=== PATIENT | male | born 1945 | race Caucasian/White ===

== ENCOUNTER 2016-05-15 12:53 | Inpatient (IN) | payer OTHER, MEDICARE ==
[2016-05-15] VITALS (12 sets, daily range): BP systolic 88–149; BP diastolic 50–89; PULSE 71–114; RESP 12–22; TEMP 97.8–99.1; O2SAT 93–97
[~2016-05-15] VITALS: Ht 172.7 cm; Wt 93.4 kg
[~2016-05-15 12:53] MED LIST: ALLO100T PO; ASPI1TAB7 PO; ATOR20TA42 PO; CLOP75TA PO; FENO200C PO; GLYB5TAB3 PO; HUMALOGP SC; LANTUSP SQ; LISI-366 PO; LORT5TAB PO; SULF1TAB47 PO; TAMS0.4C67 PO; VITA100018 PO
[2016-05-15] MEDS ORDERED: GLIP5TAB8 PO (13:11)
[2016-05-15] MEDS ORDERED: LISI40TA PO (13:11)
[2016-05-15] MEDS ORDERED: CORE25TA PO (13:11)
[2016-05-15] MEDS ORDERED: GABA300C5 PO (13:11)
[2016-05-15] MEDS ORDERED: LANTUS2P SQ (13:11)
[2016-05-15] MEDS ORDERED: ALLO100T PO (13:11)
[2016-05-15] MEDS ORDERED: METF500T PO (13:11)
[2016-05-15] MEDS ORDERED: SODIUM CHLORIDE 0.9% FLUSH 5 ML FLUSH IVF PRN (13:15)
[2016-05-15] MEDS ORDERED: SODIUM CHLORID 0.9% 500 ML INJ 500 ML IV ONE (13:15)
[2016-05-15 13:34] LABS: AUTOMATED NEUTROPHIL # 18.8 TH/MM3 (1.8-7.7); BASOPHIL # 0.1 TH/MM3 (0-0.2); BASOPHIL % 0.6 % (0.0-2.0); EOSINOPHIL # 0.1 TH/MM3 (0-0.4); EOSINOPHIL % 0.2 % (0.0-4.0); HEMATOCRIT 41.4 % (39.0-51.0); LYMPH % 6.2 % (9.0-44.0); LYMPHOCYTE # 1.3 TH/MM3 (1.0-4.8); MEAN CELL VOLUME 84.5 FL (80.0-100.0); MEAN CORPUSCULAR HEMOGLOBIN 28.1 PG (27.0-34.0); MEAN CORPUSCULAR HGB CONC 33.2 % (32.0-36.0); MONO % 5.6 % (0.0-8.0); NEUT % 87.4 % (16.0-70.0); PLATELET COUNT 350 TH/MM3 (150-450); RED CELL DISTRIBUTION WIDTH 16.3 % (11.6-17.2); WHITE BLOOD COUNT 21.5 TH/MM3 (4.0-11.0)
[2016-05-15 13:37] LABS: BLOOD, URINE TRACE (NEG); GLUCOSE,URINE NEG (NEG); GRANULAR CAST, URINE 1 /lpf; HYALINE CAST, URINE 1 /lpf (RARE); KETONE, URINE NEG (NEG); MUCUS URINE FEW /lpf (OCC); NITRITE,URINE NEG (NEG); PH, URINE 5.5 (5.0-8.5); URINE COLOR YELLOW (YELLW/STRAW)
[2016-05-15 13:38] LABS: COMMENT (UR) CULTURE INDICATED; CULTURE IF INDICATED CULTURE INDICATED
[2016-05-15 13:39] LABS: APTT (PATIENT) 26.4 SEC (24.3-30.1); PROTHROMBIN TIME - PATIENT 11.4 SEC (9.8-11.6)
[2016-05-15 13:42] LABS: HEMO FLAGS AUTO DIFF
[2016-05-15 13:52] LABS: ALT (GPT) 18 U/L (12-78); ANION GAP 12 MEQ/L (5-15); AST (GOT) 11 U/L (15-37); BLOOD UREA NITROGEN 31 MG/DL (7-18); CHLORIDE 102 MEQ/L (98-107); GLOMERULAR FILTRATION RATE 31 ML/MIN (>89); POTASSIUM 4.7 MEQ/L (3.5-5.1); SODIUM (NA) 136 MEQ/L (136-145)
[2016-05-15 13:56] LABS: ALKALINE PHOSPHATASE 56 U/L (45-117); CREATINE KINASE 106 U/L (39-308); TOTAL BILIRUBIN ADULT 0.5 MG/DL (0.2-1.0)
--- NOTE | 2016-05-15 13:57 | RADRPT ---
EXAM DATE/TIME: 05/15/2016 13:13 [facility] COMPARISON: No previous studies available for comparison. INDICATIONS : Chest pain. MEDICAL HISTORY : None. SURGICAL HISTORY : None. ENCOUNTER: Initial ACUITY: 2 days PAIN SCORE: 10/10 LOCATION: [place] chest FINDINGS: There is compensated cardiomegaly. The lungs are underaerated with minimal bibasilar parenchymal aiden nges evident. There is no pleural effusion or pneumothorax. Portions of the bony skeleton visualize d are unremarkable. CONCLUSION: 1. Underaerated. 2. Compensated cardiomegaly. Ramsey Hi MD FACR on May 15, 2016 at 13:53 Board Certified Radiologist. This report was verified electronically.
--- NOTE | 2016-05-15 14:20 | PD ---
HPI Chief Complaint: Chest Pain Time Seen by Provider: 13:04 Travel History International Travel<30 days: No Contact w/Intl Traveler<30days: No Traveled to known affect area: No History of Present Illness HPI Patient is a 70-year-old male with history of coronary artery disease, cardiac stents, hypertension, DM, hyperlipidemia who presents to emergency room with complaints of chest pain. Patient reports that the chest pain woke him up from sleep around 10 - 11 PM last night. Patient reports that chest pain is located is substernal, reports that it does not radiate anywhere. Patient describes the pain as initially "sharp and stabbing" but now reports that the pain feels like a "pressure" to my chest. Patient reports that his chest pain has been constant all night, reports the symptoms are not been getting any better. Patient reports that 4-5 hours prior to presents to emergency room, he began to have abdominal pain. Patient reports that pain is located to his mid abdomen and is nonradiating in nature. Patient reports that he feels nauseous and has been dry heaving, denies vomiting. PFSH Past Medical History Cardiac Catheterization: Yes High Cholesterol: Yes Coronary Artery Disease: Yes Diabetes: Yes Patient Takes Glucophage: Yes Diminished Hearing: No Hypertension: Yes Kidney Stones: Yes Influenza Vaccination: Yes ?: Not Past Surgical History Coronary Stent: Yes Social History Alcohol Use: No (denies) Tobacco Use: No (denies) Substance Use: No (denies) Allergies-Medications (Allergen,Severity, Reaction): Coded Allergies: No Known Allergies (Unverified , 03/31/13) Reported Meds & Prescriptions Reported Meds & Active Scripts Active Reported Lantus Inj (Insulin Glargine) 100 Unit/Ml Inj 100 Units SQ HS Allopurinol 100 Mg Tab 100 Mg PO DAILY Metformin (Metformin HCl) 500 Mg Tab 500 Mg PO DAILY With a meal Coreg (Carvedilol) 25 Mg Tab 25 Mg PO BID Glipizide 5 Mg Tab 5 Mg PO DAILY Take 30 minutes before a meal Gabapentin 300 Mg Cap 300 Mg PO HS Lisinopril 40 Mg Tab 40 Mg PO DAILY Review of Systems General / Constitutional: No: Fever Eyes: No: Visual changes HENT: No: Headaches Cardiovascular: Positive: Chest Pain or Discomfort, Diaphoresis Respiratory: No: Shortness of Breath Gastrointestinal: Positive: Nausea, Abdominal Pain, No: Vomiting, Diarrhea Genitourinary: No: Dysuria Musculoskeletal: No: Pain Skin: No Rash Neurologic: No: Weakness Psychiatric: No: Depression Endocrine: No: Polydipsia Hematologic/Lymphatic: No: Easy Bruising Physical Exam Narrative GENERAL: Moderate distress SKIN: Warm and dry. HEAD: Atraumatic. Normocephalic. EYES: Pupils equal and round. No scleral icterus. No injection or drainage. ENT: No nasal bleeding or discharge. Mucous membranes pink and moist. NECK: Trachea midline. No JVD. CARDIOVASCULAR: Tachycardia , No murmur appreciated. RESPIRATORY: No accessory muscle use. Clear to auscultation. Breath sounds equal bilaterally. GASTROINTESTINAL: Abdomen soft, abdomen is diffusely tender MUSCULOSKELETAL: No obvious deformities. No clubbing. No cyanosis. No edema. NEUROLOGICAL: Awake and alert. No obvious cranial nerve deficits. Motor grossly within normal limits. Normal speech. PSYCHIATRIC: Appropriate mood and affect; insight and judgment normal. Data Data Last Documented VS Vital Signs Date Time Temp Pulse Resp B/P Pulse Ox O2 Delivery O2 Flow Rate FiO2 05/15/16 14:58 95 18 149/69 97 Room Air 05/15/16 13:18 2 05/15/16 13:01 97.8 Orders B-Type Natriuretic Peptide (05/15/16 13:09) Ckmb (Isoenzyme) Profile (05/15/16 13:09) Complete Blood Count With Diff (05/15/16 13:09) Comprehensive Metabolic Panel (05/15/16 13:09) Prothrombin Time / Inr (Pt) (05/15/16 13:09) Act Partial Throm Time (Ptt) (05/15/16 13:09) Troponin I (05/15/16 13:09) Lipase (05/15/16 13:09) Chest, Single Ap (05/15/16 13:09) Ecg Monitoring (05/15/16 13:09) Bilateral Bp Monitoring (05/15/16 13:09) Iv Access Insert/Monitor (05/15/16 13:09) Oximetry (05/15/16 13:09) Sodium Chloride 0.9% Flush (Ns Flush) (05/15/16 13:15) Sodium Chlorid 0.9% 500 Ml Inj (Ns 500 M (05/15/16 13:15) Urinalysis - C+S If Indicated (05/15/16 13:09) Urine Culture (05/15/16 13:20) CKMB (05/15/16 13:20) CKMB% (05/15/16 13:20) Lactic Acid Sepsis Protocol (05/15/16 14:05) Influenzae A/B Antigen (05/15/16 14:05) Blood Culture (05/15/16 14:05) Electrocardiogram (05/15/16 ) Ct Thorax/ Chest Wo Iv Contras (05/15/16 ) Ct Abd/Pel W/O Iv Contrast (05/15/16 ) Nitroglycerin Sl (Nitrostat Sl) (05/15/16 14:45) Piperacil-Tazo 3.375 Gm Premix (Zosyn 3. (05/15/16 15:45) Vancomycin Inj (Vancomycin Inj) (05/15/16 15:45) Heparin Infusion LETI.Q1H (05/15/16 15:42) Heparin-D5w Inj (Heparin-D5w Inj) (05/15/16 15:45) Morphine Inj (Morphine Inj) (05/15/16 16:00) Nitroglycerin-Dextrose Inj (Nitroglyceri (05/15/16 16:00) Aspirin (Aspirin) (05/15/16 16:30) Admit Order (Ed Use Only) (05/15/16 16:25) Labs Laboratory Tests Test 05/15/16 05/15/16 13:20 14:15 White Blood Count 21.5 TH/MM3 Red Blood Count 4.90 MIL/MM3 Hemoglobin 13.8 GM/DL Hematocrit 41.4 % Mean Corpuscular Volume 84.5 FL Mean Corpuscular Hemoglobin 28.1 PG Mean Corpuscular Hemoglobin 33.2 % Concent Red Cell Distribution Width 16.3 % Platelet Count 350 TH/MM3 Mean Platelet Volume 9.3 FL Neutrophils (%) (Auto) 87.4 % Lymphocytes (%) (Auto) 6.2 % Monocytes (%) (Auto) 5.6 % Eosinophils (%) (Auto) 0.2 % Basophils (%) (Auto) 0.6 % Neutrophils # (Auto) 18.8 TH/MM3 Lymphocytes # (Auto) 1.3 TH/MM3 Monocytes # (Auto) 1.2 TH/MM3 Eosinophils # (Auto) 0.1 TH/MM3 Basophils # (Auto) 0.1 TH/MM3 CBC Comment AUTO DIFF Differential Total Cells 100 Counted Neutrophils % (Manual) 81 % Band Neutrophils % 5 % Lymphocytes % 5 % Monocytes % 8 % Basophils % 1 % Neutrophils # (Manual) 18.5 TH/MM3 Differential Comment FINAL DIFF MANUAL Platelet Estimate NORMAL Platelet Morphology Comment NORMAL Prothrombin Time 11.4 SEC Prothromb Time International 1.0 RATIO Ratio Activated Partial 26.4 SEC Thromboplast Time Urine Color YELLOW Urine Turbidity CLEAR Urine pH 5.5 Urine Specific [place] 1.019 Urine Protein 300 mg/dL Urine Glucose (UA) NEG mg/dL Urine Ketones NEG mg/dL Urine Occult Blood TRACE Urine Nitrite NEG Urine Bilirubin NEG Urine Urobilinogen LESS THAN 2.0 MG/DL Urine Leukocyte Esterase SMALL Urine RBC 1 /hpf Urine WBC 24 /hpf Urine Hyaline Casts 1 /lpf Urine Granular Casts 1 /lpf Urine Mucus FEW /lpf Microscopic Urinalysis Comment CULTURE INDICATED Sodium Level 136 MEQ/L Potassium Level 4.7 MEQ/L Chloride Level 102 MEQ/L Carbon Dioxide Level 22.0 MEQ/L Anion Gap 12 MEQ/L Blood Urea Nitrogen 31 MG/DL Creatinine 2.16 MG/DL Estimat Glomerular Filtration 31 ML/MIN Rate Random Glucose 118 MG/DL Calcium Level 9.3 MG/DL Total Bilirubin 0.5 MG/DL Aspartate Amino Transf 11 U/L (AST/SGOT) Alanine Aminotransferase 18 U/L (ALT/SGPT) Alkaline Phosphatase 56 U/L Total Creatine Kinase 106 U/L Creatine Kinase MB 1.6 NG/ML Troponin I 0.23 NG/ML B-Type Natriuretic Peptide 41 PG/ML Total Protein 8.4 GM/DL Albumin 3.7 GM/DL Lipase 121 U/L Lactic Acid Level 1.4 mmol/L [facility] Medical Decision Making Medical Screen Exam Complete: Yes Emergency Medical Condition: Yes Interpretation(s) EKG at 1259: sinus tach at 116bpm, qt/qtc: 307/376, no previous ekg to compare Vital Signs Date Time Temp Pulse Resp B/P Pulse Ox O2 Delivery O2 Flow Rate FiO2 05/15/16 13:18 110 143/83 145/89 05/15/16 13:18 18 97 Nasal Cannula 2 05/15/16 13:05 117 18 97 Room Air 05/15/16 13:01 97.8 114 18 143/83 97 Differential Diagnosis ACS, arrhythmia, electrolyte abnormality, PE, aortic dissection, gastroenteritis , gastritis Vital Signs Date Time Temp Pulse Resp B/P Pulse Ox O2 Delivery O2 Flow Rate FiO2 05/15/16 13:18 110 143/83 145/89 05/15/16 13:18 18 97 Nasal Cannula 2 05/15/16 13:05 117 18 97 Room Air 05/15/16 13:01 97.8 114 18 143/83 97 Narrative Course Patient is a 70-year-old male who presents to emergency room with multiple complaints. 1: Patient with chest pain which woke him up from sleep last night around 10:50 PM last night. Patient reports that pain is substernal, reports that initially pain felt like a sharp stabbing sensation, reports that now pain felt a pressure was chest. Initial EKG with no acute st seg changes, labs, ce and xray of chest ordered ordered. CTA ordered to rule out aortic dissection. 2. Patient also abdominal pain, lft's ordered. Plan to perform sterile abdominal exams. CAT scan of the chest and abdomen pelvis ordered for evaluation of possible dissection - this will also evaluate for possible abdominal pathology. Patient's creatinine 2.16 - unable to determine CTA at this time secondary to elevated cr. CAT scan of chest abdomen pelvis ordered without IV contrast ordered. CT of the chest with no evidence of pneumothorax, patient does have marked coronary artery calcifications. There is mild dilation of the ascending aorta when compared to the descending aorta - unable to evaluate for aortic dissection without IV contrast. CT of the abdomen and pelvis again shows some marked coronary artery calcifications. Overall, I do think that patient has low probability for aortic dissection. Patient is responding to sublingual nitros, he has improved chest pain after 2 sl nitro's. Plan to admit to him to hospital. Patient also with SIRS criteria, blood cultures and lactate ordered, will treat with empiric antibiotics. Source of leukocytosis unknown at this time. Critical Care Narrative Aggregate critical care time was 30 minutes. Time to perform other separately billable procedures was not included in the critical care time. My time did not include minutes spent treating any other patients simultaneously or on activities that did not directly contribute to the patient's treatment. The services I provided to this patient were to treat and/or prevent clinically significant deterioration that could result in: , decompensation, deterioration I provided critical care services requiring my management, as noted below: Chart data review, documentation time, medication orders and management, vital sign assessments/reviewing monitor data, ordering and reviewing lab tests, ordering and interpreting/reviewing x-rays and diagnostic studies, care of the patient and discussion of the patient with the admitting physicians. Physician Communication Physician Communication Case reviewed with Dr Koch who accepts pt to service Diagnosis Primary Impression: Unstable angina Additional Impressions: NSTEMI (non-ST elevated myocardial infarction) SIRS (systemic inflammatory response syndrome) Renal insufficiency Admitting Information Admitting Physician Requests: Admit Shirley Bradford DO May 15, 2016 14:20
[2016-05-15 14:32] LABS: CKMB 1.6 NG/ML (0.5-3.6)
[2016-05-15] MEDS: NITROGLYCERIN 0.4 MG SL 25 TABS/BTL SL SCH ×3 (14:50→14:57)
[2016-05-15 14:54] LABS: BANDS 5 % (0-6); BASOPHILS 1 % (0-2); NEUTROPHIL # MANUAL DIFF 18.5 TH/MM3 (1.8-7.7); PLATELET ESTIMATE SMEAR NORMAL (NORMAL); PLATELET MORPHOLOGY NORMAL (NORMAL); POLYS (SEG NEUTROPHILS) 81 % (16-70); SCAN/DIFF FINAL DIFF MANUAL; WBC DIFF SAMPLE 100
--- NOTE | 2016-05-15 15:18 | RADRPT ---
EXAM DATE/TIME: 05/15/2016 14:43 [facility] COMPARISON: CT ABDOMEN & PELVIS W/O CONTRAST, March 31, 2013, 10:56. INDICATIONS : Chest pain starting while patient was sleeping, back pain. ORAL CONTRAST: No oral contrast ingested. RADIATION DOSE: 5.3 CTDIvol (mGy) ; Combined studies - Thorax/Abdomen/Pelvis MEDICAL HISTORY : Cardiovascular disease. Hypertension. Diabetes SURGICAL HISTORY : Coronary artery stent. ENCOUNTER: Initial ACUITY: 1 day PAIN SCALE: 6/10 LOCATION: Back abdomen TECHNIQUE: Volumetric scanning of the abdomen and pelvis was performed. Using automated exposure control and adjustment of the mA and/or kV according to patient size, radiation dose was kept as low as reasonably achievable to obtain optimal diagnostic quality images. FINDINGS: Minimal parenchymal changes are seen in the left base. There are marked coronary arter y calcifications in the LAD, circumflex and right coronary. Multiple gallstones are evident in a benign-appearing gallbladder. The liver is free of focal defect s. Spleen, pancreas and adrenals are unremarkable. Kidneys are somewhat small. There is no ascites or adenopathy. Region of the cecum and terminal ileum are unremarkable. Prostatic calcifications are noted. Pelvic contents are otherwise unremarkable. CONCLUSION: 1. Marked coronary artery calcifications. 2. I do not see an etiology for the patient's back pain. Ramsey Hi MD FACR on May 15, 2016 at 15:11 Board Certified Radiologist. This report was verified electronically.
--- NOTE | 2016-05-15 15:33 | RADRPT ---
EXAM DATE/TIME: 05/15/2016 14:37 [facility] COMPARISON: CT ABDOMEN & PELVIS W/O CONTRAST, May 15, 2016, 14:43. INDICATIONS: Chest pain starting while patient was sleeping. RADIATION DOSE: 5.3 CTDIvol (mGy) ; Combined studies - Thorax/Abdomen/Pelvis MEDICAL HISTORY: Cardiovascular disease. Hypertension. Diabetes SURGICAL HISTORY: Coronary artery stent. ENCOUNTER: Initial ACUITY: 1 day PAIN SCALE: 6/10 LOCATION: Chest, back TECHNIQUE: Volumetric scanning of the chest was performed. Using automated exposure control and adjustment of t he mA and/or kV according to patient size, radiation dose was kept as low as reasonably achievable to obtain optimal diagnostic quality images. FINDINGS: There are minimal bibasilar parenchymal changes evident worse on the left than the right. Marked cor onary artery calcifications are present. There is no axillary adenopathy. There is no mediastinal adenopa thy. There is mild dilatation of the ascending aorta when compared to the descending aorta. There is no pericardia l effusion. CONCLUSION: 1. Lack of intravenous contrast makes it impossible to exclude a dissection. 2. There is no evidence for pneumothorax. 3. Marked coronary artery calcifications. Ramsey Hi MD FACR on May 15, 2016 at 15:26 Board Certified Radiologist. This report was verified electronically.
[2016-05-15] MEDS ORDERED: VANCOMYCIN INJ 1,250 MG in SODIUM CHLOR 0.9% 250 ML INJ 250 ML IV ONE (15:45)
[2016-05-15] MEDS ORDERED: PIPERACIL-TAZO 3.375 GM PREMIX 50 ML IV ONE (15:45)
[2016-05-15] MEDS ORDERED: NITROGLYCERIN-DEXTROSE INJ 250 ML IV SCH (16:00)
[2016-05-15] MEDS ORDERED: MORPHINE SULFATE 4 MG/ML INJ IV PUSH ONE (16:00)
[2016-05-15] MEDS: HEPARIN-D5W INJ 250 ML IV SCH (16:24)
[2016-05-15] MEDS ORDERED: ASPIRIN 325 MG TAB PO ONE (16:30)
[2016-05-15] MEDS ORDERED: SODIUM CHLOR 0.9% 1000 ML INJ 1,000 ML IV ONE (16:30)
[2016-05-15] MEDS ORDERED: ONDANSETRON HCL 4 MG/2 ML VIAL IV PUSH PRN (16:45)
[2016-05-15] MEDS ORDERED: GLUCAGON 1 MG/ML VIAL OTHER PRN (16:45)
--- NOTE | 2016-05-15 16:55 | HHI.HP ---
[facility] Service [place] [facility] Primary Care Physician Patrick Roman MD Admission Diagnosis NSTEMI Diagnoses: (1) NSTEMI (non-ST elevated myocardial infarction) Diagnosis: Principal (2) SIRS (systemic inflammatory response syndrome) Diagnosis: Principal Chief Complaint: chest pain Travel History International Travel<30 Days: No Contact w/Intl Traveler <30 Da: No Traveled to Known Affected Are: No Sepsis Criteria SIRS Criteria (2 or more): Heart rate over 90, WBC > 19858, < 4000 or > 10% bands Criteria Outcome: Meets SIRS criteria History of Present Illness patient is a 70 y/o male with history of CAD- s/p stent placement, hypertension , diabetes who presented to ER with chest pain. he says that he started to have chest pain last night when he was sleeping. pain was epigastric/ midsternal with no radiation. pain was associated with mild sob and nausea. he says that he had some relief with the nitro that he received earlier.he denies any emesis , diarrhea, fever, chills, cough or urinary symptoms.the last stress test as he remembers was two years ago. Review of Systems Constitutional: DENIES: Fever, Weight loss, Chills, Night Sweats Eyes: DENIES: Blurred vision, Diplopia, Vision loss, Double Vision Ears, nose, mouth, throat: DENIES: Tinnitus, Vertigo, Throat pain, Epistaxis Respiratory: COMPLAINS OF: Shortness of breath, DENIES: Apneas, Cough, Snoring , Wheezing, Hemoptysis, Sputum production Cardiovascular: COMPLAINS OF: Chest pain, DENIES: Palpitations, Syncope, Dyspnea on Exertion, PND, Lower Extremity Edema, Orthopnea, Claudication Gastrointestinal: COMPLAINS OF: Nausea, DENIES: Abdominal pain, Black stools, Bloody stools, Constipation, Diarrhea, Vomiting, Difficulty Swallowing, Anorexia Genitourinary: DENIES: Urinary frequency, Urgency, Hematuria, Dysuria Musculoskeletal: DENIES: Joint pain, Muscle aches, Stiffness, Joint Swelling Integumentary: DENIES: Rash Neurologic: DENIES: Abnormal gait, Headache, Localized weakness, Paresthesias, Seizures, Speech Problems, Tremor, Poor Balance Psychiatric: DENIES: Anxiety, Confusion, Mood changes, Depression, Hallucinations, Agitation, Suicidal Ideation, Homicidal Ideation, Delusions Past Family Social History Past Medical History CAD diabetes mellitus chronic renal insufficiency hypertension Past Surgical History cardiac stent placement. Reported Medications Lantus Inj (Insulin Glargine) 100 Unit/Ml Inj 100 Units SQ HS Allopurinol 100 Mg Tab 100 Mg PO DAILY Metformin (Metformin HCl) 500 Mg Tab 500 Mg PO DAILY With a meal Coreg (Carvedilol) 25 Mg Tab 25 Mg PO BID Glipizide 5 Mg Tab 5 Mg PO DAILY Take 30 minutes before a meal Gabapentin 300 Mg Cap 300 Mg PO HS Lisinopril 40 Mg Tab 40 Mg PO DAILY Allergies: Coded Allergies: No Known Allergies (Unverified , 03/31/13) Active Ordered Medications Current Medications IV Flush 2 ml 2 ml UNSCH PRN IVF FLUSH AFTER USING IV ACCESS; Start 05/15/16 at 13:15 Sodium Chloride (NS 500 ml Inj) 500 ml @ 500 mls/hr ONCE ONCE IV Last administered on 05/15/16 13:15; Start 05/15/16 at 13:15; Stop 05/15/16 at 14:14; Status DC Nitroglycerin 0.4 mg 0.4 mg Q5M SL Last administered on 05/15/16 14:55; Start 05/15/16 at 14:45; Stop 05/15/16 at 14:56; Status DC Piperacillin Sod/ Tazobactam Sod 50 ml @ 100 mls/hr ONCE ONCE IV Last administered on 05/15/16 16:21; Start 05/15/16 at 15:45; Stop 05/15/16 at 16:14; Status DC Vancomycin HCl 1250 mg/Sodium Chloride 262.5 ml @ 250 mls/hr ONCE ONCE IV ; Start 05/15/16 at 15:45; Stop 05/15/16 at 16:47 Heparin Sodium/ Dextrose (Heparin-D5W Inj) 250 ml @ 0 mls/hr TITRATE IV Last administered on 05/15/16 16:24; Start 05/15/16 at 15:45 Morphine Sulfate 4 mg 4 mg ONCE ONCE IV PUSH Last administered on 05/15/16 16: 20; Start 05/15/16 at 16:00; Stop 05/15/16 at 16:01; Status DC Nitroglycerin/ Dextrose (Nitroglycerin-Dextrose Inj) 250 ml @ 0 mls/hr TITRATE IV Last administered on 05/15/16t 16:21; Start 05/15/16 at 16:00 Aspirin 325 mg 325 mg ONCE ONCE PO ; Start 05/15/16 at 16:30; Stop 05/15/16 at 16 :31; Status DC Sodium Chloride (NS 1000 ml Inj) 1,000 ml @ 999 mls/hr BOLUS ONCE IV ; Start 05/15/16 at 16:30; Stop 05/15/16 at 17:30 Family History heart disease in father and mother. Social History doesn't smoke or drink. Physical Exam Vital Signs Vital Signs Date Time Temp Pulse Resp B/P Pulse Ox O2 Delivery O2 Flow Rate FiO2 05/15/16 14:58 95 18 149/69 97 Room Air 05/15/16 13:18 110 143/83 145/89 05/15/16 13:18 18 97 Nasal Cannula 2 05/15/16 13:05 117 18 97 Room Air 05/15/16 13:01 97.8 114 18 143/83 97 Physical Exam GENERAL: This is a well-nourished, well-developed patient, in no apparent distress. SKIN: No rashes, ecchymoses or lesions. Cool and dry. HEAD: Atraumatic. Normocephalic. No temporal or scalp tenderness. EYES: Pupils equal round and reactive. Extraocular motions intact. No scleral icterus. No injection or drainage. ENT: Nose without bleeding, purulent drainage or septal hematoma. Throat without erythema, tonsillar hypertrophy or exudate. Uvula midline. Airway patent. NECK: Trachea midline. No JVD or lymphadenopathy. Supple, nontender, no meningeal signs. CARDIOVASCULAR: Regular rate and rhythm without murmurs, gallops, or rubs. RESPIRATORY: Clear to auscultation. Breath sounds equal bilaterally. No wheezes , rales, or rhonchi. GASTROINTESTINAL: Abdomen soft, non-tender, nondistended. No hepato-splenomegaly , or palpable masses. No guarding. MUSCULOSKELETAL: Extremities without clubbing, cyanosis, or edema. No joint tenderness, effusion, or edema noted. No calf tenderness. Negative Homans sign bilaterally. NEUROLOGICAL: Awake and alert. Cranial nerves II through XII intact. Motor and sensory grossly within normal limits. Five out of 5 muscle strength in all muscle groups. Normal speech. Laboratory Laboratory Tests Test 05/15/16 05/15/16 13:20 14:15 White Blood Count 21.5 Red Blood Count 4.90 Hemoglobin 13.8 Hematocrit 41.4 Mean Corpuscular Volume 84.5 Mean Corpuscular Hemoglobin 28.1 Mean Corpuscular Hemoglobin 33.2 Concent Red Cell Distribution Width 16.3 Platelet Count 350 Mean Platelet Volume 9.3 Neutrophils (%) (Auto) 87.4 Lymphocytes (%) (Auto) 6.2 Monocytes (%) (Auto) 5.6 Eosinophils (%) (Auto) 0.2 Basophils (%) (Auto) 0.6 Neutrophils # (Auto) 18.8 Lymphocytes # (Auto) 1.3 Monocytes # (Auto) 1.2 Eosinophils # (Auto) 0.1 Basophils # (Auto) 0.1 CBC Comment AUTO DIFF Differential Total Cells 100 Counted Neutrophils % (Manual) 81 Band Neutrophils % 5 Lymphocytes % 5 Monocytes % 8 Basophils % 1 Neutrophils # (Manual) 18.5 Differential Comment FINAL DIFF MANUAL Platelet Estimate NORMAL Platelet Morphology Comment NORMAL Prothrombin Time 11.4 Prothromb Time International 1.0 Ratio Activated Partial 26.4 Thromboplast Time Urine Color YELLOW Urine Turbidity CLEAR Urine pH 5.5 Urine Specific [place] 1.019 Urine Protein 300 Urine Glucose (UA) NEG Urine Ketones NEG Urine Occult Blood TRACE Urine Nitrite NEG Urine Bilirubin NEG Urine Urobilinogen LESS THAN 2.0 Urine Leukocyte Esterase SMALL Urine RBC 1 Urine WBC 24 Urine Hyaline Casts 1 Urine Granular Casts 1 Urine Mucus FEW Microscopic Urinalysis Comment CULTURE INDICATED Sodium Level 136 Potassium Level 4.7 Chloride Level 102 Carbon Dioxide Level 22.0 Anion Gap 12 Blood Urea Nitrogen 31 Creatinine 2.16 Estimat Glomerular Filtration 31 Rate Random Glucose 118 Calcium Level 9.3 Total Bilirubin 0.5 Aspartate Amino Transf 11 (AST/SGOT) Alanine Aminotransferase 18 (ALT/SGPT) Alkaline Phosphatase 56 Total Creatine Kinase 106 Creatine Kinase MB 1.6 Troponin I 0.23 B-Type Natriuretic Peptide 41 Total Protein 8.4 Albumin 3.7 Lipase 121 Lactic Acid Level 1.4 Date/Time Procedure Status Source Growth 05/15/16 14:15 Aerobic Blood Culture Received Blood Peripheral Pending 05/15/16 14:15 Anaerobic Blood Culture Received Blood Peripheral Pending 05/15/16 13:20 Urine Culture Worksheet Urine Clean Catch Pending Result Diagram: 05/15/16 1320 05/15/16 1320 Imaging EKG; sinus tachycardia with no acute ST-T changes. Assessment and Plan Assessment and Plan A/P - NSTEMI with histiry of CAD and stent placement started on heparin and nitro drip and received a dose of aspirin- will trend the cardiac enzymes will consult cardiology. -SIRS- no obvious source of infection at this time- received IV Abx in ER- will repeat the CBC in am- monitor temps and follow the cultures -hypertension; resume BB- hold lisinopril for now -diabetes mellitus; resume long-acting insulin- hold metformin- accu-check with SSI -chronic renal insufficiency; will monitor -DVT prophylaxis ; on heparin drip Discussed Condition With ER physician and the patient. Physician Certification 2 Midnight Certification Type: Admission for Inpatient Services Order for Inpatient Services The services are ordered in accordance with Medicare regulations or non- Medicare payer requirements, as applicable. In the case of services not specified as inpatient-only, they are appropriately provided as inpatient services in accordance with the 2-midnight benchmark. Estimated LOS (days): 2 days is the estimated time the patient will need to remain in the hospital, assuming treatment plan goals are met and no additional complications. Post-Hospital Plan: Home Tracy Parry MD May 15, 2016 16:55
[2016-05-15] MEDS: SODIUM CHLOR 0.9% 1000 ML INJ 1,000 ML IV SCH (17:00)
--- NOTE | 2016-05-15 17:52 | EKG ---
Date Performed: 05/15/2016 Time Performed: 14:22:33 PTAGE: 70 years EKG: SINUS TACHYCARDIA WITH OCCASIONAL VENTRICULAR PREMATURE COMPLEXES PATTERN CONSISTENT WITH P ULMONARY DISEASE INFERIOR MYOCARDIAL INFARCTION ABNORMAL ECG COMPARED TO PRIOR ELECTROCARDIOGRAM, PVC s are present. PREVIOUS TRACING : 05/15/2016 12.59 DOCTOR: Anjel Garcia Interpretating Date/Time 05/15/2016 17:51:07
--- NOTE | 2016-05-15 17:52 | EKG ---
Date Performed: 05/15/2016 Time Performed: 12:59:12 PTAGE: 70 years EKG: SINUS TACHYCARDIA PATTERN CONSISTENT WITH PULMONARY DISEASE INFERIOR MYOCARDIAL INFARCTION ABNORMAL ECG NO PREVIOUS TRACING DOCTOR: Anjel Garcia Interpretating Date/Time 05/22/2016 06:57:48
[2016-05-15] MEDS: GABAPENTIN 300 MG CAP PO SCH (20:25)
[2016-05-15] MEDS: CARVEDILOL 12.5 MG TAB PO SCH (20:26)
[2016-05-15] MEDS: INSULIN DETEMIR 100 UNITS/ML VIAL SQ SCH (20:29)
[2016-05-15] MEDS: ACETAMINOPHEN 325 MG TAB PO PRN (20:37)
[2016-05-15] MEDS: INSULIN ASPART SUPPLEMENTAL SCALE SQ SCH (21:00)
[2016-05-16] VITALS (28 sets, daily range): BP systolic 92–118; BP diastolic 57–65; PULSE 71–111; RESP 17–24; TEMP 98–99.1; O2SAT 92–100
[2016-05-16 02:47] LABS: AUTOMATED NEUTROPHIL # 13.9 TH/MM3 (1.8-7.7); BASOPHIL # 0.2 TH/MM3 (0-0.2); BASOPHIL % 0.9 % (0.0-2.0); EOSINOPHIL # 0.1 TH/MM3 (0-0.4); EOSINOPHIL % 0.4 % (0.0-4.0); HEMATOCRIT 38.5 % (39.0-51.0); HEMO FLAGS DIFF FINAL; LYMPH % 7.9 % (9.0-44.0); LYMPHOCYTE # 1.3 TH/MM3 (1.0-4.8); MEAN CELL VOLUME 84.7 FL (80.0-100.0); MEAN CORPUSCULAR HEMOGLOBIN 27.5 PG (27.0-34.0); MEAN CORPUSCULAR HGB CONC 32.4 % (32.0-36.0); MONO % 6.5 % (0.0-8.0); NEUT % 84.3 % (16.0-70.0); PLATELET COUNT 267 TH/MM3 (150-450); RED BLOOD COUNT 4.54 MIL/MM3 (4.50-5.90); RED CELL DISTRIBUTION WIDTH 16.2 % (11.6-17.2); WHITE BLOOD COUNT 16.5 TH/MM3 (4.0-11.0)
[2016-05-16 03:03] LABS: BICARBONATE 23.1 MEQ/L (21.0-32.0); POTASSIUM 5.4 MEQ/L (3.5-5.1)
--- NOTE | 2016-05-16 05:02 | EKG ---
Date Performed: 05/15/2016 Time Performed: 17:22:32 PTAGE: 70 years EKG: SINUS TACHYCARDIA PATTERN CONSISTENT WITH PULMONARY DISEASE INFERIOR MYOCARDIAL INFARCTION ABNORMAL ECG COMPARED TO PRIOR ELECTROCARDIOGRAM, PVCs are no longer present. PREVIOUS TRACING : 05/15/2016 14.22 DOCTOR: Anjel Garcia Interpretating Date/Time 05/16/2016 05:01:35
[2016-05-16] MEDS: INSULIN ASPART SUPPLEMENTAL SCALE SQ SCH ×4 (06:07→23:39)
[2016-05-16] MEDS: SODIUM CHLOR 0.9% 1000 ML INJ 1,000 ML IV SCH ×2 (06:20→16:14)
[2016-05-16 06:26] LABS: APTT (PATIENT) 23.8 SEC (24.3-30.1)
--- NOTE | 2016-05-16 08:04 | EKG ---
Date Performed: 05/16/2016 Time Performed: 05:21:52 PTAGE: 70 years EKG: Marked baseline artifact Probable sinus tachycardia Left axis deviation Inferior infarct - age undetermined Possible anterior infarct - age undetermined Abnormal ECG The present electrocardiog bruna has marked artifact. Poor R wave progression is now present. PREVIOUS TRACING : 05/15/2016 17.22 DOCTOR: Anjel Garcia Interpretating Date/Time 05/16/2016 08:02:54
[2016-05-16] MEDS: CARVEDILOL 12.5 MG TAB PO SCH ×2 (08:32→20:58)
[2016-05-16] MEDS: ALLOPURINOL 100 MG TAB PO SCH (08:32)
--- NOTE | 2016-05-16 08:42 | HHI.PR ---
Subjective Remarks f/u; NSTEMI resting comfortably with no acute distress. chest pain has almost resolved. no fever. BP noted to be on low side. d/w the RN. Objective Vitals Vital Signs Date Time Temp Pulse Resp B/P Pulse Ox O2 Delivery O2 Flow Rate FiO2 05/16/16 07:40 95 Nasal Cannula 3.00 05/16/16 07:00 106 05/16/16 06:01 106 05/16/16 05:00 87 05/16/16 04:00 80 05/16/16 03:01 74 05/16/16 03:01 98.3 80 20 108/64 92 05/16/16 02:00 71 05/16/16 01:00 77 05/16/16 00:01 72 05/15/16 23:01 98.7 75 22 88/50 93 05/15/16 23:00 71 05/15/16 22:00 80 05/15/16 21:40 18 05/15/16 21:00 106 05/15/16 20:15 99.1 106 12 144/81 95 05/15/16 20:00 103 05/15/16 19:00 110 05/15/16 17:31 98.3 105 18 124/69 96 Room Air 05/15/16 16:40 108 18 145/88 96 Room Air 05/15/16 14:58 95 18 149/69 97 Room Air 05/15/16 13:18 110 143/83 145/89 05/15/16 13:18 18 97 Nasal Cannula 2 05/15/16 13:05 117 18 97 Room Air 05/15/16 13:01 97.8 114 18 143/83 97 I/O 05/15/16 05/15/16 05/15/16 05/16/16 05/16/16 05/16/16 07:00 15:00 23:00 07:00 15:00 23:00 Intake Total 625 ml Output Total 250 ml Balance 375 ml Intake Oral 480 ml IV Total 145 ml Output Urine Total 250 ml # Voids 2 # Bowel Movements 0 Result Diagram: 05/16/16 0234 05/16/16 0234 Imaging Last Impressions Chest X-Ray 05/15/16 1309 Signed Impressions: Service Date/Time: Sunday, May 15, 2016 13:13 - CONCLUSION: 1. Underaerated. 2. Compensated cardiomegaly. Ramsey Hi MD FACR Chest CT 05/15/16 0000 Signed Impressions: Service Date/Time: Sunday, May 15, 2016 14:37 - CONCLUSION: 1. Lack of intravenous contrast makes it impossible to exclude a dissection. 2. There is no evidence for pneumothorax. 3. Marked coronary artery calcifications. Ramsey Hi MD FACR Abdomen/Pelvis CT 05/15/16 0000 Signed Impressions: Service Date/Time: Sunday, May 15, 2016 14:43 - CONCLUSION: 1. Marked coronary artery calcifications. 2. I do not see an etiology for the patient's back pain. Ramsey Hi MD FACR Objective Remarks GENERAL: This is a well-nourished, well-developed patient, in no apparent distress. CARDIOVASCULAR: Regular rate and regular rhythm without murmurs, gallops, or rubs. RESPIRATORY: Clear to auscultation. Breath sounds equal bilaterally. No wheezes , rales, or rhonchi. GASTROINTESTINAL: Abdomen soft, non-tender, nondistended. Normal, active bowel sounds MUSCULOSKELETAL: Extremities without clubbing, cyanosis, or edema. NEURO: Alert & Oriented x4 to person, place, time, situation. Moves all ext x4 Procedures none Medications and IVs Current Medications IV Flush 2 ml 2 ml UNSCH PRN IVF FLUSH AFTER USING IV ACCESS; Start 05/15/16 at 13:15 Sodium Chloride (NS 500 ml Inj) 500 ml @ 500 mls/hr ONCE ONCE IV Last administered on 05/15/16 13:15; Start 05/15/16 at 13:15; Stop 05/15/16 at 14:14; Status DC Nitroglycerin 0.4 mg 0.4 mg Q5M SL Last administered on 05/15/16 14:55; Start 05/15/16 at 14:45; Stop 05/15/16 at 14:56; Status DC Piperacillin Sod/ Tazobactam Sod 50 ml @ 100 mls/hr ONCE ONCE IV Last administered on 05/15/16 16:21; Start 05/15/16 at 15:45; Stop 05/15/16 at 16:14; Status DC Vancomycin HCl 1250 mg/Sodium Chloride 262.5 ml @ 250 mls/hr ONCE ONCE IV Last administered on 05/15/16 17:27; Start 05/15/16 at 15:45; Stop 05/15/16 at 16: 47; Status DC Heparin Sodium/ Dextrose (Heparin-D5W Inj) 250 ml @ 0 mls/hr TITRATE IV Last administered on 05/15/16 16:24; Start 05/15/16 at 15:45 Morphine Sulfate 4 mg 4 mg ONCE ONCE IV PUSH Last administered on 05/15/16 16: 20; Start 05/15/16 at 16:00; Stop 05/15/16 at 16:01; Status DC Nitroglycerin/ Dextrose (Nitroglycerin-Dextrose Inj) 250 ml @ 0 mls/hr TITRATE IV Last administered on 05/15/16 16:21; Start 05/15/16 at 16:00 Aspirin 325 mg 325 mg ONCE ONCE PO ; Start 05/15/16 at 16:30; Stop 05/15/16 at 16 :31; Status DC Sodium Chloride 1,000 ml @ 999 mls/hr BOLUS ONCE IV Last administered on 16:30; Start 05/15/16 at 16:30; Stop 05/15/16 at 17:30; Status DC Sodium Chloride (NS 1000 ml Inj) 1,000 ml @ 75 mls/hr [id number] IV Last administered on 05/15/16 17:00; Start 05/15/16 at 17:00 Dextrose (D50w (Vial) Inj) 25 ml UNSCH PRN IV PUSH HYPOGLYCEMIA-SEE COMMENTS; Start 05/15/16 at 16:45 Glucagon (Glucagon Inj) 1 mg UNSCH PRN OTHER HYPOGLYCEMIA-SEE COMMENTS; Start 05/15/16 at 16:45 Insulin Aspart (NovoLOG SUPPLEMENTAL SCALE) 1 ACHS SLIDING SCALE SQ Last administered on 05/16/16 06:07; Start 05/15/16 at 21:00 Allopurinol (Zyloprim) 100 mg DAILY PO ; Start 05/16/16 at 09:00 Carvedilol (Coreg) 25 mg BID PO Last administered on 05/15/16 20:26; Start 05/15 at 21:00 Gabapentin (Neurontin) 300 mg HS PO Last administered on 05/15/16 20:25; Start 05/15/16 at 21:00 Insulin Detemir (Levemir Inj) 100 units HS SQ Last administered on 05/15/16 20: 29; Start 05/15/16 at 21:00 Ondansetron HCl (Zofran Inj) 4 mg Q8H PRN IV PUSH NAUSEA; Start 05/15/16 at 16: 45 Acetaminophen (Tylenol) 650 mg Q4H PRN PO FEVER Last administered on 05/15/16 20:37; Start 05/15/16 at 16:45 A/P Assessment and Plan A/P - NSTEMI with histiry of CAD and stent placement started on heparin and nitro drip - will continue aspirin- check lipid panel. cardiology consulted. -SIRS- no obvious source of infection at this time- remains afebrile- leukocytosis improving- continue to monitor temps - CBC in am. -hypertension- now BP on low side- will decrease coreg- hold lisinopril for now - will monitor and adjust the regimen as needed -diabetes mellitus; resumed long-acting insulin- hold metformin- accu-check with SSI -chronic renal insufficiency ( being followed up by his PCP); continue IV fluid will monitor will consider nephrology evaluation if creatinine continues to rise. -DVT prophylaxis ; on heparin drip Tracy Parry MD May 16, 2016 08:42
[2016-05-16 10:15] LABS: HDL CHOLESTEROL 56.5 MG/DL (40.0-60.0); POTASSIUM 5.4 MEQ/L (3.5-5.1)
[2016-05-16] MEDS: ASPIRIN EC 81 MG TABEC PO SCH (10:39)
--- NOTE | 2016-05-16 12:57 | MB ---
cc: BALTA REDDY DO DATE OF CONSULTATION 05/16/2016 REASON FOR CONSULTATION Elevation of troponins. HISTORY OF PRESENT ILLNESS Mateo Guzman is a pleasant 70-year-old male who presents to [facility] emergency room on May 15, 2016 with a complaint of chest pain. He states that he was sleeping and then started having some chills and then had epigastric lower substernal chest pain. It did not radiate anywhere. He was somewhat short of breath and nauseated, but did not vomit, but did have dry heaving. He got to the emergency room and then the pain started going away. He ended up receiving nitroglycerin, but he said the pain was gone before got the nitroglycerin. On seeing him, he states that right now he has no chest pain, shortness of breath, fevers or chills. He did have an episode last night where he got some chills and a similar type pain and at that time an EKG was done which showed sinus tachycardia with no significant ST-T wave changes. PAST MEDICAL HISTORY 1. Coronary artery disease 2. Diabetes mellitus 3. Chronic renal insufficiency 4. Hypertension PAST SURGICAL HISTORY Previous stent placed (seven to eight years ago) to an unknown coronary artery. ALLERGIES NO KNOWN DRUG ALLERGIES. MEDICATIONS 1. Lisinopril 40 mg daily 2. Gabapentin 300 mg every night 3. Allopurinol 100 mg daily 4. Coreg 25 mg b.i.d. 5. Metformin 500 mg daily 6. Lantus 100 units every night 7. Glipizide 5 mg daily FAMILY HISTORY Denies sudden cardiac within the family. SOCIAL HISTORY Denies tobacco, alcohol or drugs. PHYSICAL EXAMINATION VITAL SIGNS: Temperature 98.2, heart rate 92, blood pressure 92/57, respirations 20, pulse ox 92% on three liters. GENERAL: The patient appears well in no acute distress, alert, awake and oriented x3. Extraocular muscles intact. Mucous membranes moist. NECK: Supple. No JVD at 45 degrees. No carotid bruits heard bilaterally. Carotid upstroke is brisk in nature. HEART: Regular rate and rhythm. Positive first and second heart sounds with no murmurs, gallops or rubs. PMI is nondisplaced. LUNGS: Clear to auscultation bilaterally. No wheezes, rales or rhonchi. ABDOMEN: Soft, nontender, nondistended. No organomegaly noted. EXTREMITIES: Show no clubbing, cyanosis or edema. Femoral and distal pulses intact bilaterally. NEUROLOGIC: No focal deficits. SKIN: Warm, dry and intact. OSTEOPATHIC: No kyphoscoliosis, lordosis or paraspinal tender points. LABORATORY FINDINGS White blood cells 21.5 decreasing to 16.5, hemoglobin 12.5, hematocrit 38.5, platelets 267. Potassium 5.4, creatinine 2.16 increasing to 2.73, lactic acid 1.4, troponin 0.23 decreasing to 0.18. Electrocardiogram (May 16, 2016 at 0521) sinus tachycardia, baseline artifact, left axis deviation, old inferior infarct, possible old anterior infarct. IMPRESSIONS 1. Mildly elevated troponin, although not in a usual rise and fall pattern. 2. SIRS without of source for sepsis. 3. Diabetes mellitus 4. Acute kidney injury on chronic kidney disease. 5. Leukocytosis 6. Hyperkalemia 7. Coronary artery disease with a history of stenting (7-8 years ago) to an unknown coronary artery. RECOMMENDATIONS 1. Mateo's chest pain somewhat atypical for coronary insufficiency and he noted to have an elevation of his troponins that did not have a typical rise and fall. He appears to have acute kidney injury on chronic kidney disease, so it is hard to take him to the lab at this time. 2. I will leave him n.p.o. after midnight and reevaluate him in the morning and if creatinine is better, we will consider cardiac catheterization depending on the rest of his workup. If his creatinine is not better, we may discuss doing stress testing as he is high risk for further injury of his kidneys if he were to undergo cardiac catheterization. 3. We will check a 2-D echo to look at his overall left ventricular function, cardiac structure and possible valvulopathies. 4. As far as his SIRS criteria, at this time there is no source for possible sepsis. Thank you for allowing me to Mateo Guzman. If there are any questions, please do not hesitate to call. Balta Reddy DO VGP/DJL /11:36 AM /12:33 PM
[2016-05-16 13:09] LABS: APTT (PATIENT) 46.2 SEC (24.3-30.1)
[2016-05-16] MEDS ORDERED: SODIUM POLYSTYRENE SULFONATE SUSP 15 GM/60 ML CUP PR ONE (13:45)
--- NOTE | 2016-05-16 17:40 | EC ---
Study Study Date:05/16/2016 STUDY CONCLUSIONS SUMMARY - Left ventricle: The cavity size was normal. Wall thickness was normal. Systolic function was at the lower limits of normal. The estimated ejection fraction was in the range of 50% to 55%. Wall motion was normal; there were no regional wall motion abnormalities. Doppler parameters are consistent with abnormal left ventricular relaxation (grade 1 diastolic dysfunction). - Pulmonary arteries: PA peak pressure: 32mm Hg (S). If LV function is below 40, please consider prescribing an ACEI or ARB or document rationale for non-use. PROCEDURE DATA STUDY STATUS: Elective. Procedure: Transthoracic echocardiography. Image quality was good. Scanning was performed from the parasternal, apical, and subcostal acoustic windows. Study completion: The patient tolerated the procedure well. Transthoracic echocardiography. M-mode, complete 2D, complete spectral Doppler, and color Doppler. Patient status: Inpatient. CARDIAC ANATOMY LEFT VENTRICLE: The cavity size was normal. Wall thickness was normal. Systolic function was at the lower limits of normal. The estimated ejection fraction was in the range of 50% to 55%. Wall motion was normal; there were no regional wall motion abnormalities. Doppler parameters are consistent with abnormal left ventricular relaxation (grade 1 diastolic dysfunction). AORTIC VALVE: Trileaflet; normal thickness leaflets. Doppler: Transvalvular velocity was within the normal range. There was no stenosis. No regurgitation. AORTA: Aortic root: The aortic root was normal in size. MITRAL VALVE: Structurally normal valve. Doppler: Transvalvular velocity was within the normal range. There was no evidence for stenosis. No regurgitation. LEFT ATRIUM: The atrium was normal in size. RIGHT VENTRICLE: The cavity size was normal. Wall thickness was normal. PULMONIC VALVE: Doppler: Transvalvular velocity was within the normal range. There was no evidence for stenosis. No regurgitation. TRICUSPID VALVE: Structurally normal valve. Doppler: Transvalvular velocity was within the normal range. No regurgitation. PULMONARY ARTERY: The main pulmonary artery was normal-sized. Systolic pressure was within the normal range. RIGHT ATRIUM: The atrium was normal in size. PERICARDIUM: There was no pericardial effusion. SYSTEMIC VEINS: Inferior vena cava: The vessel was normal in size. BASIC MEASUREMENTS ADULT NORMAL Left ventricle LV internal dimension, ED, chordal level, 44.1 mm 43-52 PLAX LV internal dimension, ES, chordal level, 36.4 mm 23-38 PLAX Fractional shortening, chordal level, PLAX *17 % >29 LV posterior wall thickness, ED 7.54 mm IVS/LVPW ratio, ED 1.08 <1.3 Ventricular septum Septal thickness, ED 8.11 mm DOPPLER MEASUREMENTS ADULT NORMAL Main pulmonary artery Pressure, S *32 mm Hg =30 Mitral valve Peak E-wave velocity 51.3 cm/s Peak A-wave velocity 70.2 cm/s Peak E/A ratio 0.7 Tricuspid valve Regurgitant peak velocity 131 cm/s Peak RV-RA gradient, S 7 mm Hg Maximal regurgitant velocity 131 cm/s Systemic veins Estimated CVP 10 mm Hg Right ventricle RV pressure, S *32 mm Hg <30 LEGEND: Mean values are shown as u=mean value. Asterisk (*) barraza values outside specified normal range. Prepared and signed by Augustin Emanuel [id number]
[2016-05-16 19:54] LABS: APTT (PATIENT) 37.7 SEC (24.3-30.1)
[2016-05-16] MEDS: INSULIN DETEMIR 100 UNITS/ML VIAL SQ SCH (20:58)
[2016-05-16] MEDS: GABAPENTIN 300 MG CAP PO SCH (20:58)
[2016-05-16] MEDS ORDERED: ATORVASTATIN 20 MG TAB PO SCH (21:00)
[2016-05-17] VITALS (25 sets, daily range): BP systolic 96–133; BP diastolic 53–69; PULSE 55–98; RESP 20–25; TEMP 97.8–99.5; O2SAT 93–97
[2016-05-17 02:38] LABS: AUTOMATED NEUTROPHIL # 10.7 TH/MM3 (1.8-7.7); BASOPHIL % 0.3 % (0.0-2.0); EOSINOPHIL # 0.1 TH/MM3 (0-0.4); EOSINOPHIL % 1.1 % (0.0-4.0); HEMATOCRIT 31.7 % (39.0-51.0); HEMO FLAGS DIFF FINAL; LYMPH % 10.6 % (9.0-44.0); LYMPHOCYTE # 1.4 TH/MM3 (1.0-4.8); MEAN CELL VOLUME 84.4 FL (80.0-100.0); MEAN CORPUSCULAR HEMOGLOBIN 27.6 PG (27.0-34.0); MEAN CORPUSCULAR HGB CONC 32.7 % (32.0-36.0); MONO % 6.7 % (0.0-8.0); NEUT % 81.3 % (16.0-70.0); PLATELET COUNT 203 TH/MM3 (150-450); RED BLOOD COUNT 3.75 MIL/MM3 (4.50-5.90); RED CELL DISTRIBUTION WIDTH 15.8 % (11.6-17.2); WHITE BLOOD COUNT 13.2 TH/MM3 (4.0-11.0)
[2016-05-17 02:47] LABS: APTT (PATIENT) 35.1 SEC (24.3-30.1)
[2016-05-17 03:01] LABS: BICARBONATE 22.1 MEQ/L (21.0-32.0); POTASSIUM 3.8 MEQ/L (3.5-5.1)
[2016-05-17] MEDS: INSULIN ASPART SUPPLEMENTAL SCALE SQ SCH ×4 (06:49→23:18)
--- NOTE | 2016-05-17 08:25 | PD.CARD.PN ---
Subjective Subjective Remarks No chest pain, no shortness of breath Objective Medications Current Medications Medications (Trade) Dose Ordered Sig/Avinash Route Start Time Stop Time Status Last Admin IV Flush 2 ml 2 ml UNSCH PRN IVF 05/15/16 13:15 Heparin Sodium/ Dextrose 250 ml @ 0 mls/hr TITRATE IV 05/15/16 15:45 05/15/16 16:24 Nitroglycerin/ Dextrose 250 ml @ 0 mls/hr TITRATE IV 05/15/16 16:00 05/15/16 16:21 (NS 1000 ml Inj) 1,000 ml @ 75 mls/hr [id number] IV 05/15/16 17:00 05/16/16 16:14 (D50w (Vial) Inj) 25 ml UNSCH PRN IV PUSH 05/15/16 16:45 (Glucagon Inj) 1 mg UNSCH PRN OTHER 05/15/16 16:45 (Zyloprim) 100 mg DAILY PO 05/16/16 09:00 05/16/16 08:32 (Neurontin) 300 mg HS PO 05/15/16 21:00 05/16/16 20:58 (Levemir Inj) 100 units HS SQ 05/15/16 21:00 05/16/16 20:58 (Zofran Inj) 4 mg Q8H PRN IV PUSH 05/15/16 16:45 (Tylenol) 650 mg Q4H PRN PO 05/15/16 16:45 05/15/16 20:37 (Coreg) 12.5 mg Q12HR PO 05/16/16 21:00 05/16/16 20:58 (Ecotrin Ec) 162 mg DAILY PO 05/16/16 09:00 05/16/16 10:39 (Lipitor) 20 mg HS PO 05/16/16 21:00 05/16/16 20:58 Vital Signs / I&O Vital Signs Date Time Temp Pulse Resp B/P Pulse Ox O2 Delivery O2 Flow Rate FiO2 05/17/16 08:15 97 21 05/17/16 06:01 70 05/17/16 05:00 60 05/17/16 04:00 55 05/17/16 03:01 98.4 64 24 107/55 93 05/17/16 03:01 80 05/17/16 02:00 83 05/17/16 01:00 80 05/17/16 00:01 83 05/16/16 23:30 99.1 85 17 104/58 100 05/16/16 23:00 85 05/16/16 22:00 79 05/16/16 21:52 99 Nasal Cannula 4.00 05/16/16 21:00 89 05/16/16 20:15 99.1 91 24 100/60 97 05/16/16 20:00 93 05/16/16 19:00 92 05/16/16 18:00 87 05/16/16 17:00 111 05/16/16 16:00 88 05/16/16 15:00 78 05/16/16 15:00 98.1 85 20 118/62 92 05/16/16 14:00 78 05/16/16 13:00 90 05/16/16 12:00 96 05/16/16 12:00 98.0 80 20 104/65 92 05/16/16 11:00 92 05/16/16 10:00 92 05/16/16 09:00 94 I/O 05/16/16 05/16/16 05/16/16 05/17/16 05/17/16 05/17/16 07:00 15:00 23:00 07:00 15:00 23:00 Intake Total 625 ml 1404 ml 1429 ml Output Total 250 ml 200 ml Balance 375 ml 1404 ml 1229 ml Intake Oral 480 ml 650 ml 480 ml IV Total 145 ml 754 ml 949 ml Output Urine Total 250 ml 200 ml # Voids 2 3 1 # Bowel Movements 0 0 0 Physical Exam GENERAL: NAD, AAOx3 SKIN: Warm and dry. HEAD: Atraumatic. Normocephalic. EYES: Pupils equal and round. No scleral icterus. No injection or drainage. ENT: No nasal bleeding or discharge. Mucous membranes pink and moist. NECK: Trachea midline. No JVD. CARDIOVASCULAR: Regular rate and rhythm. RESPIRATORY: No accessory muscle use. Clear to auscultation. Breath sounds equal bilaterally. GASTROINTESTINAL: Abdomen soft, non-tender, nondistended. Hepatic and splenic margins not palpable. MUSCULOSKELETAL: Extremities without clubbing, cyanosis, or edema. No obvious deformities. NEUROLOGICAL: Awake and alert. No obvious cranial nerve deficits. Motor grossly within normal limits. Five out of 5 muscle strength in the arms and legs. Normal speech. PSYCHIATRIC: Appropriate mood and affect; insight and judgment normal. Laboratory Laboratory Tests Test 05/16/16 05/16/16 05/17/16 05/17/16 12:43 18:56 02:00 02:06 Activated Partial 46.2 SEC 37.7 SEC 35.1 SEC Thromboplast Time White Blood Count 13.2 TH/MM3 Red Blood Count 3.75 MIL/MM3 Hemoglobin 10.4 GM/DL Hematocrit 31.7 % Mean Corpuscular Volume 84.4 FL Mean Corpuscular Hemoglobin 27.6 PG Mean Corpuscular Hemoglobin 32.7 % Concent Red Cell Distribution Width 15.8 % Platelet Count 203 TH/MM3 Mean Platelet Volume 9.3 FL Neutrophils (%) (Auto) 81.3 % Lymphocytes (%) (Auto) 10.6 % Monocytes (%) (Auto) 6.7 % Eosinophils (%) (Auto) 1.1 % Basophils (%) (Auto) 0.3 % Neutrophils # (Auto) 10.7 TH/MM3 Lymphocytes # (Auto) 1.4 TH/MM3 Monocytes # (Auto) 0.9 TH/MM3 Eosinophils # (Auto) 0.1 TH/MM3 Basophils # (Auto) 0.0 TH/MM3 CBC Comment DIFF FINAL Differential Comment Sodium Level 136 MEQ/L Potassium Level 3.8 MEQ/L Chloride Level 103 MEQ/L Carbon Dioxide Level 22.1 MEQ/L Anion Gap 11 MEQ/L Blood Urea Nitrogen 65 MG/DL Creatinine 4.01 MG/DL Estimat Glomerular Filtration 15 ML/MIN Rate Random Glucose 123 MG/DL Calcium Level 8.0 MG/DL Assessment and Plan Problem List: (1) SIRS (systemic inflammatory response syndrome) (2) NSTEMI (non-ST elevated myocardial infarction) (3) Renal insufficiency Assessment and Plan 1) Creatinine has doubled, would hold off on cardiac catheterization 2) Nephrology consult 3) Trop flat/drop, not a typical rise and fall 4) Will opt for pharmacologic nuclear stress testing, if positive will need to have stabilization of creatinine and Hgb before consideration of cardiac cath Balta Hickey DO May 17, 2016 08:25
[2016-05-17] MEDS: ALLOPURINOL 100 MG TAB PO SCH (09:22)
[2016-05-17] MEDS: ASPIRIN EC 81 MG TABEC PO SCH (09:22)
[2016-05-17] MEDS: CARVEDILOL 12.5 MG TAB PO SCH ×2 (09:22→20:46)
[2016-05-17 09:51] LABS: APTT (PATIENT) 44.4 SEC (24.3-30.1)
[2016-05-17] MEDS ORDERED: REGADENOSON INJ 0.4 MG/5 ML SYR ONE (11:01)
[2016-05-17] MEDS: HEPARIN-D5W INJ 250 ML IV SCH (13:02)
--- NOTE | 2016-05-17 13:11 | RADRPT ---
EXAM DATE/TIME: 05/17/2016 10:41 [facility] COMPARISON: No previous studies available for comparison. INDICATIONS : Acute myocardial infarction. Cardiac catha nd stents placed. Coronary artery disease. DOSE: 25.6 mCi Tc99m Myoview at stress. 8.1 mCi Tc99m Myoview at rest. 0.4 mg Lexiscan STRESS SYMPTOMS: Dyspnea. EJECTION FRACTION: 53% MEDICAL HISTORY : Hypercholesterolemia. Hypertension. Diabetes mellitus type 2. SURGICAL HISTORY : Coronary artery stent. ENCOUNTER: Initial ACUITY: 1 day PAIN SCALE: 2/10 LOCATION: Bilateral chest TECHNIQUE: The patient underwent pharmacologic stress with infusion of prescribed dose. Continuous ECG tracing was monitored during stress. Gated SPECT imaging was performed after stress and conventional SPECT i maging was performed at rest. The examination was performed on a SPECT/CT scanner, both attenuation and non-corrected datasets were reviewed. FINDINGS: The best perfused myocardium is the anterolateral wall followed by the septum and the inferior wall. There is stress-induced redistribution in the anterior lateral wall beginning in mid ventricle extend ing to the apex. Redistribution is seen in the septal wall extending to the base. The ejection fraction is 53% with inferior wall hypokinesis. CONCLUSION: Redistribution as described above consistent stress-induced ischemia.. RISK CATEGORY: Intermediate (1-3% Annual Mortality Rate) Ramsey Hi MD FACR on May 17, 2016 at 13:07 Board Certified Radiologist. This report was verified electronically.
[2016-05-17 13:59] LABS: APTT (PATIENT) 32.8 SEC (24.3-30.1)
--- NOTE | 2016-05-17 15:30 | HHI.PR ---
Subjective Remarks Follow-up [place]. Denies chest pain. Discussed with RN Objective Vitals Vital Signs Date Time Temp Pulse Resp B/P Pulse Ox O2 Delivery O2 Flow Rate FiO2 05/17/16 13:00 97.8 75 23 101/56 95 05/17/16 13:00 75 05/17/16 10:00 75 05/17/16 09:00 81 05/17/16 08:15 97 21 05/17/16 08:00 81 05/17/16 08:00 98.7 83 25 96/53 93 05/17/16 07:00 92 05/17/16 06:01 70 05/17/16 05:00 60 05/17/16 04:00 55 05/17/16 03:01 98.4 64 24 107/55 93 05/17/16 03:01 80 05/17/16 02:00 83 05/17/16 01:00 80 05/17/16 00:01 83 05/16/16 23:30 99.1 85 17 104/58 100 05/16/16 23:00 85 05/16/16 22:00 79 05/16/16 21:52 99 Nasal Cannula 4.00 05/16/16 21:00 89 05/16/16 20:15 99.1 91 24 100/60 97 05/16/16 20:00 93 05/16/16 19:00 92 05/16/16 18:00 87 05/16/16 17:00 111 05/16/16 16:00 88 I/O 05/16/16 05/16/16 05/16/16 05/17/16 05/17/16 05/17/16 07:00 15:00 23:00 07:00 15:00 23:00 Intake Total 625 ml 1404 ml 1429 ml Output Total 250 ml 200 ml Balance 375 ml 1404 ml 1229 ml Intake Oral 480 ml 650 ml 480 ml IV Total 145 ml 754 ml 949 ml Output Urine Total 250 ml 200 ml # Voids 2 3 1 # Bowel Movements 0 0 0 Result Diagram: 05/17/16 02005/17/16 0206 Imaging Last Impressions Myocardial Perfusion Scan Nuc Med 05/17/16 0000 Signed Impressions: Service Date/Time: Tuesday, May 17, 2016 10:41 - CONCLUSION: Redistribution as described above consistent stress-induced ischemia.. RISK CATEGORY: Intermediate (1-3%% Annual Mortality Rate) Ramsey Hi MD FACR Chest X-Ray 05/15/16 1309 Signed Impressions: Service Date/Time: Sunday, May 15, 2016 13:13 - CONCLUSION: 1. Underaerated. 2. Compensated cardiomegaly. Ramsey Hi MD FACR Chest CT 05/15/16 0000 Signed Impressions: Service Date/Time: Sunday, May 15, 2016 14:37 - CONCLUSION: 1. Lack of intravenous contrast makes it impossible to exclude a dissection. 2. There is no evidence for pneumothorax. 3. Marked coronary artery calcifications. Ramsey Hi MD FACR Abdomen/Pelvis CT 05/15/16 0000 Signed Impressions: Service Date/Time: Sunday, May 15, 2016 14:43 - CONCLUSION: 1. Marked coronary artery calcifications. 2. I do not see an etiology for the patient's back pain. Ramsey Hi MD FACR Objective Remarks GENERAL: This is a well-nourished, well-developed patient, in no apparent distress. CARDIOVASCULAR: Regular rate and regular rhythm without murmurs, gallops, or rubs. RESPIRATORY: Clear to auscultation. Breath sounds equal bilaterally. No wheezes , rales, or rhonchi. GASTROINTESTINAL: Abdomen soft, non-tender, nondistended. Normal, active bowel sounds MUSCULOSKELETAL: Extremities without clubbing, cyanosis, or edema. NEURO: Alert & Oriented x4 to person, place, time, situation. Moves all ext x4 Procedures none A/P Problem List: (1) NSTEMI (non-ST elevated myocardial infarction) ICD Code: I21.4 Status: Acute (2) SIRS (systemic inflammatory response syndrome) ICD Code: R65.10 Status: Acute Assessment and Plan - NSTEMI with history of CAD and stent placement started on heparin and nitro drip - will continue aspirin and Coreg- check lipid panel started on Lipitor. cardiology wanted medical management for now secondary to worsening renal function and anemia. Discontinue nitro drip. Consider cardiac catheterization. -SIRS- no obvious source of infection at this time- remains afebrile- leukocytosis improving- continue to monitor temps - CBC in am. -hypertension- now BP on low side- will decrease coreg- hold lisinopril for now - will monitor and adjust the regimen as needed -diabetes mellitus; resumed long-acting insulin- hold metformin- accu-check with SSI -Chronic kidney disease ( being followed up by his PCP); continue IV fluid will monitor. Worse. Repeat BMP in the morning will consider nephrology evaluation if creatinine continues to rise. -DVT prophylaxis ; on heparin drip Anibal Ordonez MD May 17, 2016 15:30
[2016-05-17] MEDS: SODIUM CHLOR 0.9% 1000 ML INJ 1,000 ML IV SCH (17:33)
[2016-05-17] MEDS: ATORVASTATIN 20 MG TAB PO SCH (20:46)
[2016-05-17] MEDS: GABAPENTIN 300 MG CAP PO SCH (20:46)
[2016-05-17] MEDS: INSULIN DETEMIR 100 UNITS/ML VIAL SQ SCH (20:46)
[2016-05-17 20:48] LABS: APTT (PATIENT) 39.2 SEC (24.3-30.1)
--- NOTE | 2016-05-17 23:29 | RADRPT ---
EXAM DATE/TIME: 05/17/2016 23:02 [facility] COMPARISON: CT THORAX W/O CONTRAST, May 15, 2016, 14:37. CHEST SINGLE AP, May 15, 2016, 13:13. INDICATIONS : Fever. MEDICAL HISTORY : Cardiovascular disease. Hypertension Diabetes mellitus type II. SURGICAL HISTORY : Coronary artery stent. ENCOUNTER: Subsequent ACUITY: 3 days PAIN SCORE: 0/10 LOCATION: Bilateral chest FINDINGS: Small bilateral effusions and worsening bibasilar atelectasis noted. No pneumothorax seen. Heart size stable, upper limits of normal. CONCLUSION: Worsening bibasilar atelectasis. Small bilateral pleural effusions are developing. Negrito Valdez MD on May 17, 2016 at 23:27 Board Certified Radiologist. This report was verified electronically.
[2016-05-18] VITALS (26 sets, daily range): BP systolic 84–107; BP diastolic 43–61; PULSE 61–90; RESP 16–23; TEMP 99–103; O2SAT 93–100
[2016-05-18] MEDS ORDERED: SODIUM CHLOR 0.9% 1000 ML INJ 1,000 ML IV ONE (02:00)
[2016-05-18 03:36] LABS: AUTOMATED NEUTROPHIL # 10.1 TH/MM3 (1.8-7.7); BASOPHIL % 0.2 % (0.0-2.0); EOSINOPHIL # 0.1 TH/MM3 (0-0.4); EOSINOPHIL % 0.7 % (0.0-4.0); HEMATOCRIT 29.2 % (39.0-51.0); HEMO FLAGS DIFF FINAL; LYMPH % 9.1 % (9.0-44.0); LYMPHOCYTE # 1.1 TH/MM3 (1.0-4.8); MEAN CELL VOLUME 83.6 FL (80.0-100.0); MEAN CORPUSCULAR HGB CONC 33.5 % (32.0-36.0); MONO % 9.3 % (0.0-8.0); NEUT % 80.7 % (16.0-70.0); PLATELET COUNT 187 TH/MM3 (150-450); RED BLOOD COUNT 3.49 MIL/MM3 (4.50-5.90); RED CELL DISTRIBUTION WIDTH 15.6 % (11.6-17.2); WHITE BLOOD COUNT 12.6 TH/MM3 (4.0-11.0)
[2016-05-18 03:49] LABS: APTT (PATIENT) 51.4 SEC (24.3-30.1)
[2016-05-18 04:00] LABS: BICARBONATE 22.9 MEQ/L (21.0-32.0); MAGNESIUM 2.3 MG/DL (1.5-2.5); POTASSIUM 3.8 MEQ/L (3.5-5.1)
[2016-05-18] MEDS: HEPARIN-D5W INJ 250 ML IV SCH ×2 (04:54→18:31)
[2016-05-18] MEDS: INSULIN ASPART SUPPLEMENTAL SCALE SQ SCH ×4 (06:17→21:00)
[2016-05-18 06:51] LABS: FREE T3 1.86 PG/ML (2.18-3.98); FREE T4 1.31 NG/DL (0.76-1.46)
[2016-05-18 07:16] LABS: BACTERIA, URINE RARE /hpf; BLOOD, URINE NEG (NEG); GLUCOSE,URINE NEG (NEG); KETONE, URINE NEG (NEG); MUCUS URINE FEW /lpf (OCC); NITRITE,URINE NEG (NEG); URINE COLOR YELLOW (YELLW/STRAW)
[2016-05-18 07:17] LABS: COMMENT (UR) CULT NOT INDICATED; CULTURE IF INDICATED CULT NOT INDICATED
[2016-05-18] MEDS: ALLOPURINOL 100 MG TAB PO SCH (09:00)
[2016-05-18] MEDS: CARVEDILOL 12.5 MG TAB PO SCH ×2 (09:00→21:55)
[2016-05-18] MEDS: ASPIRIN EC 81 MG TABEC PO SCH (09:00)
--- NOTE | 2016-05-18 10:10 | PD.CARD.PN ---
Subjective Subjective Remarks Pt feels well, no cp Objective Medications Administered Medications Medications (Trade) Dose Ordered Sig/Avinash Route PRN Reason Start Time Stop Time Status Last Admin Dose Admin IV Flush 2 ml 2 ml UNSCH PRN IVF FLUSH AFTER USING IV ACCESS 05/15/16 13:15 05/17/16 09:22 Heparin Sodium/ Dextrose 250 ml @ 0 mls/hr TITRATE IV 05/15/16 15:45 05/18/16 04:54 Sodium Chloride (NS 1000 ml Inj) 1,000 ml @ 75 mls/hr [id number] IV 05/15/16 17:00 05/17/16 17:33 Allopurinol (Zyloprim) 100 mg DAILY PO 05/16/16 09:00 05/18/16 09:00 Gabapentin (Neurontin) 300 mg HS PO 05/15/16 21:00 05/17/16 20:46 Insulin Detemir (Levemir Inj) 100 units HS SQ 05/15/16 21:00 05/17/16 20:46 Acetaminophen (Tylenol) 650 mg Q4H PRN PO FEVER 05/15/16 16:45 05/15/16 20:37 Aspirin (Ecotrin Ec) 162 mg DAILY PO 05/16/16 09:00 05/18/16 09:00 Atorvastatin Calcium (Lipitor) 80 mg HS PO 05/17/16 21:00 05/17/16 20:46 Carvedilol (Coreg) 6.25 mg Q12HR PO 05/18/16 09:00 05/18/16 09:00 Vital Signs / I&O Vital Signs Date Time Temp Pulse Resp B/P Pulse Ox O2 Delivery O2 Flow Rate FiO2 05/18/16 09:00 61 05/18/16 07:00 99.0 70 18 102/55 100 05/18/16 07:00 64 05/18/16 06:01 65 05/18/16 05:00 64 05/18/16 04:01 71 05/18/16 03:01 99.1 66 16 84/54 99 05/18/16 03:00 66 05/18/16 02:00 69 05/18/16 01:00 73 05/18/16 00:00 80 05/17/16 23:01 99.5 90 24 96/55 95 05/17/16 23:00 98 05/17/16 22:00 92 05/17/16 21:00 84 05/17/16 20:45 99.5 86 20 133/69 93 05/17/16 20:00 86 05/17/16 19:00 92 05/17/16 18:00 79 05/17/16 17:00 79 05/17/16 16:00 79 05/17/16 15:00 99.5 73 21 100/55 93 05/17/16 15:00 73 05/17/16 14:00 82 05/17/16 13:00 97.8 75 23 101/56 95 05/17/16 13:00 75 I/O 05/17/16 05/17/16 05/17/16 05/18/16 05/18/16 05/18/16 07:00 15:00 23:00 07:00 15:00 23:00 Intake Total 1429 ml 1278 ml 2433 ml Output Total 200 ml 300 ml 1095 ml Balance 1229 ml 978 ml 1338 ml Intake Oral 480 ml 480 ml 480 ml IV Total 949 ml 798 ml 1953 ml Output Urine Total 200 ml 300 ml 1095 ml # Voids 1 4 # Bowel Movements 0 1 0 Physical Exam GENERAL: This is a well-nourished, well-developed patient, in no apparent distress. CARDIOVASCULAR: Regular rate and rhythm without murmurs, gallops, or rubs. RESPIRATORY: Clear to auscultation. Breath sounds equal bilaterally. No wheezes , rales, or rhonchi. GASTROINTESTINAL: Abdomen soft, non-tender, nondistended. Normal active bowel sounds MUSCULOSKELETAL: Extremities without clubbing, cyanosis, or edema. NEURO: Alert & Oriented x4 to person, place, time, situation. Moves all ext x4 Laboratory Laboratory Tests Test 05/17/16 05/17/16 05/18/16 05/18/16 13:25 20:14 03:10 06:24 Activated Partial 32.8 SEC 39.2 SEC 51.4 SEC Thromboplast Time White Blood Count 12.6 TH/MM3 Red Blood Count 3.49 MIL/MM3 Hemoglobin 9.8 GM/DL Hematocrit 29.2 % Mean Corpuscular Volume 83.6 FL Mean Corpuscular Hemoglobin 28.0 PG Mean Corpuscular Hemoglobin 33.5 % Concent Red Cell Distribution Width 15.6 % Platelet Count 187 TH/MM3 Mean Platelet Volume 9.5 FL Neutrophils (%) (Auto) 80.7 % Lymphocytes (%) (Auto) 9.1 % Monocytes (%) (Auto) 9.3 % Eosinophils (%) (Auto) 0.7 % Basophils (%) (Auto) 0.2 % Neutrophils # (Auto) 10.1 TH/MM3 Lymphocytes # (Auto) 1.1 TH/MM3 Monocytes # (Auto) 1.2 TH/MM3 Eosinophils # (Auto) 0.1 TH/MM3 Basophils # (Auto) 0.0 TH/MM3 CBC Comment DIFF FINAL Differential Comment Sodium Level 139 MEQ/L Potassium Level 3.8 MEQ/L Chloride Level 106 MEQ/L Carbon Dioxide Level 22.9 MEQ/L Anion Gap 10 MEQ/L Blood Urea Nitrogen 72 MG/DL Creatinine 3.52 MG/DL Estimat Glomerular Filtration 17 ML/MIN Rate Random Glucose 69 MG/DL Calcium Level 8.1 MG/DL Magnesium Level 2.3 MG/DL B-Type Natriuretic Peptide 70 PG/ML Free Thyroxine 1.31 NG/DL Free Triiodothyronine (T3) 1.86 PG/ML pg/dL Thyroid Stimulating Hormone 0.055 uIU/ML 3rd Gen Urine Color YELLOW Urine Turbidity HAZY Urine pH 5.0 Urine Specific [place] 1.013 Urine Protein TRACE mg/dL Urine Glucose (UA) NEG mg/dL Urine Ketones NEG mg/dL Urine Occult Blood NEG Urine Nitrite NEG Urine Bilirubin NEG Urine Urobilinogen LESS THAN 2.0 MG/DL Urine Leukocyte Esterase NEG Urine RBC 1 /hpf Urine WBC 1 /hpf Urine Amorphous Sediment FEW Urine Bacteria RARE /hpf Urine Granular Casts 25-49 /lpf Urine Mucus FEW /lpf Microscopic Urinalysis Comment CULT NOT INDICATED Imaging Last Impressions Myocardial Perfusion Scan Nuc Med 05/17/16 0000 Signed Impressions: Service Date/Time: Tuesday, May 17, 2016 10:41 - CONCLUSION: Redistribution as described above consistent stress-induced ischemia.. RISK CATEGORY: Intermediate (1-3%% Annual Mortality Rate) Ramsey Hi MD FACR Chest X-Ray 05/17/16 0000 Signed Impressions: Service Date/Time: Tuesday, May 17, 2016 23:02 - CONCLUSION: Worsening bibasilar atelectasis. Small bilateral pleural effusions are developing. Negrito Valdez MD Chest CT 05/15/16 0000 Signed Impressions: Service Date/Time: Sunday, May 15, 2016 14:37 - CONCLUSION: 1. Lack of intravenous contrast makes it impossible to exclude a dissection. 2. There is no evidence for pneumothorax. 3. Marked coronary artery calcifications. Ramsey Hi MD FACR Abdomen/Pelvis CT 05/15/16 0000 Signed Impressions: Service Date/Time: Sunday, May 15, 2016 14:43 - CONCLUSION: 1. Marked coronary artery calcifications. 2. I do not see an etiology for the patient's back pain. Ramsey Hi MD FACR Assessment and Plan Problem List: (1) SIRS (systemic inflammatory response syndrome) (2) NSTEMI (non-ST elevated myocardial infarction) Assessment and Plan: w/ abnl stress, for cath once Cr. improved. cont asa/ statin/bb/heparin. (3) Renal insufficiency Assessment and Plan: Renal has been consulted. Horacio Alves MD May 18, 2016 10:10
[2016-05-18 11:12] LABS: APTT (PATIENT) 48.5 SEC (24.3-30.1)
[2016-05-18] MEDS: SODIUM CHLOR 0.9% 1000 ML INJ 1,000 ML IV SCH (11:40)
--- NOTE | 2016-05-18 14:43 | HHI.PR ---
Subjective Remarks Follow-up [place]. No chest pain but had chills this morning. No other symptoms. Discussed with RN Objective Vitals Vital Signs Date Time Temp Pulse Resp B/P Pulse Ox O2 Delivery O2 Flow Rate FiO2 05/18/16 14:00 77 05/18/16 13:03 77 05/18/16 12:00 77 05/18/16 11:00 99.0 70 18 107/57 97 05/18/16 11:00 73 05/18/16 10:00 63 05/18/16 09:00 61 05/18/16 07:00 99.0 70 18 102/55 100 05/18/16 07:00 64 05/18/16 06:01 65 05/18/16 05:00 64 05/18/16 04:01 71 05/18/16 03:01 99.1 66 16 84/54 99 05/18/16 03:00 66 05/18/16 02:00 69 05/18/16 01:00 73 05/18/16 00:00 80 05/17/16 23:01 99.5 90 24 96/55 95 05/17/16 23:00 98 05/17/16 22:00 92 05/17/16 21:00 84 05/17/16 20:45 99.5 86 20 133/69 93 05/17/16 20:00 86 05/17/16 19:00 92 05/17/16 18:00 79 05/17/16 17:00 79 05/17/16 16:00 79 05/17/16 15:00 99.5 73 21 100/55 93 05/17/16 15:00 73 I/O 05/17/16 05/17/16 05/17/16 05/18/16 05/18/16 05/18/16 07:00 15:00 23:00 07:00 15:00 23:00 Intake Total 1429 ml 1278 ml 2433 ml Output Total 200 ml 300 ml 1095 ml Balance 1229 ml 978 ml 1338 ml Intake Oral 480 ml 480 ml 480 ml IV Total 949 ml 798 ml 1953 ml Output Urine Total 200 ml 300 ml 1095 ml # Voids 1 4 # Bowel Movements 0 1 0 Result Diagram: 05/18/1630905/18/16 0310 Imaging Last Impressions Myocardial Perfusion Scan Nuc Med 05/17/16 Signed Impressions: Service Date/Time: Tuesday, May 17, 2016 10:41 - CONCLUSION: Redistribution as described above consistent stress-induced ischemia.. RISK CATEGORY: Intermediate (1-3%% Annual Mortality Rate) Ramsey Hi MD FACR Chest X-Ray 05/17/16 Signed Impressions: Service Date/Time: Tuesday, May 17, 2016 23:02 - CONCLUSION: Worsening bibasilar atelectasis. Small bilateral pleural effusions are developing. Negrito Valdez MD Chest CT 05/15/16 Signed Impressions: Service Date/Time: Sunday, May 15, 2016 14:37 - CONCLUSION: 1. Lack of intravenous contrast makes it impossible to exclude a dissection. 2. There is no evidence for pneumothorax. 3. Marked coronary artery calcifications. Ramsey Hi MD FACR Abdomen/Pelvis CT 05/15/16 Signed Impressions: Service Date/Time: Sunday, May 15, 2016 14:43 - CONCLUSION: 1. Marked coronary artery calcifications. 2. I do not see an etiology for the patient's back pain. Ramsey Hi MD FACR Objective Remarks GENERAL: This is a well-nourished, well-developed patient, in no apparent distress. CARDIOVASCULAR: Regular rate and regular rhythm without murmurs, gallops, or rubs. RESPIRATORY: Clear to auscultation. Breath sounds equal bilaterally. No wheezes , rales, or rhonchi. GASTROINTESTINAL: Abdomen soft, non-tender, nondistended. Normal, active bowel sounds MUSCULOSKELETAL: Extremities without clubbing, cyanosis, or edema. NEURO: Alert & Oriented x4 to person, place, time, situation. Moves all ext x4 Procedures none A/P Problem List: (1) NSTEMI (non-ST elevated myocardial infarction) ICD Code: I21.4 Status: Acute (2) SIRS (systemic inflammatory response syndrome) ICD Code: R65.10 Status: Acute Assessment and Plan - NSTEMI with history of CAD and stent placement started on heparin and nitro drip - will continue aspirin and Coreg- started on Lipitor. cardiology wanted medical management for now secondary to worsening renal function and anemia. Discontinue nitro drip. Consider cardiac catheterization. -SIRS- no obvious source of infection at this time- remains afebrile- leukocytosis improving- continue to monitor temps - CBC in am. Blood cultures negative to date -hypertension- now BP on low side- will decrease coreg- hold lisinopril for now - will monitor and adjust the regimen as needed. Discontinue nitro drip -diabetes mellitus; resumed long-acting insulin- hold metformin- accu-check with SSI -Chronic kidney disease ( being followed up by his PCP); continue IV fluid will monitor. Improving. Repeat BMP in the morning will consult nephrology -DVT prophylaxis ; on heparin drip Anibal Ordonez MD May 18, 2016 14:43
[2016-05-18] MEDS: ACETAMINOPHEN 325 MG TAB PO PRN ×2 (14:59→15:59)
--- NOTE | 2016-05-18 20:21 | MB ---
cc: RYLEY BOSE MD DATE OF CONSULTATION: 05/18/2016. REASON FOR CONSULTATION: Elevated BUN and creatinine for evaluation. HISTORY OF PRESENT ILLNESS: This is very pleasant 70-year-old male with past medical history of diabetes mellitus for 18 years, history of hypertension, ischemic heart disease, chronic kidney disease who came to the hospital with a complaint of shortness of breath and chest pain. I was called to see the patient because of elevated BUN and creatinine. The patient had a creatinine of 2.1 on admission which went up to 4.0 yesterday and today it is 3.5. The patient also has a high potassium at 5.4 for one day and this was on May 16 and then now the potassium is better. The patient is feeling better. The chest pain is improved. He was seen by the service liaison representative and he has elevated troponins and he was diagnosed with [id number] myocardial reduction and cardiology recommended to do cardiac catheterization when the creatinine is better. The patient denies any vomiting. He has this nausea and dry heaves but it is improving. He has loose bowel motions off and on. There is no history of dysuria or hematuria. He denies any difficulty in passing urine. He denies any known history of diabetic retinopathy. He has some neuropathy in his feet. PAST MEDICAL HISTORY: 1. Hypertension. 2. Diabetes mellitus 3. Ischemic heart disease. 4. Chronic kidney disease. PAST SURGICAL HISTORY: History of cardiac catheterization with stent placement in the past. ALLERGIES: He has NO KNOWN DRUG ALLERGIES. MEDICATIONS: Currently the patient is on: 1. Normal saline at 75 an hour. 2. Aspirin 162 milligrams once a day. 3. Allopurinol 100 milligrams once a day. 4. Gabapentin 300 milligrams at bedtime. 5. Levemir insulin 100 units at bedtime. 6. Lipitor 80 milligrams at bedtime. 7. Carvedilol 6.25 milligrams q. 12 hours. 8. Insulin aspart sliding scale. 9. Zofran as needed. PHYSICAL EXAMINATION: GENERAL: On examination, the patient is awake and alert and he is not in acute distress. VITAL SIGNS: His last blood pressure is 91/46, blood pressure has been on the lower side; the lowest recorded is 84/54, temperature is 102.2. Pulse is 80 to 85. HEAD, EYES, EARS, NOSE, THROAT: The pupils are equal and reacting to light. Nonicteric sclerae. Conjunctivae are pale. NECK: The neck is supple. JVD is not elevated. LUNGS: The patient has bilateral decreased air entry with occasional wheezing. HEART: S1 and S2 regular rhythm. ABDOMEN: Abdomen soft and lax. There is no tenderness. Bowel sounds positive. EXTREMITIES: There is no pedal edema. INVESTIGATIONS: White blood cell count is 12.6, hemoglobin 9.8, platelet count of 187,000, neutrophils 80.7%. Sodium is 135, potassium 5.4, chloride of 102, bicarbonate 23.1, BUN 41, creatinine 2.7, glucose 224. Troponin I is 0.18. PTT is 48.5. Urinalysis showing trace protein. He has granular casts. IMAGING STUDIES: The patient had a chest x-ray done which shows that he has basilar atelectasis and small bilateral pleural effusion. A myocardial perfusion scan was done and it shows ejection fraction of 53% with inferior wall hypokinesia consistent with stress-induced ischemia. CT scan of the abdomen and pelvis was done and this was done without IV contrast and it shows coronary calcification in the kidneys somewhat smaller in size recorded. ASSESSMENT AND PLAN: 1. Chronic kidney disease / acute kidney injury. 2. Hyperkalemia. 3. Icm-FX-uqaokroca myocardial infarction. 4. Diabetes mellitus. 5. History of hypertension. 6. Fever. 7. Anemia. The patient has a [id number] VT and now he is spiking fever. The patient has chronic kidney disease with mild to moderate proteinuria and it seems like he possibly has underlying hypertensive or diabetic nephropathy. The creatinine on presentation was 2.1 and this is possibly his baseline. He was told in the past that he has chronic kidney disease. I will get ultrasound of the kidneys and get a basic serology including ASHLEE, ANCA and serum protein electrophoresis. I agree with continuing IV fluids and to stabilize hemodynamically with his hypotension. The acute worsening could be from the acute VT or hypotension with ATN or cardiorenal syndrome. At present, the patient is nonoliguric and there is slight improvement in the creatinine and if his creatinine goes back to his baseline of 2.1, he has advanced renal disease and he will be at moderate risk of worsening renal function because of the contrast. Thank you for the consultation and I will follow the patient while he is in the hospital. MD SAHIL La/HARSH /7:13 PM /7:59 PM
[2016-05-18] MEDS: INSULIN DETEMIR 100 UNITS/ML VIAL SQ SCH (21:00)
[2016-05-18] MEDS: GABAPENTIN 300 MG CAP PO SCH (21:55)
[2016-05-18] MEDS: ATORVASTATIN 20 MG TAB PO SCH (21:55)
[2016-05-19] VITALS (25 sets, daily range): BP systolic 92–141; BP diastolic 50–72; PULSE 67–98; RESP 18–25; TEMP 97.2–101; O2SAT 94–98
[2016-05-19] MEDS: ACETAMINOPHEN 325 MG TAB PO PRN (00:24)
[2016-05-19] MEDS: SODIUM CHLOR 0.9% 1000 ML INJ 1,000 ML IV SCH ×2 (01:00→18:20)
[2016-05-19 05:51] LABS: AUTOMATED NEUTROPHIL # 12.2 TH/MM3 (1.8-7.7); BASOPHIL % 0.3 % (0.0-2.0); EOSINOPHIL % 0.3 % (0.0-4.0); HEMATOCRIT 29.6 % (39.0-51.0); LYMPH % 6.8 % (9.0-44.0); MEAN CELL VOLUME 83.9 FL (80.0-100.0); MEAN CORPUSCULAR HEMOGLOBIN 27.5 PG (27.0-34.0); MEAN CORPUSCULAR HGB CONC 32.8 % (32.0-36.0); MONO % 8.7 % (0.0-8.0); NEUT % 83.9 % (16.0-70.0); PLATELET COUNT 218 TH/MM3 (150-450); RED BLOOD COUNT 3.53 MIL/MM3 (4.50-5.90); RED CELL DISTRIBUTION WIDTH 16.1 % (11.6-17.2); WHITE BLOOD COUNT 14.6 TH/MM3 (4.0-11.0)
[2016-05-19 05:55] LABS: HEMO FLAGS AUTO DIFF
[2016-05-19 06:07] LABS: APTT (PATIENT) 55.9 SEC (24.3-30.1)
[2016-05-19 06:12] LABS: BICARBONATE 21.5 MEQ/L (21.0-32.0); MAGNESIUM 2.2 MG/DL (1.5-2.5); POTASSIUM 3.8 MEQ/L (3.5-5.1); TOTAL PROTEIN SPE 6.9 GM/DL (6.0-7.6)
[2016-05-19] MEDS: DEXTROSE 50% IN WATER 50 ML VIAL(D50) IV PUSH PRN (06:14)
[2016-05-19] MEDS: INSULIN ASPART SUPPLEMENTAL SCALE SQ SCH ×4 (07:00→21:00)
[2016-05-19] MEDS ORDERED: RESP: ALBUTEROL 0.63 MG/3 ML NEB (PRN) NEB (08:00)
[2016-05-19] MEDS: ALLOPURINOL 100 MG TAB PO SCH (08:44)
[2016-05-19] MEDS: LACTOBACILLUS ACIDOPHILUS TAB PO SCH ×3 (08:44→17:56)
[2016-05-19] MEDS: CARVEDILOL 12.5 MG TAB PO SCH ×2 (08:45→22:19)
[2016-05-19] MEDS: ASPIRIN EC 81 MG TABEC PO SCH (08:45)
[2016-05-19] MEDS: HEPARIN-D5W INJ 250 ML IV SCH (08:48)
[2016-05-19 09:14] LABS: BANDS 11 % (0-6); EOSINOPHILS 1 % (0-4); NEUTROPHIL # MANUAL DIFF 12.8 TH/MM3 (1.8-7.7); POLYS (SEG NEUTROPHILS) 77 % (16-70); WBC DIFF SAMPLE 100
[2016-05-19 09:15] LABS: PLATELET ESTIMATE SMEAR NORMAL (NORMAL); PLATELET MORPHOLOGY NORMAL (NORMAL); SCAN/DIFF FINAL DIFF MANUAL
--- NOTE | 2016-05-19 09:52 | PD.CARD.PN ---
Subjective Subjective Remarks Pt feels well, no sx. Objective Medications Administered Medications Medications (Trade) Dose Ordered Sig/Avinash Route PRN Reason Start Time Stop Time Status Last Admin Dose Admin IV Flush 2 ml 2 ml UNSCH PRN IVF FLUSH AFTER USING IV ACCESS 05/15/16 13:15 05/17/16 09:22 Heparin Sodium/ Dextrose 250 ml @ 0 mls/hr TITRATE IV 05/15/16 15:45 05/19/16 08:48 Sodium Chloride (NS 1000 ml Inj) 1,000 ml @ 75 mls/hr [id number] IV 05/15/16 17:00 05/17/16 17:33 Dextrose (D50w (Vial) Inj) 25 ml UNSCH PRN IV PUSH HYPOGLYCEMIA-SEE COMMENTS 05/15/16 16:45 05/19/16 06:14 Allopurinol (Zyloprim) 100 mg DAILY PO 05/16/16 09:00 05/19/16 08:44 Gabapentin (Neurontin) 300 mg HS PO 05/15/16 21:00 05/18/16 21:55 Acetaminophen (Tylenol) 650 mg Q4H PRN PO FEVER. pain 05/15/16 16:45 05/19/16 00:24 Aspirin (Ecotrin Ec) 162 mg DAILY PO 05/16/16 09:00 05/19/16 08:45 Atorvastatin Calcium (Lipitor) 80 mg HS PO 05/17/16 21:00 05/18/16 21:55 Carvedilol (Coreg) 6.25 mg Q12HR PO 05/18/16 09:00 05/19/16 08:45 Lactobacillus Acidophilus (Lactinex) 1 tab TID PO 05/19/16 09:00 05/19/16 08:44 Vital Signs / I&O Vital Signs Date Time Temp Pulse Resp B/P Pulse Ox O2 Delivery O2 Flow Rate FiO2 05/19/16 09:00 77 05/19/16 08:00 68 05/19/16 07:00 72 05/19/16 07:00 97.2 73 20 112/61 98 05/19/16 06:00 75 05/19/16 05:00 67 05/19/16 04:00 69 05/19/16 03:00 69 05/19/16 03:00 98.3 70 20 92/50 94 05/19/16 02:00 70 2/12/17 01:00 79 05/19/16 00:00 79 05/19/16 00:00 101.0 05/18/16 23:00 99.7 78 21 105/61 93 05/18/16 23:00 84 05/18/16 22:00 85 05/18/16 21:00 79 05/18/16 20:00 80 05/18/16 20:00 101.9 05/18/16 19:00 80 05/18/16 19:00 100.6 83 23 88/43 93 05/18/16 18:30 102.2 05/18/16 18:00 85 05/18/16 17:50 102.5 05/18/16 17:00 89 05/18/16 16:00 90 05/18/16 16:00 103.0 05/18/16 15:00 80 05/18/16 15:00 101.7 85 16 91/46 95 05/18/16 14:00 77 05/18/16 13:03 77 05/18/16 12:00 77 05/18/16 11:00 99.0 70 18 107/57 97 05/18/16 11:00 73 05/18/16 10:00 63 I/O 05/18/16 05/18/16 05/18/16 05/19/16 05/19/16 05/19/16 07:00 15:00 23:00 07:00 15:00 23:00 Intake Total 2433 ml 852 ml 1252 ml Output Total 1095 ml 1000 ml 650 ml Balance 1338 ml -148 ml 602 ml Intake Oral 480 ml 720 ml 240 ml IV Total 1953 ml 132 ml 1012 ml Output Urine Total 1095 ml 1000 ml 650 ml # Voids 4 # Bowel Movements 0 1 1 Physical Exam GENERAL: This is a well-nourished, well-developed patient, in no apparent distress. CARDIOVASCULAR: Regular rate and rhythm without murmurs, gallops, or rubs. RESPIRATORY: Clear to auscultation. Breath sounds equal bilaterally. No wheezes , rales, or rhonchi. GASTROINTESTINAL: Abdomen soft, non-tender, nondistended. Normal active bowel sounds MUSCULOSKELETAL: Extremities without clubbing, cyanosis, or edema. NEURO: Alert & Oriented x4 to person, place, time, situation. Moves all ext x4 Laboratory Laboratory Tests Test 05/18/16 05/19/16 10:20 05:27 Activated Partial 48.5 SEC 55.9 SEC Thromboplast Time White Blood Count 14.6 TH/MM3 Red Blood Count 3.53 MIL/MM3 Hemoglobin 9.7 GM/DL Hematocrit 29.6 % Mean Corpuscular Volume 83.9 FL Mean Corpuscular Hemoglobin 27.5 PG Mean Corpuscular Hemoglobin 32.8 % Concent Red Cell Distribution Width 16.1 % Platelet Count 218 TH/MM3 Mean Platelet Volume 9.7 FL Neutrophils (%) (Auto) 83.9 % Lymphocytes (%) (Auto) 6.8 % Monocytes (%) (Auto) 8.7 % Eosinophils (%) (Auto) 0.3 % Basophils (%) (Auto) 0.3 % Neutrophils # (Auto) 12.2 TH/MM3 Lymphocytes # (Auto) 1.0 TH/MM3 Monocytes # (Auto) 1.3 TH/MM3 Eosinophils # (Auto) 0.0 TH/MM3 Basophils # (Auto) 0.0 TH/MM3 CBC Comment AUTO DIFF Differential Total Cells 100 Counted Neutrophils % (Manual) 77 % Band Neutrophils % 11 % Lymphocytes % 3 % Monocytes % 8 % Eosinophils % 1 % Neutrophils # (Manual) 12.8 TH/MM3 Differential Comment FINAL DIFF MANUAL Platelet Estimate NORMAL Platelet Morphology Comment NORMAL Red Cell Morphology Comment NORMAL Sodium Level 141 MEQ/L Potassium Level 3.8 MEQ/L Chloride Level 110 MEQ/L Carbon Dioxide Level 21.5 MEQ/L Anion Gap 10 MEQ/L Blood Urea Nitrogen 65 MG/DL Creatinine 2.90 MG/DL Estimat Glomerular Filtration 22 ML/MIN Rate Random Glucose 39 MG/DL Calcium Level 8.5 MG/DL Phosphorus Level 4.1 MG/DL Magnesium Level 2.2 MG/DL Total Protein 6.9 GM/DL Imaging Last Impressions Myocardial Perfusion Scan Nuc Med 05/17/16 0000 Signed Impressions: Service Date/Time: Tuesday, May 17, 2016 10:41 - CONCLUSION: Redistribution as described above consistent stress-induced ischemia.. RISK CATEGORY: Intermediate (1-3%% Annual Mortality Rate) Ramsey Hi MD FACR Chest X-Ray 05/17/16 0000 Signed Impressions: Service Date/Time: Tuesday, May 17, 2016 23:02 - CONCLUSION: Worsening bibasilar atelectasis. Small bilateral pleural effusions are developing. Negrito Valdez MD Chest CT 05/15/16 Signed Impressions: Service Date/Time: Sunday, May 15, 2016 14:37 - CONCLUSION: 1. Lack of intravenous contrast makes it impossible to exclude a dissection. 2. There is no evidence for pneumothorax. 3. Marked coronary artery calcifications. Ramsey Hi MD FACR Abdomen/Pelvis CT 05/15/16 Signed Impressions: Service Date/Time: Sunday, May 15, 2016 14:43 - CONCLUSION: 1. Marked coronary artery calcifications. 2. I do not see an etiology for the patient's back pain. Ramsey Hi MD FACR Assessment and Plan Problem List: (1) SIRS (systemic inflammatory response syndrome) (2) NSTEMI (non-ST elevated myocardial infarction) Assessment and Plan: w/ abnl stress, for cath once Cr. improved. cont asa/ statin/bb/heparin. (3) Renal insufficiency Assessment and Plan: Renal has been consulted; improving Assessment and Plan Dr. Hickey will return tomorrow, will leave the pt NPO p Midnight in case he needs to go for cath. Horacio Alves MD May 19, 2016 09:52
--- NOTE | 2016-05-19 13:35 | HHI.NPPN ---
Subjective History of Present Illness 70-year-old male with past medical history of diabetes mellitus for 18 years, history of hypertension, ischemic heart disease, chronic kidney disease who came to the hospital with a complaint of shortness of breath and chest pain. I was called to see the patient because of elevated BUN and creatinine. The patient had a creatinine of 2.1 on admission which went up to 4.0. Additional Remarks Patient is alert, no chest pain, no SOB. Review of Systems General Constitutional: Fatigue Respiratory Lungs: SOB Cardiovascular Cardiac: Chest Pain, Edema, OLVERA Objective Data Data 05/18/16 05/19/16 19:00 07:00 Intake Total 852 ml 1252 ml Output Total 1000 ml 650 ml Balance -148 ml 602 ml Intake Oral 720 ml 240 ml IV Total 132 ml 1012 ml Output Urine Total 1000 ml 650 ml # Bowel Movements 1 1 Vital Signs Date Time Temp Pulse Resp B/P Pulse Ox O2 Delivery O2 Flow Rate FiO2 05/19/16 13:00 83 05/19/16 12:00 82 05/19/16 11:00 98.5 77 18 110/59 97 05/19/16 11:00 98 05/19/16 10:00 76 05/19/16 09:00 77 05/19/16 08:00 68 05/19/16 07:00 72 05/19/16 07:00 97.2 73 20 112/61 98 05/19/16 06:00 75 05/19/16 05:00 67 05/19/16 04:00 69 05/19/16 03:00 69 05/19/16 03:00 98.3 70 20 92/50 94 05/19/16 02:00 70 05/19/16 01:00 79 05/19/16 00:00 79 05/19/16 00:00 101.0 05/18/16 23:00 99.7 78 21 105/61 93 05/18/16 23:00 84 05/18/16 22:00 85 05/18/16 21:00 79 05/18/16 20:00 80 05/18/16 20:00 101.9 05/18/16 19:00 80 05/18/16 19:00 100.6 83 23 88/43 93 05/18/16 18:30 102.2 05/18/16 18:00 85 05/18/16 17:50 102.5 05/18/16 17:00 89 05/18/16 16:00 90 05/18/16 16:00 103.0 05/18/16 15:00 80 05/18/16 15:00 101.7 85 16 91/46 95 05/18/16 14:00 77 -: 05/19/16 0527 05/19/16 0527 Physical Exam General Appearance: No Acute Distress, Comfortable Eyes Eye Exam: Pupils Equal Throat Throat Exam: Oral Mucosa [place] & Moist Pulmonary Resp Exam: No Distress, Rhonchi, Decreased Bases Cardiology CV Exam: Regular, Normal Sinus Rhythm Gastrointestinal/Abdomen GI Exam: Soft, Non-Tender, Bowel Sounds Present Extremeties Extremities Exam: No Edema Neurologic Neuro Exam: Alert, Awake, Oriented Psychiatric Psych Exam: Appropriate Responses Assessment/Plan Assessment Summary: MYRA/Acute Renal Failure, Hypertension, CKD Stage III Problem List: (1) Unstable angina (2) NSTEMI (non-ST elevated myocardial infarction) (3) Stage 3 chronic kidney disease (4) Acute kidney injury Plan Urine out put is good. BP is stable. No chest pain. Creatinine is better. Has chronic kidney disease and has an element of MYRA. Cardiology following for possible Cardiac Cath. Follow urine out put and Continue IVF. Analy Mathew MD May 19, 2016 13:35
[2016-05-19 15:07] LABS: C. DIFF EPI 027 PRESUMPTIVE NEGATIVE (NEGATIVE); C. DIFF TOXIN PCR NEGATIVE (NEGATIVE)
--- NOTE | 2016-05-19 15:27 | HHI.PR ---
Subjective Remarks Follow-up fever with no recurrence today. Having loose stools denies nausea. He has right lower quadrant pain. Discussed with RN Objective Vitals Vital Signs Date Time Temp Pulse Resp B/P Pulse Ox O2 Delivery O2 Flow Rate FiO2 05/19/16 15:00 98.6 80 18 133/72 95 05/19/16 15:00 79 05/19/16 14:22 96 21 05/19/16 14:00 79 05/19/16 13:00 83 05/19/16 12:00 82 05/19/16 11:00 98.5 77 18 110/59 97 05/19/16 11:00 98 05/19/16 10:00 76 05/19/16 09:00 77 05/19/16 08:00 68 05/19/16 07:00 72 05/19/16 07:00 97.2 73 20 112/61 98 05/19/16 06:00 75 05/19/16 05:00 67 05/19/16 04:00 69 05/19/16 03:00 69 05/19/16 03:00 98.3 70 20 92/50 94 05/19/16 02:00 70 05/19/16 01:00 79 05/19/16 00:00 79 05/19/16 00:00 101.0 05/18/16 23:00 99.7 78 21 105/61 93 05/18/16 23:00 84 05/18/16 22:00 85 05/18/16 21:00 79 05/18/16 20:00 80 05/18/16 20:00 101.9 05/18/16 19:00 80 05/18/16 19:00 100.6 83 23 88/43 93 05/18/16 18:30 102.2 05/18/16 18:00 85 05/18/16 17:50 102.5 05/18/16 17:00 89 05/18/16 16:00 90 05/18/16 16:00 103.0 I/O 05/18/16 05/18/16 05/18/16 05/19/16 05/19/16 05/19/16 07:00 15:00 23:00 07:00 15:00 23:00 Intake Total 2433 ml 852 ml 1252 ml Output Total 1095 ml 1000 ml 650 ml Balance 1338 ml -148 ml 602 ml Intake Oral 480 ml 720 ml 240 ml IV Total 1953 ml 132 ml 1012 ml Output Urine Total 1095 ml 1000 ml 650 ml # Voids 4 # Bowel Movements 0 1 1 Result Diagram: 05/19/1627 05/19/16526 Imaging Last Impressions Myocardial Perfusion Scan Nuc Med 05/17/16 0000 Signed Impressions: Service Date/Time: Tuesday, May 17, 2016 10:41 - CONCLUSION: Redistribution as described above consistent stress-induced ischemia.. RISK CATEGORY: Intermediate (1-3%% Annual Mortality Rate) Ramsey Hi MD FACR Chest X-Ray 05/17/16 0000 Signed Impressions: Service Date/Time: Tuesday, May 17, 2016 23:02 - CONCLUSION: Worsening bibasilar atelectasis. Small bilateral pleural effusions are developing. Negrito Valdez MD Chest CT 05/15/16 0000 Signed Impressions: Service Date/Time: Sunday, May 15, 2016 14:37 - CONCLUSION: 1. Lack of intravenous contrast makes it impossible to exclude a dissection. 2. There is no evidence for pneumothorax. 3. Marked coronary artery calcifications. Ramsey Hi MD FACR Abdomen/Pelvis CT 05/15/16 0000 Signed Impressions: Service Date/Time: Sunday, May 15, 2016 14:43 - CONCLUSION: 1. Marked coronary artery calcifications. 2. I do not see an etiology for the patient's back pain. Ramsey Hi MD FACR Objective Remarks GENERAL: This is a well-nourished, well-developed patient, in no apparent distress. CARDIOVASCULAR: Regular rate and regular rhythm without murmurs, gallops, or rubs. RESPIRATORY: Clear to auscultation. Breath sounds equal bilaterally. No wheezes , rales, or rhonchi. GASTROINTESTINAL: Abdomen soft, lightly tender right lower quadrant, nondistended. Normal, active bowel sounds MUSCULOSKELETAL: Extremities without clubbing, cyanosis, or edema. NEURO: Alert & Oriented x4 to person, place, time, situation. Moves all ext x4 Procedures none A/P Problem List: (1) NSTEMI (non-ST elevated myocardial infarction) ICD Code: I21.4 Status: Acute (2) SIRS (systemic inflammatory response syndrome) ICD Code: R65.10 Status: Acute Assessment and Plan - NSTEMI with history of CAD and stent placement started on heparin and nitro drip - will continue aspirin and Coreg- started on Lipitor. cardiology wanted medical management for now secondary to worsening renal function and anemia. Discontinue nitro drip. Consider cardiac catheterization. -SIRS with fever-could be from atelectasis, HI versus sepsis from GI source- continue to monitor temps - CBC in am. Blood cultures negative to date. C. difficile negative. Obtain CT of the abdomen pelvis to evaluate for diverticulitis consider starting Flagyl and Levaquin. Start Lactinex and as needed Lomotil -hypertension- now BP on low side- will decrease coreg- hold lisinopril for now - will monitor and adjust the regimen as needed. Discontinue nitro drip with improved hypotension -diabetes mellitus; resumed long-acting insulin- hold metformin- accu-check with SSI. Hypoglycemia secondary to decreased oral intake. Decrease Levemir to 96 units daily -Acute on Chronic kidney disease ( states not known, being followed up by his PCP); continue IV fluid will monitor. Improving. Repeat BMP in the morning will consult nephrology -DVT prophylaxis ; on heparin drip Anibal Ordonez MD May 19, 2016 15:27
[2016-05-19] MEDS ORDERED: DIPHENOXYLATE/ATROPINE 2.5 MG/0.025 MG TAB PO PRN (15:30)
[2016-05-19] MEDS ORDERED: DIATRIZOATE MEGLUM/DIATRIZOATE SOD 9 ML CUP PO ONE (16:00)
[2016-05-19] MEDS ORDERED: INSULIN DETEMIR 100 UNITS/ML VIAL SQ SCH (21:00)
[2016-05-19] MEDS: GABAPENTIN 300 MG CAP PO SCH (22:19)
[2016-05-19] MEDS: ATORVASTATIN 20 MG TAB PO SCH (22:19)
--- NOTE | 2016-05-19 23:29 | RADRPT ---
EXAM DATE/TIME: 05/19/2016 23:01 This report includes an Addendum and supersedes previous reports for this exam. [facility] COMPARISON: No previous studies available for comparison. INDICATIONS : Diarrhea with lower quadrant pain. ORAL CONTRAST: Prescribed oral contrast ingested. RADIATION DOSE: 18.26 CTDIvol (mGy) MEDICAL HISTORY : Renal calculi. Hypertension. Stroke.Coronary artery disease. Diabetes. SURGICAL HISTORY : Cardiac stent. ENCOUNTER: Initial ACUITY: 1 day PAIN SCALE: 4/10 LOCATION: lower quadrant abdomen TECHNIQUE: Volumetric scanning of the abdomen was performed. Using automated exposure control and adjustment of the mA and/or kV according to patient size, radiation dose was kept as low as reasonably achievable to obtain optimal diagnostic quality images. FINDINGS: There is subsegmental atelectasis in the right base. No pulmonary nodules are identified. AThere is e levation of the right hemidiaphragm. Coronary artery calcifications are present. The liver and spleen are normal in size and no focal defects are identified. There are multiple stone s within the gallbladder without wall thickening or pericholecystic fluid the largest measuring 8 mm. The pancreas demonstrates no evidence of mass and there is no dilatation of the pancreatic duct. The adrenal glands are unremarkable. The right kidney is unremarkable. The left kidney is small in size though no significant vascular disease is identified. There is abnormal thickening of the right colon with possible mucosal mass versus diverticulitis but no evidence of abscess. Abnormal soft tissue de nsity extends into the lateral conal fascia. No free air is identified. Examination of the right lowe r quadrant demonstrates no abnormality. The appendix is identified and appears normal. Examination of the pelvis demonstrates no evidence of free fluid or pelvic mass. No abnormally enlarg ed inguinal or retroperitoneal lymph nodes are present. The bladder is unremarkable. The prostate gla nd is moderately enlarged impinging on the bladder base. CONCLUSION: 1. Abnormal soft tissue density involving the midportion of the descending colon with the inflammator y change extending to the peritoneal wall. There is no evidence of abscess. The findings are concerni ng for neoplasm as no diverticula are seen in the remainder of the colon. Endoscopy is recommended fo r further evaluation if clinically indicated. 2. Cholelithiasis Jakub Dickson MD on May 19, 2016 at 23:22 Board Certified Radiologist. This report was verified electronically. ADDENDUM: COMPARISON: CT ABDOMEN & PELVIS W/O CONTRAST, May 15, 2016, 14:43. I reviewed this study and it is the asscending colon just above the cecum which demonstrates the infl ammatory change. Not the descending colon. Konrad Robbins MD on May 21, 2016 at 9:58 Board Certified Radiologist. This report was verified electronically.
[2016-05-20] VITALS (26 sets, daily range): BP systolic 115–157; BP diastolic 62–78; PULSE 66–87; RESP 15–22; TEMP 97.7–99.5; O2SAT 92–98
[2016-05-20] MEDS: HEPARIN-D5W INJ 250 ML IV SCH ×2 (01:47→23:39)
[2016-05-20] MEDS: INSULIN ASPART SUPPLEMENTAL SCALE SQ SCH ×4 (07:00→20:46)
[2016-05-20] MEDS: DEXTROSE 50% IN WATER 50 ML VIAL(D50) IV PUSH PRN ×3 (07:07→12:53)
[2016-05-20 07:19] LABS: AUTOMATED NEUTROPHIL # 9.6 TH/MM3 (1.8-7.7); BASOPHIL % 0.4 % (0.0-2.0); EOSINOPHIL # 0.2 TH/MM3 (0-0.4); EOSINOPHIL % 1.4 % (0.0-4.0); HEMATOCRIT 27.6 % (39.0-51.0); HEMO FLAGS DIFF FINAL; LYMPH % 11.4 % (9.0-44.0); LYMPHOCYTE # 1.4 TH/MM3 (1.0-4.8); MEAN CELL VOLUME 83.4 FL (80.0-100.0); MEAN CORPUSCULAR HEMOGLOBIN 27.6 PG (27.0-34.0); MEAN CORPUSCULAR HGB CONC 33.1 % (32.0-36.0); MONO % 8.8 % (0.0-8.0); PLATELET COUNT 238 TH/MM3 (150-450); RED BLOOD COUNT 3.31 MIL/MM3 (4.50-5.90); RED CELL DISTRIBUTION WIDTH 15.9 % (11.6-17.2); WHITE BLOOD COUNT 12.3 TH/MM3 (4.0-11.0)
[2016-05-20 07:20] LABS: APTT (PATIENT) 48.9 SEC (24.3-30.1)
[2016-05-20 07:32] LABS: BICARBONATE 23.4 MEQ/L (21.0-32.0); MAGNESIUM 2.1 MG/DL (1.5-2.5); POTASSIUM 3.8 MEQ/L (3.5-5.1)
--- NOTE | 2016-05-20 07:42 | PD.CARD.PN ---
Subjective Subjective Remarks No chest pain, no shortness of breath, no abdominal pain at rest Objective Medications Current Medications Medications (Trade) Dose Ordered Sig/Avinash Route Start Time Stop Time Status Last Admin IV Flush 2 ml 2 ml UNSCH PRN IVF 05/15/16 13:15 05/17/16 09:22 Heparin Sodium/ Dextrose 250 ml @ 0 mls/hr TITRATE IV 05/15/16 15:45 05/20/16 01:47 (NS 1000 ml Inj) 1,000 ml @ 75 mls/hr [id number] IV 05/15/16 17:00 05/19/16 18:20 (D50w (Vial) Inj) 25 ml UNSCH PRN IV PUSH 05/15/16 16:45 05/20/16 07:07 (Glucagon Inj) 1 mg UNSCH PRN OTHER 05/15/16 16:45 (Zyloprim) 100 mg DAILY PO 05/16/16 09:00 05/19/16 08:44 (Neurontin) 300 mg HS PO 05/15/16 21:00 05/19/16 22:19 (Zofran Inj) 4 mg Q8H PRN IV PUSH 05/15/16 16:45 (Tylenol) 650 mg Q4H PRN PO 05/15/16 16:45 05/19/16 00:24 (Ecotrin Ec) 162 mg DAILY PO 05/16/16 09:00 05/19/16 08:45 (Lipitor) 80 mg HS PO 05/17/16 21:00 05/19/16 22:19 (Coreg) 6.25 mg Q12HR PO 05/18/16 09:00 05/19/16 22:19 (Levemir Inj) 96 units HS SQ 05/19/16 21:00 05/19/16 21:00 (Lactinex) 1 tab TID PO 05/19/16 09:00 05/19/16 17:56 (Lomotil Tab) 1 tab Q6H PRN PO 05/19/16 15:30 Vital Signs / I&O Vital Signs Date Time Temp Pulse Resp B/P Pulse Ox O2 Delivery O2 Flow Rate FiO2 05/19/16 18:00 81 05/19/16 17:00 81 05/19/16 16:00 77 05/19/16 15:00 98.6 80 18 133/72 95 05/19/16 15:00 79 05/19/16 14:22 96 21 05/19/16 14:00 79 05/19/16 13:00 83 05/19/16 12:00 82 05/19/16 11:00 98.5 77 18 110/59 97 05/19/16 11:00 98 05/19/16 10:00 76 05/19/16 09:00 77 05/19/16 08:00 68 I/O 05/19/16 05/19/16 05/19/16 05/20/16 05/20/16 05/20/16 07:00 15:00 23:00 07:00 15:00 23:00 Intake Total 1252 ml 1794 ml Output Total 650 ml 1100 ml Balance 602 ml 694 ml Intake Oral 240 ml 960 ml IV Total 1012 ml 834 ml Output Urine Total 650 ml 1100 ml # Bowel Movements 1 1 Physical Exam GENERAL: NAD, AAOx3 SKIN: Warm and dry. HEAD: Atraumatic. Normocephalic. EYES: Pupils equal and round. No scleral icterus. No injection or drainage. ENT: No nasal bleeding or discharge. Mucous membranes pink and moist. NECK: Trachea midline. No JVD. CARDIOVASCULAR: Regular rate and rhythm. RESPIRATORY: No accessory muscle use. Clear to auscultation. Breath sounds equal bilaterally. GASTROINTESTINAL: Abdomen soft, pain with palpitation of the right side, nondistended. Hepatic and splenic margins not palpable. No guarding MUSCULOSKELETAL: Extremities without clubbing, cyanosis, or edema. No obvious deformities. NEUROLOGICAL: Awake and alert. No obvious cranial nerve deficits. Motor grossly within normal limits. Five out of 5 muscle strength in the arms and legs. Normal speech. PSYCHIATRIC: Appropriate mood and affect; insight and judgment normal. Laboratory Laboratory Tests Test 05/19/16 05/20/16 11:00 05:37 Stool C. difficile Toxin (PCR) NEGATIVE Stl C. difficile Toxin PRESUMPTIVE Epiderm 027 NEGATIVE White Blood Count 12.3 TH/MM3 Red Blood Count 3.31 MIL/MM3 Hemoglobin 9.1 GM/DL Hematocrit 27.6 % Mean Corpuscular Volume 83.4 FL Mean Corpuscular Hemoglobin 27.6 PG Mean Corpuscular Hemoglobin 33.1 % Concent Red Cell Distribution Width 15.9 % Platelet Count 238 TH/MM3 Mean Platelet Volume 10.0 FL Neutrophils (%) (Auto) 78.0 % Lymphocytes (%) (Auto) 11.4 % Monocytes (%) (Auto) 8.8 % Eosinophils (%) (Auto) 1.4 % Basophils (%) (Auto) 0.4 % Neutrophils # (Auto) 9.6 TH/MM3 Lymphocytes # (Auto) 1.4 TH/MM3 Monocytes # (Auto) 1.1 TH/MM3 Eosinophils # (Auto) 0.2 TH/MM3 Basophils # (Auto) 0.0 TH/MM3 CBC Comment DIFF FINAL Differential Comment Activated Partial 48.9 SEC Thromboplast Time Assessment and Plan Problem List: (1) SIRS (systemic inflammatory response syndrome) (2) NSTEMI (non-ST elevated myocardial infarction) (3) Renal insufficiency Assessment and Plan 1) Creatinine somewhat better over the weekend, awaiting today's labs 2) With elevated creatinine and decrease in Hgb will plan on possible diagnostic cardiac catheterization, no plan on PCI today 3) CT scan showing right sided soft tissue mass, will need GI consult and probable C-scope 4) Check Hemoccult stool Balta Hickey DO May 20, 2016 07:42
[2016-05-20] MEDS: ALLOPURINOL 100 MG TAB PO SCH (08:44)
[2016-05-20] MEDS: SODIUM CHLOR 0.9% 1000 ML INJ 1,000 ML IV SCH (08:44)
[2016-05-20] MEDS: CARVEDILOL 12.5 MG TAB PO SCH ×2 (08:44→20:32)
[2016-05-20] MEDS: ASPIRIN EC 81 MG TABEC PO SCH (08:44)
[2016-05-20] MEDS: LACTOBACILLUS ACIDOPHILUS TAB PO SCH ×3 (08:45→18:11)
[2016-05-20] MEDS ORDERED: MIDAZOLAM HCL 2 MG/2 ML VIAL ONE (09:06)
[2016-05-20] MEDS ORDERED: HEPARIN-NS/PF INJ 500 ML ONE (09:06)
[2016-05-20] MEDS ORDERED: VERAPAMIL HCL 5 MG/2 ML VIAL ONE (09:07)
[2016-05-20] MEDS ORDERED: NITROGLYCERIN INJ 5 ML ONE (09:07)
[2016-05-20] MEDS ORDERED: HEPARIN SODIUM - IV 10,000 UNITS/10 ML VIAL ONE (09:07)
[2016-05-20] MEDS ORDERED: IODIXANOL 320 MG/ML 100 ML VIAL (for EPS) OTHER ONE (10:00)
[2016-05-20] MEDS ORDERED: SODIUM CHLORIDE 0.9% FLUSH 5 ML FLUSH IVF PRN (10:30)
[2016-05-20] MEDS ORDERED: MISC INFORMATION XX ONE (10:30)
[2016-05-20] MEDS ORDERED: ATROPINE SULFATE 1 MG/ML VIAL IV PRN (10:30)
[2016-05-20] MEDS ORDERED: SODIUM CHLOR 0.9% 250 ML INJ 250 ML IV PRN (10:30)
[2016-05-20] MEDS ORDERED: ONDANSETRON HCL 4 MG/2 ML VIAL IV PRN (10:30)
--- NOTE | 2016-05-20 10:58 | MA ---
cc: BALTA REDDY DO DATE May 20, 2016 PROCEDURE Left heart catheterization, coronary angiogram. PREPROCEDURE DIAGNOSIS NSTEMI. Chest pain. POSTPROCEDURE DIAGNOSES 1. NSTEMI. 2. Multivessel coronary artery disease. MEDICATIONS 1. Fentanyl 25 mcg. 2. Versed 0.5 mg. CONTRAST USED 40 cc. FLUOROSCOPY 8.9 minutes PROCEDURE Mateo Guzman is a pleasant 70-year-old male who presented to [facility] with the complaint of atypical chest pain, shortness of breath and abdominal pain. He did have a mildly elevated troponin but this did not have the usual rise and fall and was more flat in nature. He underwent pharmacologic nuclear stress testing showing anterior ischemia. Because of this as well as his pain, he was brought to the cardiac catheterization lab. The risks, benefits and alternatives were explained to him and he consented as such. He was prepped in the usual sterile fashion. Both right and left radial arteries had a D grade by reverse Barbeau test. Because of this, his right femoral artery was accessed using a modified Seldinger technique and placement of a 5-Turkmen sheath. The sheath was easily aspirated and flushed. A JR-4 was then advanced over a J-wire to the ascending aorta and this was used to cross the aortic valve. Left ventricular end-diastolic pressure was measured at 26. JR-4 was then withdrawn across the aortic valve showing no significant gradient of aortic stenosis. JR-4 was then attempted to use for selective angiography of the right coronary but I was unable to find the ostium. The JR-4 was then exchanged for a JL-4. SELECTIVE ANGIOGRAPHY Selective angiography of the left coronary system shows left main with a distal 80% stenosis. It goes off in LAD and left circumflex. The LAD has diffuse 70% throughout with a few areas of 80-90%. He does have three to four extremely small diagonals with 80% lesions. The left circumflex is large vessel and may be a dominant versus codominant. It has an 80-90% lesion ostial. He has one major obtuse marginal which is small in nature. It does appear that it gives off a PDA distally which is a large vessel. The JL-4 was then exchanged for an AR MOD. This was used for selective angiography of the right coronary and it was felt that the right coronary was occluded ostially with some [id number] collaterals. The right coronary may be a nondominant versus codominant, unable to tell at this time. AR MOD was then removed. After removal of the catheters I attempted to aspirate from the right femoral sheath but was unable to even with pullback and there was a concern for a kink in the sheath and possible thrombus. I felt at that time that the sheath should be pulled and pressure held without attempting to withdrawal the thrombus or placed dilator back through possibly pushing thrombus out. Pressure was held for hemostasis. 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 IMPRESSIONS 1. NSTEMI. 2. Multivessel coronary artery disease as above. 3. Questionable abdominal mass. RECOMMENDATIONS 1. Mateo does have multivessel disease with a concern for left main disease. Consideration was made for possible intraaortic balloon pump but my concern was that he has not had any chest pain and unsure possibility of CT surgery, when he would be able to go depending on a workup for his abdominal mass. 2. He will be placed back on a heparin drip 4 hours after cardiac catheterization. 3. If at anytime he does have increase in his chest pain or becomes hemodynamically or electrically unstable, he may need further left ventricular assist versus more emergent coronary artery bypass grafting. 4. CT surgery will be consulted. I did speak to them about the case. 5. GI has been consulted for consideration of his abdominal mass. Further recommendations will be made based on hospital course. Balta Reddy DO VGP/SSB /10:26 AM /10:44 AM
--- NOTE | 2016-05-20 12:00 | HHI.NPPN ---
Subjective History of Present Illness 70-year-old male with past medical history of diabetes mellitus for 18 years, history of hypertension, ischemic heart disease, chronic kidney disease who came to the hospital with a complaint of shortness of breath and chest pain. I was called to see the patient because of elevated BUN and creatinine. The patient had a creatinine of 2.1 on admission which went up to 4.0. Additional Remarks Underwent cardiac catheterization today, found to have multivessel disease. CT surgery consulted. Review of Systems General Constitutional: Fatigue Respiratory Lungs: SOB Cardiovascular Cardiac: Chest Pain, Edema, OLVERA Objective Data Data 05/19/16 05/20/16 19:00 07:00 Intake Total 1794 ml 1160 ml Output Total 1100 ml 1750 ml Balance 694 ml -590 ml Intake Oral 960 ml 240 ml IV Total 834 ml 920 ml Output Urine Total 1100 ml 1750 ml # Bowel Movements 1 1 Vital Signs Date Time Temp Pulse Resp B/P Pulse Ox O2 Delivery O2 Flow Rate FiO2 05/20/16 08:05 21 05/20/16 06:00 69 05/20/16 05:00 71 05/20/16 04:00 75 05/20/16 03:00 66 05/20/16 03:00 99.0 74 22 115/62 94 05/20/16 02:00 74 05/20/16 01:00 71 05/20/16 00:00 83 05/19/16 23:00 85 05/19/16 23:00 98.3 82 25 141/67 95 05/19/16 22:00 79 05/19/16 21:00 79 05/19/16 20:00 77 05/19/16 19:00 99.1 77 24 128/64 96 05/19/16 18:00 81 05/19/16 17:00 81 05/19/16 16:00 77 05/19/16 15:00 98.6 80 18 133/72 95 05/19/16 15:00 79 05/19/16 14:22 96 21 05/19/16 14:00 79 05/19/16 13:00 83 05/19/16 12:00 82 -: 05/20/16 0537 05/20/16 0740 Physical Exam General Appearance: No Acute Distress, Comfortable Eyes Eye Exam: Pupils Equal Throat Throat Exam: Oral Mucosa [place] & Moist Pulmonary Resp Exam: No Distress, Rhonchi, Decreased Bases Cardiology CV Exam: Regular, Normal Sinus Rhythm Gastrointestinal/Abdomen GI Exam: Soft, Non-Tender, Bowel Sounds Present Extremeties Extremities Exam: No Edema Neurologic Neuro Exam: Alert, Awake, Oriented Psychiatric Psych Exam: Appropriate Responses Assessment/Plan Assessment Summary: MYRA/Acute Renal Failure, Hypertension, CKD Stage III Problem List: (1) Acute kidney injury Plan: Improved. Continue 0.9 % NS. Monitor. Avoid nephrotoxic agents. (2) Stage 3 chronic kidney disease Plan: baseline creatinine may be around 2. (3) NSTEMI (non-ST elevated myocardial infarction) Plan: Cardiology following. s/p cath. Found to have multivessel CAD. CT surgery to see. (4) Abdominal mass Plan: possible malignancy. GI has been consulted. Patel Talbot MD May 20, 2016 12:00
--- NOTE | 2016-05-20 12:04 | HHI.PR ---
Subjective Remarks The patient was resting in bed. He had a cardiac catheter earlier this morning. He wanted something to eat. He understood that he needed to discuss with CT surgery about possible CABG. Still complaining of abdominal pain. Diarrhea has improved. Blood sugars were low this morning. Discussed with nursing. Objective Vitals Vital Signs Date Time Temp Pulse Resp B/P Pulse Ox O2 Delivery O2 Flow Rate FiO2 05/20/16 08:05 21 05/20/16 06:00 69 05/20/16 05:00 71 05/20/16 04:00 75 05/20/16 03:00 66 05/20/16 03:00 99.0 74 22 115/62 94 05/20/16 02:00 74 05/20/16 01:00 71 05/20/16 00:00 83 05/19/16 23:00 85 05/19/16 23:00 98.3 82 25 141/67 95 05/19/16 22:00 79 05/19/16 21:00 79 05/19/16 20:00 77 05/19/16 19:00 99.1 77 24 128/64 96 05/19/16 18:00 81 05/19/16 17:00 81 05/19/16 16:00 77 05/19/16 15:00 98.6 80 18 133/72 95 05/19/16 15:00 79 05/19/16 14:22 96 21 05/19/16 14:00 79 05/19/16 13:00 83 05/19/16 12:00 82 I/O 05/19/16 05/19/16 05/19/16 05/20/16 05/20/16 05/20/16 07:00 15:00 23:00 07:00 15:00 23:00 Intake Total 1252 ml 1794 ml 1160 ml Output Total 650 ml 1100 ml 1750 ml Balance 602 ml 694 ml -590 ml Intake Oral 240 ml 960 ml 240 ml IV Total 1012 ml 834 ml 920 ml Output Urine Total 650 ml 1100 ml 1750 ml # Bowel Movements 1 1 1 Result Diagram: 05/20/16 0537 05/20/16 0740 Imaging Last Impressions Abdomen CT 05/19/16 0000 Signed Impressions: Service Date/Time: Thursday, May 19, 2016 23:01 - CONCLUSION: 1. Abnormal soft tissue density involving the midportion of the descending colon with the inflammatory change extending to the peritoneal wall. There is no evidence of abscess. The findings are concerning for neoplasm as no diverticula are seen in the remainder of the colon. Endoscopy is recommended for further evaluation if clinically indicated. 2. Cholelithiasis Jakub Dikcson MD Myocardial Perfusion Scan Nuc Med 05/17/16 Signed Impressions: Service Date/Time: Tuesday, May 17, 2016 10:41 - CONCLUSION: Redistribution as described above consistent stress-induced ischemia.. RISK CATEGORY: Intermediate (1-3%% Annual Mortality Rate) Ramsey Hi MD FACR Chest X-Ray 05/17/16 Signed Impressions: Service Date/Time: Tuesday, May 17, 2016 23:02 - CONCLUSION: Worsening bibasilar atelectasis. Small bilateral pleural effusions are developing. Negrito Valdez MD Chest CT 05/15/16 Signed Impressions: Service Date/Time: Sunday, May 15, 2016 14:37 - CONCLUSION: 1. Lack of intravenous contrast makes it impossible to exclude a dissection. 2. There is no evidence for pneumothorax. 3. Marked coronary artery calcifications. Ramsey Hi MD FACR Abdomen/Pelvis CT 05/15/16 Signed Impressions: Service Date/Time: Sunday, May 15, 2016 14:43 - CONCLUSION: 1. Marked coronary artery calcifications. 2. I do not see an etiology for the patient's back pain. Ramsey Hi MD FACR Objective Remarks GENERAL: This is a well-nourished, well-developed patient, in no apparent distress. HEENT: NC, AT. CARDIOVASCULAR: Regular rate and regular rhythm without murmurs, gallops, or rubs. RESPIRATORY: Clear to auscultation. Breath sounds equal bilaterally. No wheezes , rales, or rhonchi. GASTROINTESTINAL: Abdomen soft, lightly tender right upper quadrant and epigastric area, nondistended. Normal, active bowel sounds. MUSCULOSKELETAL: Extremities without clubbing, cyanosis, or edema. NEURO: Alert & Oriented x4 to person, place, time, situation. Moves all ext x4. PSYCH: Mood and affect appropriate. Procedures none Medications and IVs Current Medications Medications (Trade) Dose Ordered Sig/Avinash Route Start Time Stop Time Status Last Admin IV Flush 2 ml 2 ml UNSCH PRN IVF 05/15/16 13:15 05/17/16 09:22 (NS 1000 ml Inj) 1,000 ml @ 75 mls/hr [id number] IV 05/15/16 17:00 05/20/16 08:44 (D50w (Vial) Inj) 25 ml UNSCH PRN IV PUSH 05/15/16 16:45 05/20/16 07:07 (Glucagon Inj) 1 mg UNSCH PRN OTHER 05/15/16 16:45 (Zyloprim) 100 mg DAILY PO 05/16/16 09:00 05/20/16 08:44 (Neurontin) 300 mg HS PO 05/15/16 21:00 05/19/16 22:19 (Zofran Inj) 4 mg Q8H PRN IV PUSH 05/15/16 16:45 (Tylenol) 650 mg Q4H PRN PO 05/15/16 16:45 05/19/16 00:24 (Ecotrin Ec) 162 mg DAILY PO 05/16/16 09:00 05/20/16 08:44 (Lipitor) 80 mg HS PO 05/17/16 21:00 05/19/16 22:19 (Coreg) 6.25 mg Q12HR PO 05/18/16 09:00 05/20/16 08:44 (Lactinex) 1 tab TID PO 05/19/16 09:00 05/20/16 08:45 (Lomotil Tab) 1 tab Q6H PRN PO 05/19/16 15:30 (Levemir Inj) 60 units HS SQ 05/20/16 21:00 (NS Flush) 2 ml BID IVF 05/20/16 21:00 (NS Flush) 2 ml UNSCH PRN IVF 05/20/16 10:30 Atropine Sulfate 0.5 mg 0.5 mg UNSCH PRN IV 05/20/16 10:30 (NS 250 ml Inj) 250 ml @ 500 mls/hr ONCE PRN IV 05/20/16 10:30 05/21/16 10:29 Ondansetron HCl 4 mg 4 mg Q4H PRN IV 05/20/16 10:30 Ciprofloxacin/ Dextrose 200 ml @ 200 mls/hr Q24H IV 05/20/16 12:00 UNV (Flagyl 500 Mg Inj) 100 ml @ 100 mls/hr Q8H IV 05/20/16 12:00 UNV (Protonix) 40 mg DAILY PO 05/20/16 12:00 UNV A/P Problem List: (1) NSTEMI (non-ST elevated myocardial infarction) ICD Code: I21.4 Status: Acute (2) SIRS (systemic inflammatory response syndrome) ICD Code: R65.10 Status: Acute Assessment and Plan NSTEMI with history of CAD and stent placement Started on heparin and nitro drips. Cardiology consult appreciated. S/p cath with multivessel CAD including left main. - will continue cardiac regimen. - resume heparin gtt per cards. - CT surgery consult pending. SIRS/ abdominal pain Blood cultures negative to date. C. difficile negative. CT abdomen: Abnormal soft tissue density involving the midportion of the descending colon with the inflammatory change extending to the peritoneal wall; There is no evidence of abscess; The findings are concerning for neoplasm as no diverticula are seen in the remainder of the colon; Endoscopy is recommended for further evaluation if clinically indicated. - GI consult pending. - start Cipro and Flagyl. - PPI. - pain control as needed. Hypertension BP on the low side. - decreased Coreg. Hold lisinopril for now. Will monitor and adjust the regimen as needed. Diabetes mellitus Glucose has been low in the AM. - resumed long-acting insulin at lower dose. - hold metformin- accu-check with SSI. Acute on chronic kidney disease Appreciate nephrology consult. - Repeat BMP and avoid nephrotoxic agents. - IVFs. DVT prophylaxis ; on heparin drip Discharge Planning Awaiting clinical improvement, further work-up. Konrad Meyers DO May 20, 2016 12:04
--- NOTE | 2016-05-20 12:31 | PD.CAR.PN ---
CVT Progress Note Subjective/Hospital Course: sts data discussed with pt RISK SCORES About the STS Risk Calculator Procedure: CAB Only Risk of Mortality: 1.537% Morbidity or Mortality: 18.171% Long Length of Stay: 6.501% Short Length of Stay: 36.828% Permanent Stroke: 1.303% Prolonged Ventilation: 8.811% DSW Infection: 0.581% Renal Failure: 9.252% Reoperation: 5.839% Objective: Vital Signs Date Time Temp Pulse Resp B/P Pulse Ox O2 Delivery O2 Flow Rate FiO2 05/20/16 08:05 21 05/20/16 06:00 69 05/20/16 05:00 71 05/20/16 04:00 75 05/20/16 03:00 66 05/20/16 03:00 99.0 74 22 115/62 94 05/20/16 02:00 74 05/20/16 01:00 71 05/20/16 00:00 83 05/19/16 23:00 85 05/19/16 23:00 98.3 82 25 141/67 95 05/19/16 22:00 79 05/19/16 21:00 79 05/19/16 20:00 77 05/19/16 19:00 99.1 77 24 128/64 96 05/19/16 18:00 81 05/19/16 17:00 81 05/19/16 16:00 77 05/19/16 15:00 98.6 80 18 133/72 95 05/19/16 15:00 79 05/19/16 14:22 96 21 05/19/16 14:00 79 05/19/16 13:00 83 Labs: Laboratory Tests Test 05/20/16 05/20/16 05:37 07:40 White Blood Count 12.3 TH/MM3 (4.0-11.0) Red Blood Count 3.31 MIL/MM3 (4.50-5.90) Hemoglobin 9.1 GM/DL (13.0-17.0) Hematocrit 27.6 % (39.0-51.0) Mean Corpuscular Volume 83.4 FL (80.0-100.0) Mean Corpuscular Hemoglobin 27.6 PG (27.0-34.0) Mean Corpuscular Hemoglobin 33.1 % Concent (32.0-36.0) Red Cell Distribution Width 15.9 % (11.6-17.2) Platelet Count 238 TH/MM3 (150-450) Mean Platelet Volume 10.0 FL (7.0-11.0) Neutrophils (%) (Auto) 78.0 % (16.0-70.0) Lymphocytes (%) (Auto) 11.4 % (9.0-44.0) Monocytes (%) (Auto) 8.8 % (0.0-8.0) Eosinophils (%) (Auto) 1.4 % (0.0-4.0) Basophils (%) (Auto) 0.4 % (0.0-2.0) Neutrophils # (Auto) 9.6 TH/MM3 (1.8-7.7) Lymphocytes # (Auto) 1.4 TH/MM3 (1.0-4.8) Monocytes # (Auto) 1.1 TH/MM3 (0-0.9) Eosinophils # (Auto) 0.2 TH/MM3 (0-0.4) Basophils # (Auto) 0.0 TH/MM3 (0-0.2) CBC Comment DIFF FINAL Differential Comment Activated Partial 48.9 SEC Thromboplast Time (24.3-30.1) Sodium Level 141 MEQ/L (136-145) Potassium Level 3.8 MEQ/L (3.5-5.1) Chloride Level 109 MEQ/L (98-107) Carbon Dioxide Level 23.4 MEQ/L (21.0-32.0) Anion Gap 9 MEQ/L (5-15) Blood Urea Nitrogen 54 MG/DL (7-18) Creatinine 2.32 MG/DL (0.60-1.30) Estimat Glomerular Filtration 28 ML/MIN (>89) Rate Random Glucose 48 MG/DL 75 MG/DL (74-106) (74-106) Calcium Level 8.4 MG/DL (8.5-10.1) Magnesium Level 2.1 MG/DL (1.5-2.5) Result Diagram: 05/20/16 0537 05/20/16 0740 Falguni Sparrow May 20, 2016 12:31
[2016-05-20] MEDS: PANTOPRAZOLE SOD 40 MG DELAYED RELEASE TAB PO SCH (12:47)
--- NOTE | 2016-05-20 12:47 | MB ---
cc: FLORY JENSEN DATE OF CONSULTATION 05/20/2016 DATE OF 1945 HISTORY OF PRESENT ILLNESS A 70-year-old male who presented to the emergency room on May 15 with complaint of chest pain that started when he apparently was sleeping and started having some chills and epigastric lower substernal chest discomfort, did not radiate anywhere. He has also been complaining of having this pain in his right upper quadrant off and on for the last few days, loss of appetite, feels like he has lost a couple of pounds. He had some diarrhea that was watery, no nausea or vomiting. They did a C-diff which was negative. Hemoccult was negative. He also had some nausea but did not have any vomiting. He presented to the emergency room but he felt like before they gave him the nitro the pain was already going away. He had a CT of the abdomen and pelvis initially which did show some multiple gallstones. The liver was free of focal deficits. The spleen, pancreas, adrenals were unremarkable. He also had a CT of the chest; no evidence for pneumothorax, some marked calcification. He did not have contrast because his chronic kidney disease. There was no mediastinal adenopathy, mild dilation of the ascending aorta. He was admitted with a [id number] NE. His troponins were elevated at 0.22 but then they went down to 0.18. He underwent myocardial perfusion scan which showed some stress-induced ischemia in the anterior lateral wall with redistribution in the septal wall extending to the base with EF of 53%, risk category intermediate. He also had some Q-waves in his inferior leads with some PACs and was admitted with unstable angina and non ST-segment NE. He was seen by Dr. Hickey but due to his elevated creatinine he came in with a creatinine of 2.73 that later went up to 4.0 and is now back to 2.32. He did receive some IV fluids. He also has been being followed by Nephrology. He then underwent CT of the abdomen repeat yesterday with oral contrast which showed some abnormal soft tissue involving the midportion of the descending colon with inflammatory change extending to the peritoneal wall, no evidence of abscess, concerning for neoplasm as no diverticula were seen in the remainder of the colon; it also stated some cholelithiasis. The patient does complain of some right upper quadrant discomfort and has positive tenderness and some moderate rebound upon palpation. We were asked to see the patient in regards to his cardiac cath. Cardiac cath revealed left main disease of 80% stenosis. The LAD had diffuse disease, 70% throughout with a few areas 80-90%, three to four extremely small diagonals with 80% lesion. The circ was a larger vessel, dominant versus codominant with an 80-90% lesion, one obtuse marginal small in nature. The right was occluded ostially with some [id number] collaterals. We were consulted to evaluate for coronary artery bypass grafting. The patient is currently pain-free. PAST MEDICAL HISTORY 1. Coronary artery disease. 2. Diabetes mellitus on oral and insulin. 3. Chronic renal insufficiency. He has not seen a kidney doctor since about 10 or 15 years ago. 4. Hypertension. PAST SURGICAL HISTORY 1. Colonoscopy 6 or 7 years ago where he had some polyps removed that were unremarkable, no evidence of malignancy. 2. He had a coronary artery stent placed about 8 years ago. ALLERGIES No known allergies. HOME 1. Lisinopril 40 mg. 1. Gabapentin 300 q.h.s. 1. Allopurinol 100 daily. 2. Coreg 25 b.i.d. 3. Metformin 500 daily. 4. Lancets 100 q. h.s. 5. Glipizide 5 daily. FAMILY HISTORY Mother from lung cancer in her 70s, was a heavy smoker. Father also from lung cancer, was a smoker and in his 70s. SOCIAL HISTORY . Two children. Works part-time for [employer]. Sedentary lifestyle. REVIEW OF SYSTEMS In General: No night sweats. Positive for recent chills. No fever. HEENT: No blurred vision, hearing loss. Respiratory: No cough or shortness rest. Cardiovascular: As above in the HPI. Gastrointestinal: Positive for recent diarrhea, loss of appetite. Right upper quadrant discomfort. Genitourinary: No burning, frequency, urgency. 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 Endocrinology: Positive for diabetes. No hypothyroidism. PHYSICAL EXAMINATION Vital Signs: Blood pressure 116/60, heart rate 74. The patient initially did have a fever of 101.7 to 101.3, now last temperature was 98.3. General: The patient is awake, alert in no acute distress. HEENT: Head is normocephalic, atraumatic. Pupils are equal and reactive. Oral mucosa pink, moist. Neck: Supple. No JVD. Heart Sounds: S1, S2. Regular rate and rhythm. No rubs, murmurs, gallops. Lungs: Clear to auscultation. No wheezes, rales or rhonchi. Abdomen: Mildly distended. He has some hepatosplenomegaly. He has got some tenderness right upper quadrant, some firmness to the right upper quadrant area. Positive for bowel sounds. Extremities: No cyanosis, clubbing or edema. LABORATORY FINDINGS Hemoglobin of 9.1, hematocrit of 27, white cell count of 12, platelet count of 238. Sodium 141, potassium 3.8, BUN of 54 with a creatinine 2.32, was as high as 4.0. Mag level 2.1. White cell count on admission was 21,000, is now down 14. Creatinine was 2.73 up to 4.0 and then down to 2.32. IMPRESSION 1. This is a 70-year-old male with multiple risk categories he is positive for coronary artery disease with prior stent, unstable angina and [id number] NE with multivessel disease as above in the HPI. Coronary films will need to be evaluated by Dr. Flory Jensen but in the meantime the patient will need to be clear by GI. 2. He apparently has abnormality on his CT abdomen that needs to be worked to rule out any neoplasm, also hepatitis screen panel pending, amylase pending. His lipase was normal. His LFTs were normal. 3. Acute on chronic kidney disease. Nephrology following. 4. Diabetes mellitus. Would continue to hold his metformin and continue insulin sliding scale. He did have some low blood sugars during the night, will need to be monitored closely 5. SIRS with negative blood cultures, negative urine. No source for possible sepsis at this time. May need an ultrasound of the gallbladder, kidneys and liver. Further planning as per Dr. Flory Jensen and pending GI evaluation . Dictated by: JASE Light MD ALLISON Rowell/RON /11:42 AM /12:47 PM
[2016-05-20] MEDS: metroNIDAZOLE 500 MG INJ 100 ML IV SCH ×2 (12:48→20:32)
[2016-05-20 13:49] LABS: INDIRECT BILIRUBIN 0.2 MG/DL (0.0-0.8); TOTAL BILIRUBIN ADULT 0.4 MG/DL (0.2-1.0)
--- NOTE | 2016-05-20 16:03 | PD.CONS ---
HPI History of Present Illness This is a 70 year old male with a prior history of coronary artery disease and stent placement, who came to the ER on 05/15/16 for shortness of breath and chest pain and admitted for unstable angina and NSTEMI. Myocardial perfusion scan revealed stress-induced ischemia in the anterior lateral wall redistribution in the septal wall extending to the base with EF of 53%. Cardiac catheterization revealed left main disease of 80% stenosis, LAD with diffuse disease 70% throughout with a few areas 80-90%, 3-4 extremely small diagnonals with 80% lesion. The circumflex was a larger vessel, dominant versus codominant with an 80-90% lesion, one obtuse marginal small in nature. The right was occluded ostially with some right to right collaterals. CVT was consulted for for multivessel disease/evaluation for CABG. The patient was also complaining of some lower abdominal pain and had an Abdomen CT (05/19/16)----> 1. Abnormal soft tissue density involving the midportion of the descending colon with the inflammatory change extending to the peritoneal wall. There is no evidence of abscess. The findings are concerning for neoplasm as no diverticula are seen in the remainder of the colon. Endoscopy is recommended for further evaluation if clinically indicated. 2. Cholelithiasis. Of note, his prior Abdomen/Pelvis CT( 05/15/16)----> 1. Marked coronary artery calcifications. 2. I do not see an etiology for the patient's back pain. GI was consulted for further evaluation of abnormal findings regarding the soft tissue density involving the descending colon prior to having surgery scheduled. The patient reports that he had a colonoscopy about 6-7 years ago and that he had several benign polyps removed. He has had a slightly decreased appetite, but has only lost 2-3 lbs. He denies any nausea or vomiting. He was having some lower abdominal cramping, although he is not having that now. Denies any bowel changes, heartburn, or blood in stool. He is currently on a Heparin gtt, although he looks like he has an order to d/c this. He denies any family hx of esophageal, gastric, or colorectal cancer. Both parents from lung cancer. (Isabel Torres) PFSH Past Medical History CAD Diabetes mellitus Chronic renal insufficiency Hypertension Hyperlipidemia Past Surgical History Cardiac catheterization with stent placement Colonoscopy (Isabel Torres) Coded Allergies: No Known Allergies (Unverified , 03/31/13) Medications Allergies Coded Allergies Type Severity Reaction Last Updated Verified No Known Allergies 03/31/13 No Active Scripts Medications Dose Route/Sig Days Date Category Dose Instructions Lantus Inj (Insulin Glargine) 100 Unit/Ml Inj 100 Units SQ HS 05/15/16 Reported Allopurinol 100 Mg Tab 100 Mg PO DAILY 05/15/16 Reported Metformin (Metformin HCl) 500 Mg Tab 500 Mg PO DAILY 05/15/16 Reported With a meal Coreg (Carvedilol) 25 Mg Tab 25 Mg PO BID 05/15/16 Reported Glipizide 5 Mg Tab 5 Mg PO DAILY 05/15/16 Reported Take 30 minutes before a meal Gabapentin 300 Mg Cap 300 Mg PO HS 05/15/16 Reported Lisinopril 40 Mg Tab 40 Mg PO DAILY 05/15/16 Reported Family History Heart disease in father and mother. Both parents from lung cancer. Social History Does not use tobacco, etoh, illicit drug use. (Isabel Torres) Review of Systems Constitutional: COMPLAINS OF: Fatigue, Weight loss (2-3 lbs), Change in appetite, DENIES: Fever Respiratory: COMPLAINS OF: Shortness of breath, DENIES: Cough Cardiovascular: COMPLAINS OF: Chest pain Gastrointestinal: COMPLAINS OF: Abdominal pain, Anorexia, DENIES: Black stools , Bloody stools, Constipation, Diarrhea, Nausea, Vomiting, Swelling of Abdomen, Heartburn, Hematemesis Musculoskeletal: DENIES: Joint pain Integumentary: DENIES: Abnormal pigmentation Hematologic/lymphatic: DENIES: Bruising Neurologic: DENIES: Headache Psychiatric: DENIES: Confusion (Isabel Torres) GI Exam Vitals I&O Vital Signs Date Time Temp Pulse Resp B/P Pulse Ox O2 Delivery O2 Flow Rate FiO2 05/20/16 12:02 97.7 69 15 130/75 98 05/20/16 11:00 71 05/20/16 08:16 98.2 77 17 157/71 96 05/20/16 08:05 21 05/20/16 07:00 75 05/20/16 06:00 69 05/20/16 05:00 71 05/20/16 04:00 75 05/20/16 03:00 66 05/20/16 03:00 99.0 74 22 115/62 94 05/20/16 02:00 74 05/20/16 01:00 71 05/20/16 00:00 83 05/19/16 23:00 85 05/19/16 23:00 98.3 82 25 141/67 95 05/19/16 22:00 79 05/19/16 21:00 79 05/19/16 20:00 77 05/19/16 19:00 99.1 77 24 128/64 96 05/19/16 18:00 81 05/19/16 17:00 81 05/19/16 16:00 77 I/O 05/19/16 05/19/16 05/19/16 05/20/16 05/20/16 05/20/16 07:00 15:00 23:00 07:00 15:00 23:00 Intake Total 1252 ml 1794 ml 1160 ml Output Total 650 ml 1100 ml 1750 ml Balance 602 ml 694 ml -590 ml Intake Oral 240 ml 960 ml 240 ml IV Total 1012 ml 834 ml 920 ml Output Urine Total 650 ml 1100 ml 1750 ml # Bowel Movements 1 1 1 Imaging Last Impressions Abdomen CT 05/19/16 0000 Signed Impressions: Service Date/Time: Thursday, May 19, 2016 23:01 - CONCLUSION: 1. Abnormal soft tissue density involving the midportion of the descending colon with the inflammatory change extending to the peritoneal wall. There is no evidence of abscess. The findings are concerning for neoplasm as no diverticula are seen in the remainder of the colon. Endoscopy is recommended for further evaluation if clinically indicated. 2. Cholelithiasis Jakub Dickson MD Myocardial Perfusion Scan Nuc Med 05/17/16 0000 Signed Impressions: Service Date/Time: Tuesday, May 17, 2016 10:41 - CONCLUSION: Redistribution as described above consistent stress-induced ischemia.. RISK CATEGORY: Intermediate (1-3%% Annual Mortality Rate) Ramsey Hi MD FACR Chest X-Ray 05/17/16 0000 Signed Impressions: Service Date/Time: Tuesday, May 17, 2016 23:02 - CONCLUSION: Worsening bibasilar atelectasis. Small bilateral pleural effusions are developing. Negrito Valdez MD Chest CT 05/15/16 0000 Signed Impressions: Service Date/Time: Sunday, May 15, 2016 14:37 - CONCLUSION: 1. Lack of intravenous contrast makes it impossible to exclude a dissection. 2. There is no evidence for pneumothorax. 3. Marked coronary artery calcifications. Ramsey Hi MD FACR Abdomen/Pelvis CT 05/15/16 0000 Signed Impressions: Service Date/Time: Sunday, May 15, 2016 14:43 - CONCLUSION: 1. Marked coronary artery calcifications. 2. I do not see an etiology for the patient's back pain. Ramsey Hi MD FACR Laboratory Test 05/20/16 05/20/16 05/20/16 05:37 07:40 13:03 White Blood Count 12.3 TH/MM3 Red Blood Count 3.31 MIL/MM3 Hemoglobin 9.1 GM/DL Hematocrit 27.6 % Mean Corpuscular Volume 83.4 FL Mean Corpuscular Hemoglobin 27.6 PG Mean Corpuscular Hemoglobin 33.1 % Concent Red Cell Distribution Width 15.9 % Platelet Count 238 TH/MM3 Mean Platelet Volume 10.0 FL Neutrophils (%) (Auto) 78.0 % Lymphocytes (%) (Auto) 11.4 % Monocytes (%) (Auto) 8.8 % Eosinophils (%) (Auto) 1.4 % Basophils (%) (Auto) 0.4 % Neutrophils # (Auto) 9.6 TH/MM3 Lymphocytes # (Auto) 1.4 TH/MM3 Monocytes # (Auto) 1.1 TH/MM3 Eosinophils # (Auto) 0.2 TH/MM3 Basophils # (Auto) 0.0 TH/MM3 CBC Comment DIFF FINAL Differential Comment Activated Partial 48.9 SEC Thromboplast Time Sodium Level 141 MEQ/L Potassium Level 3.8 MEQ/L Chloride Level 109 MEQ/L Carbon Dioxide Level 23.4 MEQ/L Anion Gap 9 MEQ/L Blood Urea Nitrogen 54 MG/DL Creatinine 2.32 MG/DL Estimat Glomerular Filtration 28 ML/MIN Rate Random Glucose 48 MG/DL 75 MG/DL 164 MG/DL Calcium Level 8.4 MG/DL Magnesium Level 2.1 MG/DL Total Bilirubin 0.4 MG/DL Direct Bilirubin 0.2 MG/DL Indirect Bilirubin 0.2 MG/DL Aspartate Amino Transf 35 U/L (AST/SGOT) Alanine Aminotransferase 80 U/L (ALT/SGPT) Alkaline Phosphatase 84 U/L Total Protein 6.8 GM/DL Albumin 2.2 GM/DL Amylase Level 65 U/L Lipase 333 U/L Date/Time Procedure Status Source Growth 05/18/16 08:56 Stool Occult Blood (NAHOMY) - Final Complete Stool Stool HEMOCCULT NEGATIVE 05/18/16 03:26 Aerobic Blood Culture - Preliminary Resulted Blood Peripheral NO GROWTH IN 2 DAYS 05/18/16 03:26 Anaerobic Blood Culture - Preliminary Resulted Blood Peripheral NO GROWTH IN 2 DAYS Physical Examination HEENT: Normocephalic; atraumatic; no jaundice. CHEST: CTA CARDIAC: RRR ABDOMEN: Soft, nondistended, nontender; no hepatosplenomegaly; bowel sounds are present in all four quadrants. EXTREMITIES: No clubbing, cyanosis, or edema. SKIN: Generalized pallor, cool BREAD STACKER: No focal deficits; alert and oriented times three. (Isabel Torres) Assessment and Plan Plan ASSESSMENT: - Abnormal imaging involving descending colon on imaging. Abdomen CT (05/19/16)- ---> 1. Abnormal soft tissue density involving the midportion of the descending colon with the inflammatory change extending to the peritoneal wall. There is no evidence of abscess. The findings are concerning for neoplasm as no diverticula are seen in the remainder of the colon. Endoscopy is recommended for further evaluation if clinically indicated. 2. Cholelithiasis. Of note, his prior Abdomen/Pelvis CT( 05/15/16)----> 1. Marked coronary artery calcifications. 2. I do not see an etiology for the patient's back pain. GI was consulted for further evaluation of abnormal findings regarding the soft tissue density involving the descending colon prior to having surgery scheduled. Neither of these were contrasted secondary to MYRA with elevated creat. Last colonoscopy was 6-7 years ago and that he had several benign polyps removed. (+) Decreased appetite, but has only lost 2-3 lbs; lower abdominal pain, improved. Of note, patient had CT abd/pelvis on 05/15 and it did not appreciate these changes to the descending colon. Cipro/flagyl. - Multivessel CAD. Myocardial perfusion scan revealed stress-induced ischemia in the anterior lateral wall redistribution in the septal wall extending to the base with EF of 53%. Cardiac catheterization with multivessel cad as above. CVT consulted, but wants GI evaluation prior to surgery. - Anemia. 9.1/27.6 - Mild leukocytosis. 12.3. - MYRA, CAD, DM, HTN, Hyperlipidemia per primary PLAN: - MARIELENA - Cipro/Flagyl - PPI - Monitor HH - Transfuse as necessary - CEA, AFP, Ca 19-9 - Will d/w Dr. Dial further evaluation with EGD/Colonoscopy. - Supportive care - Further recommendations to follow based on results of above - Pt seen and examined by Dr. Dial and myself and this note is written on her behalf (Isabel Torres) Physician Comments seen, examined agree with above we will ask for cardiac clearance for egd/colonoscopy, if not cleared we will advise noninvasive wok -up like ba enema/ugi series ruq us if negative consider hida scan as he is tender in ruq call gi once cardiac clearance obtained (Talya Dial MD) Isabel Torres May 20, 2016 16:03 Talya Dial MD May 20, 2016 18:36
--- NOTE | 2016-05-20 16:10 | RADRPT ---
EXAM DATE/TIME: 05/20/2016 15:10 [facility] COMPARISON: No previous studies available for comparison. INDICATIONS : Preop cardiac surgery. MEDICAL HISTORY : Hypercholesterolemia. Hypertension. Renal calculi. CVA. CAD. Dyspnea. Diabetes. SURGICAL HISTORY : Coronary artery stent. Cardiac cath. ENCOUNTER: Initial ACUITY: 1 day PAIN SCORE: 0/10 LOCATION: Bilateral leg. GREATER SAPHENOUS VEIN THIGH: PROXIMAL: Right 3 mm Left 5 mm MID: Right 2 mm Left 3 mm DISTAL: Right 1 mm Left 1 mm CALF: PROXIMAL: Right 1 mm Left 1 mm MID: Right 1 mm Left 2 mm DISTAL: Right 2 mm Left 1 mm FINDINGS: The venous system of the lower extremities are patent by color Doppler imaging. Measurements of the leg veins (in mm) are listed above. CONCLUSION: Venous mapping as described above.. Ramsey Hi MD FACR on May 20, 2016 at 16:07 Board Certified Radiologist. This report was verified electronically.
--- NOTE | 2016-05-20 16:54 | RADRPT ---
EXAM DATE/TIME: 05/20/2016 15:30 [facility] COMPARISON: No previous studies available for comparison. INDICATIONS : Preop cardiac surgery. MEDICAL HISTORY : Hypercholesterolemia. Hypertension. Renal calculi. CVA. CAD. Dyspnea. Diabetes. SURGICAL HISTORY : Coronary artery stent. Cardiac cath. ENCOUNTER: Initial ACUITY: 1 day PAIN SCORE: 0/10 LOCATION: Bilateral neck PEAK SYSTOLIC VELOCITIES (cm/sec): ICA/CCA RATIO: Right: 1.5 Left: 3.3 ICA: Right: 133 Left: 241 CCA: Right: 87 Left: 73 ECA: Right: 82 Left: 87 VERTEBRAL: Right: 51 antegrade Left: 24 antegrade Elevated flow velocities and ICA/CCA ratios have been found to correlate with increased degrees of vessel stenosis, calculated as percentage of diameter relative to a normal segment of distal ICA/CCA FINDINGS: RIGHT CAROTID: No significant stenosis is visualized. The waveforms are within normal limits. LEFT CAROTID: There is elevated velocities and ratios in the left carotid consistent with hemodynamically significa nt stenosis.. VERTEBRAL ARTERIES: Antegrade flow is seen in both vertebral arteries. MISCELLANEOUS: None. CONCLUSION: Hemodynamically significant left cartoid stenosis. Ramsey Hi MD FACR on May 20, 2016 at 16:47 Board Certified Radiologist. This report was verified electronically.
--- NOTE | 2016-05-20 16:55 | RADRPT ---
EXAM DATE/TIME: 05/20/2016 15:01 [facility] COMPARISON: No previous studies available for comparison. INDICATIONS : Preop cardiac surgery. MEDICAL HISTORY : Hypercholesterolemia. Hypertension. Renal calculi. CVA. CAD. Dyspnea. Diabetes. SURGICAL HISTORY : Coronary artery stent. Cardiac cath. ENCOUNTER: Initial ACUITY: 1 day PAIN SCORE: 0/10 LOCATION: Bilateral leg. TECHNIQUE: Venous ultrasound of the left and right leg was performed from the inguinal ligament to the proximal calf. Real-time, color Doppler and spectral tracing, compression and augmentation techniques were us ed. FINDINGS: RIGHT LEG: There is normal compressibility of the deep venous system from the inguinal region to the proximal ca lf. No echogenic clot is seen in the lumen of the common femoral, femoral, popliteal, and posterior tibial veins. There is a normal response of the venous system to proximal and distal augmentation an d respiration. LEFT LEG: There is normal compressibility of the deep venous system from the inguinal region to the proximal ca lf. No echogenic clot is seen in the lumen of the common femoral, femoral, popliteal, and posterior tibial veins. There is a normal response of the venous system to proximal and distal augmentation an d respiration. CONCLUSION: Negative exam with no evidence of deep venous thrombosis. Konrad Robbins MD on May 20, 2016 at 16:53 Board Certified Radiologist. This report was verified electronically.
[2016-05-20] MEDS: CIPROFLOXACIN 400 MG PREMIX 200 ML IV SCH (18:11)
[2016-05-20] MEDS: GABAPENTIN 300 MG CAP PO SCH (20:31)
[2016-05-20] MEDS: SODIUM CHLORIDE 0.9% FLUSH 5 ML FLUSH IVF SCH (20:32)
[2016-05-20] MEDS: ATORVASTATIN 20 MG TAB PO SCH (20:33)
[2016-05-20] MEDS ORDERED: INSULIN DETEMIR 100 UNITS/ML VIAL SQ SCH (21:00)
[2016-05-20 21:08] LABS: APTT (PATIENT) 38.5 SEC (24.3-30.1)
[2016-05-20 22:40] LABS: ALBUMIN SPE 2.79 GM/DL (3.50-5.00); ALPHA 1 GLOBULIN 0.51 GM/DL (0.11-0.29); ALPHA 2 GLOBULIN 1.12 GM/DL (0.22-1.00); BETA GLOBULINS (SPE) 0.92 GM/DL (0.53-1.03)
[2016-05-21] VITALS (28 sets, daily range): BP systolic 96–154; BP diastolic 54–76; PULSE 59–86; RESP 16–24; TEMP 98.2–100.2; O2SAT 93–98
[2016-05-21 04:28] LABS: AUTOMATED NEUTROPHIL # 8.8 TH/MM3 (1.8-7.7); BASOPHIL % 0.4 % (0.0-2.0); EOSINOPHIL # 0.2 TH/MM3 (0-0.4); EOSINOPHIL % 1.6 % (0.0-4.0); HEMATOCRIT 28.8 % (39.0-51.0); LYMPHOCYTE # 1.7 TH/MM3 (1.0-4.8); MEAN CELL VOLUME 83.2 FL (80.0-100.0); MEAN CORPUSCULAR HEMOGLOBIN 27.1 PG (27.0-34.0); MEAN CORPUSCULAR HGB CONC 32.6 % (32.0-36.0); MONO % 10.3 % (0.0-8.0); NEUT % 73.7 % (16.0-70.0); PLATELET COUNT 261 TH/MM3 (150-450); RED BLOOD COUNT 3.46 MIL/MM3 (4.50-5.90)
[2016-05-21 04:30] LABS: APTT (PATIENT) 43.5 SEC (24.3-30.1)
[2016-05-21 04:35] LABS: HEMO FLAGS AUTO DIFF
[2016-05-21 04:46] LABS: BICARBONATE 23.3 MEQ/L (21.0-32.0); MAGNESIUM 1.9 MG/DL (1.5-2.5); POTASSIUM 3.9 MEQ/L (3.5-5.1)
[2016-05-21] MEDS ORDERED: HEPARIN SODIUM - IV 10,000 UNITS/10 ML VIAL IV PRN ×2 (05:00)
[2016-05-21 05:56] LABS: BANDS 3 % (0-6); BASOPHILS 1 % (0-2); EOSINOPHILS 1 % (0-4); METAMYELOCYTES 1 % (0-1); MYELOCYTES 1 % (0-0); NEUTROPHIL # MANUAL DIFF 9.7 TH/MM3 (1.8-7.7); PLATELET ESTIMATE SMEAR NORMAL (NORMAL); PLATELET MORPHOLOGY NORMAL (NORMAL); POLYS (SEG NEUTROPHILS) 76 % (16-70); SCAN/DIFF FINAL DIFF MANUAL; WBC DIFF SAMPLE 100
[2016-05-21] MEDS: metroNIDAZOLE 500 MG INJ 100 ML IV SCH ×3 (06:07→20:22)
[2016-05-21] MEDS: INSULIN ASPART SUPPLEMENTAL SCALE SQ SCH ×4 (06:08→21:00)
[2016-05-21] MEDS: SODIUM CHLOR 0.9% 1000 ML INJ 1,000 ML IV SCH ×2 (06:08→15:44)
--- NOTE | 2016-05-21 08:39 | PD.CARD.PN ---
Subjective Subjective Remarks No chest pain, no shortness of breath, no right groin pain Minimal abdominal pain Bowel movement last night Objective Medications Current Medications Medications (Trade) Dose Ordered Sig/Avinash Route Start Time Stop Time Status Last Admin (NS 1000 ml Inj) 1,000 ml @ 75 mls/hr [id number] IV 05/15/16 17:00 05/21/16 06:08 (D50w (Vial) Inj) 25 ml UNSCH PRN IV PUSH 05/15/16 16:45 05/20/16 12:53 (Glucagon Inj) 1 mg UNSCH PRN OTHER 05/15/16 16:45 (Zyloprim) 100 mg DAILY PO 05/16/16 09:00 05/20/16 08:44 (Neurontin) 300 mg HS PO 05/15/16 21:00 05/20/16 20:31 (Tylenol) 650 mg Q4H PRN PO 05/15/16 16:45 05/19/16 00:24 (Ecotrin Ec) 162 mg DAILY PO 05/16/16 09:00 05/20/16 08:44 (Lipitor) 80 mg HS PO 05/17/16 21:00 05/20/16 20:33 (Coreg) 6.25 mg Q12HR PO 05/18/16 09:00 05/20/16 20:32 (Lactinex) 1 tab TID PO 05/19/16 09:00 05/20/16 18:11 (Lomotil Tab) 1 tab Q6H PRN PO 05/19/16 15:30 (Levemir Inj) 60 units HS SQ 05/20/16 21:00 05/20/16 20:46 (NS Flush) 2 ml BID IVF 05/20/16 21:00 05/20/16 20:32 (NS Flush) 2 ml UNSCH PRN IVF 05/20/16 10:30 Atropine Sulfate 0.5 mg 0.5 mg UNSCH PRN IV 05/20/16 10:30 (NS 250 ml Inj) 250 ml @ 500 mls/hr ONCE PRN IV 05/20/16 10:30 05/21/16 10:29 Ondansetron HCl 4 mg 4 mg Q4H PRN IV 05/20/16 10:30 Ciprofloxacin/ Dextrose 200 ml @ 200 mls/hr Q24H IV 05/20/16 14:00 05/20/16 18:11 (Flagyl 500 Mg Inj) 100 ml @ 100 mls/hr Q8H IV 05/20/16 13:00 05/21/16 06:07 (Protonix) 40 mg DAILY PO 05/20/16 12:00 05/20/16 12:47 (Heparin Inj) 5,000 units UNSCH PRN IV 05/21/16 05:00 Heparin Sodium (Porcine) 2500 units 2,500 units UNSCH PRN IV 05/21/16 05:00 (Heparin-D5W Inj) 250 ml @ 0 mls/hr TITRATE IV 05/20/16 23:00 05/20/16 23:39 Vital Signs / I&O Vital Signs Date Time Temp Pulse Resp B/P Pulse Ox O2 Delivery O2 Flow Rate FiO2 05/21/16 08:08 70 05/21/16 07:46 98.8 72 16 130/68 93 05/21/16 07:00 72 05/21/16 05:00 72 05/21/16 04:00 74 05/21/16 03:00 98.3 82 24 154/74 94 05/21/16 03:00 85 05/21/16 02:00 71 05/21/16 01:00 73 05/21/16 00:00 82 05/20/16 23:00 83 05/20/16 23:00 98.8 86 20 146/66 93 05/20/16 22:00 87 05/20/16 21:00 80 05/20/16 20:14 92 21 05/20/16 20:00 76 05/20/16 19:00 99.5 81 18 156/78 97 05/20/16 19:00 84 05/20/16 18:00 77 05/20/16 17:00 75 05/20/16 16:00 76 05/20/16 15:36 98.7 85 16 148/73 97 05/20/16 15:00 75 05/20/16 14:00 74 05/20/16 13:00 75 05/20/16 12:02 97.7 69 15 130/75 98 05/20/16 12:00 67 05/20/16 11:00 71 05/20/16 10:00 71 I/O 2/13/17 05/20/16 05/20/16 05/21/16 05/21/16 05/21/16 07:00 15:00 23:00 07:00 15:00 23:00 Intake Total 1160 ml 540 ml 1169 ml Output Total 1750 ml 1325 ml 725 ml Balance -590 ml -785 ml 444 ml Intake Oral 240 ml 120 ml IV Total 920 ml 540 ml 1049 ml Output Urine Total 1750 ml 1325 ml 725 ml # Bowel Movements 1 1 Physical Exam GENERAL: NAD, AAOx3 SKIN: Warm and dry. HEAD: Atraumatic. Normocephalic. EYES: Pupils equal and round. No scleral icterus. No injection or drainage. ENT: No nasal bleeding or discharge. Mucous membranes pink and moist. NECK: Trachea midline. No JVD. CARDIOVASCULAR: Regular rate and rhythm. RESPIRATORY: No accessory muscle use. Clear to auscultation. Breath sounds equal bilaterally. GASTROINTESTINAL: Abdomen soft, pain with palpitation of the right side, mild along the RUQ, nondistended. Hepatic and splenic margins not palpable. No guarding MUSCULOSKELETAL: Extremities without clubbing, cyanosis, or edema. No obvious deformities. Right groin no hematoma/bruit, distal pulses intact NEUROLOGICAL: Awake and alert. No obvious cranial nerve deficits. Motor grossly within normal limits. Five out of 5 muscle strength in the arms and legs. Normal speech. PSYCHIATRIC: Appropriate mood and affect; insight and judgment normal. Laboratory Laboratory Tests Test 05/20/16 05/20/16 05/20/16 05/21/16 13:03 17:15 20:25 03:46 Random Glucose 164 MG/DL 132 MG/DL Total Bilirubin 0.4 MG/DL Direct Bilirubin 0.2 MG/DL Indirect Bilirubin 0.2 MG/DL Aspartate Amino Transf 35 U/L (AST/SGOT) Alanine Aminotransferase 80 U/L (ALT/SGPT) Alkaline Phosphatase 84 U/L Total Protein 6.8 GM/DL Albumin 2.2 GM/DL Amylase Level 65 U/L Lipase 333 U/L Tumor Marker Alpha Fetoprotein LESS THAN 0.5 NG/ML Carcinoembryonic Antigen 1.0 NG/ML CA 19-9 Antigen 19.4 U/ML Activated Partial 38.5 SEC 43.5 SEC Thromboplast Time White Blood Count 12.0 TH/MM3 Red Blood Count 3.46 MIL/MM3 Hemoglobin 9.4 GM/DL Hematocrit 28.8 % Mean Corpuscular Volume 83.2 FL Mean Corpuscular Hemoglobin 27.1 PG Mean Corpuscular Hemoglobin 32.6 % Concent Red Cell Distribution Width 16.0 % Platelet Count 261 TH/MM3 Mean Platelet Volume 9.5 FL Neutrophils (%) (Auto) 73.7 % Lymphocytes (%) (Auto) 14.0 % Monocytes (%) (Auto) 10.3 % Eosinophils (%) (Auto) 1.6 % Basophils (%) (Auto) 0.4 % Neutrophils # (Auto) 8.8 TH/MM3 Lymphocytes # (Auto) 1.7 TH/MM3 Monocytes # (Auto) 1.2 TH/MM3 Eosinophils # (Auto) 0.2 TH/MM3 Basophils # (Auto) 0.0 TH/MM3 CBC Comment AUTO DIFF Differential Total Cells 100 Counted Neutrophils % (Manual) 76 % Band Neutrophils % 3 % Lymphocytes % 15 % Monocytes % 2 % Eosinophils % 1 % Basophils % 1 % Neutrophils # (Manual) 9.7 TH/MM3 Metamyelocytes 1 % Myelocytes 1 % Differential Comment FINAL DIFF MANUAL Platelet Estimate NORMAL Platelet Morphology Comment NORMAL Red Cell Morphology Comment NORMAL Sodium Level 142 MEQ/L Potassium Level 3.9 MEQ/L Chloride Level 111 MEQ/L Carbon Dioxide Level 23.3 MEQ/L Anion Gap 8 MEQ/L Blood Urea Nitrogen 44 MG/DL Creatinine 2.10 MG/DL Estimat Glomerular Filtration 32 ML/MIN Rate Calcium Level 8.4 MG/DL Magnesium Level 1.9 MG/DL Assessment and Plan Problem List: (1) SIRS (systemic inflammatory response syndrome) (2) NSTEMI (non-ST elevated myocardial infarction) (3) Renal insufficiency (4) Abdominal mass (5) Stage 3 chronic kidney disease (6) Carotid arterial disease Assessment and Plan 1) Multi-vessel coronary artery disease, with distal left main disease... continue on ASA/Coreg/Statin... continue heparin gtt 2) Abdominal mass, spoke to GI, high risk for anesthesia for C-scope, will further discuss with CT surgery about work up 3) If chest pain, hemodynamic/electrical decompensation, will need more emergent surgery 4) Left sided carotid disease Balta Hickey DO May 21, 2016 08:39
[2016-05-21] MEDS: SODIUM CHLORIDE 0.9% FLUSH 5 ML FLUSH IVF SCH (08:52)
[2016-05-21] MEDS: CARVEDILOL 12.5 MG TAB PO SCH ×2 (08:52→20:22)
[2016-05-21] MEDS: ALLOPURINOL 100 MG TAB PO SCH (08:52)
[2016-05-21] MEDS: ASPIRIN EC 81 MG TABEC PO SCH (08:53)
[2016-05-21] MEDS: LACTOBACILLUS ACIDOPHILUS TAB PO SCH ×3 (08:53→17:55)
[2016-05-21] MEDS: PANTOPRAZOLE SOD 40 MG DELAYED RELEASE TAB PO SCH (08:53)
--- NOTE | 2016-05-21 10:11 | HHI.NPPN ---
Subjective Complaints: Shortness of Breath General Problems: Hypertension Renal Failure: Chronic Interval History He has multivessel disease per cardiac cath from yesterday. Feels okay today. Having bedside US to evaluate gallbladder. He continues on heparin gtt. ( Jessica Delgado) Review of Systems General Constitutional: Fatigue (Jessica Delgado) Respiratory Lungs: SOB (Jessica Delgado) Cardiovascular Cardiac: Chest Pain, OLVERA Cardiac Remarks CP resolved (Jessica Delgado) Objective Data Data 05/20/16 05/21/16 19:00 07:00 Intake Total 540 ml 1169 ml Output Total 1325 ml 725 ml Balance -785 ml 444 ml Intake Oral 120 ml IV Total 540 ml 1049 ml Output Urine Total 1325 ml 725 ml # Bowel Movements 1 Vital Signs Date Time Temp Pulse Resp B/P Pulse Ox O2 Delivery O2 Flow Rate FiO2 05/21/16 08:08 70 05/21/16 07:46 98.8 72 16 130/68 93 05/21/16 07:00 72 05/21/16 05:00 72 05/21/16 04:00 74 05/21/16 03:00 98.3 82 24 154/74 94 05/21/16 03:00 85 05/21/16 02:00 71 05/21/16 01:00 73 05/21/16 00:00 82 05/20/16 23:00 83 05/20/16 23:00 98.8 86 20 146/66 93 05/20/16 22:00 87 05/20/16 21:00 80 05/20/16 20:14 92 21 05/20/16 20:00 76 05/20/16 19:00 99.5 81 18 156/78 97 05/20/16 19:00 84 05/20/16 18:00 77 05/20/16 17:00 75 05/20/16 16:00 76 05/20/16 15:36 98.7 85 16 148/73 97 05/20/16 15:00 75 05/20/16 14:00 74 05/20/16 13:00 75 05/20/16 12:02 97.7 69 15 130/75 98 05/20/16 12:00 67 05/20/16 11:00 71 (Jessica Delgado B. DIRECTOR OF CONSERVATION) -: 05/21/16 0346 05/21/16 0346 Imaging Last 72 hours Impressions Lower Extremity Ultrasound 05/20/16 0000 Signed Impressions: Service Date/Time: Friday, May 20, 2016 15:10 - CONCLUSION: Venous mapping as described above.. Ramsey Hi MD FACR Lower Extremity Ultrasound 05/20/16 0000 Signed Impressions: Service Date/Time: Friday, May 20, 2016 15:01 - CONCLUSION: Negative exam with no evidence of deep venous thrombosis. Konrad Robbins MD Carotid Artery Ultrasound 05/20/16 0000 Signed Impressions: Service Date/Time: Friday, May 20, 2016 15:30 - CONCLUSION: Hemodynamically significant left cartoid stenosis. Ramsey Hi MD FACR Abdomen CT 05/19/16 0000 Signed Impressions: Service Date/Time: Thursday, May 19, 2016 23:01 - CONCLUSION: 1. Abnormal soft tissue density involving the midportion of the descending colon with the inflammatory change extending to the peritoneal wall. There is no evidence of abscess. The findings are concerning for neoplasm as no diverticula are seen in the remainder of the colon. Endoscopy is recommended for further evaluation if clinically indicated. 2. Cholelithiasis Jakub Dickson MD Drip Comment heparin (Roland Delgadoon B. DIRECTOR OF CONSERVATION) Physical Exam General Appearance: Well Developed, Well Nourished, No Acute Distress, Comfortable ( SandyJessica B. DIRECTOR OF CONSERVATION) Eyes Eye Exam: Pupils Equal (Roland Delgadoon B. DIRECTOR OF CONSERVATION) Ears & Nose Ears & Nose Exam: Nasal Mucosa [place] (SandyJessica B. DIRECTOR OF CONSERVATION) Throat Throat Exam: Oral Mucosa [place] & Moist (SandyJessica B. DIRECTOR OF CONSERVATION) Pulmonary Resp Exam: No Distress, Rhonchi, Decreased Bases (SandyJessica B. DIRECTOR OF CONSERVATION) Cardiology CV Exam: Regular, Normal Sinus Rhythm, Good Perfusion (SandyJessica B. DIRECTOR OF CONSERVATION) Gastrointestinal/Abdomen GI Exam: Soft, Non-Tender, Bowel Sounds Present, Positive Bowel Movement ( SandyJessica B. DIRECTOR OF CONSERVATION) Musculoskeletal MS Exam: Joints Intact, Normal Tone (SandyJessica B. DIRECTOR OF CONSERVATION) Integumentary Skin Exam: Warm, Dry (Jessica Delgado) Extremeties Extremities Exam: No Edema, Pedal Pulses Palpable (Jessica Delgado) Neurologic Neuro Exam: Alert, Awake, Oriented, Speech Clear, Moving All Extremities ( Jessica Delgado) Psychiatric Psych Exam: Appropriate Responses (Jessica Delgado) VTE Prophylaxis Meds: Heparin (Jessica Delgado) Assessment/Plan Assessment Summary: MYRA/Acute Renal Failure, Hypertension, CKD Stage III Problem List: (1) Acute kidney injury Plan: Renal function improved MYRA likely be due to NSTEMI he was exposed to IV contrast on 05/20 at this time his renal function is better, good urine output without steinberg, no issues with retention monitor creatinine, continue IVF of 0.9% NS monitor electrolytes, replace as needed labs in am avoid nephrotoxins (2) Stage 3 chronic kidney disease Plan: baseline creatinine around 2 he has proteinuria which may represent underlying diabetic nephropathy quantify proteinuria, monitor renal function see above (3) NSTEMI (non-ST elevated myocardial infarction) Plan: Cardiology following. s/p cath 05/20. Found to have multivessel CAD. CT surgery consulted, appreciate recommendations on BB, ASA, statin, and heparin gtt no reports of chest pain, sob currently (4) Abdominal mass Plan: possible malignancy. GI has been consulted. having US today, follow up on results (5) DM (diabetes mellitus) Plan: monitor glucose on Levemir, also SSI (novolog) as needed (Jessica Delgado) Plan patient was seen and examined. Agree with above. IVF can be stopped if he is no longer NPO. Patient's renal function has improved. (Patel Talbot MD) Jessica Delgado May 21, 2016 10:11 Patel Talbot MD May 21, 2016 10:29
--- NOTE | 2016-05-21 10:33 | RADRPT ---
EXAM DATE/TIME: 05/21/2016 09:44 [facility] COMPARISON: CT ABDOMEN W/O CONTRAST, May 19, 2016, 23:01. EXTERNAL COMPARISON : [facility], Ultrasound kidney, October 08, 2009 INDICATIONS : RUQ pain. Abnormal CT demonstrating inflammatory change involving the ascending colon. MEDICAL HISTORY : Hypertension. Hypercholesterolemia. Renal calculi. SOB. CVA. Dyspnea. CAD. Diabetes. SURGICAL HISTORY : Cardiac stent. ENCOUNTER: Initial ACUITY: 1 week PAIN SCORE: 3/10 LOCATION: Right upper quadrant MEASUREMENTS: LIVER: 17.5 cm length COMMON DUCT: 8 mm RIGHT KIDNEY: 11.3 x 6.7 x 6.5 cm FINDINGS: LIVER: Normal echotexture without focal lesion or ductal dilatation. COMMON DUCT: No intraluminal mass or stone visualized. GALLBLADDER: There are multiple small echogenic gallstones with posterior shadowing. There is mild gallbladder wal l thickening measuring up to 4 mm. PANCREAS: The visualized portions are within normal limits. RIGHT KIDNEY: No evidence of hydronephrosis, stone, or mass. CONCLUSION: 1. Cholelithiasis with multiple echogenic gallstones. There is mild wall thickening with no perichole cystic fluid. 2. The common bile duct is mildly prominent at 8 mm with no evidence of choledocholithiasis in the vi sualized portion. 3. The liver is mildly prominent in size with no focal lesion. Konrad Robbins MD on May 21, 2016 at 10:30 Board Certified Radiologist. This report was verified electronically.
[2016-05-21 10:40] LABS: BLOOD, URINE NEG (NEG); COMMENT (UR) CULT NOT INDICATED; CULTURE IF INDICATED CULT NOT INDICATED; GLUCOSE,URINE NEG (NEG); KETONE, URINE NEG (NEG); MUCUS URINE FEW /lpf (OCC); NITRITE,URINE NEG (NEG); URINE COLOR LIGHT-YELLOW (YELLW/STRAW)
--- NOTE | 2016-05-21 11:17 | PD.CONS ---
cc: Inocencio Villavicencio MD HPI Service General surgery Consult Requested By Paula LAGUNA Reason for Consult Abdominal pain; right colon mas; gallstones l Primary Care Physician Patrick Roman MD History of Present Illness This is a 70-year-old male who was having severe chest pain at home and was brought to the emergency room via [facility]. The patient was given nitroglycerin which resolved his chest pain by the time he arrived to the emergency department. The patient had a myocardial perfusion scan which showed some stress-induced ischemia and EF of 52%. The patient had a cardiac cath which revealed multivessel coronary artery disease and is being evaluated by cardiothoracic surgery for CABG. The patient complains of lower RIGHT abdominal pain that is intermittent but worse with palpation and complains of upper right quadrant abdominal pain with palpation only. The patient has had nausea during this hospitalization but no vomiting. He does not complain of any diet intolerance. The patient states he had a "gallbladder attack" about 7 or 8 years ago but did not require hospitalization and past the stone. The patient had a CT abdomen and pelvis which showed gallstones and an abnormal soft tissue density in the midportion of the descending colon. An ultrasound of the gallbladder revealed cholelithiasis with multiple gallstones with mild wall thickening and no pericholecystic fluid. A General Surgery consult was requested for evaluation of the abdominal mass and gallstones. Review of Systems Constitutional: DENIES: Fatigue, Fever, Chills Endocrine: DENIES: Heat/cold intolerance, Polydipsia, Polyuria, Polyphagia Eyes: DENIES: Vision loss, Double Vision Ears, nose, mouth, throat: DENIES: Hearing loss, Vertigo Respiratory: DENIES: Cough, Snoring, Wheezing Cardiovascular: DENIES: Chest pain, Palpitations, Syncope Gastrointestinal: COMPLAINS OF: Abdominal pain, Diarrhea, DENIES: Constipation Genitourinary: DENIES: Urgency, Hematuria, Dysuria Musculoskeletal: DENIES: Joint pain, Muscle aches Integumentary: DENIES: Abnormal pigmentation Hematologic/lymphatic: DENIES: Bruising Immunologic/allergic: DENIES: Eczema Neurologic: DENIES: Abnormal gait, Headache, Localized weakness Psychiatric: DENIES: Confusion, Mood changes, Depression Past Family Social History Past Medical History CAD Diabetes mellitus Chronic renal insufficiency Hypertension Past Surgical History Cardiac stent placement Reported Medications See chart Allergies: Coded Allergies: No Known Allergies (Unverified , 03/31/13) Active Ordered Medications Current Medications Medications (Trade) Dose Ordered Sig/Avinash Route Start Time Stop Time Status Last Admin (NS 1000 ml Inj) 1,000 ml @ 75 mls/hr [id number] IV 05/15/16 17:00 05/21/16 06:08 (D50w (Vial) Inj) 25 ml UNSCH PRN IV PUSH 05/15/16 16:45 05/20/16 12:53 (Glucagon Inj) 1 mg UNSCH PRN OTHER 05/15/16 16:45 (Zyloprim) 100 mg DAILY PO 05/16/16 09:00 05/21/16 08:52 (Neurontin) 300 mg HS PO 05/15/16 21:00 05/20/16 20:31 (Tylenol) 650 mg Q4H PRN PO 05/15/16 16:45 05/19/16 00:24 (Ecotrin Ec) 162 mg DAILY PO 05/16/16 09:00 05/21/16 08:53 (Lipitor) 80 mg HS PO 05/17/16 21:00 05/20/16 20:33 (Coreg) 6.25 mg Q12HR PO 05/18/16 09:00 05/21/16 08:52 (Lactinex) 1 tab TID PO 05/19/16 09:00 05/21/16 08:53 (Lomotil Tab) 1 tab Q6H PRN PO 05/19/16 15:30 (Levemir Inj) 60 units HS SQ 05/20/16 21:00 05/20/16 20:46 (NS Flush) 2 ml BID IVF 05/20/16 21:00 05/20/16 20:32 (NS Flush) 2 ml UNSCH PRN IVF 05/20/16 10:30 (Atropine Inj) 0.5 mg UNSCH PRN IV 05/20/16 10:30 Ondansetron HCl 4 mg 4 mg Q4H PRN IV 05/20/16 10:30 Ciprofloxacin/ Dextrose 200 ml @ 200 mls/hr Q24H IV 05/20/16 14:00 05/20/16 18:11 (Flagyl 500 Mg Inj) 100 ml @ 100 mls/hr Q8H IV 05/20/16 13:00 05/21/16 06:07 (Protonix) 40 mg DAILY PO 05/20/16 12:00 05/21/16 08:53 (Heparin Inj) 5,000 units UNSCH PRN IV 05/21/16 05:00 Heparin Sodium (Porcine) 2500 units 2,500 units UNSCH PRN IV 05/21/16 05:00 (Heparin-D5W Inj) 250 ml @ 0 mls/hr TITRATE IV 05/20/16 23:00 05/20/16 23:39 Family History Noncontributory Social History Denies smoking Denies EtOH use Denies illicit drug use Physical Exam Vital Signs Vital Signs Date Time Temp Pulse Resp B/P Pulse Ox O2 Delivery O2 Flow Rate FiO2 05/21/16 08:08 70 05/21/16 07:46 98.8 72 16 130/68 93 05/21/16 07:00 72 05/21/16 05:00 72 05/21/16 04:00 74 05/21/16 03:00 98.3 82 24 154/74 94 05/21/16 03:00 85 05/21/16 02:00 71 05/21/16 01:00 73 05/21/16 00:00 82 05/20/16 23:00 83 05/20/16 23:00 98.8 86 20 146/66 93 05/20/16 22:00 87 05/20/16 21:00 80 05/20/16 20:14 92 21 05/20/16 20:00 76 05/20/16 19:00 99.5 81 18 156/78 97 05/20/16 19:00 84 05/20/16 18:00 77 05/20/16 17:00 75 05/20/16 16:00 76 05/20/16 15:36 98.7 85 16 148/73 97 05/20/16 15:00 75 05/20/16 14:00 74 05/20/16 13:00 75 05/20/16 12:02 97.7 69 15 130/75 98 05/20/16 12:00 67 05/20/16 11:00 71 Physical Exam GENERAL: Alert and awake sitting on the side of the bed eating breakfast SKIN: Warm and dry. HEAD: Atraumatic. Normocephalic. EYES: Pupils equal and round. No scleral icterus. No injection or drainage. ENT: No nasal bleeding or discharge. Mucous membranes pink and moist. NECK: Trachea midline. CARDIOVASCULAR: Regular rate and rhythm. RESPIRATORY: No accessory muscle use. Clear to auscultation. Breath sounds equal bilaterally. GASTROINTESTINAL: Abdomen soft, non-tender. Right upper quadrant pain with deep palpation only. Right lower abdominal pain with minimal palpation. MUSCULOSKELETAL: Extremities without clubbing, cyanosis, or edema. No obvious deformities. NEUROLOGICAL: Awake and alert. No obvious cranial nerve deficits. Motor grossly within normal limits. Five out of 5 muscle strength in the arms and legs. Normal speech. PSYCHIATRIC: Appropriate mood and affect; insight and judgment normal. Laboratory Laboratory Tests Test 05/20/16 05/20/16 05/20/16 05/21/16 13:03 17:15 20:25 03:46 Random Glucose 164 132 Total Bilirubin 0.4 Direct Bilirubin 0.2 Indirect Bilirubin 0.2 Aspartate Amino Transf 35 (AST/SGOT) Alanine Aminotransferase 80 (ALT/SGPT) Alkaline Phosphatase 84 Total Protein 6.8 Albumin 2.2 Amylase Level 65 Lipase 333 Tumor Marker Alpha Fetoprotein LESS THAN 0.5 Carcinoembryonic Antigen 1.0 CA 19-9 Antigen 19.4 Activated Partial 38.5 43.5 Thromboplast Time White Blood Count 12.0 Red Blood Count 3.46 Hemoglobin 9.4 Hematocrit 28.8 Mean Corpuscular Volume 83.2 Mean Corpuscular Hemoglobin 27.1 Mean Corpuscular Hemoglobin 32.6 Concent Red Cell Distribution Width 16.0 Platelet Count 261 Mean Platelet Volume 9.5 Neutrophils (%) (Auto) 73.7 Lymphocytes (%) (Auto) 14.0 Monocytes (%) (Auto) 10.3 Eosinophils (%) (Auto) 1.6 Basophils (%) (Auto) 0.4 Neutrophils # (Auto) 8.8 Lymphocytes # (Auto) 1.7 Monocytes # (Auto) 1.2 Eosinophils # (Auto) 0.2 Basophils # (Auto) 0.0 CBC Comment AUTO DIFF Differential Total Cells 100 Counted Neutrophils % (Manual) 76 Band Neutrophils % 3 Lymphocytes % 15 Monocytes % 2 Eosinophils % 1 Basophils % 1 Neutrophils # (Manual) 9.7 Metamyelocytes 1 Myelocytes 1 Differential Comment FINAL DIFF MANUAL Platelet Estimate NORMAL Platelet Morphology Comment NORMAL Red Cell Morphology Comment NORMAL Sodium Level 142 Potassium Level 3.9 Chloride Level 111 Carbon Dioxide Level 23.3 Anion Gap 8 Blood Urea Nitrogen 44 Creatinine 2.10 Estimat Glomerular Filtration 32 Rate Calcium Level 8.4 Magnesium Level 1.9 Test 05/21/16 08:50 Urine Color LIGHT-YELLOW Urine Turbidity HAZY Urine pH 5.0 Urine Specific [place] 1.012 Urine Protein TRACE Urine Glucose (UA) NEG Urine Ketones NEG Urine Occult Blood NEG Urine Nitrite NEG Urine Bilirubin NEG Urine Urobilinogen LESS THAN 2.0 Urine Leukocyte Esterase NEG Urine WBC LESS THAN 1 Urine Amorphous Sediment RARE Urine Mucus FEW Microscopic Urinalysis Comment CULT NOT INDICATED Date/Time Procedure Status Source Growth 05/18/16 08:56 Stool Occult Blood (NAHOMY) - Final Complete Stool Stool HEMOCCULT NEGATIVE 05/18/16 03:26 Aerobic Blood Culture - Preliminary Resulted Blood Peripheral NO GROWTH IN 2 DAYS 05/18/16 03:26 Anaerobic Blood Culture - Preliminary Resulted Blood Peripheral NO GROWTH IN 2 DAYS Result Diagram: 05/21/16 0346 05/21/16 0346 Imaging Last 48 hours Impressions Gall Bladder Ultrasound 05/21/16 0000 Signed Impressions: Service Date/Time: Saturday, May 21, 2016 09:44 - CONCLUSION: 1. Cholelithiasis with multiple echogenic gallstones. There is mild wall thickening with no pericholecystic fluid. 2. The common bile duct is mildly prominent at 8 mm with no evidence of choledocholithiasis in the visualized portion. 3. The liver is mildly prominent in size with no focal lesion. Konrad Robbins MD Lower Extremity Ultrasound 05/20/16 0000 Signed Impressions: Service Date/Time: Friday, May 20, 2016 15:10 - CONCLUSION: Venous mapping as described above.. Ramsey Hi MD FACR Lower Extremity Ultrasound 05/20/16 0000 Signed Impressions: Service Date/Time: Friday, May 20, 2016 15:01 - CONCLUSION: Negative exam with no evidence of deep venous thrombosis. Konrad Rbobins MD Carotid Artery Ultrasound 05/20/16 0000 Signed Impressions: Service Date/Time: Friday, May 20, 2016 15:30 - CONCLUSION: Hemodynamically significant left cartoid stenosis. Ramsey Hi MD FACR Assessment and Plan Assessment and Plan 70 year old male with CAD, DM, HTN and chronic renal insufficiency with cholelithiasis, abdominal pain and incidental finding of a RIGHT colon mass -Agree with Cipro/Flagyl -Continue heart healthy diet -CABG tentatively scheduled for the end of this week -After he has recovered from his CABG then will evaluate RIGHT colon mass with EGD/Colonoscopy -GI following -on ASA and Heparin drip -Patient seen and evaluated by Dr. Villavicencio -All patient's questions were answered and patient understands plan Attending Statement patient seen at bedside Multiple medical issues acute [place] cholelithiasis, incidental Non obstructing ascending colon mass PLAN At this point The most important issues is the patients cardiac status. He is planning to undergo CABG tentative on Friday He will need further evaluation of his colon mass following resolution of cardiac issues. Ideally at a short interval follow up with Colonoscopy when medically fit In regard to his gallbladder. I recommend continue medical management with pain control and abx We will likely be able to address the colon mass and gallbladder laparoscopically during the same operation Thank you for consultation, We will continue to follow. Attestation The exam, history, and the medical decision-making described in the above note were completed with the assistance of the mid-level provider. I reviewed and agree with the findings presented. I attest that I had a [id number] encounter with the patient on the same day, and personally performed and documented my assessment and findings in the medical record. Elsa Pond May 21, 2016 11:17 Inocencio Villavicencio MD May 21, 2016 22:31
[2016-05-21] MEDS ORDERED: METOPROLOL TARTRATE 25 MG TAB PO SCH (11:30)
[2016-05-21] MEDS ORDERED: SODIUM CHLORIDE 0.9% FLUSH 5 ML FLUSH IV FLUSH PRN (11:30)
[2016-05-21] MEDS: DEXTROSE 50% IN WATER 50 ML VIAL(D50) IV PUSH PRN (11:35)
[2016-05-21 11:42] LABS: APTT (PATIENT) 45.2 SEC (24.3-30.1)
[2016-05-21] MEDS ORDERED: CEFAZOLIN INJ 500 MG in SODIUM CHLORIDE 0.9% IRR BTL 500 ML IRRIGATION SCH (12:00)
[2016-05-21] MEDS ORDERED: PAPAVERINE INJ 60 MG, NITROGLYCERIN INJ 100 MCG, DILTIAZEM INJ 100 MG in SODIUM CHLORID... IRRIGATION SCH (12:00)
[2016-05-21] MEDS ORDERED: INSULIN REGULAR (IV INFUSION) 100 UNITS in SODIUM CHLORIDE 0.9% INJ 100 ML IV SCH (12:00)
[2016-05-21] MEDS ORDERED: ceFAZolin 2 GM PREMIX 50 ML IV SCH (12:00)
[2016-05-21] MEDS ORDERED: CHLORHEXIDINE GLUCONATE 4% SOLN 120 ML BTL TOPICAL SCH (12:00)
--- NOTE | 2016-05-21 12:32 | HHI.GIFU ---
Subjective Remarks Resting in bed in no distress. No nausea, vomiting, abdominal pain at this time , mild right lower quadrant tenderness on exam. Discussed with Dr. Robbins- the inflammatory change is actually in the ascending colon just above the cecum , not the descending and he will add addendum to report. Barium enema would be of little benefit for evaluation of this suspected colitis. Discussed with Dr. Hickey. (Isabel Torres [facility]) Objective Vitals I&O Vital Signs Date Time Temp Pulse Resp B/P Pulse Ox O2 Delivery O2 Flow Rate FiO2 05/21/16 08:08 70 05/21/16 07:46 98.8 72 16 130/68 93 05/21/16 07:00 72 05/21/16 05:00 72 05/21/16 04:00 74 05/21/16 03:00 98.3 82 24 154/74 94 05/21/16 03:00 85 05/21/16 02:00 71 05/21/16 01:00 73 05/21/16 00:00 82 05/20/16 23:00 83 05/20/16 23:00 98.8 86 20 146/66 93 05/20/16 22:00 87 05/20/16 21:00 80 05/20/16 20:14 92 21 05/20/16 20:00 76 05/20/16 19:00 99.5 81 18 156/78 97 05/20/16 19:00 84 05/20/16 18:00 77 05/20/16 17:00 75 05/20/16 16:00 76 05/20/16 15:36 98.7 85 16 148/73 97 05/20/16 15:00 75 05/20/16 14:00 74 05/20/16 13:00 75 I/O 05/20/16 05/20/16 05/20/16 05/21/16 05/21/16 05/21/16 07:00 15:00 23:00 07:00 15:00 23:00 Intake Total 1160 ml 540 ml 1169 ml Output Total 1750 ml 1325 ml 725 ml Balance -590 ml -785 ml 444 ml Intake Oral 240 ml 120 ml IV Total 920 ml 540 ml 1049 ml Output Urine Total 1750 ml 1325 ml 725 ml # Bowel Movements 1 1 Laboratory Laboratory Tests Test 05/20/16 05/20/16 05/20/16 05/21/16 13:03 17:15 20:25 03:46 Random Glucose 164 132 Total Bilirubin 0.4 Direct Bilirubin 0.2 Indirect Bilirubin 0.2 Aspartate Amino Transf 35 (AST/SGOT) Alanine Aminotransferase 80 (ALT/SGPT) Alkaline Phosphatase 84 Total Protein 6.8 Albumin 2.2 Amylase Level 65 Lipase 333 Tumor Marker Alpha Fetoprotein LESS THAN 0.5 Carcinoembryonic Antigen 1.0 CA 19-9 Antigen 19.4 Activated Partial 38.5 43.5 Thromboplast Time White Blood Count 12.0 Red Blood Count 3.46 Hemoglobin 9.4 Hematocrit 28.8 Mean Corpuscular Volume 83.2 Mean Corpuscular Hemoglobin 27.1 Mean Corpuscular Hemoglobin 32.6 Concent Red Cell Distribution Width 16.0 Platelet Count 261 Mean Platelet Volume 9.5 Neutrophils (%) (Auto) 73.7 Lymphocytes (%) (Auto) 14.0 Monocytes (%) (Auto) 10.3 Eosinophils (%) (Auto) 1.6 Basophils (%) (Auto) 0.4 Neutrophils # (Auto) 8.8 Lymphocytes # (Auto) 1.7 Monocytes # (Auto) 1.2 Eosinophils # (Auto) 0.2 Basophils # (Auto) 0.0 CBC Comment AUTO DIFF Differential Total Cells 100 Counted Neutrophils % (Manual) 76 Band Neutrophils % 3 Lymphocytes % 15 Monocytes % 2 Eosinophils % 1 Basophils % 1 Neutrophils # (Manual) 9.7 Metamyelocytes 1 Myelocytes 1 Differential Comment FINAL DIFF MANUAL Platelet Estimate NORMAL Platelet Morphology Comment NORMAL Red Cell Morphology Comment NORMAL Sodium Level 142 Potassium Level 3.9 Chloride Level 111 Carbon Dioxide Level 23.3 Anion Gap 8 Blood Urea Nitrogen 44 Creatinine 2.10 Estimat Glomerular Filtration 32 Rate Calcium Level 8.4 Magnesium Level 1.9 Test 05/21/16 05/21/16 05/21/16 07:46 08:50 11:11 Nasal Screen MRSA (PCR) NEGATIVE Urine Color LIGHT-YELLOW Urine Turbidity HAZY Urine pH 5.0 Urine Specific [place] 1.012 Urine Protein TRACE Urine Glucose (UA) NEG Urine Ketones NEG Urine Occult Blood NEG Urine Nitrite NEG Urine Bilirubin NEG Urine Urobilinogen LESS THAN 2.0 Urine Leukocyte Esterase NEG Urine WBC LESS THAN 1 Urine Amorphous Sediment RARE Urine Mucus FEW Microscopic Urinalysis Comment CULT NOT INDICATED Activated Partial 45.2 Thromboplast Time Date/Time Procedure Status Source Growth 05/18/16 08:56 Stool Occult Blood (NAHOMY) - Final Complete Stool Stool HEMOCCULT NEGATIVE 05/18/16 03:26 Aerobic Blood Culture - Preliminary Resulted Blood Peripheral NO GROWTH IN 3 DAYS 05/18/16 03:26 Anaerobic Blood Culture - Preliminary Resulted Blood Peripheral NO GROWTH IN 3 DAYS Imaging Last Impressions Gall Bladder Ultrasound 05/21/16 0000 Signed Impressions: Service Date/Time: Saturday, May 21, 2016 09:44 - CONCLUSION: 1. Cholelithiasis with multiple echogenic gallstones. There is mild wall thickening with no pericholecystic fluid. 2. The common bile duct is mildly prominent at 8 mm with no evidence of choledocholithiasis in the visualized portion. 3. The liver is mildly prominent in size with no focal lesion. Konrad Robbins MD Lower Extremity Ultrasound 05/20/16 0000 Signed Impressions: Service Date/Time: Friday, May 20, 2016 15:10 - CONCLUSION: Venous mapping as described above.. Ramsey Hi MD FACR Carotid Artery Ultrasound 05/20/16 0000 Signed Impressions: Service Date/Time: Friday, May 20, 2016 15:30 - CONCLUSION: Hemodynamically significant left cartoid stenosis. Ramsey Hi MD FACR Abdomen CT 05/19/16 0000 Signed Impressions: Service Date/Time: Thursday, May 19, 2016 23:01 - CONCLUSION: 1. Abnormal soft tissue density involving the midportion of the descending colon with the inflammatory change extending to the peritoneal wall. There is no evidence of abscess. The findings are concerning for neoplasm as no diverticula are seen in the remainder of the colon. Endoscopy is recommended for further evaluation if clinically indicated. 2. Cholelithiasis Jakub Dickson MD ADDENDUM: COMPARISON: CT ABDOMEN & PELVIS W/O CONTRAST, May 15, 2016, 14:43. I reviewed this study and it is the asscending colon just above the cecum which demonstrates the inflammatory change. Not the descending colon. Konrad Robbins MD Myocardial Perfusion Scan Nuc Med 05/17/16 0000 Signed Impressions: Service Date/Time: Tuesday, May 17, 2016 10:41 - CONCLUSION: Redistribution as described above consistent stress-induced ischemia.. RISK CATEGORY: Intermediate (1-3%% Annual Mortality Rate) Ramsey Hi MD FACR Chest X-Ray 05/17/16 0000 Signed Impressions: Service Date/Time: Tuesday, May 17, 2016 23:02 - CONCLUSION: Worsening bibasilar atelectasis. Small bilateral pleural effusions are developing. Negrito Valdez MD Chest CT 05/15/16 0000 Signed Impressions: Service Date/Time: Sunday, May 15, 2016 14:37 - CONCLUSION: 1. Lack of intravenous contrast makes it impossible to exclude a dissection. 2. There is no evidence for pneumothorax. 3. Marked coronary artery calcifications. Ramsey Hi MD FACR Abdomen/Pelvis CT 05/15/16 0000 Signed Impressions: Service Date/Time: Sunday, May 15, 2016 14:43 - CONCLUSION: 1. Marked coronary artery calcifications. 2. I do not see an etiology for the patient's back pain. Ramsey Hi MD FACR Physical Exam HEENT: Normocephalic; atraumatic; no jaundice. Throat is clear. NECK: Neck is supple, no JVD, no lymphadenopathy. CHEST: CTA CARDIAC: RRR ABDOMEN: Soft, nondistended, mild rlq tenderness; no hepatosplenomegaly; bowel sounds are present in all four quadrants. EXTREMITIES: No clubbing, cyanosis, or edema. SKIN: Normal; no rash; no jaundice. [employer]: No focal deficits; alert and oriented times three. (Isabel Torres) Assessment and Plan Plan ASSESSMENT: - Abnormal imaging involving descending colon on imaging. Abdomen CT (05/19/16)- ---> 1. Abnormal soft tissue density involving the midportion of the descending colon with the inflammatory change extending to the peritoneal wall. There is no evidence of abscess. The findings are concerning for neoplasm as no diverticula are seen in the remainder of the colon. Endoscopy is recommended for further evaluation if clinically indicated. 2. Cholelithiasis. Of note, his prior Abdomen/Pelvis CT( 05/15/16)----> 1. Marked coronary artery calcifications. 2. I do not see an etiology for the patient's back pain. GI was consulted for further evaluation of abnormal findings regarding the soft tissue density involving the descending colon prior to having surgery scheduled. Neither of these were contrasted secondary to MYRA with elevated creat. Last colonoscopy was 6-7 years ago and that he had several benign polyps removed. (+) Decreased appetite, but has only lost 2-3 lbs; lower abdominal pain, improved. Of note, patient had CT abd/pelvis on 05/15 and it did not appreciate these changes to the descending colon. Discussed with Dr. Robbins- the inflammatory change is actually in the ascending colon just above the cecum, not the descending and he will add addendum to report. Barium enema would be of little benefit for evaluation of this suspected colitis. Flexible sigmoidoscopy is not an option given the location of the inflammatory change. Not stable for anesthesia per cardiology. Will cont. Cipro/flagyl and hold off on sigmoidoscopy/barium enema. Likely colitis. D/ W radiology, cardiology. CDiff negative. Tumor markers unremarkable. Cont. Abx. - Multivessel CAD. Myocardial perfusion scan revealed stress-induced ischemia in the anterior lateral wall redistribution in the septal wall extending to the base with EF of 53%. Cardiac catheterization with multivessel cad as above. CVT consulted, but wants GI evaluation prior to surgery. - Anemia. 9.4/28.8 - Mild leukocytosis. 12.0 - MYRA, CAD, DM, HTN, Hyperlipidemia per primary PLAN: - MARIELENA - Cipro/Flagyl - PPI - Monitor HH - Transfuse as necessary - Tumor markers unremarkable. - Supportive care - The inflammatory changes are actually in ascending colon, not descending and therefore flexible sigmoidoscopy would not be of benefit, PET scan/CT Colonography not available at this facility. D/W , unlikely that Barium enema would be of benefit. Recommend treating as colitis and considering further evaluation after cardiac surgery , once cleared from cardiology evaluation. - Further recommendations to follow based on results of above - Pt seen and examined by Dr. Dial and myself and this note is written on her behalf (Isabel Torres) Physician Comments seen, examined agree with above may need egd/colonoscopy post cabg (Talya Dial MD) Isabel Torres May 21, 2016 12:32 Talya Dial MD May 21, 2016 17:52
[2016-05-21] MEDS: CIPROFLOXACIN 400 MG PREMIX 200 ML IV SCH (13:16)
[2016-05-21] MEDS: HEPARIN-D5W INJ 250 ML IV SCH (13:19)
--- NOTE | 2016-05-21 14:27 | PD.CAR.PN ---
CVT Progress Note Subjective/Hospital Course: 70/ male admitted 05/15 for chest pain,-also right upper quadrant abd pain with recent diarrhea and nausea, some loss of appetite, elevated WBC on admission of 21K, neg blood culture, neg UA underwent CT abdomen Abnormal imaging involving descending colon on imaging. Found to have a NSTEMI, + myocardial perfusion scan , underwent cardiac cath by Dr Hickey and found to multi vessel disease, we were consulted to eval for Coronary artery bypass grafting , EF 50% by Echo no valvular disease , CKD MYRA baseline creatinine 2.0 elevated to 4.0 / post IV fluid resuscitation, nephrology following/ now improved to 2.[address] (05/19/16)----> 1. Abnormal soft tissue density involving the midportion of the ascending colon with the inflammatory change extending to the peritoneal wall. There is no evidence of abscess. findings are concerning for neoplasm as no diverticula are seen in the remainder of the colon, Cholelithiasis. GI consulted , per GI suspected colitis. Barium enema would be of little benefit for evaluation Flexible sigmoidoscopy is not an option given the location of the inflammatory change. Not stable for anesthesia per cardiology. for colonoscopy , pt started on Cipro/flagyl cardiology. CDiff negative. Tumor markers unremarkable. Cont. Abx., General surgery consulted , Recommend ABX , EGD/ colonoscopy once cleared by cardiology PMH: CAD/ prior stent , DM , CKD, HTN 05/21 pt still has some mild right right upper quad abd pain , no chest pain, had BM yesterday tentatively scheduled for CABG on friday Objective: GENERAL: SKIN: Warm and dry. HEAD: Normocephalic. EYES: No scleral icterus. No injection or drainage. NECK: Supple, trachea midline. No JVD or lymphadenopathy. CARDIOVASCULAR: Regular rate and rhythm without murmurs, gallops, or rubs. RESPIRATORY: Breath sounds equal bilaterally. No accessory muscle use. GASTROINTESTINAL: Abdomen soft, mild right upper quad tenderness with deep palpation MUSCULOSKELETAL: No cyanosis, or edema. BACK: Nontender without obvious deformity. No CVA tenderness. Vital Signs Date Time Temp Pulse Resp B/P Pulse Ox O2 Delivery O2 Flow Rate FiO2 05/21/16 13:00 69 05/21/16 12:00 74 05/21/16 11:04 98.2 69 16 143/74 97 05/21/16 11:00 68 05/21/16 10:00 70 05/21/16 09:00 74 05/21/16 08:08 70 05/21/16 07:46 98.8 72 16 130/68 93 05/21/16 07:00 72 05/21/16 05:00 72 05/21/16 04:00 74 05/21/16 03:00 98.3 82 24 154/74 94 05/21/16 03:00 85 05/21/16 02:00 71 05/21/16 01:00 73 05/21/16 00:00 82 05/20/16 23:00 83 05/20/16 23:00 98.8 86 20 146/66 93 05/20/16 22:00 87 05/20/16 21:00 80 05/20/16 20:14 92 21 05/20/16 20:00 76 05/20/16 19:00 99.5 81 18 156/78 97 05/20/16 19:00 84 05/20/16 18:00 77 05/20/16 17:00 75 05/20/16 16:00 76 05/20/16 15:36 98.7 85 16 148/73 97 05/20/16 15:00 75 Labs: Laboratory Tests Test 05/21/16 05/21/16 05/21/16 05/21/16 03:46 07:46 08:50 11:11 White Blood Count 12.0 TH/MM3 (4.0-11.0) Red Blood Count 3.46 MIL/MM3 (4.50-5.90) Hemoglobin 9.4 GM/DL (13.0-17.0) Hematocrit 28.8 % (39.0-51.0) Mean Corpuscular Volume 83.2 FL (80.0-100.0) Mean Corpuscular Hemoglobin 27.1 PG (27.0-34.0) Mean Corpuscular Hemoglobin 32.6 % Concent (32.0-36.0) Red Cell Distribution Width 16.0 % (11.6-17.2) Platelet Count 261 TH/MM3 (150-450) Mean Platelet Volume 9.5 FL (7.0-11.0) Neutrophils (%) (Auto) 73.7 % (16.0-70.0) Lymphocytes (%) (Auto) 14.0 % (9.0-44.0) Monocytes (%) (Auto) 10.3 % (0.0-8.0) Eosinophils (%) (Auto) 1.6 % (0.0-4.0) Basophils (%) (Auto) 0.4 % (0.0-2.0) Neutrophils # (Auto) 8.8 TH/MM3 (1.8-7.7) Lymphocytes # (Auto) 1.7 TH/MM3 (1.0-4.8) Monocytes # (Auto) 1.2 TH/MM3 (0-0.9) Eosinophils # (Auto) 0.2 TH/MM3 (0-0.4) Basophils # (Auto) 0.0 TH/MM3 (0-0.2) CBC Comment AUTO DIFF Differential Total Cells 100 Counted Neutrophils % (Manual) 76 % (16-70) Band Neutrophils % 3 % (0-6) Lymphocytes % 15 % (9-44) Monocytes % 2 % (0-8) Eosinophils % 1 % (0-4) Basophils % 1 % (0-2) Neutrophils # (Manual) 9.7 TH/MM3 (1.8-7.7) Metamyelocytes 1 % (0-1) Myelocytes 1 % (0-0) Differential Comment FINAL DIFF MANUAL Platelet Estimate NORMAL (NORMAL) Platelet Morphology Comment NORMAL (NORMAL) Red Cell Morphology Comment NORMAL (NORMAL) Activated Partial 43.5 SEC 45.2 SEC Thromboplast Time (24.3-30.1) (24.3-30.1) Sodium Level 142 MEQ/L (136-145) Potassium Level 3.9 MEQ/L (3.5-5.1) Chloride Level 111 MEQ/L (98-107) Carbon Dioxide Level 23.3 MEQ/L (21.0-32.0) Anion Gap 8 MEQ/L (5-15) Blood Urea Nitrogen 44 MG/DL (7-18) Creatinine 2.10 MG/DL (0.60-1.30) Estimat Glomerular Filtration 32 ML/MIN (>89) Rate Random Glucose 132 MG/DL (74-106) Calcium Level 8.4 MG/DL (8.5-10.1) Magnesium Level 1.9 MG/DL (1.5-2.5) Nasal Screen MRSA (PCR) NEGATIVE (NEGATIVE) Urine Color LIGHT-YELLOW (YELLW/STRAW) Urine Turbidity HAZY (CLEAR) Urine pH 5.0 (5.0-8.5) Urine Specific [place] 1.012 (1.002-1.035) Urine Protein TRACE mg/dL (NEG-TRACE) Urine Glucose (UA) NEG mg/dL (NEG) Urine Ketones NEG mg/dL (NEG) Urine Occult Blood NEG (NEG) Urine Nitrite NEG (NEG) Urine Bilirubin NEG (NEG) Urine Urobilinogen LESS THAN 2.0 MG/DL (LESS THAN 2.0) Urine Leukocyte Esterase NEG (NEG) Urine WBC LESS THAN 1 /hpf (0-5) Urine Amorphous Sediment RARE Urine Mucus FEW /lpf (OCC) Microscopic Urinalysis Comment CULT NOT INDICATED Result Diagram: 05/21/1634505/21/16345 Telemetry: NSR (1) SIRS (systemic inflammatory response syndrome) Plan: leukocytosis improving probable colitis , receiving cipro and flagyl (2) NSTEMI (non-ST elevated myocardial infarction) Plan: ASA, statin , BB , Heparin gtt tentatively scheduled for Coronary artery bypass grafting on friday (3) Renal insufficiency Plan: nephrology following creatinine improving avoid nephrotoxins (4) Abdominal mass Plan: GI following, appreciate general surgery consult continue ABX , probable colitis will need colonoscopy and EGD once recovered from CV surgery , tumor markers neg (5) Carotid arterial disease Plan: ICA left 241 will need outpt f/u with vascular surgery to monitor pt is asymptomatic Falguni Sparrow May 21, 2016 14:27
--- NOTE | 2016-05-21 17:12 | HHI.PR ---
Subjective Remarks The patient complains of right-sided abdominal pain. He said that he is hopeful that he will have heart surgery on Friday. He has not had any bowel movements so far today. Discussed with nursing. Objective Vitals Vital Signs Date Time Temp Pulse Resp B/P Pulse Ox O2 Delivery O2 Flow Rate FiO2 05/21/16 14:14 70 05/21/16 13:00 69 05/21/16 12:00 74 05/21/16 11:04 98.2 69 16 143/74 97 05/21/16 11:00 68 05/21/16 10:00 70 05/21/16 09:00 74 05/21/16 08:08 70 05/21/16 07:46 98.8 72 16 130/68 93 05/21/16 07:00 72 05/21/16 05:00 72 05/21/16 04:00 74 05/21/16 03:00 98.3 82 24 154/74 94 05/21/16 03:00 85 05/21/16 02:00 71 05/21/16 01:00 73 05/21/16 00:00 82 05/20/16 23:00 83 05/20/16 23:00 98.8 86 20 146/66 93 05/20/16 22:00 87 05/20/16 21:00 80 05/20/16 20:14 92 21 05/20/16 20:00 76 05/20/16 19:00 99.5 81 18 156/78 97 05/20/16 19:00 84 05/20/16 18:00 77 I/O 05/20/16 05/20/16 05/20/16 05/21/16 05/21/16 05/21/16 07:00 15:00 23:00 07:00 15:00 23:00 Intake Total 1160 ml 540 ml 1169 ml Output Total 1750 ml 1325 ml 725 ml Balance -590 ml -785 ml 444 ml Intake Oral 240 ml 120 ml IV Total 920 ml 540 ml 1049 ml Output Urine Total 1750 ml 1325 ml 725 ml # Bowel Movements 1 1 Result Diagram: 05/21/16 0346 05/21/16 0346 Imaging Last Impressions Gall Bladder Ultrasound 05/21/16 0000 Signed Impressions: Service Date/Time: Saturday, May 21, 2016 09:44 - CONCLUSION: 1. Cholelithiasis with multiple echogenic gallstones. There is mild wall thickening with no pericholecystic fluid. 2. The common bile duct is mildly prominent at 8 mm with no evidence of choledocholithiasis in the visualized portion. 3. The liver is mildly prominent in size with no focal lesion. Konrad Robbins MD Lower Extremity Ultrasound 05/20/16 Signed Impressions: Service Date/Time: Friday, May 20, 2016 15:10 - CONCLUSION: Venous mapping as described above.. Ramsey Hi MD FACR Carotid Artery Ultrasound 05/20/16 Signed Impressions: Service Date/Time: Friday, May 20, 2016 15:30 - CONCLUSION: Hemodynamically significant left cartoid stenosis. Ramsey Hi MD FACR Abdomen CT 05/19/16 Signed Impressions: Service Date/Time: Thursday, May 19, 2016 23:01 - CONCLUSION: 1. Abnormal soft tissue density involving the midportion of the descending colon with the inflammatory change extending to the peritoneal wall. There is no evidence of abscess. The findings are concerning for neoplasm as no diverticula are seen in the remainder of the colon. Endoscopy is recommended for further evaluation if clinically indicated. 2. Cholelithiasis Jakub Dickson MD ADDENDUM: COMPARISON: CT ABDOMEN & PELVIS W/O CONTRAST, May 15, 2016, 14:43. I reviewed this study and it is the asscending colon just above the cecum which demonstrates the inflammatory change. Not the descending colon. Konrad Robbins MD Myocardial Perfusion Scan Nuc Med 05/17/16 Signed Impressions: Service Date/Time: Tuesday, May 17, 2016 10:41 - CONCLUSION: Redistribution as described above consistent stress-induced ischemia.. RISK CATEGORY: Intermediate (1-3%% Annual Mortality Rate) Ramsey Hi MD FACR Chest X-Ray 05/17/16 Signed Impressions: Service Date/Time: Tuesday, May 17, 2016 23:02 - CONCLUSION: Worsening bibasilar atelectasis. Small bilateral pleural effusions are developing. Negrito Valdez MD Chest CT 05/15/16 Signed Impressions: Service Date/Time: Sunday, May 15, 2016 14:37 - CONCLUSION: 1. Lack of intravenous contrast makes it impossible to exclude a dissection. 2. There is no evidence for pneumothorax. 3. Marked coronary artery calcifications. Ramsey Hi MD FACR Abdomen/Pelvis CT 05/15/16 0000 Signed Impressions: Service Date/Time: Sunday, May 15, 2016 14:43 - CONCLUSION: 1. Marked coronary artery calcifications. 2. I do not see an etiology for the patient's back pain. Ramsey Hi MD FACR Objective Remarks GENERAL: This is a well-nourished, well-developed patient, in no apparent distress. HEENT: NC, AT. CARDIOVASCULAR: Regular rate and regular rhythm without murmurs, gallops, or rubs. RESPIRATORY: Clear to auscultation. Breath sounds equal bilaterally. No wheezes , rales, or rhonchi. GASTROINTESTINAL: Abdomen soft, tender to palpation on the right side, nondistended. Normoactive bowel sounds. MUSCULOSKELETAL: Extremities without clubbing, cyanosis, or edema. NEURO: Alert & Oriented x4 to person, place, time, situation. Moves all ext x4. PSYCH: Mood and affect appropriate. Medications and IVs Current Medications Medications (Trade) Dose Ordered Sig/Avinash Route Start Time Stop Time Status Last Admin (NS 1000 ml Inj) 1,000 ml @ 75 mls/hr [id number] IV 05/15/16 17:00 05/21/16 15:44 (D50w (Vial) Inj) 25 ml UNSCH PRN IV PUSH 05/15/16 16:45 05/21/16 11:35 (Glucagon Inj) 1 mg UNSCH PRN OTHER 05/15/16 16:45 (Zyloprim) 100 mg DAILY PO 05/16/16 09:00 05/21/16 08:52 (Neurontin) 300 mg HS PO 05/15/16 21:00 05/20/16 20:31 (Tylenol) 650 mg Q4H PRN PO 05/15/16 16:45 05/19/16 00:24 (Ecotrin Ec) 162 mg DAILY PO 05/16/16 09:00 05/21/16 08:53 (Lipitor) 80 mg HS PO 05/17/16 21:00 05/20/16 20:33 (Coreg) 6.25 mg Q12HR PO 05/18/16 09:00 05/21/16 08:52 (Lactinex) 1 tab TID PO 05/19/16 09:00 05/21/16 13:15 (Lomotil Tab) 1 tab Q6H PRN PO 05/19/16 15:30 (Atropine Inj) 0.5 mg UNSCH PRN IV 05/20/16 10:30 Ondansetron HCl 4 mg 4 mg Q4H PRN IV 05/20/16 10:30 Ciprofloxacin/ Dextrose 200 ml @ 200 mls/hr Q24H IV 05/20/16 14:00 05/21/16 13:16 (Flagyl 500 Mg Inj) 100 ml @ 100 mls/hr Q8H IV 05/20/16 13:00 05/21/16 15:44 (Protonix) 40 mg DAILY PO 05/20/16 12:00 05/21/16 08:53 (Heparin Inj) 5,000 units UNSCH PRN IV 05/21/16 05:00 Heparin Sodium (Porcine) 2500 units 2,500 units UNSCH PRN IV 05/21/16 05:00 (Heparin-D5W Inj) 250 ml @ 0 mls/hr TITRATE IV 05/20/16 23:00 05/21/16 13:19 (NS Flush) 2 ml BID IV FLUSH 05/21/16 21:00 (NS Flush) 2 ml UNSCH PRN IV FLUSH 05/21/16 11:30 (Levemir Inj) 30 units BID SQ 05/21/16 21:00 A/P Problem List: (1) NSTEMI (non-ST elevated myocardial infarction) ICD Code: I21.4 Status: Acute (2) SIRS (systemic inflammatory response syndrome) ICD Code: R65.10 Status: Acute Assessment and Plan NSTEMI with history of CAD and stent placement Started on heparin and nitro drips. Cardiology consult appreciated. S/p cath with multivessel CAD including left main. - will continue cardiac regimen. - continue heparin gtt per cards. - CT surgery consult appreciated. CABG tentatively scheduled for Friday. SIRS/ abdominal pain Blood cultures negative to date. C. difficile negative. CT abdomen: Abnormal soft tissue density involving the midportion of the descending colon with the inflammatory change extending to the peritoneal wall; There is no evidence of abscess; The findings are concerning for neoplasm as no diverticula are seen in the remainder of the colon; Endoscopy is recommended for further evaluation if clinically indicated. GI and surgical consults appreciated. - continue Cipro and Flagyl. - PPI. - pain control as needed. Hypertension BP stable 05/21. - decreased Coreg. Hold lisinopril for now. Will monitor and adjust the regimen as needed. Diabetes mellitus Glucose has been low at times. - resumed long-acting insulin at lower dose, BID. - hold metformin- accu-check with SSI. Acute on chronic kidney disease Appreciate nephrology consult. - Repeat BMP and avoid nephrotoxic agents. - IVFs. DVT prophylaxis ; on heparin drip Discharge Planning Possible CABG Friday. Konrad Meyers DO May 21, 2016 17:12
[2016-05-21] MEDS: ATORVASTATIN 20 MG TAB PO SCH (20:22)
[2016-05-21] MEDS: GABAPENTIN 300 MG CAP PO SCH (20:22)
[2016-05-21] MEDS: SODIUM CHLORIDE 0.9% FLUSH 5 ML FLUSH IV FLUSH SCH (20:23)
[2016-05-21] MEDS: INSULIN DETEMIR 100 UNITS/ML VIAL SQ SCH (20:23)
[2016-05-21] MEDS ORDERED: INSULIN DETEMIR 100 UNITS/ML VIAL SQ SCH (21:00)
[2016-05-22] VITALS (25 sets, daily range): BP systolic 107–125; BP diastolic 56–68; PULSE 49–67; RESP 18–24; TEMP 97.7–99.2; O2SAT 93–97
[2016-05-22] MEDS: HEPARIN-D5W INJ 250 ML IV SCH ×2 (03:54→21:01)
[2016-05-22] MEDS: SODIUM CHLOR 0.9% 1000 ML INJ 1,000 ML IV SCH ×2 (04:11→20:59)
[2016-05-22] MEDS: metroNIDAZOLE 500 MG INJ 100 ML IV SCH ×3 (04:58→20:58)
[2016-05-22] MEDS: INSULIN ASPART SUPPLEMENTAL SCALE SQ SCH ×4 (06:18→21:00)
[2016-05-22 06:28] LABS: AUTOMATED NEUTROPHIL # 8.9 TH/MM3 (1.8-7.7); BASOPHIL # 0.1 TH/MM3 (0-0.2); BASOPHIL % 0.4 % (0.0-2.0); EOSINOPHIL # 0.3 TH/MM3 (0-0.4); EOSINOPHIL % 2.1 % (0.0-4.0); HEMATOCRIT 27.6 % (39.0-51.0); LYMPH % 19.1 % (9.0-44.0); LYMPHOCYTE # 2.5 TH/MM3 (1.0-4.8); MEAN CELL VOLUME 84.3 FL (80.0-100.0); MEAN CORPUSCULAR HEMOGLOBIN 27.1 PG (27.0-34.0); MEAN CORPUSCULAR HGB CONC 32.2 % (32.0-36.0); MONO % 9.6 % (0.0-8.0); NEUT % 68.8 % (16.0-70.0); PLATELET COUNT 287 TH/MM3 (150-450); RED BLOOD COUNT 3.27 MIL/MM3 (4.50-5.90); RED CELL DISTRIBUTION WIDTH 16.1 % (11.6-17.2); WHITE BLOOD COUNT 12.9 TH/MM3 (4.0-11.0)
[2016-05-22 06:32] LABS: HEMO FLAGS AUTO DIFF
[2016-05-22 06:41] LABS: APTT (PATIENT) 77.4 SEC (24.3-30.1)
[2016-05-22 06:58] LABS: BICARBONATE 24.2 MEQ/L (21.0-32.0); POTASSIUM 4.2 MEQ/L (3.5-5.1)
[2016-05-22] MEDS: PANTOPRAZOLE SOD 40 MG DELAYED RELEASE TAB PO SCH (08:03)
[2016-05-22] MEDS: LACTOBACILLUS ACIDOPHILUS TAB PO SCH ×3 (08:03→17:05)
[2016-05-22] MEDS: ASPIRIN EC 81 MG TABEC PO SCH (08:03)
[2016-05-22] MEDS: CARVEDILOL 12.5 MG TAB PO SCH (08:03)
[2016-05-22] MEDS: ALLOPURINOL 100 MG TAB PO SCH (08:03)
[2016-05-22] MEDS: INSULIN DETEMIR 100 UNITS/ML VIAL SQ SCH ×2 (08:04→21:00)
[2016-05-22] MEDS: SODIUM CHLORIDE 0.9% FLUSH 5 ML FLUSH IV FLUSH SCH ×2 (08:04→20:58)
[2016-05-22 10:15] LABS: BANDS 1 % (0-6); BASOPHILS 1 % (0-2); EOSINOPHILS 1 % (0-4); METAMYELOCYTES 1 % (0-1); MYELOCYTES 2 % (0-0); NEUTROPHIL # MANUAL DIFF 9.7 TH/MM3 (1.8-7.7); POLYS (SEG NEUTROPHILS) 71 % (16-70); SCAN/DIFF FINAL DIFF MANUAL; WBC DIFF SAMPLE 100
[2016-05-22 10:16] LABS: PLATELET ESTIMATE SMEAR NORMAL (NORMAL); PLATELET MORPHOLOGY NORMAL (NORMAL)
--- NOTE | 2016-05-22 10:57 | PD.CAR.PN ---
CVT Progress Note Subjective/Hospital Course: 70/ male admitted 05/15 for chest pain,-also right upper quadrant abd pain with recent diarrhea and nausea, some loss of appetite, elevated WBC on admission of 21K, neg blood culture, neg UA underwent CT abdomen Abnormal imaging involving descending colon on imaging. Found to have a NSTEMI, + myocardial perfusion scan , underwent cardiac cath by Dr Hickey and found to multi vessel disease, we were consulted to eval for Coronary artery bypass grafting , EF 50% by Echo no valvular disease , CKD MYRA baseline creatinine 2.0 elevated to 4.0 / post IV fluid resuscitation, nephrology following/ now improved to 2.[address] (05/19/16)----> 1. Abnormal soft tissue density involving the midportion of the ascending colon with the inflammatory change extending to the peritoneal wall. There is no evidence of abscess. findings are concerning for neoplasm as no diverticula are seen in the remainder of the colon, Cholelithiasis. GI consulted , per GI suspected colitis. Barium enema would be of little benefit for evaluation Flexible sigmoidoscopy is not an option given the location of the inflammatory change. Not stable for anesthesia per cardiology. for colonoscopy , pt started on Cipro/flagyl cardiology. CDiff negative. Tumor markers unremarkable. Cont. Abx., General surgery consulted , Recommend ABX , EGD/ colonoscopy once cleared by cardiology PMH: CAD/ prior stent , DM , CKD, HTN 05/21 pt still has some mild right right upper quad abd pain , no chest pain, had BM yesterday tentatively scheduled for CABG on monday 05/22 right upper quad pain improving, still has some tenderness WBC count 12, low grade fever last pm,, now resolved f/u CBC in am , continue antibiotics no chest pain Objective: Vital Signs Date Time Temp Pulse Resp B/P Pulse Ox O2 Delivery O2 Flow Rate FiO2 05/22/16 10:11 59 05/22/16 09:35 56 05/22/16 08:45 57 05/22/16 08:45 98.1 60 18 122/68 97 05/22/16 06:01 56 05/22/16 05:00 60 05/22/16 04:01 49 05/22/16 03:01 98.2 59 24 110/57 97 05/22/16 03:00 62 05/22/16 02:00 59 05/22/16 01:00 61 2/15/17 00:01 65 05/21/16 23:45 100.2 59 21 96/54 96 05/21/16 23:00 70 05/21/16 22:00 68 05/21/16 21:00 62 05/21/16 20:15 98.5 71 20 139/72 97 05/21/16 20:00 77 05/21/16 19:00 79 05/21/16 18:00 85 05/21/16 17:00 86 05/21/16 16:00 85 05/21/16 15:39 98.5 80 16 150/76 98 05/21/16 15:00 81 05/21/16 14:14 70 05/21/16 13:00 69 05/21/16 12:00 74 05/21/16 11:04 98.2 69 16 143/74 97 05/21/16 11:00 68 Labs: Laboratory Tests Test 05/22/16 05:45 White Blood Count 12.9 TH/MM3 (4.0-11.0) Red Blood Count 3.27 MIL/MM3 (4.50-5.90) Hemoglobin 8.9 GM/DL (13.0-17.0) Hematocrit 27.6 % (39.0-51.0) Mean Corpuscular Volume 84.3 FL (80.0-100.0) Mean Corpuscular Hemoglobin 27.1 PG (27.0-34.0) Mean Corpuscular Hemoglobin 32.2 % Concent (32.0-36.0) Red Cell Distribution Width 16.1 % (11.6-17.2) Platelet Count 287 TH/MM3 (150-450) Mean Platelet Volume 9.4 FL (7.0-11.0) Neutrophils (%) (Auto) 68.8 % (16.0-70.0) Lymphocytes (%) (Auto) 19.1 % (9.0-44.0) Monocytes (%) (Auto) 9.6 % (0.0-8.0) Eosinophils (%) (Auto) 2.1 % (0.0-4.0) Basophils (%) (Auto) 0.4 % (0.0-2.0) Neutrophils # (Auto) 8.9 TH/MM3 (1.8-7.7) Lymphocytes # (Auto) 2.5 TH/MM3 (1.0-4.8) Monocytes # (Auto) 1.2 TH/MM3 (0-0.9) Eosinophils # (Auto) 0.3 TH/MM3 (0-0.4) Basophils # (Auto) 0.1 TH/MM3 (0-0.2) CBC Comment AUTO DIFF Differential Total Cells 100 Counted Neutrophils % (Manual) 71 % (16-70) Band Neutrophils % 1 % (0-6) Lymphocytes % 18 % (9-44) Monocytes % 5 % (0-8) Eosinophils % 1 % (0-4) Basophils % 1 % (0-2) Neutrophils # (Manual) 9.7 TH/MM3 (1.8-7.7) Metamyelocytes 1 % (0-1) Myelocytes 2 % (0-0) Differential Comment FINAL DIFF MANUAL Platelet Estimate NORMAL (NORMAL) Platelet Morphology Comment NORMAL (NORMAL) Activated Partial 77.4 SEC Thromboplast Time (24.3-30.1) Sodium Level 144 MEQ/L (136-145) Potassium Level 4.2 MEQ/L (3.5-5.1) Chloride Level 112 MEQ/L (98-107) Carbon Dioxide Level 24.2 MEQ/L (21.0-32.0) Anion Gap 8 MEQ/L (5-15) Blood Urea Nitrogen 39 MG/DL (7-18) Creatinine 2.15 MG/DL (0.60-1.30) Estimat Glomerular Filtration 31 ML/MIN (>89) Rate Random Glucose 113 MG/DL (74-106) Calcium Level 8.2 MG/DL (8.5-10.1) Phosphorus Level 2.9 MG/DL (2.5-4.9) Albumin 2.0 GM/DL (3.4-5.0) Result Diagram: 05/22/1645 05/22/1645 Telemetry: NSR (1) SIRS (systemic inflammatory response syndrome) Plan: leukocytosis improving probable colitis , receiving cipro and flagyl decreased abd pain, still some tenderness low grade temp last pm (2) NSTEMI (non-ST elevated myocardial infarction) Plan: ASA, statin , BB , Heparin gtt tentatively scheduled for Coronary artery bypass grafting on friday (3) Renal insufficiency Plan: nephrology following creatinine at baseline avoid nephrotoxins (4) Abdominal mass Plan: GI following, appreciate general surgery consult continue ABX , probable colitis will need colonoscopy and EGD once recovered from CV surgery , tumor markers neg (5) Carotid arterial disease Plan: ICA left 241 will need outpt f/u with vascular surgery to monitor pt is asymptomatic Falguni Sparrow May 22, 2016 10:57
--- NOTE | 2016-05-22 11:26 | HHI.NPPN ---
Subjective Complaints: Shortness of Breath General Problems: Hypertension Renal Failure: Chronic Interval History Sitting up in chair. Renal function is stable. No acute complaints today. ( Jessica Delgado) Review of Systems General Constitutional: Fatigue (Jessica Delgado) Respiratory Lungs: SOB (Jessica Delgado) Cardiovascular Cardiac: Chest Pain, OLVERA Cardiac Remarks CP resolved (Jessica Delgado) Objective Data Data 05/21/16 05/22/16 19:00 07:00 Intake Total 1680 ml 1383 ml Output Total 1775 ml 900 ml Balance -95 ml 483 ml Intake Oral 480 ml 240 ml IV Total 1200 ml 1143 ml Output Urine Total 1775 ml 900 ml # Voids 3 # Bowel Movements 0 0 Vital Signs Date Time Temp Pulse Resp B/P Pulse Ox O2 Delivery O2 Flow Rate FiO2 05/22/16 10:11 59 05/22/16 09:35 56 05/22/16 08:45 57 05/22/16 08:45 98.1 60 18 122/68 97 05/22/16 06:01 56 05/22/16 05:00 60 05/22/16 04:01 49 05/22/16 03:01 98.2 59 24 110/57 97 05/22/16 03:00 62 05/22/16 02:00 59 05/22/16 01:00 61 05/22/16 00:01 65 05/21/16 23:45 100.2 59 21 96/54 96 05/21/16 23:00 70 05/21/16 22:00 68 05/21/16 21:00 62 05/21/16 20:15 98.5 71 20 139/72 97 05/21/16 20:00 77 05/21/16 19:00 79 05/21/16 18:00 85 05/21/16 17:00 86 05/21/16 16:00 85 05/21/16 15:39 98.5 80 16 150/76 98 05/21/16 15:00 81 05/21/16 14:14 70 05/21/16 13:00 69 05/21/16 12:00 74 (Jessica Delgado) -: 05/22/16 0545 05/22/16 0545 Physical Exam General Appearance: Well Developed, Well Nourished, No Acute Distress, Comfortable ( Jessica Delgado) Eyes Eye Exam: Pupils Equal (Jessica Delgado) Ears & Nose Ears & Nose Exam: Nasal Mucosa [place] (Jessica Delgado [employer]) Throat Throat Exam: Oral Mucosa [place] & Moist (Jessica Delgado [employer] P[employer]) Pulmonary Resp Exam: No Distress, Rhonchi, Decreased Bases (Jessica Delgado [employer] P[employer]ATOR) Cardiology CV Exam: Regular, Normal Sinus Rhythm, Good Perfusion (Jessica DelgadoP) Gastrointestinal/Abdomen GI Exam: Soft, Non-Tender, Bowel Sounds Present, Positive Bowel Movement ( Jessica Delgado) Musculoskeletal MS Exam: Joints Intact, Normal Tone (Jessica Delgado) Integumentary Skin Exam: Warm, Dry (Jessica Delgado) Extremeties Extremities Exam: No Edema, Pedal Pulses Palpable (Jessica Delgado) Neurologic Neuro Exam: Alert, Awake, Oriented, Speech Clear, Moving All Extremities ( Jessica DelgadoP) Psychiatric Psych Exam: Appropriate Responses (Jessica Delgado) Assessment/Plan Assessment Summary: MYRA/Acute Renal Failure, Hypertension, CKD Stage III Problem List: (1) Acute kidney injury Plan: Renal function stable MYRA likely be due to NSTEMI of note he was exposed to IV contrast on 05/20 at this time his renal function is stable he is non oliguric, voiding without catheter tolerating oral fluids, off IVF monitor electrolytes, replace as needed labs in am avoid nephrotoxins (2) Stage 3 chronic kidney disease Plan: baseline creatinine around 2 he has proteinuria which may represent underlying diabetic nephropathy less than 1 g proteinuria, continue to monitor renal function see above (3) NSTEMI (non-ST elevated myocardial infarction) Plan: Cardiology following. s/p cath 05/20. Found to have multivessel CAD. CT surgery following, to have CABG Friday on BB, ASA, statin heparin gtt was stopped no reports of chest pain, sob currently (4) Abdominal mass Plan: possible malignancy. GI following US reviewed, to have EGD /colonoscopy after CABG (5) DM (diabetes mellitus) Plan: monitor glucose on Levemir, also SSI (novolog) as needed (Jessica Delgado) Problem List: (1) Acute kidney injury Plan: Renal function stable MYRA likely be due to NSTEMI of note he was exposed to IV contrast on 05/20 at this time his renal function is stable he is non oliguric, voiding without catheter tolerating oral fluids, off IVF monitor electrolytes, replace as needed labs in am avoid nephrotoxins (2) Stage 3 chronic kidney disease Plan: baseline creatinine around 2 he has proteinuria which may represent underlying diabetic nephropathy less than 1 g proteinuria, continue to monitor renal function see above (3) NSTEMI (non-ST elevated myocardial infarction) Plan: Cardiology following. s/p cath 05/20. Found to have multivessel CAD. CT surgery following, to have CABG Friday on BB, ASA, statin heparin gtt was stopped no reports of chest pain, sob currently (4) Abdominal mass Plan: possible malignancy. GI following US reviewed, to have EGD /colonoscopy after CABG (5) DM (diabetes mellitus) Plan: monitor glucose on Levemir, also SSI (novolog) as needed Plan patient was seen and examined. MYRA likely due to renal hypoperfusion and ATN. Monitor. Stable GFR. CABG apparently is scheduled for Friday. (Patel Talbot MD) Jessica Delgado May 22, 2016 11:26 Patel Talbot MD May 22, 2016 21:45
[2016-05-22] MEDS: CIPROFLOXACIN 400 MG PREMIX 200 ML IV SCH (13:08)
--- NOTE | 2016-05-22 13:19 | HHI.PR ---
Subjective Remarks The patient was resting comfortably. He had no acute complaints. He has not had a bowel movement in a few days. Discussed with nursing. Objective Vitals Vital Signs Date Time Temp Pulse Resp B/P Pulse Ox O2 Delivery O2 Flow Rate FiO2 05/22/16 12:02 56 05/22/16 11:54 62 05/22/16 11:54 97.7 61 18 107/58 96 05/22/16 10:11 59 05/22/16 09:35 56 05/22/16 08:45 57 05/22/16 08:45 98.1 60 18 122/68 97 05/22/16 06:01 56 05/22/16 05:00 60 05/22/16 04:01 49 05/22/16 03:01 98.2 59 24 110/57 97 05/22/16 03:00 62 05/22/16 02:00 59 05/22/16 01:00 61 05/22/16 00:01 65 05/21/16 23:45 100.2 59 21 96/54 96 05/21/16 23:00 70 05/21/16 22:00 68 05/21/16 21:00 62 05/21/16 20:15 98.5 71 20 139/72 97 05/21/16 20:00 77 05/21/16 19:00 79 05/21/16 18:00 85 05/21/16 17:00 86 05/21/16 16:00 85 05/21/16 15:39 98.5 80 16 150/76 98 05/21/16 15:00 81 05/21/16 14:14 70 I/O 05/21/16 05/21/16 05/21/16 05/22/16 05/22/16 05/22/16 07:00 15:00 23:00 07:00 15:00 23:00 Intake Total 1169 ml 1680 ml 1383 ml Output Total 725 ml 1775 ml 900 ml Balance 444 ml -95 ml 483 ml Intake Oral 120 ml 480 ml 240 ml IV Total 1049 ml 1200 ml 1143 ml Output Urine Total 725 ml 1775 ml 900 ml # Voids 3 # Bowel Movements 1 0 0 Result Diagram: 05/22/16 0545 05/22/16 0545 Imaging Last Impressions Gall Bladder Ultrasound 2/14/17 0000 Signed Impressions: Service Date/Time: Saturday, May 21, 2016 09:44 - CONCLUSION: 1. Cholelithiasis with multiple echogenic gallstones. There is mild wall thickening with no pericholecystic fluid. 2. The common bile duct is mildly prominent at 8 mm with no evidence of choledocholithiasis in the visualized portion. 3. The liver is mildly prominent in size with no focal lesion. Konrad Robbins MD Lower Extremity Ultrasound 05/20/16 Signed Impressions: Service Date/Time: Friday, May 20, 2016 15:10 - CONCLUSION: Venous mapping as described above.. Ramsey Hi MD FACR Carotid Artery Ultrasound 05/20/16 Signed Impressions: Service Date/Time: Friday, May 20, 2016 15:30 - CONCLUSION: Hemodynamically significant left cartoid stenosis. Ramsey Hi MD FACR Abdomen CT 05/19/16 Signed Impressions: Service Date/Time: Thursday, May 19, 2016 23:01 - CONCLUSION: 1. Abnormal soft tissue density involving the midportion of the descending colon with the inflammatory change extending to the peritoneal wall. There is no evidence of abscess. The findings are concerning for neoplasm as no diverticula are seen in the remainder of the colon. Endoscopy is recommended for further evaluation if clinically indicated. 2. Cholelithiasis Jakub Dickson MD ADDENDUM: COMPARISON: CT ABDOMEN & PELVIS W/O CONTRAST, May 15, 2016, 14:43. I reviewed this study and it is the asscending colon just above the cecum which demonstrates the inflammatory change. Not the descending colon. Konrad Robbins MD Myocardial Perfusion Scan Nuc Med 05/17/16 Signed Impressions: Service Date/Time: Tuesday, May 17, 2016 10:41 - CONCLUSION: Redistribution as described above consistent stress-induced ischemia.. RISK CATEGORY: Intermediate (1-3%% Annual Mortality Rate) Ramsey Hi MD FACR Chest X-Ray 05/17/16 Signed Impressions: Service Date/Time: Tuesday, May 17, 2016 23:02 - CONCLUSION: Worsening bibasilar atelectasis. Small bilateral pleural effusions are developing. Negrito Valdez MD Chest CT 05/15/16 Signed Impressions: Service Date/Time: Sunday, May 15, 2016 14:37 - CONCLUSION: 1. Lack of intravenous contrast makes it impossible to exclude a dissection. 2. There is no evidence for pneumothorax. 3. Marked coronary artery calcifications. Ramsey Hi MD FACR Abdomen/Pelvis CT 05/15/16 0000 Signed Impressions: Service Date/Time: Sunday, May 15, 2016 14:43 - CONCLUSION: 1. Marked coronary artery calcifications. 2. I do not see an etiology for the patient's back pain. Ramsey Hi MD FACR Objective Remarks GENERAL: This is a well-nourished, well-developed patient, in no apparent distress. HEENT: NC, AT. CARDIOVASCULAR: Regular rate and regular rhythm without murmurs, gallops, or rubs. RESPIRATORY: Clear to auscultation. Breath sounds equal bilaterally. No wheezes , rales, or rhonchi. GASTROINTESTINAL: Abdomen soft, tender to palpation on the right side, nondistended. Normoactive bowel sounds. MUSCULOSKELETAL: Extremities without clubbing, cyanosis, or edema. NEURO: Alert & Oriented x4 to person, place, time, situation. Moves all ext x4. PSYCH: Mood and affect appropriate. Medications and IVs Current Medications Medications (Trade) Dose Ordered Sig/Avinash Route Start Time Stop Time Status Last Admin (NS 1000 ml Inj) 1,000 ml @ 75 mls/hr [id number] IV 05/15/16 17:00 05/22/16 04:11 (D50w (Vial) Inj) 25 ml UNSCH PRN IV PUSH 05/15/16 16:45 05/21/16 11:35 (Glucagon Inj) 1 mg UNSCH PRN OTHER 05/15/16 16:45 (Zyloprim) 100 mg DAILY PO 05/16/16 09:00 05/22/16 08:03 (Neurontin) 300 mg HS PO 05/15/16 21:00 05/21/16 20:22 (Tylenol) 650 mg Q4H PRN PO 05/15/16 16:45 05/19/16 00:24 (Ecotrin Ec) 162 mg DAILY PO 05/16/16 09:00 05/22/16 08:03 (Lipitor) 80 mg HS PO 05/17/16 21:00 05/21/16 20:22 (Coreg) 6.25 mg Q12HR PO 05/18/16 09:00 05/22/16 08:03 (Lactinex) 1 tab TID PO 05/19/16 09:00 05/22/16 13:09 (Lomotil Tab) 1 tab Q6H PRN PO 05/19/16 15:30 (Atropine Inj) 0.5 mg UNSCH PRN IV 05/20/16 10:30 Ondansetron HCl 4 mg 4 mg Q4H PRN IV 05/20/16 10:30 Ciprofloxacin/ Dextrose 200 ml @ 200 mls/hr Q24H IV 05/20/16 14:00 05/22/16 13:08 (Flagyl 500 Mg Inj) 100 ml @ 100 mls/hr Q8H IV 05/20/16 13:00 05/22/16 13:08 (Protonix) 40 mg DAILY PO 05/20/16 12:00 05/22/16 08:03 (Heparin Inj) 5,000 units UNSCH PRN IV 05/21/16 05:00 Heparin Sodium (Porcine) 2500 units 2,500 units UNSCH PRN IV 05/21/16 05:00 (Heparin-D5W Inj) 250 ml @ 0 mls/hr TITRATE IV 05/20/16 23:00 05/22/16 03:54 (NS Flush) 2 ml BID IV FLUSH 05/21/16 21:00 05/22/16 08:04 (NS Flush) 2 ml UNSCH PRN IV FLUSH 05/21/16 11:30 (Levemir Inj) 30 units BID SQ 05/21/16 21:00 05/22/16 08:04 A/P Problem List: (1) NSTEMI (non-ST elevated myocardial infarction) ICD Code: I21.4 Status: Acute (2) SIRS (systemic inflammatory response syndrome) ICD Code: R65.10 Status: Acute Assessment and Plan NSTEMI with history of CAD and stent placement Started on heparin and nitro drips. Cardiology consult appreciated. S/p cath with multivessel CAD including left main. - will continue cardiac regimen. - continue heparin gtt per cards. - CT surgery consult appreciated. CABG tentatively scheduled for Friday. SIRS/ abdominal pain Blood cultures negative to date. C. difficile negative. CT abdomen: Abnormal soft tissue density involving the midportion of the descending colon with the inflammatory change extending to the peritoneal wall; There is no evidence of abscess; The findings are concerning for neoplasm as no diverticula are seen in the remainder of the colon; Endoscopy is recommended for further evaluation if clinically indicated. GI and surgical consults appreciated. - continue Cipro and Flagyl. - PPI. - pain control as needed. - resume bowel regimen as pt has been constipated. Hypertension BP stable 05/22. - decreased Coreg. Hold lisinopril for now. Will monitor and adjust the regimen as needed. Diabetes mellitus Glucose has been low at times. Well controlled 05/22. - resumed long-acting insulin at lower dose, BID. - hold metformin- accu-check with SSI. Acute on chronic kidney disease Appreciate nephrology consult. - Repeat BMP and avoid nephrotoxic agents. - IVFs. DVT prophylaxis ; on heparin drip Discharge Planning Possible CABG Friday. Konrad Meyers DO May 22, 2016 13:19
--- NOTE | 2016-05-22 13:54 | HHI.GIFU ---
Subjective Remarks Up in chair. No distress. Mild right sided abdominal discomfort. No n/v. Tolerating diet. (Isabel Torres) Objective Vitals I&O Vital Signs Date Time Temp Pulse Resp B/P Pulse Ox O2 Delivery O2 Flow Rate FiO2 05/22/16 13:43 57 05/22/16 12:02 56 05/22/16 11:54 62 05/22/16 11:54 97.7 61 18 107/58 96 05/22/16 10:11 59 05/22/16 09:35 56 05/22/16 08:45 57 05/22/16 08:45 98.1 60 18 122/68 97 05/22/16 06:01 56 05/22/16 05:00 60 05/22/16 04:01 49 05/22/16 03:01 98.2 59 24 110/57 97 05/22/16 03:00 62 05/22/16 02:00 59 05/22/16 01:00 61 05/22/16 00:01 65 05/21/16 23:45 100.2 59 21 96/54 96 05/21/16 23:00 70 05/21/16 22:00 68 05/21/16 21:00 62 05/21/16 20:15 98.5 71 20 139/72 97 05/21/16 20:00 77 05/21/16 19:00 79 05/21/16 18:00 85 05/21/16 17:00 86 05/21/16 16:00 85 05/21/16 15:39 98.5 80 16 150/76 98 05/21/16 15:00 81 05/21/16 14:14 70 I/O 05/21/16 05/21/16 05/21/16 05/22/16 05/22/16 05/22/16 07:00 15:00 23:00 07:00 15:00 23:00 Intake Total 1169 ml 1680 ml 1383 ml Output Total 725 ml 1775 ml 900 ml Balance 444 ml -95 ml 483 ml Intake Oral 120 ml 480 ml 240 ml IV Total 1049 ml 1200 ml 1143 ml Output Urine Total 725 ml 1775 ml 900 ml # Voids 3 # Bowel Movements 1 0 0 Laboratory Laboratory Tests Test 05/22/16 05:45 White Blood Count 12.9 Red Blood Count 3.27 Hemoglobin 8.9 Hematocrit 27.6 Mean Corpuscular Volume 84.3 Mean Corpuscular Hemoglobin 27.1 Mean Corpuscular Hemoglobin 32.2 Concent Red Cell Distribution Width 16.1 Platelet Count 287 Mean Platelet Volume 9.4 Neutrophils (%) (Auto) 68.8 Lymphocytes (%) (Auto) 19.1 Monocytes (%) (Auto) 9.6 Eosinophils (%) (Auto) 2.1 Basophils (%) (Auto) 0.4 Neutrophils # (Auto) 8.9 Lymphocytes # (Auto) 2.5 Monocytes # (Auto) 1.2 Eosinophils # (Auto) 0.3 Basophils # (Auto) 0.1 CBC Comment AUTO DIFF Differential Total Cells 100 Counted Neutrophils % (Manual) 71 Band Neutrophils % 1 Lymphocytes % 18 Monocytes % 5 Eosinophils % 1 Basophils % 1 Neutrophils # (Manual) 9.7 Metamyelocytes 1 Myelocytes 2 Differential Comment FINAL DIFF MANUAL Platelet Estimate NORMAL Platelet Morphology Comment NORMAL Activated Partial 77.4 Thromboplast Time Sodium Level 144 Potassium Level 4.2 Chloride Level 112 Carbon Dioxide Level 24.2 Anion Gap 8 Blood Urea Nitrogen 39 Creatinine 2.15 Estimat Glomerular Filtration 31 Rate Random Glucose 113 Calcium Level 8.2 Phosphorus Level 2.9 Albumin 2.0 Date/Time Procedure Status Source Growth 05/22/16 11:20 Stool Occult Blood (NAHOMY) Received Stool Stool Pending 05/18/16 08:56 Stool Occult Blood (NAHOMY) - Final Complete Stool Stool HEMOCCULT NEGATIVE 05/18/16 03:26 Aerobic Blood Culture - Preliminary Resulted Blood Peripheral NO GROWTH IN 4 DAYS 05/18/16 03:26 Anaerobic Blood Culture - Preliminary Resulted Blood Peripheral NO GROWTH IN 4 DAYS Imaging Last Impressions Gall Bladder Ultrasound 05/21/16 0000 Signed Impressions: Service Date/Time: Saturday, May 21, 2016 09:44 - CONCLUSION: 1. Cholelithiasis with multiple echogenic gallstones. There is mild wall thickening with no pericholecystic fluid. 2. The common bile duct is mildly prominent at 8 mm with no evidence of choledocholithiasis in the visualized portion. 3. The liver is mildly prominent in size with no focal lesion. Konrad Robbins MD Lower Extremity Ultrasound 05/20/16 0000 Signed Impressions: Service Date/Time: Friday, May 20, 2016 15:10 - CONCLUSION: Venous mapping as described above.. Ramsey Hi MD FACR Carotid Artery Ultrasound 05/20/16 Signed Impressions: Service Date/Time: Friday, May 20, 2016 15:30 - CONCLUSION: Hemodynamically significant left cartoid stenosis. Ramsey Hi MD FACR Abdomen CT 05/19/16 Signed Impressions: Service Date/Time: Thursday, May 19, 2016 23:01 - CONCLUSION: 1. Abnormal soft tissue density involving the midportion of the descending colon with the inflammatory change extending to the peritoneal wall. There is no evidence of abscess. The findings are concerning for neoplasm as no diverticula are seen in the remainder of the colon. Endoscopy is recommended for further evaluation if clinically indicated. 2. Cholelithiasis Jakub Dickson MD ADDENDUM: COMPARISON: CT ABDOMEN & PELVIS W/O CONTRAST, May 15, 2016, 14:43. I reviewed this study and it is the asscending colon just above the cecum which demonstrates the inflammatory change. Not the descending colon. Konrad Robbins MD Myocardial Perfusion Scan Nuc Med 05/17/16 Signed Impressions: Service Date/Time: Tuesday, May 17, 2016 10:41 - CONCLUSION: Redistribution as described above consistent stress-induced ischemia.. RISK CATEGORY: Intermediate (1-3%% Annual Mortality Rate) Ramsey Hi MD FACR Chest X-Ray 05/17/16 Signed Impressions: Service Date/Time: Tuesday, May 17, 2016 23:02 - CONCLUSION: Worsening bibasilar atelectasis. Small bilateral pleural effusions are developing. Negrito Valdez MD Chest CT 05/15/16 Signed Impressions: Service Date/Time: Sunday, May 15, 2016 14:37 - CONCLUSION: 1. Lack of intravenous contrast makes it impossible to exclude a dissection. 2. There is no evidence for pneumothorax. 3. Marked coronary artery calcifications. Ramsey Hi MD FACR Abdomen/Pelvis CT 05/15/16 0000 Signed Impressions: Service Date/Time: Sunday, May 15, 2016 14:43 - CONCLUSION: 1. Marked coronary artery calcifications. 2. I do not see an etiology for the patient's back pain. Ramsey Hi MD FACR Physical Exam HEENT: Normocephalic; atraumatic; no jaundice. Throat is clear. NECK: Neck is supple, no JVD, no lymphadenopathy. CHEST: CTA CARDIAC: RRR ABDOMEN: Soft, nondistended, mild rlq tenderness; no hepatosplenomegaly; bowel sounds are present in all four quadrants. EXTREMITIES: No clubbing, cyanosis, or edema. SKIN: Normal; no rash; no jaundice. [employer]: No focal deficits; alert and oriented times three. (Isabel Torres) Assessment and Plan Plan ASSESSMENT: - Abnormal imaging involving descending colon on imaging. Abdomen CT (05/19/16)- ---> 1. Abnormal soft tissue density involving the midportion of the descending colon with the inflammatory change extending to the peritoneal wall. There is no evidence of abscess. The findings are concerning for neoplasm as no diverticula are seen in the remainder of the colon. Endoscopy is recommended for further evaluation if clinically indicated. 2. Cholelithiasis. Of note, his prior Abdomen/Pelvis CT( 05/15/16)----> 1. Marked coronary artery calcifications. 2. I do not see an etiology for the patient's back pain. GI was consulted for further evaluation of abnormal findings regarding the soft tissue density involving the descending colon prior to having surgery scheduled. Neither of these were contrasted secondary to MYRA with elevated creat. Last colonoscopy was 6-7 years ago and that he had several benign polyps removed. (+) Decreased appetite, but has only lost 2-3 lbs; lower abdominal pain, improved. Of note, patient had CT abd/pelvis on 05/15 and it did not appreciate these changes to the descending colon. Discussed with Dr. Robbins- the inflammatory change is actually in the ascending colon just above the cecum, not the descending and he will add addendum to report. Barium enema would be of little benefit for evaluation of this suspected colitis. Flexible sigmoidoscopy is not an option given the location of the inflammatory change. Not stable for anesthesia per cardiology. Will cont. Cipro/flagyl and hold off on sigmoidoscopy/barium enema. Likely colitis. D/ W radiology, cardiology. CDiff negative. Tumor markers unremarkable. Cont. Abx. WBC 12.9. Mild RLQ tenderness still. - Multivessel CAD. Myocardial perfusion scan revealed stress-induced ischemia in the anterior lateral wall redistribution in the septal wall extending to the base with EF of 53%. Cardiac catheterization with multivessel cad as above. CVT consulted, but wants GI evaluation prior to surgery. - Anemia. 8.9/27.6 - Mild leukocytosis. 12.0 - MYRA, CAD, DM, HTN, Hyperlipidemia per primary PLAN: - MARIELENA - Cipro/Flagyl - PPI - Monitor HH - Transfuse as necessary - Tumor markers unremarkable. - The inflammatory changes are actually in ascending colon, not descending and therefore flexible sigmoidoscopy would not be of benefit, PET scan/CT Colonography not available at this facility. D/W , unlikely that Barium enema would be of benefit. Recommend treating as colitis and considering further evaluation after cardiac surgery , once cleared from cardiology evaluation. - EGD/Colonoscopy as outpatient - GI will sign off, please reconsult as needed - Pt seen and examined by Dr. Dial and myself and this note is written on her behalf (Isabel Torres) Physician Comments seen, examined agree with above (Talya Dial MD) Isabel Torres May 22, 2016 13:54 Talya Dial MD May 22, 2016 16:39
[2016-05-22] MEDS: SENNOSIDES 8.6 MG TAB PO SCH (14:00)
--- NOTE | 2016-05-22 14:13 | PD.CARD.PN ---
Subjective Subjective Remarks No chest pain, no shortness of breath, sitting up in the chair, minimal abdominal pain, had a bowel movement Objective Medications Current Medications Medications (Trade) Dose Ordered Sig/Avinash Route Start Time Stop Time Status Last Admin (NS 1000 ml Inj) 1,000 ml @ 75 mls/hr [id number] IV 05/15/16 17:00 05/22/16 04:11 (D50w (Vial) Inj) 25 ml UNSCH PRN IV PUSH 05/15/16 16:45 05/21/16 11:35 (Glucagon Inj) 1 mg UNSCH PRN OTHER 05/15/16 16:45 (Zyloprim) 100 mg DAILY PO 05/16/16 09:00 05/22/16 08:03 (Neurontin) 300 mg HS PO 05/15/16 21:00 05/21/16 20:22 (Tylenol) 650 mg Q4H PRN PO 05/15/16 16:45 05/19/16 00:24 (Ecotrin Ec) 162 mg DAILY PO 05/16/16 09:00 05/22/16 08:03 (Lipitor) 80 mg HS PO 05/17/16 21:00 05/21/16 20:22 (Coreg) 6.25 mg Q12HR PO 05/18/16 09:00 05/22/16 08:03 (Lactinex) 1 tab TID PO 05/19/16 09:00 05/22/16 13:09 (Lomotil Tab) 1 tab Q6H PRN PO 05/19/16 15:30 (Atropine Inj) 0.5 mg UNSCH PRN IV 05/20/16 10:30 Ondansetron HCl 4 mg 4 mg Q4H PRN IV 05/20/16 10:30 Ciprofloxacin/ Dextrose 200 ml @ 200 mls/hr Q24H IV 05/20/16 14:00 05/22/16 13:08 (Flagyl 500 Mg Inj) 100 ml @ 100 mls/hr Q8H IV 05/20/16 13:00 05/22/16 13:08 (Protonix) 40 mg DAILY PO 05/20/16 12:00 05/22/16 08:03 (Heparin Inj) 5,000 units UNSCH PRN IV 05/21/16 05:00 Heparin Sodium (Porcine) 2500 units 2,500 units UNSCH PRN IV 05/21/16 05:00 (Heparin-D5W Inj) 250 ml @ 0 mls/hr TITRATE IV 05/20/16 23:00 05/22/16 03:54 (NS Flush) 2 ml BID IV FLUSH 05/21/16 21:00 05/22/16 08:04 (NS Flush) 2 ml UNSCH PRN IV FLUSH 05/21/16 11:30 (Levemir Inj) 30 units BID SQ 05/21/16 21:00 05/22/16 08:04 (Colace) 100 mg BID PO 05/22/16 21:00 (Senokot) 17.2 mg DAILY PO 05/22/16 14:00 Vital Signs / I&O Vital Signs Date Time Temp Pulse Resp B/P Pulse Ox O2 Delivery O2 Flow Rate FiO2 05/22/16 14:07 59 05/22/16 13:43 57 05/22/16 12:02 56 05/22/16 11:54 62 05/22/16 11:54 97.7 61 18 107/58 96 05/22/16 10:11 59 05/22/16 09:35 56 05/22/16 08:45 57 05/22/16 08:45 98.1 60 18 122/68 97 05/22/16 06:01 56 05/22/16 05:00 60 05/22/16 04:01 49 05/22/16 03:01 98.2 59 24 110/57 97 05/22/16 03:00 62 05/22/16 02:00 59 05/22/16 01:00 61 05/22/16 00:01 65 05/21/16 23:45 100.2 59 21 96/54 96 05/21/16 23:00 70 05/21/16 22:00 68 05/21/16 21:00 62 05/21/16 20:15 98.5 71 20 139/72 97 05/21/16 20:00 77 05/21/16 19:00 79 05/21/16 18:00 85 05/21/16 17:00 86 05/21/16 16:00 85 05/21/16 15:39 98.5 80 16 150/76 98 05/21/16 15:00 81 2/14/17 14:14 70 I/O 05/21/16 05/21/16 05/21/16 05/22/16 05/22/16 05/22/16 07:00 15:00 23:00 07:00 15:00 23:00 Intake Total 1169 ml 1680 ml 1383 ml Output Total 725 ml 1775 ml 900 ml Balance 444 ml -95 ml 483 ml Intake Oral 120 ml 480 ml 240 ml IV Total 1049 ml 1200 ml 1143 ml Output Urine Total 725 ml 1775 ml 900 ml # Voids 3 # Bowel Movements 1 0 0 Physical Exam GENERAL: NAD, AAOx3 SKIN: Warm and dry. HEAD: Atraumatic. Normocephalic. EYES: Pupils equal and round. No scleral icterus. No injection or drainage. ENT: No nasal bleeding or discharge. Mucous membranes pink and moist. NECK: Trachea midline. No JVD. CARDIOVASCULAR: Regular rate and rhythm. RESPIRATORY: No accessory muscle use. Clear to auscultation. Breath sounds equal bilaterally. GASTROINTESTINAL: Abdomen soft, minimal pain with palpitation of the right side , mild along the RUQ, nondistended. Hepatic and splenic margins not palpable. No guarding MUSCULOSKELETAL: Extremities without clubbing, cyanosis, or edema. No obvious deformities. Right groin no hematoma/bruit, distal pulses intact NEUROLOGICAL: Awake and alert. No obvious cranial nerve deficits. Motor grossly within normal limits. Five out of 5 muscle strength in the arms and legs. Normal speech. PSYCHIATRIC: Appropriate mood and affect; insight and judgment normal. Laboratory Laboratory Tests Test 05/22/16 05:45 White Blood Count 12.9 TH/MM3 Red Blood Count 3.27 MIL/MM3 Hemoglobin 8.9 GM/DL Hematocrit 27.6 % Mean Corpuscular Volume 84.3 FL Mean Corpuscular Hemoglobin 27.1 PG Mean Corpuscular Hemoglobin 32.2 % Concent Red Cell Distribution Width 16.1 % Platelet Count 287 TH/MM3 Mean Platelet Volume 9.4 FL Neutrophils (%) (Auto) 68.8 % Lymphocytes (%) (Auto) 19.1 % Monocytes (%) (Auto) 9.6 % Eosinophils (%) (Auto) 2.1 % Basophils (%) (Auto) 0.4 % Neutrophils # (Auto) 8.9 TH/MM3 Lymphocytes # (Auto) 2.5 TH/MM3 Monocytes # (Auto) 1.2 TH/MM3 Eosinophils # (Auto) 0.3 TH/MM3 Basophils # (Auto) 0.1 TH/MM3 CBC Comment AUTO DIFF Differential Total Cells 100 Counted Neutrophils % (Manual) 71 % Band Neutrophils % 1 % Lymphocytes % 18 % Monocytes % 5 % Eosinophils % 1 % Basophils % 1 % Neutrophils # (Manual) 9.7 TH/MM3 Metamyelocytes 1 % Myelocytes 2 % Differential Comment FINAL DIFF MANUAL Platelet Estimate NORMAL Platelet Morphology Comment NORMAL Activated Partial 77.4 SEC Thromboplast Time Sodium Level 144 MEQ/L Potassium Level 4.2 MEQ/L Chloride Level 112 MEQ/L Carbon Dioxide Level 24.2 MEQ/L Anion Gap 8 MEQ/L Blood Urea Nitrogen 39 MG/DL Creatinine 2.15 MG/DL Estimat Glomerular Filtration 31 ML/MIN Rate Random Glucose 113 MG/DL Calcium Level 8.2 MG/DL Phosphorus Level 2.9 MG/DL Albumin 2.0 GM/DL Assessment and Plan Problem List: (1) SIRS (systemic inflammatory response syndrome) (2) NSTEMI (non-ST elevated myocardial infarction) (3) Renal insufficiency (4) Abdominal mass (5) Carotid arterial disease Assessment and Plan 1) Multi-vessel coronary artery disease, with distal left main disease... continue on ASA/Coreg/Statin... continue heparin gtt 2) Abdominal mass, spoke to GI, high risk for anesthesia for C-scope, possible colitis will continue to treat as such, plan C-scope after CABG 3) If chest pain, hemodynamic/electrical decompensation, will need more emergent surgery 4) Left sided carotid disease, follow up with vascular surgery 5) Will decrease Coreg, watch HR/BP... prefer hypertension over hypotension with left main disease Balta Hickey DO May 22, 2016 14:13
[2016-05-22 15:55] LABS: MYELOPEROXIDASE LESS THAN 1.0 AI (<1.0); PROTEINASE-3 LESS THAN 1.0 AI (<1.0)
[2016-05-22] MEDS: GABAPENTIN 300 MG CAP PO SCH (20:57)
[2016-05-22] MEDS: CARVEDILOL 3.125 MG TAB PO SCH (20:58)
[2016-05-22] MEDS: ATORVASTATIN 20 MG TAB PO SCH (20:58)
[2016-05-22] MEDS: DOCUSATE SODIUM 100 MG CAP PO SCH (20:58)
[2016-05-23] VITALS (25 sets, daily range): BP systolic 116–139; BP diastolic 57–68; PULSE 50–78; RESP 14–24; TEMP 98–98.9; O2SAT 94–99
[2016-05-23 05:35] LABS: HEMATOCRIT 26.5 % (39.0-51.0); MEAN CELL VOLUME 83.4 FL (80.0-100.0); MEAN CORPUSCULAR HEMOGLOBIN 27.8 PG (27.0-34.0); MEAN CORPUSCULAR HGB CONC 33.3 % (32.0-36.0); PLATELET COUNT 338 TH/MM3 (150-450); RED BLOOD COUNT 3.18 MIL/MM3 (4.50-5.90); RED CELL DISTRIBUTION WIDTH 15.8 % (11.6-17.2); REVIEW FLAG FINAL; WHITE BLOOD COUNT 13.1 TH/MM3 (4.0-11.0)
[2016-05-23 05:57] LABS: APTT (PATIENT) 71.3 SEC (24.3-30.1); INTERNATIONAL NORMALIZED RATIO 1.2 RATIO; PROTHROMBIN TIME - PATIENT 13.4 SEC (9.8-11.6)
[2016-05-23] MEDS: metroNIDAZOLE 500 MG INJ 100 ML IV SCH ×3 (06:03→21:26)
[2016-05-23 06:24] LABS: BICARBONATE 22.6 MEQ/L (21.0-32.0); POTASSIUM 4.3 MEQ/L (3.5-5.1)
[2016-05-23] MEDS: INSULIN ASPART SUPPLEMENTAL SCALE SQ SCH ×4 (07:00→21:00)
[2016-05-23] MEDS: INSULIN DETEMIR 100 UNITS/ML VIAL SQ SCH ×2 (08:37→21:29)
[2016-05-23] MEDS: ASPIRIN EC 81 MG TABEC PO SCH (08:38)
[2016-05-23] MEDS: CARVEDILOL 3.125 MG TAB PO SCH ×2 (08:38→21:27)
[2016-05-23] MEDS: PANTOPRAZOLE SOD 40 MG DELAYED RELEASE TAB PO SCH (08:38)
[2016-05-23] MEDS: DOCUSATE SODIUM 100 MG CAP PO SCH (08:38)
[2016-05-23] MEDS: ALLOPURINOL 100 MG TAB PO SCH (08:38)
[2016-05-23] MEDS: LACTOBACILLUS ACIDOPHILUS TAB PO SCH ×3 (08:38→17:13)
[2016-05-23] MEDS: SENNOSIDES 8.6 MG TAB PO SCH (08:38)
[2016-05-23] MEDS: SODIUM CHLORIDE 0.9% FLUSH 5 ML FLUSH IV FLUSH SCH ×2 (08:39→21:26)
[2016-05-23] MEDS: HEPARIN-D5W INJ 250 ML IV SCH (08:52)
--- NOTE | 2016-05-23 12:29 | HHI.PR ---
Subjective Remarks The patient said that he has been having loose bowel movements. He said the pain on the right side of his abdomen is still bothersome. He was a little anxious about the procedure tomorrow. Discussed with nursing. Objective Vitals Vital Signs Date Time Temp Pulse Resp B/P Pulse Ox O2 Delivery O2 Flow Rate FiO2 05/23/16 12:00 61 05/23/16 11:00 58 05/23/16 11:00 98.0 60 18 116/61 97 05/23/16 10:00 59 05/23/16 09:00 57 05/23/16 08:00 59 05/23/16 07:00 56 05/23/16 07:00 98.1 65 20 120/57 99 05/23/16 06:01 59 05/23/16 05:00 58 05/23/16 04:01 59 05/23/16 03:01 98.5 65 14 131/60 94 05/23/16 03:00 70 05/23/16 02:01 78 05/23/16 01:00 50 05/23/16 00:00 53 05/22/16 23:01 98.4 66 20 117/56 93 05/22/16 23:00 59 05/22/16 22:00 58 05/22/16 20:45 99.2 61 20 115/63 97 05/22/16 20:00 61 05/22/16 19:00 67 05/22/16 18:02 62 05/22/16 17:06 58 05/22/16 16:08 62 05/22/16 15:48 98.0 59 18 125/60 95 05/22/16 15:48 59 05/22/16 14:07 59 05/22/16 13:43 57 I/O 05/22/16 05/22/16 05/22/16 05/23/16 05/23/16 05/23/16 07:00 15:00 23:00 07:00 15:00 23:00 Intake Total 1383 ml 1760 ml 2478 ml Output Total 900 ml 850 ml 1295 ml Balance 483 ml 910 ml 1183 ml Intake Oral 240 ml 480 ml 480 ml IV Total 1143 ml 1280 ml 1998 ml Output Urine Total 900 ml 850 ml 1295 ml # Voids 3 3 # Bowel Movements 0 1 0 Result Diagram: 05/23/16 0434 05/23/16 0434 Imaging Last Impressions Gall Bladder Ultrasound 05/21/16 Signed Impressions: Service Date/Time: Saturday, May 21, 2016 09:44 - CONCLUSION: 1. Cholelithiasis with multiple echogenic gallstones. There is mild wall thickening with no pericholecystic fluid. 2. The common bile duct is mildly prominent at 8 mm with no evidence of choledocholithiasis in the visualized portion. 3. The liver is mildly prominent in size with no focal lesion. Konrad Robbins MD Lower Extremity Ultrasound 05/20/16 Signed Impressions: Service Date/Time: Friday, May 20, 2016 15:10 - CONCLUSION: Venous mapping as described above.. Ramsey Hi MD FACR Carotid Artery Ultrasound 05/20/16 Signed Impressions: Service Date/Time: Friday, May 20, 2016 15:30 - CONCLUSION: Hemodynamically significant left cartoid stenosis. Ramsey Hi MD FACR Abdomen CT 05/19/16 Signed Impressions: Service Date/Time: Thursday, May 19, 2016 23:01 - CONCLUSION: 1. Abnormal soft tissue density involving the midportion of the descending colon with the inflammatory change extending to the peritoneal wall. There is no evidence of abscess. The findings are concerning for neoplasm as no diverticula are seen in the remainder of the colon. Endoscopy is recommended for further evaluation if clinically indicated. 2. Cholelithiasis Jakub Dickson MD ADDENDUM: COMPARISON: CT ABDOMEN & PELVIS W/O CONTRAST, May 15, 2016, 14:43. I reviewed this study and it is the asscending colon just above the cecum which demonstrates the inflammatory change. Not the descending colon. Konrad Robbins MD Myocardial Perfusion Scan Nuc Med 05/17/16 Signed Impressions: Service Date/Time: Tuesday, May 17, 2016 10:41 - CONCLUSION: Redistribution as described above consistent stress-induced ischemia.. RISK CATEGORY: Intermediate (1-3%% Annual Mortality Rate) Ramsey Hi MD FACR Chest X-Ray 05/17/16 Signed Impressions: Service Date/Time: Tuesday, May 17, 2016 23:02 - CONCLUSION: Worsening bibasilar atelectasis. Small bilateral pleural effusions are developing. Negrito Valdez MD Chest CT 05/15/16 0000 Signed Impressions: Service Date/Time: Sunday, May 15, 2016 14:37 - CONCLUSION: 1. Lack of intravenous contrast makes it impossible to exclude a dissection. 2. There is no evidence for pneumothorax. 3. Marked coronary artery calcifications. Ramsey Hi MD FACR Abdomen/Pelvis CT 05/15/16 0000 Signed Impressions: Service Date/Time: Sunday, May 15, 2016 14:43 - CONCLUSION: 1. Marked coronary artery calcifications. 2. I do not see an etiology for the patient's back pain. Ramsey Hi MD FACR Objective Remarks GENERAL: This is a well-nourished, well-developed patient, in no apparent distress. HEENT: NC, AT. CARDIOVASCULAR: Regular rate and regular rhythm without murmurs, gallops, or rubs. RESPIRATORY: Clear to auscultation. Breath sounds equal bilaterally. No wheezes , rales, or rhonchi. GASTROINTESTINAL: Abdomen soft, tender to palpation on the right side, nondistended. Normoactive bowel sounds. MUSCULOSKELETAL: Extremities without clubbing, cyanosis, or edema. NEURO: Alert & Oriented x4 to person, place, time, situation. Moves all ext x4. PSYCH: Mood and affect appropriate. Medications and IVs Current Medications Medications (Trade) Dose Ordered Sig/Avinash Route Start Time Stop Time Status Last Admin (NS 1000 ml Inj) 1,000 ml @ 75 mls/hr [id number] IV 05/15/16 17:00 05/22/16 20:59 (D50w (Vial) Inj) 25 ml UNSCH PRN IV PUSH 05/15/16 16:45 05/21/16 11:35 (Glucagon Inj) 1 mg UNSCH PRN OTHER 05/15/16 16:45 (Zyloprim) 100 mg DAILY PO 05/16/16 09:00 05/23/16 08:38 (Neurontin) 300 mg HS PO 05/15/16 21:00 05/22/16 20:57 (Tylenol) 650 mg Q4H PRN PO 05/15/16 16:45 05/19/16 00:24 (Ecotrin Ec) 162 mg DAILY PO 05/16/16 09:00 05/23/16 08:38 (Lipitor) 80 mg HS PO 05/17/16 21:00 05/22/16 20:58 (Lactinex) 1 tab TID PO 05/19/16 09:00 05/23/16 08:38 (Lomotil Tab) 1 tab Q6H PRN PO 05/19/16 15:30 (Atropine Inj) 0.5 mg UNSCH PRN IV 05/20/16 10:30 Ondansetron HCl 4 mg 4 mg Q4H PRN IV 05/20/16 10:30 Ciprofloxacin/ Dextrose 200 ml @ 200 mls/hr Q24H IV 05/20/16 14:00 05/22/16 13:08 (Flagyl 500 Mg Inj) 100 ml @ 100 mls/hr Q8H IV 05/20/16 13:00 05/23/16 06:03 (Protonix) 40 mg DAILY PO 05/20/16 12:00 05/23/16 08:38 (Heparin Inj) 5,000 units UNSCH PRN IV 05/21/16 05:00 Heparin Sodium (Porcine) 2500 units 2,500 units UNSCH PRN IV 05/21/16 05:00 (Heparin-D5W Inj) 250 ml @ 0 mls/hr TITRATE IV 05/20/16 23:00 05/23/16 08:52 (NS Flush) 2 ml BID IV FLUSH 05/21/16 21:00 05/22/16 20:58 (NS Flush) 2 ml UNSCH PRN IV FLUSH 05/21/16 11:30 (Levemir Inj) 30 units BID SQ 05/21/16 21:00 05/23/16 08:37 (Colace) 100 mg BID PO 05/22/16 21:00 05/23/16 08:38 (Senokot) 17.2 mg DAILY PO 05/22/16 14:00 05/23/16 08:38 (Coreg) 3.125 mg Q12HR PO 05/22/16 21:00 05/23/16 08:38 A/P Problem List: (1) NSTEMI (non-ST elevated myocardial infarction) ICD Code: I21.4 Status: Acute (2) SIRS (systemic inflammatory response syndrome) ICD Code: R65.10 Status: Acute Assessment and Plan NSTEMI with history of CAD and stent placement Started on heparin and nitro drips. Cardiology consult appreciated. S/p cath with multivessel CAD including left main. - will continue cardiac regimen. - continue heparin gtt per cards. - CT surgery consult appreciated. CABG tentatively scheduled for Friday. SIRS/ abdominal pain Blood cultures negative to date. C. difficile negative. CT abdomen: Abnormal soft tissue density involving the midportion of the descending colon with the inflammatory change extending to the peritoneal wall; There is no evidence of abscess; The findings are concerning for neoplasm as no diverticula are seen in the remainder of the colon; Endoscopy is recommended for further evaluation if clinically indicated. GI and surgical consults appreciated. - continue Cipro and Flagyl. - PPI. - pain control as needed. - hold bowel regimen 05/23. Hypertension BP well controlled 05/23. - decreased Coreg. Hold lisinopril for now. Will monitor and adjust the regimen as needed. Diabetes mellitus Glucose has been low at times. Well controlled 05/23. - resumed long-acting insulin at lower dose, BID. - hold metformin- accu-check with SSI. Acute on chronic kidney disease Appreciate nephrology consult. - Repeat BMP and avoid nephrotoxic agents. - IVFs. DVT prophylaxis ; on heparin drip Discharge Planning CABG Friday. Konrad Meyers DO May 23, 2016 12:29
[2016-05-23 13:04] LABS: APTT (PATIENT) 70.3 SEC (24.3-30.1)
[2016-05-23] MEDS: CIPROFLOXACIN 400 MG PREMIX 200 ML IV SCH (13:19)
[2016-05-23] MEDS: SODIUM CHLOR 0.9% 1000 ML INJ 1,000 ML IV SCH (13:19)
--- NOTE | 2016-05-23 13:21 | PD.CAR.PN ---
CVT Progress Note Subjective/Hospital Course: 70/ male admitted 05/15 for chest pain,-also right upper quadrant abd pain with recent diarrhea and nausea, some loss of appetite, elevated WBC on admission of 21K, neg blood culture, neg UA underwent CT abdomen Abnormal imaging involving descending colon on imaging. Found to have a NSTEMI, + myocardial perfusion scan , underwent cardiac cath by Dr Hickey and found to multi vessel disease, we were consulted to eval for Coronary artery bypass grafting , EF 50% by Echo no valvular disease , CKD MYRA baseline creatinine 2.0 elevated to 4.0 / post IV fluid resuscitation, nephrology following/ now improved to 2.[address] (05/19/16)----> 1. Abnormal soft tissue density involving the midportion of the ascending colon with the inflammatory change extending to the peritoneal wall. There is no evidence of abscess. findings are concerning for neoplasm as no diverticula are seen in the remainder of the colon, Cholelithiasis. GI consulted , per GI suspected colitis. Barium enema would be of little benefit for evaluation Flexible sigmoidoscopy is not an option given the location of the inflammatory change. Not stable for anesthesia per cardiology. for colonoscopy , pt started on Cipro/flagyl cardiology. CDiff negative. Tumor markers unremarkable. Cont. Abx., General surgery consulted , Recommend ABX , EGD/ colonoscopy once cleared by cardiology PMH: CAD/ prior stent , DM , CKD, HTN 05/21 pt still has some mild right right upper quad abd pain , no chest pain, had BM yesterday tentatively scheduled for CABG on monday 05/22 right upper quad pain improving, still has some tenderness WBC count 12, low grade fever last pm,, now resolved f/u CBC in am , continue antibiotics no chest pain 05/23 no further fevers, WBC 13 still has some right upper quad abdominal tenderness with palpation continue antibiotics, pt will still need full colonoscopy and EGD post surgery, with possible pet scan as outpt still scheduled for surgery in am discussed with Dr Jensen Objective: GENERAL: SKIN: Warm and dry. HEAD: Normocephalic. EYES: No scleral icterus. No injection or drainage. NECK: Supple, trachea midline. No JVD or lymphadenopathy. CARDIOVASCULAR: Regular rate and rhythm without murmurs, gallops, or rubs. RESPIRATORY: Breath sounds equal bilaterally. No accessory muscle use. GASTROINTESTINAL: slightly distended, right upper quad tenderness, slightly improved from intial eval no nausea, no pain at rest or with ambulation, + BM, only tenderness with palpation MUSCULOSKELETAL: No cyanosis, or edema. BACK: Nontender without obvious deformity. No CVA tenderness. Vital Signs Date Time Temp Pulse Resp B/P Pulse Ox O2 Delivery O2 Flow Rate FiO2 05/23/16 13:00 64 05/23/16 12:00 61 05/23/16 11:00 58 05/23/16 11:00 98.0 60 18 116/61 97 05/23/16 10:00 59 05/23/16 09:00 57 05/23/16 08:00 59 05/23/16 07:00 56 05/23/16 07:00 98.1 65 20 120/57 99 05/23/16 06:01 59 05/23/16 05:00 58 05/23/16 04:01 59 05/23/16 03:01 98.5 65 14 131/60 94 05/23/16 03:00 70 05/23/16 02:01 78 05/23/16 01:00 50 05/23/16 00:00 53 05/22/16 23:01 98.4 66 20 117/56 93 05/22/16 23:00 59 05/22/16 22:00 58 05/22/16 20:45 99.2 61 20 115/63 97 05/22/16 20:00 61 05/22/16 19:00 67 05/22/16 18:02 62 05/22/16 17:06 58 05/22/16 16:08 62 05/22/16 15:48 98.0 59 18 125/60 95 05/22/16 15:48 59 05/22/16 14:07 59 05/22/16 13:43 57 Labs: Laboratory Tests Test 05/23/16 05/23/16 05/23/16 05/23/16 04:34 04:45 06:06 11:56 White Blood Count 13.1 TH/MM3 (4.0-11.0) Red Blood Count 3.18 MIL/MM3 (4.50-5.90) Hemoglobin 8.8 GM/DL (13.0-17.0) Hematocrit 26.5 % (39.0-51.0) Mean Corpuscular Volume 83.4 FL (80.0-100.0) Mean Corpuscular Hemoglobin 27.8 PG (27.0-34.0) Mean Corpuscular Hemoglobin 33.3 % Concent (32.0-36.0) Red Cell Distribution Width 15.8 % (11.6-17.2) Platelet Count 338 TH/MM3 (150-450) Mean Platelet Volume 9.7 FL (7.0-11.0) Prothrombin Time 13.4 SEC (9.8-11.6) Prothromb Time International 1.2 RATIO Ratio Activated Partial 71.3 SEC 70.3 SEC Thromboplast Time (24.3-30.1) (24.3-30.1) Sodium Level 143 MEQ/L (136-145) Potassium Level 4.3 MEQ/L (3.5-5.1) Chloride Level 111 MEQ/L (98-107) Carbon Dioxide Level 22.6 MEQ/L (21.0-32.0) Anion Gap 9 MEQ/L (5-15) Blood Urea Nitrogen 40 MG/DL (7-18) Creatinine 2.05 MG/DL (0.60-1.30) Estimat Glomerular Filtration 32 ML/MIN (>89) Rate Random Glucose 153 MG/DL (74-106) Calcium Level 8.1 MG/DL (8.5-10.1) Blood Type O POSITIVE O POSITIVE Antibody Screen NEGATIVE Crossmatch Leukocyte-Reduced Red Blood Cells Blood Bank Comment Result Diagram: 05/23/164 05/23/16433 (1) SIRS (systemic inflammatory response syndrome) Plan: leukocytosis stable probable colitis , receiving cipro and flagyl decreased abd pain, still some tenderness will need close f/u post surgery will need f/u as outpt with general surgery and GI (2) NSTEMI (non-ST elevated myocardial infarction) Plan: ASA, statin , , Heparin gtt scheduled for Coronary artery bypass grafting on friday (3) Renal insufficiency Plan: nephrology following creatinine at baseline avoid nephrotoxins (4) Abdominal mass Plan: GI following, appreciate general surgery consult continue ABX , probable colitis will need colonoscopy and EGD once recovered from CV surgery , tumor markers neg will need f/u with General surgery as outpt for his gallstones (5) Carotid arterial disease Plan: ICA left 241 will need outpt f/u with vascular surgery to monitor pt is asymptomatic Falguni Sparrow May 23, 2016 13:21
--- NOTE | 2016-05-23 13:25 | PD.CARD.PN ---
Subjective Subjective Remarks Patient seen earlier No chest pain, no shortness of breath, mild right sided abdominal pain on palpitation Objective Medications Current Medications Medications (Trade) Dose Ordered Sig/Avinash Route Start Time Stop Time Status Last Admin (NS 1000 ml Inj) 1,000 ml @ 75 mls/hr [id number] IV 05/15/16 17:00 05/23/16 13:19 (D50w (Vial) Inj) 25 ml UNSCH PRN IV PUSH 05/15/16 16:45 05/21/16 11:35 (Glucagon Inj) 1 mg UNSCH PRN OTHER 05/15/16 16:45 (Zyloprim) 100 mg DAILY PO 05/16/16 09:00 05/23/16 08:38 (Neurontin) 300 mg HS PO 05/15/16 21:00 05/22/16 20:57 (Tylenol) 650 mg Q4H PRN PO 05/15/16 16:45 05/19/16 00:24 (Ecotrin Ec) 162 mg DAILY PO 05/16/16 09:00 05/23/16 08:38 (Lipitor) 80 mg HS PO 05/17/16 21:00 05/22/16 20:58 (Lactinex) 1 tab TID PO 05/19/16 09:00 05/23/16 13:19 (Lomotil Tab) 1 tab Q6H PRN PO 05/19/16 15:30 (Atropine Inj) 0.5 mg UNSCH PRN IV 05/20/16 10:30 Ondansetron HCl 4 mg 4 mg Q4H PRN IV 05/20/16 10:30 Ciprofloxacin/ Dextrose 200 ml @ 200 mls/hr Q24H IV 05/20/16 14:00 05/23/16 13:19 (Flagyl 500 Mg Inj) 100 ml @ 100 mls/hr Q8H IV 05/20/16 13:00 05/23/16 13:18 (Protonix) 40 mg DAILY PO 05/20/16 12:00 05/23/16 08:38 (Heparin Inj) 5,000 units UNSCH PRN IV 05/21/16 05:00 Heparin Sodium (Porcine) 2500 units 2,500 units UNSCH PRN IV 05/21/16 05:00 (Heparin-D5W Inj) 250 ml @ 0 mls/hr TITRATE IV 05/20/16 23:00 05/23/16 08:52 (NS Flush) 2 ml BID IV FLUSH 05/21/16 21:00 05/22/16 20:58 (NS Flush) 2 ml UNSCH PRN IV FLUSH 05/21/16 11:30 (Levemir Inj) 30 units BID SQ 05/21/16 21:00 05/23/16 08:37 (Colace) 100 mg BID PO 05/22/16 21:00 Hold 05/23/16 08:38 (Senokot) 17.2 mg DAILY PO 05/22/16 14:00 Hold 05/23/16 08:38 (Coreg) 3.125 mg Q12HR PO 05/22/16 21:00 05/23/16 08:38 Vital Signs / I&O Vital Signs Date Time Temp Pulse Resp B/P Pulse Ox O2 Delivery O2 Flow Rate FiO2 05/23/16 13:00 64 05/23/16 12:00 61 05/23/16 11:00 58 05/23/16 11:00 98.0 60 18 116/61 97 05/23/16 10:00 59 05/23/16 09:00 57 05/23/16 08:00 59 05/23/16 07:00 56 05/23/16 07:00 98.1 65 20 120/57 99 05/23/16 06:01 59 05/23/16 05:00 58 05/23/16 04:01 59 05/23/16 03:01 98.5 65 14 131/60 94 05/23/16 03:00 70 05/23/16 02:01 78 05/23/16 01:00 50 05/23/16 00:00 53 05/22/16 23:01 98.4 66 20 117/56 93 05/22/16 23:00 59 05/22/16 22:00 58 05/22/16 20:45 99.2 61 20 115/63 97 05/22/16 20:00 61 05/22/16 19:00 67 05/22/16 18:02 62 05/22/16 17:06 58 05/22/16 16:08 62 05/22/16 15:48 98.0 59 18 125/60 95 05/22/16 15:48 59 05/22/16 14:07 59 05/22/16 13:43 57 I/O 05/22/16 05/22/16 05/22/16 05/23/16 05/23/16 05/23/16 07:00 15:00 23:00 07:00 15:00 23:00 Intake Total 1383 ml 1760 ml 2478 ml Output Total 900 ml 850 ml 1295 ml Balance 483 ml 910 ml 1183 ml Intake Oral 240 ml 480 ml 480 ml IV Total 1143 ml 1280 ml 1998 ml Output Urine Total 900 ml 850 ml 1295 ml # Voids 3 3 # Bowel Movements 0 1 0 Physical Exam GENERAL: NAD, AAOx3 SKIN: Warm and dry. HEAD: Atraumatic. Normocephalic. EYES: Pupils equal and round. No scleral icterus. No injection or drainage. ENT: No nasal bleeding or discharge. Mucous membranes pink and moist. NECK: Trachea midline. No JVD. CARDIOVASCULAR: Regular rate and rhythm. RESPIRATORY: No accessory muscle use. Clear to auscultation. Breath sounds equal bilaterally. GASTROINTESTINAL: Abdomen soft, minimal pain with palpitation of the right side , mild along the RUQ, nondistended. Hepatic and splenic margins not palpable. No guarding MUSCULOSKELETAL: Extremities without clubbing, cyanosis, or edema. No obvious deformities. Right groin no hematoma/bruit, distal pulses intact NEUROLOGICAL: Awake and alert. No obvious cranial nerve deficits. Motor grossly within normal limits. Five out of 5 muscle strength in the arms and legs. Normal speech. PSYCHIATRIC: Appropriate mood and affect; insight and judgment normal. Laboratory Laboratory Tests Test 05/23/16 05/23/16 05/23/16 05/23/16 04:34 04:45 06:06 11:56 White Blood Count 13.1 TH/MM3 Red Blood Count 3.18 MIL/MM3 Hemoglobin 8.8 GM/DL Hematocrit 26.5 % Mean Corpuscular Volume 83.4 FL Mean Corpuscular Hemoglobin 27.8 PG Mean Corpuscular Hemoglobin 33.3 % Concent Red Cell Distribution Width 15.8 % Platelet Count 338 TH/MM3 Mean Platelet Volume 9.7 FL Prothrombin Time 13.4 SEC Prothromb Time International 1.2 RATIO Ratio Activated Partial 71.3 SEC 70.3 SEC Thromboplast Time Sodium Level 143 MEQ/L Potassium Level 4.3 MEQ/L Chloride Level 111 MEQ/L Carbon Dioxide Level 22.6 MEQ/L Anion Gap 9 MEQ/L Blood Urea Nitrogen 40 MG/DL Creatinine 2.05 MG/DL Estimat Glomerular Filtration 32 ML/MIN Rate Random Glucose 153 MG/DL Calcium Level 8.1 MG/DL Blood Type O POSITIVE O POSITIVE Antibody Screen NEGATIVE Crossmatch Leukocyte-Reduced Red Blood Cells Blood Bank Comment Assessment and Plan Problem List: (1) SIRS (systemic inflammatory response syndrome) (2) NSTEMI (non-ST elevated myocardial infarction) (3) Renal insufficiency (4) Abdominal mass (5) Carotid arterial disease Assessment and Plan 1) Multi-vessel coronary artery disease, with distal left main disease... continue on ASA/Coreg/Statin... continue heparin gtt 2) Abdominal mass, spoke to GI, high risk for anesthesia for C-scope, possible colitis will continue to treat as such, plan C-scope after CABG 3) If chest pain, hemodynamic/electrical decompensation, will need more emergent surgery 4) Left sided carotid disease, follow up with vascular surgery 5) For CABG tomorrow Balta Hickey DO May 23, 2016 13:25
--- NOTE | 2016-05-23 13:54 | HHI.PR ---
Subjective Subjective Notes Resting in bed; no complaints Objective Vitals/I&O Vital Signs Date Time Temp Pulse Resp B/P Pulse Ox O2 Delivery O2 Flow Rate FiO2 05/23/16 13:00 64 05/23/16 11:00 98.0 18 116/61 97 05/20/16 20:14 21 Labs Laboratory Tests Test 05/23/16 05/23/16 05/23/16 05/23/16 04:34 04:45 06:06 11:56 White Blood Count 13.1 Red Blood Count 3.18 Hemoglobin 8.8 Hematocrit 26.5 Mean Corpuscular Volume 83.4 Mean Corpuscular Hemoglobin 27.8 Mean Corpuscular Hemoglobin 33.3 Concent Red Cell Distribution Width 15.8 Platelet Count 338 Mean Platelet Volume 9.7 Prothrombin Time 13.4 Prothromb Time International 1.2 Ratio Activated Partial 71.3 70.3 Thromboplast Time Sodium Level 143 Potassium Level 4.3 Chloride Level 111 Carbon Dioxide Level 22.6 Anion Gap 9 Blood Urea Nitrogen 40 Creatinine 2.05 Estimat Glomerular Filtration 32 Rate Random Glucose 153 Calcium Level 8.1 Blood Type O POSITIVE O POSITIVE Antibody Screen NEGATIVE Crossmatch Leukocyte-Reduced Red Blood Cells Blood Bank Comment Date/Time Procedure Status Source Growth 05/22/16 11:20 Stool Occult Blood (NAHOMY) - Final Complete Stool Stool HEMOCCULT NEGATIVE Radiology Last 48 hours Impressions Gall Bladder Ultrasound 05/21/16 0000 Signed Impressions: Service Date/Time: Saturday, May 21, 2016 09:44 - CONCLUSION: 1. Cholelithiasis with multiple echogenic gallstones. There is mild wall thickening with no pericholecystic fluid. 2. The common bile duct is mildly prominent at 8 mm with no evidence of choledocholithiasis in the visualized portion. 3. The liver is mildly prominent in size with no focal lesion. Konrad Robbins MD Lower Extremity Ultrasound 05/20/16 0000 Signed Impressions: Service Date/Time: Friday, May 20, 2016 15:10 - CONCLUSION: Venous mapping as described above.. Ramsey Hi MD FACR Lower Extremity Ultrasound 05/20/16 0000 Signed Impressions: Service Date/Time: Friday, May 20, 2016 15:01 - CONCLUSION: Negative exam with no evidence of deep venous thrombosis. Konrad Robbins MD Carotid Artery Ultrasound 05/20/16 0000 Signed Impressions: Service Date/Time: Friday, May 20, 2016 15:30 - CONCLUSION: Hemodynamically significant left cartoid stenosis. Ramsey Hi MD FACR Cardiovascular: Regular Lungs: Clear Abdomen: Other (mildly tender in RLQ) Extremities: No edema A/P Assessment and Plan 70 year old male with acute cholecystitis, incidental RIGHT colon mass finding with severe CAD -CABG planned for tomorrow with CTS -Tolerating heart healthy diet -Continue antibiotics -Will work up colon mass after recovered from CABG Attending Statement patient seen at bedside stable, planning for CABG tomorrow pain better no obstructive symptoms from colon mass will follow up colonoscopy when cleared from cardio stand point pt may need cholecystectomy, partial colectomy after acute cardio issues are addressed. Attestation The exam, history, and the medical decision-making described in the above note were completed with the assistance of the mid-level provider. I reviewed and agree with the findings presented. I attest that I had a [id number] encounter with the patient on the same day, and personally performed and documented my assessment and findings in the medical record. Elsa Pond May 23, 2016 13:54 Inocencio Villavicencio MD Jun 02, 2016 21:19
[2016-05-23 19:22] LABS: APTT (PATIENT) 51.7 SEC (24.3-30.1)
[2016-05-23] MEDS: GABAPENTIN 300 MG CAP PO SCH (21:26)
[2016-05-23] MEDS: ATORVASTATIN 20 MG TAB PO SCH (21:27)
[2016-05-24] VITALS (25 sets, daily range): BP systolic 91–147; BP diastolic 48–84; PULSE 53–84; RESP 15–20; TEMP 97–98.6; O2SAT 94–99
[2016-05-24] MEDS: SODIUM CHLOR 0.9% 1000 ML INJ 1,000 ML IV SCH ×2 (03:42→14:29)
[2016-05-24] MEDS: metroNIDAZOLE 500 MG INJ 100 ML IV SCH ×3 (04:25→21:59)
[2016-05-24] MEDS ORDERED: NITROGLYCERIN-DEXTROSE INJ 250 ML IV ONE (05:00)
[2016-05-24] MEDS ORDERED: GLYCOPYRROLATE 0.2 MG/ML VIAL IV ONE (05:00)
[2016-05-24] MEDS ORDERED: HEPARIN SODIUM - SQ 10,000 UNITS/ML VIAL SQ ONE (05:00)
[2016-05-24] MEDS ORDERED: ACETAMINOPHEN 1000 MG/100 ML VIAL IV ONE (05:00)
[2016-05-24] MEDS ORDERED: MAGNESIUM SULFATE 1000 MG/2 ML VIAL (PED) IV ONE (05:00)
[2016-05-24] MEDS ORDERED: PROTAMINE SULFATE 250 MG/25 ML VIAL IV ONE (05:00)
[2016-05-24] MEDS ORDERED: AMIODARONE HCL 150 MG/3 ML VIAL IV ONE (05:00)
[2016-05-24] MEDS ORDERED: DEXMEDETOMIDINE INJ 50 ML IV ONE (05:00)
[2016-05-24] MEDS ORDERED: LIDOCAINE HCL 1% 30 ML VIAL OTHER ONE (05:00)
[2016-05-24] MEDS ORDERED: CALCIUM CHLORIDE 10% SOLN 1 GRAM/10 ML SYR IV ONE (05:00)
[2016-05-24] MEDS ORDERED: PROPOFOL 1000 MG/100 ML INJ 100 ML IV ONE (05:00)
[2016-05-24] MEDS ORDERED: ARTIFICIAL TEARS OPTH OINT 3.5 APPLIC/3.5 GM TUBO ONE (05:00)
[2016-05-24 05:38] LABS: HEMATOCRIT 30.2 % (39.0-51.0); MEAN CELL VOLUME 83.6 FL (80.0-100.0); MEAN CORPUSCULAR HEMOGLOBIN 27.3 PG (27.0-34.0); MEAN CORPUSCULAR HGB CONC 32.7 % (32.0-36.0); PLATELET COUNT 432 TH/MM3 (150-450); RED BLOOD COUNT 3.62 MIL/MM3 (4.50-5.90); RED CELL DISTRIBUTION WIDTH 16.2 % (11.6-17.2); REVIEW FLAG FINAL; WHITE BLOOD COUNT 16.5 TH/MM3 (4.0-11.0)
[2016-05-24 05:52] LABS: APTT (PATIENT) 56.7 SEC (24.3-30.1)
[2016-05-24 05:53] LABS: BICARBONATE 24.3 MEQ/L (21.0-32.0); MAGNESIUM 1.7 MG/DL (1.5-2.5); POTASSIUM 3.6 MEQ/L (3.5-5.1)
[2016-05-24] MEDS: INSULIN ASPART SUPPLEMENTAL SCALE SQ SCH ×4 (06:11→21:00)
[2016-05-24] MEDS: DEXTROSE 50% IN WATER 50 ML VIAL(D50) IV PUSH PRN ×2 (06:12→06:36)
[2016-05-24] MEDS: HEPARIN SODIUM - SQ 10,000 UNITS/ML VIAL ONE ×2 (06:14→07:50)
[2016-05-24] MEDS: VANCOMYCIN HCL 1000 MG VIAL ONE ×2 (06:14→07:50)
[2016-05-24] MEDS: methylPREDNISolone SOD SUCC 125 MG/2 ML VIAL ONE ×2 (06:14→07:50)
[2016-05-24] MEDS ORDERED: CARDIOPLEGIC IRR 1,000 ML ONE (06:31)
[2016-05-24] MEDS ORDERED: SODIUM BICARBONATE 8.4% INJ 50 ML ONE (06:32)
[2016-05-24] MEDS ORDERED: ALBUMIN HUMAN 25% 12.5 GM/50 ML BAGP IV ONE (06:32)
[2016-05-24] MEDS ORDERED: POTASSIUM CHLORIDE 40 MEQ/20 ML VIAL ONE (06:32)
[2016-05-24] MEDS ORDERED: MANNITOL INJ 50 ML ONE (06:33)
[2016-05-24] MEDS ORDERED: HEPARIN SODIUM - IV 10,000 UNITS/10 ML VIAL ONE (06:33)
[2016-05-24] MEDS: CARVEDILOL 3.125 MG TAB PO SCH (07:02)
[2016-05-24] MEDS: SODIUM CHLORIDE 0.9% FLUSH 5 ML FLUSH IV FLUSH SCH ×2 (09:00→21:59)
[2016-05-24] MEDS: INSULIN DETEMIR 100 UNITS/ML VIAL SQ SCH (09:00)
[2016-05-24] MEDS: ASPIRIN EC 81 MG TABEC PO SCH (09:00)
[2016-05-24] MEDS: ALLOPURINOL 100 MG TAB PO SCH (09:00)
[2016-05-24] MEDS: PANTOPRAZOLE SOD 40 MG DELAYED RELEASE TAB PO SCH (09:00)
[2016-05-24] MEDS: LACTOBACILLUS ACIDOPHILUS TAB PO SCH (09:00)
--- NOTE | 2016-05-24 11:00 | HHI.NPPN ---
Subjective Complaints: Shortness of Breath General Problems: Hypertension Renal Failure: Chronic Interval History Renal function is better today. To have CABG. (Jessica Delgado) Review of Systems General Constitutional: Fatigue (Jessica Delgado) Respiratory Lungs: SOB (Jessica Delgado) Cardiovascular Cardiac: Chest Pain, OLVERA Cardiac Remarks CP resolved (Jessica Delgado) Objective Data Data 05/23/16 05/24/16 19:00 07:00 Intake Total 4098 ml 720 ml Output Total 2195 ml 1510 ml Balance 1903 ml -790 ml Intake Oral 1440 ml 720 ml IV Total 2658 ml Output Urine Total 2195 ml 1510 ml # Voids 3 # Bowel Movements 1 Vital Signs Date Time Temp Pulse Resp B/P Pulse Ox O2 Delivery O2 Flow Rate FiO2 05/24/16 06:00 58 05/24/16 05:00 78 05/24/16 04:00 60 05/24/16 03:00 97.9 73 20 147/84 96 05/24/16 03:00 70 05/24/16 02:00 54 05/24/16 01:00 53 05/24/16 00:00 58 05/23/16 23:00 57 05/23/16 23:00 98.9 57 24 133/68 97 05/23/16 22:00 59 05/23/16 21:42 21 05/23/16 21:00 55 05/23/16 20:00 71 05/23/16 19:00 64 05/23/16 19:00 98.0 59 24 139/65 98 05/23/16 18:00 64 05/23/16 17:00 63 05/23/16 16:00 56 05/23/16 15:00 56 05/23/16 15:00 98.0 65 22 124/58 98 05/23/16 14:00 55 05/23/16 13:00 64 05/23/16 12:00 61 05/23/16 11:00 58 05/23/16 11:00 98.0 60 18 116/61 97 (Jessica Delgado) -: 05/24/16 0513 05/24/16 0513 Physical Exam General Appearance: Well Developed, Well Nourished, No Acute Distress, Comfortable ( Jessica Delgado. BULL BUCKER) Eyes Eye Exam: Pupils Equal (Jessica Delgado BULL BUCKER) Ears & Nose Ears & Nose Exam: Nasal Mucosa Gail (Jsesica Delgado. BULL BUCKER) Throat Throat Exam: Oral Mucosa Gail & Moist (Jessica Delgado. BULL BUCKER) Pulmonary Resp Exam: No Distress, Rhonchi, Decreased Bases (Jessica Delgado. BULL BUCKER) Cardiology CV Exam: Regular, Normal Sinus Rhythm, Good Perfusion (Jessica Delgado. BULL BUCKER) Gastrointestinal/Abdomen GI Exam: Soft, Non-Tender, Bowel Sounds Present, Positive Bowel Movement ( Jessica Delgado. BULL BUCKER) Musculoskeletal MS Exam: Joints Intact, Normal Tone (Jessica Delgado. BULL BUCKER) Integumentary Skin Exam: Warm, Dry (Jessica Delgado. BULL BUCKER) Extremeties Extremities Exam: No Edema, Pedal Pulses Palpable (Jessica Delgado. BULL BUCKER) Neurologic Neuro Exam: Alert, Awake, Oriented, Speech Clear, Moving All Extremities ( Jessica Delgado. BULL BUCKER) Psychiatric Psych Exam: Appropriate Responses (Jessica Delgado BULL BUCKER) Assessment/Plan Discussed Condition With: Patient Assessment Summary: MYRA/Acute Renal Failure, Hypertension, CKD Stage III Problem List: (1) Acute kidney injury Plan: Non oliguric renal failure, MYRA likely be due to NSTEMI; of note he was exposed to IV contrast on 05/20 Renal function improved, he is non oliguric monitor electrolytes, replace as needed labs in am avoid nephrotoxins (2) Stage 3 chronic kidney disease Plan: baseline creatinine around 2 he has less than one gram proteinuria which may represent underlying diabetic nephropathy l continue to monitor renal function see above (3) NSTEMI (non-ST elevated myocardial infarction) Plan: Cardiology following. plan for CABG today (4) Abdominal mass Plan: possible malignancy. GI following US reviewed, to have EGD /colonoscopy after CABG (5) DM (diabetes mellitus) Plan: hypoglycemic today, due to NPO status most likely continue to monitor glucose on Levemir, also SSI (novolog) as needed (Jessica Delgado. BULL BUCKER) Plan patient was seen and examined. His renal function has improved. CABG today. ( Patel Talbot MD) Jessica Delgado May 24, 2016 11:00 Patel Talbot MD May 24, 2016 15:05
[2016-05-24] MEDS ORDERED: LACTATED RINGER'S 1000 ML INJ 500 ML IV PRN (11:01)
--- NOTE | 2016-05-24 11:14 | PD.OP ---
cc: Flory Jensen MD; Balta Hickey DO Operative Report Date of Surgery: May 24, 2016 Preoperative Diagnosis: (1) NSTEMI (non-ST elevated myocardial infarction) (2) CAD (coronary artery disease) Postoperative Diagnosis: same Procedure: Urgent CABG x 2 GONZALEZ to LAD - fair SVG to L PDA - good Anesthesia: Dr. Pressley Surgeon: Flory Jensen Purchasing Agent(s): Paddy Mcmahon Operation and Findings: The risks, benefits, complications, treatment options, and expected outcomes were discussed with the patient. The possibilities of reaction to medication, pulmonary aspiration, perforation of viscus, bleeding, recurrent infection, the need for additional procedures, failure to diagnose a condition, and creating a complication requiring transfusion or operation were discussed with the patient. The patient concurred with the proposed plan, giving informed consent. The site of surgery properly noted/marked. The patient was taken to Operating Room, identified as Mateo Thomas and the procedure verified as CABG, EVH, HAIM. A Time Out was held and the above information confirmed. Standard monitoring lines and Giang catheter were placed. General anesthesia was induced. The patient was prepped and draped in a sterile fashion. A median sternotomy was performed and electrocautery was used to obtain hemostasis. The left internal mammary artery was procured as a pedicle from the 7th rib to the 1st rib in the usual manner. Simultaneously left greater saphenous vein was procured from the left leg using a minimally invasive endoscopic technique. The vein was prepared for anastomosis and the leg wound was irrigated and closed in 2 layers. The pericardium was opened and a pericardial sling was created using interrupted 0 silk sutures. The patient was heparinized for cardiopulmonary bypass and the distal mammary pedicle was instrumented for anastomosis. The heart was instrumented for cardiopulmonary bypass in the usual manner. Antegrade blood cardioplegia was employed. The patient was placed on cardiopulmonary bypass. An aortic cross-clamp was applied and the heart was arrested using cold blood cardioplegia. Antegrade cardioplegia was administered after he each anastomosis. After adequate arrest, the left PDA was then opened with a [place] blade and found to be a 1.5 millimeter good target. Saphenous vein was approximated to the LPDA artery using a running 7 0 Prolene suture. The graft was measured for length and orientation and was suspended from the pericardium. The distal LAD was opened with a [place] blade and found to be a 1 millimeter fair target with diffuse disease. The left internal mammary artery was approximated to the LAD using a running 7 0 Prolene suture. The pedicle was attached to the epicardium using interrupted 5 0 silk suture. The patient was systemically rewarmed and received a hotshot dose of warm blood cardioplegia. The aorta was vented and the proximal anastomosis to the LPDA graft was accomplished using a running 5 0 Prolene suture after creating an aortotomy was a 4 millimeter punch. The cross -clamp was removed and all proximal and distal anastomoses were examined for hemostasis. Temporary atrial and ventricular pacing wires were positioned and brought out through the skin in the usual manner. The patient was paced at 80 beats per minute and weaned from cardiopulmonary bypass. Protamine was given. There was no adverse reaction. Decannulation was carried out without incident. Wound was checked for hemostasis which was obtained using electrocautery. A 36 [place]anese mediastinal and 32 [place] left pleural chest tubes were placed and secured to the skin with 0 silk suture. The sternum was closed with stainless steel wire. The fascia was closed with 1. PDS. The subcutaneous tissue was closed using a running 2-0 Vicryl suture. The skin was closed with 4-0 Monocryl. Sterile dressings were placed. At the end of the operation, all sponge, instruments, and needle counts were correct. The patient was transferred to the CVICU in stable condition. Findings: Diffuse disease in the LAD XC: 41 min CPB: 57 min Drains: mediastinal x 1 pleural x 1 Complications: none Disposition: to CVICU in stable condition Pacing Wires: 2 atrial and 2 ventricular Flory Jensen MD May 24, 2016 11:14
[2016-05-24] MEDS ORDERED: CLEVIDIPINE INJ 50 ML IV SCH (11:15)
[2016-05-24] MEDS ORDERED: ACETAMINOPHEN 325 MG TAB PO PRN (11:15)
[2016-05-24] MEDS ORDERED: ONDANSETRON HCL 4 MG/2 ML VIAL IV PUSH PRN (11:15)
[2016-05-24] MEDS ORDERED: POTASSIUM CHLOR 20 MEQ PREMIX 100 ML IV PRN ×3 (11:15)
[2016-05-24] MEDS ORDERED: Post-op Orders (for Pharmacy) MISC OTHER ONE (11:15)
[2016-05-24] MEDS ORDERED: DEXTROSE 50% IN WATER 50 ML VIAL(D50) IV PUSH PRN (11:15)
[2016-05-24] MEDS ORDERED: POTASSIUM CHLORIDE 20 MEQ CONTROLLED RELEASE TAB PO PRN ×2 (11:15)
[2016-05-24] MEDS ORDERED: MAGNESIUM SULFATE INJ 2 GM in SODIUM CHLORIDE 0.9% INJ 100 ML IV PRN ×4 (11:15)
[2016-05-24] MEDS ORDERED: CALCIUM CHLORIDE INJ 1 GM in SODIUM CHLORIDE 0.9% INJ 100 ML IV PRN (11:15)
[2016-05-24] MEDS ORDERED: METOPROLOL TARTRATE 5 MG/5 ML VIAL IV PUSH PRN (11:15)
[2016-05-24] MEDS ORDERED: INSULIN REGULAR (IV INFUSION) 100 UNITS in SODIUM CHLORIDE 0.9% INJ 99 ML IV SCH (11:15)
[2016-05-24] MEDS ORDERED: SODIUM CHLORIDE 0.9% FLUSH 5 ML FLUSH IV FLUSH PRN (11:15)
[2016-05-24] MEDS ORDERED: CALCIUM CHLORIDE 10% 1 GRAM/10 ML VIAL IV PRN (11:15)
[2016-05-24] MEDS ORDERED: hydrALAZINE HCL 20 MG/ML VIAL IV PRN (11:15)
[2016-05-24] MEDS ORDERED: ACETAMINOPHEN 650 MG SUPP RECTAL PRN (11:15)
[2016-05-24] MEDS ORDERED: methylPREDNISolone SOD SUCC 125 MG/2 ML VIAL IV ONE (12:00)
[2016-05-24] MEDS ORDERED: NORMOSOL R INJ 2,000 ML IV ONE (12:00)
[2016-05-24] MEDS ORDERED: LACTATED RINGER'S 1000 ML INJ 1,000 ML IV ONE (12:00)
[2016-05-24] MEDS ORDERED: SODIUM CHLORID 0.9% 500 ML INJ 500 ML IV ONE (12:00)
[2016-05-24] MEDS ORDERED: PAPAVERINE INJ 60 MG/2 ML VIAL IV ONE (12:00)
--- NOTE | 2016-05-24 12:12 | RADRPT ---
EXAM DATE/TIME: 05/24/2016 11:39 [facility] COMPARISON: CHEST SINGLE AP, May 17, 2016, 23:02. INDICATIONS : S/p cabg. MEDICAL HISTORY : Hypertension. diabetes SURGICAL HISTORY : Coronary artery stent. ENCOUNTER: Initial ACUITY: 1 day PAIN SCORE: Non-responsive. LOCATION: Bilateral chest FINDINGS: A single view of the chest demonstrates hypoinflation of the lungs with possible right-sided effusion . Left lung is clear. Left-sided thoracostomy tube without pneumothorax. Accounting for low lung find ings, I still believe the heart is somewhat prominent. Sternotomy wires are characteristic of the rec ent surgical intervention. Endotracheal tube appropriately positioned above the he the nasogastri c tube entering the stomach and extending off the inferior aspect of the film. Mediastinal drain in p lace. Right IJ central venous catheter with the tip projecting over the central venous system. CONCLUSION: 1. Postoperative findings characteristic of a reported recent CABG. 2. Life support tubes all appear to be appropriately positioned including a left-sided thoracostomy t ube without pneumothorax. Details above. 3. Possible small, right-sided effusion. Dilshad Boyer MD on May 24, 2016 at 12:07 Board Certified Radiologist. This report was verified electronically.
[2016-05-24] MEDS ORDERED: MIDAZOLAM HCL 5 MG/5 ML VIAL ONE ×2 (12:13)
[2016-05-24] MEDS ORDERED: fentaNYL CITRATE 1000 MCG/20 ML VIAL ONE (12:14)
[2016-05-24] MEDS: ACETAMINOPHEN 1000 MG/100 ML VIAL IV SCH ×2 (12:23→17:54)
[2016-05-24] MEDS: AMIODARONE 200 MG TAB PO SCH ×2 (14:00→22:01)
--- NOTE | 2016-05-24 14:00 | HHI.GIFU ---
Subjective Remarks Patient is currently intubated, just got back from OR, he had CABG x 2. GI had signed off on the patient as he is not medically stable for GI procedure at this time, however, cardiology would like us to continue to follow patient in case of acute events. (Fransisco Berry) Objective Vitals I&O Vital Signs Date Time Temp Pulse Resp B/P Pulse Ox O2 Delivery O2 Flow Rate FiO2 05/24/16 13:35 99 Nasal Cannula 3 05/24/16 13:35 94 Nasal Cannula 3.00 05/24/16 13:14 84 05/24/16 12:58 40 05/24/16 12:45 15 05/24/16 12:17 97.3 05/24/16 12:09 84 05/24/16 12:08 84 05/24/16 12:06 50 05/24/16 12:06 92 Mechanical Ventilator 50 05/24/16 12:02 94 50 05/24/16 11:59 97.3 80 15 91/56 95 05/24/16 11:57 84 05/24/16 06:00 58 05/24/16 05:00 78 05/24/16 04:00 60 05/24/16 03:00 97.9 73 20 147/84 96 05/24/16 03:00 70 05/24/16 02:00 54 05/24/16 01:00 53 05/24/16 00:00 58 05/23/16 23:00 57 05/23/16 23:00 98.9 57 24 133/68 97 05/23/16 22:00 59 05/23/16 21:42 21 05/23/16 21:00 55 05/23/16 20:00 71 05/23/16 19:00 64 05/23/16 19:00 98.0 59 24 139/65 98 05/23/16 18:00 64 05/23/16 17:00 63 05/23/16 16:00 56 05/23/16 15:00 56 05/23/16 15:00 98.0 65 22 124/58 98 05/23/16 14:00 55 I/O 05/23/16 05/23/16 05/23/16 05/24/16 05/24/16 05/24/16 07:00 15:00 23:00 07:00 15:00 23:00 Intake Total 2478 ml 1620 ml 720 ml Output Total 1295 ml 900 ml 1510 ml Balance 1183 ml 720 ml -790 ml Intake Oral 480 ml 960 ml 720 ml IV Total 1998 ml 660 ml Output Urine Total 1295 ml 900 ml 1510 ml # Voids 3 # Bowel Movements 0 1 Laboratory Laboratory Tests Test 05/23/16 05/24/16 18:42 05:13 Activated Partial 51.7 56.7 Thromboplast Time White Blood Count 16.5 Red Blood Count 3.62 Hemoglobin 9.9 Hematocrit 30.2 Mean Corpuscular Volume 83.6 Mean Corpuscular Hemoglobin 27.3 Mean Corpuscular Hemoglobin 32.7 Concent Red Cell Distribution Width 16.2 Platelet Count 432 Mean Platelet Volume 9.2 Sodium Level 142 Potassium Level 3.6 Chloride Level 108 Carbon Dioxide Level 24.3 Anion Gap 10 Blood Urea Nitrogen 32 Creatinine 1.80 Estimat Glomerular Filtration 38 Rate Random Glucose 46 Calcium Level 8.6 Magnesium Level 1.7 Date/Time Procedure Status Source Growth 05/22/16 11:20 Stool Occult Blood (NAHOMY) - Final Complete Stool Stool HEMOCCULT NEGATIVE Imaging Last Impressions Chest X-Ray 05/24/16 0000 Signed Impressions: Service Date/Time: Tuesday, May 24, 2016 11:39 - CONCLUSION: 1. Postoperative findings characteristic of a reported recent CABG. 2. Life support tubes all appear to be appropriately positioned including a left-sided thoracostomy tube without pneumothorax. Details above. 3. Possible small, right-sided effusion. Dilshad Boyer MD Gall Bladder Ultrasound 05/21/16 0000 Signed Impressions: Service Date/Time: Saturday, May 21, 2016 09:44 - CONCLUSION: 1. Cholelithiasis with multiple echogenic gallstones. There is mild wall thickening with no pericholecystic fluid. 2. The common bile duct is mildly prominent at 8 mm with no evidence of choledocholithiasis in the visualized portion. 3. The liver is mildly prominent in size with no focal lesion. Konrad Robbins MD Lower Extremity Ultrasound 05/20/16 0000 Signed Impressions: Service Date/Time: Friday, May 20, 2016 15:10 - CONCLUSION: Venous mapping as described above.. Ramsey Hi MD FACR Carotid Artery Ultrasound 05/20/16 0000 Signed Impressions: Service Date/Time: Friday, May 20, 2016 15:30 - CONCLUSION: Hemodynamically significant left cartoid stenosis. Ramsey Hi MD FACR Abdomen CT 05/19/16 0000 Signed Impressions: Service Date/Time: Thursday, May 19, 2016 23:01 - CONCLUSION: 1. Abnormal soft tissue density involving the midportion of the descending colon with the inflammatory change extending to the peritoneal wall. There is no evidence of abscess. The findings are concerning for neoplasm as no diverticula are seen in the remainder of the colon. Endoscopy is recommended for further evaluation if clinically indicated. 2. Cholelithiasis Jakub Dickson MD ADDENDUM: COMPARISON: CT ABDOMEN & PELVIS W/O CONTRAST, May 15, 2016, 14:43. I reviewed this study and it is the asscending colon just above the cecum which demonstrates the inflammatory change. Not the descending colon. Konrad Robbins MD Myocardial Perfusion Scan Nuc Med 05/17/16 Signed Impressions: Service Date/Time: Tuesday, May 17, 2016 10:41 - CONCLUSION: Redistribution as described above consistent stress-induced ischemia.. RISK CATEGORY: Intermediate (1-3%% Annual Mortality Rate) Rmasey Hi MD FACR Chest CT 05/15/16 0000 Signed Impressions: Service Date/Time: Sunday, May 15, 2016 14:37 - CONCLUSION: 1. Lack of intravenous contrast makes it impossible to exclude a dissection. 2. There is no evidence for pneumothorax. 3. Marked coronary artery calcifications. Ramsey Hi MD FACR Abdomen/Pelvis CT 05/15/16 0000 Signed Impressions: Service Date/Time: Sunday, May 15, 2016 14:43 - CONCLUSION: 1. Marked coronary artery calcifications. 2. I do not see an etiology for the patient's back pain. Ramsey Hi MD FACR Physical Exam HEENT: Normocephalic; atraumatic; no jaundice. Throat is clear. NECK: Neck is supple, no JVD, no lymphadenopathy. CHEST: CTA CARDIAC: RRR ABDOMEN: Soft, nondistended, patient is intubated, not able to assess for tenderness; no hepatosplenomegaly; bowel sounds are present in all four quadrants. EXTREMITIES: No clubbing, cyanosis, or edema. SKIN: Normal; no rash; no jaundice. TEST ADMINISTRATOR: sedated on a vent (Kristi,Fransisco FORENSIC MANAGER) Assessment and Plan Plan ASSESSMENT: - Abnormal imaging involving descending colon on imaging/possible mass vs inflammation. Abdomen CT (05/19/16)----> 1. Abnormal soft tissue density involving the midportion of the descending colon with the inflammatory change extending to the peritoneal wall. There is no evidence of abscess. The findings are concerning for neoplasm as no diverticula are seen in the remainder of the colon. Endoscopy is recommended for further evaluation if clinically indicated. 2. Cholelithiasis. Of note, his prior Abdomen/Pelvis CT( 05/15/16)----> 1. Marked coronary artery calcifications. 2. I do not see an etiology for the patient's back pain. GI was consulted for further evaluation of abnormal findings regarding the soft tissue density involving the descending colon prior to having surgery scheduled. Neither of these were contrasted secondary to MYRA with elevated creat. Last colonoscopy was 6-7 years ago and that he had several benign polyps removed. (+) Decreased appetite, but has only lost 2-3 lbs; lower abdominal pain, improved. Of note, patient had CT abd/pelvis on 05/15 and it did not appreciate these changes to the descending colon. Discussed with Dr. Robbins- the inflammatory change is actually in the ascending colon just above the cecum, not the descending and he will add addendum to report. Barium enema would be of little benefit for evaluation of this suspected colitis. Flexible sigmoidoscopy is not an option given the location of the inflammatory change. Not stable for anesthesia per cardiology. Will cont. Cipro/flagyl and hold off on sigmoidoscopy/barium enema. Likely colitis. D/ W radiology, cardiology. CDiff negative. Tumor markers unremarkable. Cont. Abx. WBC 12.9. Mild RLQ tenderness still. - Multivessel CAD. Myocardial perfusion scan revealed stress-induced ischemia in the anterior lateral wall redistribution in the septal wall extending to the base with EF of 53%. Cardiac catheterization with multivessel cad as above. CVT consulted, but wants GI evaluation prior to surgery. - Anemia. 8.9/27.6 - Mild leukocytosis. 12.0 - MYRA, CAD, DM, HTN, Hyperlipidemia per primary 05/24/16- Patient is currently intubated, just got back from OR, he had CABG x 2. GI had signed off on the patient as he is not medically stable for GI procedure at this time, however, cardiology would like us to continue to follow patient in case of acute events. he remains unstable for any GI procedures, this can be done as an OP once stable from cardiology view, PLAN: - Diet per cardiology - Cipro/Flagyl for 10 days - PPI - Monitor HH - Transfuse as necessary - Tumor markers unremarkable. - S/p GS evaluation - EGD/Colonoscopy as outpatient once stable cardiac rivas - will follow patient per cardiology request - Pt seen and examined by Dr. Dial and myself and this note is written on her behalf (Fransisco Berry) Physician Comments seen, examined agree with above (Talya Dial MD) Fransisco Berry May 24, 2016 14:00 Talya Dial MD May 24, 2016 15:18
[2016-05-24] MEDS: CIPROFLOXACIN 400 MG PREMIX 200 ML IV SCH (14:29)
--- NOTE | 2016-05-24 17:29 | HHI.PR ---
Subjective Remarks The pt was sitting in a chair. He had bypass surgery earlier. He was lethargic. Nursing at the bedside. No acute complaints or concerns at this time. Urine output adequate. Objective Vitals Vital Signs Date Time Temp Pulse Resp B/P Pulse Ox O2 Delivery O2 Flow Rate FiO2 05/24/16 17:11 64 05/24/16 16:05 95 Nasal Cannula 3.00 05/24/16 16:04 68 05/24/16 16:04 68 05/24/16 15:29 97.0 05/24/16 15:28 97.0 62 17 116/68 95 05/24/16 15:25 68 05/24/16 14:16 84 05/24/16 13:35 99 Nasal Cannula 3 05/24/16 13:35 94 Nasal Cannula 3.00 05/24/16 13:14 84 05/24/16 12:58 40 05/24/16 12:45 15 05/24/16 12:17 97.3 05/24/16 12:09 84 05/24/16 12:08 84 05/24/16 12:06 50 05/24/16 12:06 92 Mechanical Ventilator 50 05/24/16 12:02 94 50 05/24/16 11:59 97.3 80 15 91/56 95 05/24/16 11:57 84 05/24/16 06:00 58 05/24/16 05:00 78 05/24/16 04:00 60 05/24/16 03:00 97.9 73 20 147/84 96 05/24/16 03:00 70 05/24/16 02:00 54 05/24/16 01:00 53 05/24/16 00:00 58 05/23/16 23:00 57 05/23/16 23:00 98.9 57 24 133/68 97 05/23/16 22:00 59 05/23/16 21:42 21 05/23/16 21:00 55 05/23/16 20:00 71 05/23/16 19:00 64 05/23/16 19:00 98.0 59 24 139/65 98 05/23/16 18:00 64 I/O 05/23/16 05/23/16 05/23/16 05/24/16 05/24/16 05/24/16 07:00 15:00 23:00 07:00 15:00 23:00 Intake Total 2478 ml 1620 ml 720 ml 3190 ml Output Total 1295 ml 900 ml 1510 ml 1220 ml Balance 1183 ml 720 ml -790 ml 1970 ml Intake Oral 480 ml 960 ml 720 ml 40 ml IV Total 1998 ml 660 ml 3150 ml Output Urine Total 1295 ml 900 ml 1510 ml 1060 ml Gastric Drainage Total 50 ml Chest Tube Drainage Total 110 ml # Voids 3 # Bowel Movements 0 1 0 Result Diagram: 05/24/1651205/24/16512 Imaging Last Impressions Chest X-Ray 05/24/16 0000 Signed Impressions: Service Date/Time: Tuesday, May 24, 2016 11:39 - CONCLUSION: 1. Postoperative findings characteristic of a reported recent CABG. 2. Life support tubes all appear to be appropriately positioned including a left-sided thoracostomy tube without pneumothorax. Details above. 3. Possible small, right-sided effusion. Dilshad Boyer MD Gall Bladder Ultrasound 05/21/16 0000 Signed Impressions: Service Date/Time: Saturday, May 21, 2016 09:44 - CONCLUSION: 1. Cholelithiasis with multiple echogenic gallstones. There is mild wall thickening with no pericholecystic fluid. 2. The common bile duct is mildly prominent at 8 mm with no evidence of choledocholithiasis in the visualized portion. 3. The liver is mildly prominent in size with no focal lesion. Konrad Robbins MD Lower Extremity Ultrasound 05/20/16 0000 Signed Impressions: Service Date/Time: Friday, May 20, 2016 15:10 - CONCLUSION: Venous mapping as described above.. Ramsey Hi MD FACR Carotid Artery Ultrasound 05/20/16 0000 Signed Impressions: Service Date/Time: Friday, May 20, 2016 15:30 - CONCLUSION: Hemodynamically significant left cartoid stenosis. Ramsey Hi MD FACR Abdomen CT 05/19/16 0000 Signed Impressions: Service Date/Time: Thursday, May 19, 2016 23:01 - CONCLUSION: 1. Abnormal soft tissue density involving the midportion of the descending colon with the inflammatory change extending to the peritoneal wall. There is no evidence of abscess. The findings are concerning for neoplasm as no diverticula are seen in the remainder of the colon. Endoscopy is recommended for further evaluation if clinically indicated. 2. Cholelithiasis Jakub Dickson MD ADDENDUM: COMPARISON: CT ABDOMEN & PELVIS W/O CONTRAST, May 15, 2016, 14:43. I reviewed this study and it is the asscending colon just above the cecum which demonstrates the inflammatory change. Not the descending colon. Konrad Robbins MD Myocardial Perfusion Scan Nuc Med 05/17/16 0000 Signed Impressions: Service Date/Time: Tuesday, May 17, 2016 10:41 - CONCLUSION: Redistribution as described above consistent stress-induced ischemia.. RISK CATEGORY: Intermediate (1-3%% Annual Mortality Rate) Ramsey Hi MD FACR Chest CT 05/15/16 0000 Signed Impressions: Service Date/Time: Sunday, May 15, 2016 14:37 - CONCLUSION: 1. Lack of intravenous contrast makes it impossible to exclude a dissection. 2. There is no evidence for pneumothorax. 3. Marked coronary artery calcifications. Ramsey Hi MD FACR Abdomen/Pelvis CT 05/15/16 0000 Signed Impressions: Service Date/Time: Sunday, May 15, 2016 14:43 - CONCLUSION: 1. Marked coronary artery calcifications. 2. I do not see an etiology for the patient's back pain. Ramsey Hi MD FACR Objective Remarks GENERAL: This is a well-nourished, well-developed patient, in no apparent distress. SKIN: Pale. HEENT: NC, AT. CARDIOVASCULAR: Regular rate and regular rhythm without murmurs, gallops, or rubs. RESPIRATORY: Clear to auscultation. Breath sounds equal bilaterally. No wheezes , rales, or rhonchi. GASTROINTESTINAL: Abdomen soft, tender to palpation on the right side, nondistended. Normoactive bowel sounds. MUSCULOSKELETAL: Chest tube and wound vac in place. Extremities without clubbing , cyanosis, or edema. : Giang with yellow urine. NEURO: Alert & Oriented x4 to person, place, time, situation. Moves all ext x4. PSYCH: Mood and affect appropriate. Procedures CABG 05/24 Medications and IVs Current Medications Medications (Trade) Dose Ordered Sig/Avinash Route Start Time Stop Time Status Last Admin (NS 1000 ml Inj) 1,000 ml @ 75 mls/hr [id number] IV 05/15/16 17:00 05/24/16 14:29 (Glucagon Inj) 1 mg UNSCH PRN OTHER 05/15/16 16:45 (Zyloprim) 100 mg DAILY PO 05/16/16 09:00 05/23/16 08:38 (Neurontin) 300 mg HS PO 05/15/16 21:00 05/23/16 21:26 (Ecotrin Ec) 162 mg DAILY PO 05/16/16 09:00 05/23/16 08:38 (Lipitor) 80 mg HS PO 05/17/16 21:00 05/23/16 21:27 Diphenoxylate HCl/ Atropine 1 tab 1 tab Q6H PRN PO 05/19/16 15:30 Ciprofloxacin/ Dextrose 200 ml @ 200 mls/hr Q24H IV 05/20/16 14:00 05/24/16 14:29 (Flagyl 500 Mg Inj) 100 ml @ 100 mls/hr Q8H IV 05/20/16 13:00 05/24/16 13:09 (Colace) 100 mg BID PO 05/22/16 21:00 Hold 05/23/16 08:38 (Senokot) 17.2 mg DAILY PO 05/22/16 14:00 Hold 05/23/16 08:38 (NS Flush) 2 ml BID IV FLUSH 05/24/16 21:00 IV Flush 2 ml 2 ml UNSCH PRN IV FLUSH 05/24/16 11:15 Clevidipine 50 ml @ 0 mls/hr TITRATE IV 05/24/16 11:15 Lactated Ringer's 500 ml @ 500 mls/hr Q1H PRN IV 05/24/16 11:01 05/24/16 12:46 (Ancef Inj/NS Inj) 100 ml @ 200 mls/hr Q8H IV 05/24/16 12:00 05/25/16 20:29 05/24/16 12:23 (Protonix) 40 mg DAILY@06 PO 05/25/16 06:00 (Cordarone) 400 mg Q8HR PO 05/24/16 14:00 (Tylenol) 650 mg Q4H PRN PO 05/24/16 11:15 (Tylenol Supp) 650 mg Q4H PRN RECTAL 05/24/16 11:15 (Ofirmev Inj) 1,000 mg Q6H IV 05/24/16 12:00 05/25/16 06:01 05/24/16 12:23 (Percocet 5-325 Mg) 1 tab Q3H PRN PO 05/24/16 11:15 (fentaNYL INJ) 25 mcg Q1H PRN IV 05/24/16 11:15 05/24/16 17:07 (Zofran Inj) 4 mg Q6H PRN IV PUSH 05/24/16 11:15 (Apresoline Inj) 10 mg Q4H PRN IV 05/24/16 11:15 Metoprolol Tartrate 2.5 mg 2.5 mg Q1H PRN IV PUSH 05/24/16 11:15 Potassium Chloride 100 ml @ 50 mls/hr UNSCH PRN IV 05/24/16 11:15 Potassium Chloride 100 ml @ 50 mls/hr UNSCH PRN IV 05/24/16 11:15 Potassium Chloride 100 ml @ 50 mls/hr UNSCH PRN IV 05/24/16 11:15 Magnesium Sulfate 2 gm/Sodium Chloride 104 ml @ 100 mls/hr UNSCH PRN IV 05/24/16 11:15 Magnesium Sulfate 2 gm/Sodium Chloride 104 ml @ 50 mls/hr UNSCH PRN IV 05/24/16 11:15 (Calcium Chloride Inj/NS Inj) 110 ml @ 100 mls/hr UNSCH PRN IV 05/24/16 11:15 05/24/16 11:59 Calcium Chloride 0.5 gm 0.5 gm UNSCH PRN IV 05/24/16 11:15 (NovoLIN R (IV INFUSION)/NS Inj) 100 ml @ 0 mls/hr TITRATE IV 05/24/16 11:15 (D50w (Vial) Inj) 25 ml UNSCH PRN IV PUSH 05/24/16 11:15 A/P Problem List: (1) NSTEMI (non-ST elevated myocardial infarction) ICD Code: I21.4 Status: Acute (2) SIRS (systemic inflammatory response syndrome) ICD Code: R65.10 Status: Acute Assessment and Plan NSTEMI with history of CAD and stent placement Started on heparin and nitro drips. Cardiology consult appreciated. S/p cath with multivessel CAD including left main. CTS surgery was consulted. S/p CABG 05/24. - continue cardiac regimen. - management per CT surgery. - IS, oxygen and nebs as needed. - PT. - follow CBC and transfuse as needed. SIRS/ abdominal pain Blood cultures negative to date. C. difficile negative. CT abdomen: Abnormal soft tissue density involving the midportion of the descending colon with the inflammatory change extending to the peritoneal wall; There is no evidence of abscess; The findings are concerning for neoplasm as no diverticula are seen in the remainder of the colon; Endoscopy is recommended for further evaluation if clinically indicated. GI and surgical consults appreciated. - continue Cipro and Flagyl. - PPI. - pain control as needed. Hypertension A line in place following surgery. - resume antihypertensives as appropriate. Diabetes mellitus Glucose has been low at times, including am 05/24. - hold metformin- accu-check with SSI. - resume low acting insulin when appropriate. Acute on chronic kidney disease Appreciate nephrology consult. - Repeat BMP and avoid nephrotoxic agents. DVT prophylaxis: Per CTS. Discharge Planning Per CTS. Konrad Meyers DO May 24, 2016 17:29
[2016-05-24] MEDS ORDERED: ATORVASTATIN 40 MG TAB PO SCH (21:00)
[2016-05-24] MEDS: ATORVASTATIN 20 MG TAB PO SCH (21:58)
[2016-05-24] MEDS: GABAPENTIN 300 MG CAP PO SCH (21:58)
[2016-05-24] MEDS: ATORVASTATIN 40 MG TAB PO SCH (22:12)
[2016-05-25] VITALS (19 sets, daily range): BP systolic 115–144; BP diastolic 60–78; PULSE 66–86; RESP 17–20; TEMP 97.7–98.5; O2SAT 93–100
[2016-05-25] MEDS: SODIUM CHLOR 0.9% 1000 ML INJ 1,000 ML IV SCH ×2 (03:40→15:10)
--- NOTE | 2016-05-25 04:20 | RADRPT ---
EXAM DATE/TIME: 05/25/2016 03:18 [facility] COMPARISON: CHEST SINGLE AP, May 24, 2016, 11:39. INDICATIONS : Shortness of breath, possible pulmonary disease. MEDICAL HISTORY : Hypertension. Diabetes mellitus type II. SURGICAL HISTORY : Coronary artery stent. CABG. ENCOUNTER: Subsequent ACUITY: 2 days PAIN SCORE: Non-responsive. LOCATION: Bilateral chest FINDINGS: The cardiac silhouette is enlarged in transverse diameter. The lungs are hypoinflated. A left chest t ube is in place. There is no evidence of pneumothorax. There is left lower lobe atelectasis versus pn eumonia. CONCLUSION: 1. Hypoinflation with left basilar atelectasis 2. There has been no significant change when compared to the prior exam. Jakub Dickson MD on May 25, 2016 at 4:18 Board Certified Radiologist. This report was verified electronically.
[2016-05-25 04:35] LABS: HEMATOCRIT 27.7 % (39.0-51.0); MEAN CELL VOLUME 83.8 FL (80.0-100.0); MEAN CORPUSCULAR HEMOGLOBIN 27.1 PG (27.0-34.0); MEAN CORPUSCULAR HGB CONC 32.4 % (32.0-36.0); PLATELET COUNT 388 TH/MM3 (150-450); RED CELL DISTRIBUTION WIDTH 16.1 % (11.6-17.2); REVIEW FLAG FINAL; WHITE BLOOD COUNT 26.2 TH/MM3 (4.0-11.0)
[2016-05-25] MEDS: metroNIDAZOLE 500 MG INJ 100 ML IV SCH ×3 (04:51→21:48)
[2016-05-25 05:04] LABS: MAGNESIUM 2.7 MG/DL (1.5-2.5); POTASSIUM 4.8 MEQ/L (3.5-5.1)
[2016-05-25] MEDS: ACETAMINOPHEN 1000 MG/100 ML VIAL IV SCH (05:49)
[2016-05-25] MEDS: AMIODARONE 200 MG TAB PO SCH ×3 (05:50→22:35)
[2016-05-25] MEDS: PANTOPRAZOLE SOD 40 MG DELAYED RELEASE TAB PO SCH (05:50)
[2016-05-25] MEDS: INSULIN ASPART SUPPLEMENTAL SCALE SQ SCH ×5 (06:18→22:37)
[2016-05-25] MEDS: SODIUM CHLORIDE 0.9% FLUSH 5 ML FLUSH IV FLUSH SCH ×2 (08:38→20:47)
[2016-05-25] MEDS: ASPIRIN EC 81 MG TABEC PO SCH (08:40)
[2016-05-25] MEDS: ALLOPURINOL 100 MG TAB PO SCH (08:40)
--- NOTE | 2016-05-25 09:29 | PD.CAR.PN ---
CVT Progress Note CVT: POD #: 1 Subjective/Hospital Course: 70/ male admitted 05/15 for chest pain,-also right upper quadrant abd pain with recent diarrhea and nausea, some loss of appetite, elevated WBC on admission of 21K, neg blood culture, neg UA underwent CT abdomen Abnormal imaging involving descending colon on imaging. Found to have a NSTEMI, + myocardial perfusion scan , underwent cardiac cath by Dr Hickey and found to multi vessel disease, we were consulted to eval for Coronary artery bypass grafting , EF 50% by Echo no valvular disease , CKD MYRA baseline creatinine 2.0 elevated to 4.0 / post IV fluid resuscitation, nephrology following/ now improved to 2.[address] (05/19/16)----> 1. Abnormal soft tissue density involving the midportion of the ascending colon with the inflammatory change extending to the peritoneal wall. There is no evidence of abscess. findings are concerning for neoplasm as no diverticula are seen in the remainder of the colon, Cholelithiasis. GI consulted , per GI suspected colitis. Barium enema would be of little benefit for evaluation Flexible sigmoidoscopy is not an option given the location of the inflammatory change. Not stable for anesthesia per cardiology. for colonoscopy , pt started on Cipro/flagyl cardiology. CDiff negative. Tumor markers unremarkable. Cont. Abx., General surgery consulted , Recommend ABX , EGD/ colonoscopy once cleared by cardiology PMH: CAD/ prior stent , DM , CKD, HTN 05/21 pt still has some mild right right upper quad abd pain , no chest pain, had BM yesterday tentatively scheduled for CABG on monday 05/22 right upper quad pain improving, still has some tenderness WBC count 12, low grade fever last pm,, now resolved f/u CBC in am , continue antibiotics no chest pain 05/23 no further fevers, WBC 13 still has some right upper quad abdominal tenderness with palpation continue antibiotics, pt will still need full colonoscopy and EGD post surgery, with possible pet scan as outpt still scheduled for surgery in am discussed with Dr Jensen 05/25/16 Doing well s/p CABG. No complaints today. Objective: Vital Signs Date Time Temp Pulse Resp B/P Pulse Ox O2 Delivery O2 Flow Rate FiO2 05/25/16 08:00 83 05/25/16 08:00 95 Nasal Cannula 2.00 05/25/16 07:09 95 Nasal Cannula 2.00 05/25/16 07:00 97.9 83 18 115/70 95 144/65 05/25/16 07:00 86 05/25/16 06:00 77 05/25/16 04:00 94 Nasal Cannula 2.00 05/25/16 04:00 79 05/25/16 03:04 97.9 18 123/60 93 127/78 05/25/16 03:00 66 05/25/16 02:00 74 05/25/16 00:00 68 05/25/16 00:00 95 Nasal Cannula 2.00 05/24/16 23:07 98.6 66 18 119/59 98 112/68 05/24/16 22:00 66 05/24/16 21:00 65 05/24/16 20:00 59 05/24/16 20:00 98 Nasal Cannula 2.00 05/24/16 19:00 60 05/24/16 19:00 98.3 60 18 100/48 98 05/24/16 17:38 17 05/24/16 17:11 64 05/24/16 16:05 95 Nasal Cannula 3.00 05/24/16 16:04 68 05/24/16 16:04 68 05/24/16 15:29 97.0 05/24/16 15:28 97.0 62 17 116/68 95 05/24/16 15:25 68 05/24/16 14:16 84 05/24/16 13:35 99 Nasal Cannula 3 05/24/16 13:35 94 Nasal Cannula 3.00 05/24/16 13:14 84 05/24/16 12:58 40 05/24/16 12:45 15 05/24/16 12:17 97.3 05/24/16 12:09 84 05/24/16 12:08 84 05/24/16 12:06 50 05/24/16 12:06 92 Mechanical Ventilator 50 05/24/16 12:02 94 50 05/24/16 11:59 97.3 80 15 91/56 95 05/24/16 11:57 84 Labs: Laboratory Tests Test 05/25/16 04:05 White Blood Count 26.2 TH/MM3 (4.0-11.0) Red Blood Count 3.30 MIL/MM3 (4.50-5.90) Hemoglobin 9.0 GM/DL (13.0-17.0) Hematocrit 27.7 % (39.0-51.0) Mean Corpuscular Volume 83.8 FL (80.0-100.0) Mean Corpuscular Hemoglobin 27.1 PG (27.0-34.0) Mean Corpuscular Hemoglobin 32.4 % Concent (32.0-36.0) Red Cell Distribution Width 16.1 % (11.6-17.2) Platelet Count 388 TH/MM3 (150-450) Mean Platelet Volume 9.3 FL (7.0-11.0) Sodium Level 140 MEQ/L (136-145) Potassium Level 4.8 MEQ/L (3.5-5.1) Chloride Level 107 MEQ/L (98-107) Carbon Dioxide Level 21.0 MEQ/L (21.0-32.0) Anion Gap 12 MEQ/L (5-15) Blood Urea Nitrogen 36 MG/DL (7-18) Creatinine 1.79 MG/DL (0.60-1.30) Estimat Glomerular Filtration 38 ML/MIN (>89) Rate Random Glucose 144 MG/DL (74-106) Calcium Level 8.4 MG/DL (8.5-10.1) Magnesium Level 2.7 MG/DL (1.5-2.5) Result Diagram: 05/25/165 05/25/16 0405 Imaging: Last Impressions Chest X-Ray 05/25/16 0500 Signed Impressions: Service Date/Time: Wednesday, May 25, 2016 03:18 - CONCLUSION: 1. Hypoinflation with left basilar atelectasis 2. There has been no significant change when compared to the prior exam. Jakub Dickson MD Gall Bladder Ultrasound 05/21/16 0000 Signed Impressions: Service Date/Time: Saturday, May 21, 2016 09:44 - CONCLUSION: 1. Cholelithiasis with multiple echogenic gallstones. There is mild wall thickening with no pericholecystic fluid. 2. The common bile duct is mildly prominent at 8 mm with no evidence of choledocholithiasis in the visualized portion. 3. The liver is mildly prominent in size with no focal lesion. Konrad Robbins MD Lower Extremity Ultrasound 05/20/16 0000 Signed Impressions: Service Date/Time: Friday, May 20, 2016 15:10 - CONCLUSION: Venous mapping as described above.. Ramsey Hi MD FACR Carotid Artery Ultrasound 05/20/16 0000 Signed Impressions: Service Date/Time: Friday, May 20, 2016 15:30 - CONCLUSION: Hemodynamically significant left cartoid stenosis. Ramsey Hi MD FACR Abdomen CT 05/19/16 0000 Signed Impressions: Service Date/Time: Thursday, May 19, 2016 23:01 - CONCLUSION: 1. Abnormal soft tissue density involving the midportion of the descending colon with the inflammatory change extending to the peritoneal wall. There is no evidence of abscess. The findings are concerning for neoplasm as no diverticula are seen in the remainder of the colon. Endoscopy is recommended for further evaluation if clinically indicated. 2. Cholelithiasis Jakub Dickson MD ADDENDUM: COMPARISON: CT ABDOMEN & PELVIS W/O CONTRAST, May 15, 2016, 14:43. I reviewed this study and it is the asscending colon just above the cecum which demonstrates the inflammatory change. Not the descending colon. Konrad Robbins MD Myocardial Perfusion Scan Nuc Med 05/17/16 0000 Signed Impressions: Service Date/Time: Tuesday, May 17, 2016 10:41 - CONCLUSION: Redistribution as described above consistent stress-induced ischemia.. RISK CATEGORY: Intermediate (1-3%% Annual Mortality Rate) Ramsey Hi MD FACR Chest CT 05/15/16 0000 Signed Impressions: Service Date/Time: Sunday, May 15, 2016 14:37 - CONCLUSION: 1. Lack of intravenous contrast makes it impossible to exclude a dissection. 2. There is no evidence for pneumothorax. 3. Marked coronary artery calcifications. Ramsey Hi MD FACR Abdomen/Pelvis CT 05/15/16 0000 Signed Impressions: Service Date/Time: Sunday, May 15, 2016 14:43 - CONCLUSION: 1. Marked coronary artery calcifications. 2. I do not see an etiology for the patient's back pain. Ramsey Hi MD FACR Cardiovascular: Irreg Telemetry: SR with PVCs Pulmonary: Decreased BS bilat GI/: Decreased BS, mild RLQ tenderness Incision: dry and intact CT: 90ml/12 hrs Plan: D/C Wires and chest tubes Transfer to stepdown Advance diet D/C steinberg Start beta baldemar Encourage ambulation - at least 6 time daily. Continue Flagyl and Cipro per GI - 10 days total. Etiology of colon issue uncertain (1) SIRS (systemic inflammatory response syndrome) Plan: leukocytosis stable probable colitis , receiving cipro and flagyl decreased abd pain, still some tenderness will need close f/u post surgery will need f/u as outpt with general surgery and GI (2) NSTEMI (non-ST elevated myocardial infarction) Plan: ASA, statin , , Heparin gtt scheduled for Coronary artery bypass grafting on friday (3) Renal insufficiency Plan: nephrology following creatinine at baseline avoid nephrotoxins (4) Abdominal mass Plan: GI following, appreciate general surgery consult continue ABX , probable colitis will need colonoscopy and EGD once recovered from CV surgery , tumor markers neg will need f/u with General surgery as outpt for his gallstones (5) Carotid arterial disease Plan: ICA left 241 will need outpt f/u with vascular surgery to monitor pt is asymptomatic Flory Jensen MD May 25, 2016 09:28
[2016-05-25] MEDS ORDERED: DEXTROSE 50% IN WATER 50 ML VIAL(D50) IV PRN (09:30)
[2016-05-25] MEDS ORDERED: INSULIN DETEMIR 100 UNITS/ML VIAL SQ ONE (09:30)
[2016-05-25] MEDS ORDERED: BISACODYL 10 MG SUPP RECTAL PRN (09:30)
[2016-05-25] MEDS ORDERED: SOD PHOSPHATE/SOD BIPHOSPHATE (ADULT) ENEMA 133ML RECTAL PRN (09:30)
[2016-05-25] MEDS ORDERED: GLUCAGON 1 MG/ML VIAL OTHER PRN (09:30)
--- NOTE | 2016-05-25 09:46 | PD.CARD.PN ---
Subjective Subjective Remarks No chest pain, doing well post-op, up in the chair, minimal abdominal pain Objective Medications Current Medications Medications (Trade) Dose Ordered Sig/Avinash Route Start Time Stop Time Status Last Admin (NS 1000 ml Inj) 1,000 ml @ 75 mls/hr [id number] IV 05/15/16 17:00 05/24/16 14:29 (Zyloprim) 100 mg DAILY PO 05/16/16 09:00 05/25/16 08:40 (Neurontin) 300 mg HS PO 05/15/16 21:00 05/24/16 21:58 (Ecotrin Ec) 162 mg DAILY PO 05/16/16 09:00 05/25/16 08:40 Diphenoxylate HCl/ Atropine 1 tab 1 tab Q6H PRN PO 05/19/16 15:30 Ciprofloxacin/ Dextrose 200 ml @ 200 mls/hr Q24H IV 05/20/16 14:00 05/24/16 14:29 (Flagyl 500 Mg Inj) 100 ml @ 100 mls/hr Q8H IV 05/20/16 13:00 05/25/16 04:51 (Colace) 100 mg BID PO 05/22/16 21:00 Hold 05/23/16 08:38 (Senokot) 17.2 mg DAILY PO 05/22/16 14:00 Hold 05/23/16 08:38 (NS Flush) 2 ml BID IV FLUSH 05/24/16 21:00 05/25/16 08:38 IV Flush 2 ml 2 ml UNSCH PRN IV FLUSH 05/24/16 11:15 Clevidipine 50 ml @ 0 mls/hr TITRATE IV 05/24/16 11:15 Lactated Ringer's 500 ml @ 500 mls/hr Q1H PRN IV 05/24/16 11:01 05/24/16 12:46 (Ancef Inj/NS Inj) 100 ml @ 200 mls/hr Q8H IV 05/24/16 12:00 05/25/16 20:29 05/25/16 04:51 (Protonix) 40 mg DAILY@06 PO 05/25/16 06:00 05/25/16 05:50 (Cordarone) 400 mg Q8HR PO 05/24/16 14:00 05/25/16 05:50 (Tylenol) 650 mg Q4H PRN PO 05/24/16 11:15 (Tylenol Supp) 650 mg Q4H PRN RECTAL 05/24/16 11:15 (Percocet 5-325 Mg) 1 tab Q3H PRN PO 05/24/16 11:15 (fentaNYL INJ) 25 mcg Q1H PRN IV 05/24/16 11:15 05/24/16 17:07 (Zofran Inj) 4 mg Q6H PRN IV PUSH 05/24/16 11:15 (Apresoline Inj) 10 mg Q4H PRN IV 05/24/16 11:15 Metoprolol Tartrate 2.5 mg 2.5 mg Q1H PRN IV PUSH 05/24/16 11:15 Potassium Chloride 100 ml @ 50 mls/hr UNSCH PRN IV 05/24/16 11:15 Potassium Chloride 100 ml @ 50 mls/hr UNSCH PRN IV 05/24/16 11:15 Potassium Chloride 100 ml @ 50 mls/hr UNSCH PRN IV 05/24/16 11:15 Magnesium Sulfate 2 gm/Sodium Chloride 104 ml @ 100 mls/hr UNSCH PRN IV 05/24/16 11:15 Magnesium Sulfate 2 gm/Sodium Chloride 104 ml @ 50 mls/hr UNSCH PRN IV 05/24/16 11:15 (Calcium Chloride Inj/NS Inj) 110 ml @ 100 mls/hr UNSCH PRN IV 05/24/16 11:15 05/24/16 11:59 Calcium Chloride 0.5 gm 0.5 gm UNSCH PRN IV 05/24/16 11:15 (NovoLIN R (IV INFUSION)/NS Inj) 100 ml @ 0 mls/hr TITRATE IV 05/24/16 11:15 (Lipitor) 80 mg HS PO 05/24/16 21:00 05/24/16 22:12 (Colace) 100 mg BID PO 05/25/16 21:00 (Theragran M Tab) 1 tab DAILY PO 05/26/16 09:00 (Milk Of Magnesia Liq) 30 ml DAILY PO 05/26/16 09:00 (Miralax) 17 gm DAILY PO 05/26/16 09:00 (Senokot) 8.6 mg HS PO 05/25/16 21:00 (Fleets Enema (Adult)) 133 ml UNSCH PRN RECTAL 05/25/16 09:30 (NovoLOG SUPPLEMENTAL SCALE) 1 02,06,10,14,18,22 SQ 05/25/16 10:00 (D50w (Vial) Inj) 25 ml UNSCH PRN IV 05/25/16 09:30 (Glucagon Inj) 1 mg UNSCH PRN OTHER 05/25/16 09:30 (Lopressor) 12.5 mg Q12HR PO 05/25/16 10:00 Vital Signs / I&O Vital Signs Date Time Temp Pulse Resp B/P Pulse Ox O2 Delivery O2 Flow Rate FiO2 05/25/16 08:00 83 05/25/16 08:00 95 Nasal Cannula 2.00 05/25/16 07:09 95 Nasal Cannula 2.00 05/25/16 07:00 97.9 83 18 115/70 95 144/65 05/25/16 07:00 86 05/25/16 06:00 77 05/25/16 04:00 94 Nasal Cannula 2.00 05/25/16 04:00 79 05/25/16 03:04 97.9 18 123/60 93 127/78 05/25/16 03:00 66 05/25/16 02:00 74 05/25/16 00:00 68 05/25/16 00:00 95 Nasal Cannula 2.00 05/24/16 23:07 98.6 66 18 119/59 98 112/68 05/24/16 22:00 66 05/24/16 21:00 65 05/24/16 20:00 59 05/24/16 20:00 98 Nasal Cannula 2.00 05/24/16 19:00 60 05/24/16 19:00 98.3 60 18 100/48 98 05/24/16 17:38 17 05/24/16 17:11 64 05/24/16 16:05 95 Nasal Cannula 3.00 05/24/16 16:04 68 05/24/16 16:04 68 05/24/16 15:29 97.0 05/24/16 15:28 97.0 62 17 116/68 95 05/24/16 15:25 68 05/24/16 14:16 84 05/24/16 13:35 99 Nasal Cannula 3 05/24/16 13:35 94 Nasal Cannula 3.00 05/24/16 13:14 84 05/24/16 12:58 40 05/24/16 12:45 15 05/24/16 12:17 97.3 05/24/16 12:09 84 05/24/16 12:08 84 05/24/16 12:06 50 05/24/16 12:06 92 Mechanical Ventilator 50 05/24/16 12:02 94 50 05/24/16 11:59 97.3 80 15 91/56 95 05/24/16 11:57 84 I/O 05/24/16 05/24/16 05/24/16 05/25/16 05/25/16 05/25/16 07:00 15:00 23:00 07:00 15:00 23:00 Intake Total 720 ml 3190 ml 1045 ml Output Total 1510 ml 1220 ml 790 ml Balance -790 ml 1970 ml 255 ml Intake Oral 720 ml 40 ml 630 ml IV Total 3150 ml 415 ml Output Urine Total 1510 ml 1060 ml 700 ml Gastric Drainage Total 50 ml Chest Tube Drainage Total 110 ml 90 ml # Bowel Movements 0 0 Physical Exam GENERAL: NAD, AAOx3 SKIN: Warm and dry. HEAD: Atraumatic. Normocephalic. EYES: Pupils equal and round. No scleral icterus. No injection or drainage. ENT: No nasal bleeding or discharge. Mucous membranes pink and moist. NECK: Trachea midline. No JVD. CARDIOVASCULAR: Regular rate and rhythm. Sternotomy C/D/I RESPIRATORY: No accessory muscle use. CTA B/L GASTROINTESTINAL: Abdomen soft, minimal pain with palpitation of the right side , mild along the RUQ, nondistended. Hepatic and splenic margins not palpable. No guarding MUSCULOSKELETAL: Extremities without clubbing, cyanosis, or edema. No obvious deformities. Right groin no hematoma/bruit, distal pulses intact NEUROLOGICAL: Awake and alert. No obvious cranial nerve deficits. Motor grossly within normal limits. Five out of 5 muscle strength in the arms and legs. Normal speech. PSYCHIATRIC: Appropriate mood and affect; insight and judgment normal. Laboratory Laboratory Tests Test 05/25/16 04:05 White Blood Count 26.2 TH/MM3 Red Blood Count 3.30 MIL/MM3 Hemoglobin 9.0 GM/DL Hematocrit 27.7 % Mean Corpuscular Volume 83.8 FL Mean Corpuscular Hemoglobin 27.1 PG Mean Corpuscular Hemoglobin 32.4 % Concent Red Cell Distribution Width 16.1 % Platelet Count 388 TH/MM3 Mean Platelet Volume 9.3 FL Sodium Level 140 MEQ/L Potassium Level 4.8 MEQ/L Chloride Level 107 MEQ/L Carbon Dioxide Level 21.0 MEQ/L Anion Gap 12 MEQ/L Blood Urea Nitrogen 36 MG/DL Creatinine 1.79 MG/DL Estimat Glomerular Filtration 38 ML/MIN Rate Random Glucose 144 MG/DL Calcium Level 8.4 MG/DL Magnesium Level 2.7 MG/DL Assessment and Plan Problem List: (1) SIRS (systemic inflammatory response syndrome) (2) NSTEMI (non-ST elevated myocardial infarction) (3) Renal insufficiency (4) Abdominal mass (5) Carotid arterial disease Assessment and Plan 1) CABG x 2 (GONZALEZ to LAD, SVG to LPDA) POD #1, doing well 2) Abdominal mass vs colitis, plan C-scope after CABG once stable 3) ASA/Lopressor/Amio/Statin 4) Left sided carotid disease, follow up with vascular surgery Balta Hickey DO May 25, 2016 09:46
[2016-05-25] MEDS ORDERED: PIPERACIL-TAZO 4.5 GM PREMIX 100 ML IV SCH ×2 (10:00→11:00)
--- NOTE | 2016-05-25 10:09 | HHI.PR ---
Subjective Remarks sitting on chair , feels better today no abd pain , he stated no diarrhea , but then he said he wasn't sure Objective Vitals Vital Signs Date Time Temp Pulse Resp B/P Pulse Ox O2 Delivery O2 Flow Rate FiO2 05/25/16 08:00 83 05/25/16 08:00 95 Nasal Cannula 2.00 05/25/16 07:09 95 Nasal Cannula 2.00 05/25/16 07:00 97.9 83 18 115/70 95 144/65 05/25/16 07:00 86 05/25/16 06:00 77 05/25/16 04:00 94 Nasal Cannula 2.00 05/25/16 04:00 79 05/25/16 03:04 97.9 18 123/60 93 127/78 05/25/16 03:00 66 05/25/16 02:00 74 05/25/16 00:00 68 05/25/16 00:00 95 Nasal Cannula 2.00 05/24/16 23:07 98.6 66 18 119/59 98 112/68 05/24/16 22:00 66 05/24/16 21:00 65 05/24/16 20:00 59 05/24/16 20:00 98 Nasal Cannula 2.00 05/24/16 19:00 60 05/24/16 19:00 98.3 60 18 100/48 98 05/24/16 17:38 17 05/24/16 17:11 64 05/24/16 16:05 95 Nasal Cannula 3.00 05/24/16 16:04 68 05/24/16 16:04 68 05/24/16 15:29 97.0 05/24/16 15:28 97.0 62 17 116/68 95 05/24/16 15:25 68 05/24/16 14:16 84 05/24/16 13:35 99 Nasal Cannula 3 05/24/16 13:35 94 Nasal Cannula 3.00 05/24/16 13:14 84 05/24/16 12:58 40 05/24/16 12:45 15 05/24/16 12:17 97.3 05/24/16 12:09 84 05/24/16 12:08 84 05/24/16 12:06 50 05/24/16 12:06 92 Mechanical Ventilator 50 05/24/16 12:02 94 50 05/24/16 11:59 97.3 80 15 91/56 95 05/24/16 11:57 84 I/O 05/24/16 05/24/16 05/24/16 05/25/16 05/25/16 05/25/16 07:00 15:00 23:00 07:00 15:00 23:00 Intake Total 720 ml 3190 ml 1045 ml Output Total 1510 ml 1220 ml 790 ml Balance -790 ml 1970 ml 255 ml Intake Oral 720 ml 40 ml 630 ml IV Total 3150 ml 415 ml Output Urine Total 1510 ml 1060 ml 700 ml Gastric Drainage Total 50 ml Chest Tube Drainage Total 110 ml 90 ml # Bowel Movements 0 0 Result Diagram: 05/25/1640405/25/16404 Objective Remarks GENERAL: This is a well-nourished, well-developed patient, in no apparent distress. SKIN: dry, cool HEENT: NC, AT. CARDIOVASCULAR: Regular rate and regular rhythm without murmurs, gallops, or rubs. RESPIRATORY: AARON. Breath sounds equal bilaterally. No wheezes, rales, or rhonchi. GASTROINTESTINAL: Abdomen soft, tender to palpation on the right side, nondistended. Normoactive bowel sounds. MUSCULOSKELETAL: Chest tube and wound vac in place. Extremities without clubbing , cyanosis, or edema. NEURO: Alert & Oriented x4 to person, place, time, situation. Moves all ext x4. PSYCH: Mood and affect appropriate. Procedures CABG 05/24 A/P Problem List: (1) NSTEMI (non-ST elevated myocardial infarction) ICD Code: I21.4 Status: Acute (2) SIRS (systemic inflammatory response syndrome) ICD Code: R65.10 Status: Acute Assessment and Plan Daily update & Mngmt 05/25 Worsening leukocytosis 26K, with recent hypothermia>>mostly reactive post op , but due to intra abd infx , i will send for blood culture/ last one from 05/18 was negative, A/P: SIRS with suspected intra-abdominal source Blood cultures negative to date. C. difficile negative. CT abdomen: Abnormal soft tissue density involving the midportion of the descending colon with the inflammatory change extending to the peritoneal wall; There is no evidence of abscess; The findings are concerning for neoplasm as no diverticula are seen in the remainder of the colon; Endoscopy is recommended for further evaluation if clinically indicated. GI and surgical consults appreciated. - add Zosyn, ID consult, blood culture -On Cipro and Flagyl. - PPI. - pain control as needed. NSTEMI with history of CAD and stent placement Started on heparin and nitro drips. Cardiology consult appreciated. S/p cath with multivessel CAD including left main. CTS surgery was consulted. S/p CABG 05/24. - continue cardiac regimen. - management per CT surgery. - IS, oxygen and nebs as needed. - PT. - follow CBC and transfuse as needed. Hypertension A line in place following surgery. - resume antihypertensives as appropriate. Diabetes mellitus Glucose has been low at times, including am 05/24. - hold metformin- accu-check with SSI. - resume low acting insulin when appropriate. Acute on chronic kidney disease Appreciate nephrology consult. -monitor BMP and avoid nephrotoxic agents. DVT prophylaxis: Per CTS. Henrietta Oates MD May 25, 2016 10:09
[2016-05-25] MEDS: METOPROLOL TARTRATE 25 MG TAB PO SCH ×2 (10:49→20:41)
[2016-05-25] MEDS: oxyCODONE/ACETAMINOPHEN 5 MG/325 MG TAB PO PRN ×2 (10:50→20:46)
--- NOTE | 2016-05-25 12:17 | HHI.NPPN ---
Subjective Complaints: Shortness of Breath General Problems: Hypertension Renal Failure: Chronic Review of Systems General Constitutional: Fatigue Respiratory Lungs: SOB Cardiovascular Cardiac: Chest Pain, OLVERA Cardiac Remarks CP resolved Objective Data Data 05/24/16 05/25/16 19:00 07:00 Intake Total 3190 ml 1045 ml Output Total 1220 ml 790 ml Balance 1970 ml 255 ml Intake Oral 40 ml 630 ml IV Total 3150 ml 415 ml Output Urine Total 1060 ml 700 ml Gastric Drainage Total 50 ml Chest Tube Drainage Total 110 ml 90 ml # Bowel Movements 0 0 Vital Signs Date Time Temp Pulse Resp B/P Pulse Ox O2 Delivery O2 Flow Rate FiO2 05/25/16 10:36 95 Room Air 05/25/16 09:30 98.5 83 17 130/70 98 05/25/16 08:00 83 05/25/16 08:00 95 Nasal Cannula 2.00 05/25/16 07:09 95 Nasal Cannula 2.00 05/25/16 07:00 97.9 83 18 115/70 95 144/65 05/25/16 07:00 86 05/25/16 06:00 77 05/25/16 04:00 94 Nasal Cannula 2.00 05/25/16 04:00 79 05/25/16 03:04 97.9 18 123/60 93 127/78 05/25/16 03:00 66 05/25/16 02:00 74 05/25/16 00:00 68 05/25/16 00:00 95 Nasal Cannula 2.00 05/24/16 23:07 98.6 66 18 119/59 98 112/68 05/24/16 22:00 66 05/24/16 21:00 65 05/24/16 20:00 59 05/24/16 20:00 98 Nasal Cannula 2.00 05/24/16 19:00 60 05/24/16 19:00 98.3 60 18 100/48 98 05/24/16 17:38 17 05/24/16 17:11 64 05/24/16 16:05 95 Nasal Cannula 3.00 05/24/16 16:04 68 05/24/16 16:04 68 05/24/16 15:29 97.0 05/24/16 15:28 97.0 62 17 116/68 95 05/24/16 15:25 68 05/24/16 14:16 84 05/24/16 13:35 99 Nasal Cannula 3 05/24/16 13:35 94 Nasal Cannula 3.00 05/24/16 13:14 84 05/24/16 12:58 40 05/24/16 12:45 15 05/24/16 12:17 97.3 -: 05/25/16 0405 05/25/16 0405 Physical Exam General Appearance: Well Developed, Well Nourished, No Acute Distress, Comfortable Eyes Eye Exam: Pupils Equal Ears & Nose Ears & Nose Exam: Nasal Mucosa Maize Throat Throat Exam: Oral Mucosa Maize & Moist Pulmonary Resp Exam: No Distress, Rhonchi, Decreased Bases Cardiology CV Exam: Regular, Normal Sinus Rhythm, Good Perfusion Gastrointestinal/Abdomen GI Exam: Soft, Non-Tender, Bowel Sounds Present, Positive Bowel Movement Musculoskeletal MS Exam: Joints Intact, Normal Tone Integumentary Skin Exam: Warm, Dry Extremeties Extremities Exam: No Edema, Pedal Pulses Palpable Neurologic Neuro Exam: Alert, Awake, Oriented, Speech Clear, Moving All Extremities Psychiatric Psych Exam: Appropriate Responses Assessment/Plan Discussed Condition With: Patient Assessment Summary: MYRA/Acute Renal Failure, Hypertension, CKD Stage III Problem List: (1) Acute kidney injury Plan: Non oliguric renal failure, MYRA likely be due to NSTEMI; of note he was exposed to IV contrast on 05/20 Renal function improved, he is non oliguric monitor electrolytes, replace as needed cr 1.79 avoid nephrotoxins avoid fleet enema due to ARF (2) Stage 3 chronic kidney disease Plan: baseline creatinine around 2 he has less than one gram proteinuria which may represent underlying diabetic nephropathy l continue to monitor renal function see above (3) NSTEMI (non-ST elevated myocardial infarction) Plan: CABG yesterday doing well (4) Abdominal mass Plan: possible malignancy. GI following US reviewed, to have EGD /colonoscopy after CABG (5) DM (diabetes mellitus) Plan: hypoglycemic today, due to NPO status most likely continue to monitor glucose on Levemir, also SSI (novolog) as needed Marisol Sorto MD May 25, 2016 12:17
[2016-05-25] MEDS ORDERED: RESP: ALBUTEROL 2.5 MG/IPRATROPIUM 0.5 MG NEB (SCH) NEB (14:00)
[2016-05-25] MEDS: CIPROFLOXACIN 400 MG PREMIX 200 ML IV SCH (15:09)
[2016-05-25] MEDS: DOCUSATE SODIUM 100 MG CAP PO SCH (20:46)
[2016-05-25] MEDS: SENNOSIDES 8.6 MG TAB PO SCH (20:46)
[2016-05-25] MEDS: GABAPENTIN 300 MG CAP PO SCH (20:46)
[2016-05-25] MEDS: ATORVASTATIN 40 MG TAB PO SCH (20:47)
[2016-05-26] VITALS (27 sets, daily range): BP systolic 102–130; BP diastolic 54–69; PULSE 59–91; RESP 16–20; TEMP 97.4–98.7; O2SAT 92–99
[2016-05-26] MEDS: INSULIN ASPART SUPPLEMENTAL SCALE SQ SCH ×5 (02:49→21:16)
[2016-05-26 04:13] LABS: AUTOMATED NEUTROPHIL # 19.5 TH/MM3 (1.8-7.7); BASOPHIL # 0.1 TH/MM3 (0-0.2); BASOPHIL % 0.4 % (0.0-2.0); EOSINOPHIL # 0.2 TH/MM3 (0-0.4); EOSINOPHIL % 0.7 % (0.0-4.0); HEMATOCRIT 25.2 % (39.0-51.0); LYMPH % 8.4 % (9.0-44.0); LYMPHOCYTE # 1.9 TH/MM3 (1.0-4.8); MEAN CORPUSCULAR HEMOGLOBIN 27.5 PG (27.0-34.0); MEAN CORPUSCULAR HGB CONC 32.7 % (32.0-36.0); MONO % 5.8 % (0.0-8.0); NEUT % 84.7 % (16.0-70.0); PLATELET COUNT 425 TH/MM3 (150-450); RED CELL DISTRIBUTION WIDTH 15.9 % (11.6-17.2)
[2016-05-26 04:23] LABS: HEMO FLAGS AUTO DIFF
[2016-05-26 04:30] LABS: BICARBONATE 26.6 MEQ/L (21.0-32.0); MAGNESIUM 2.3 MG/DL (1.5-2.5); POTASSIUM 4.3 MEQ/L (3.5-5.1)
[2016-05-26] MEDS: PANTOPRAZOLE SOD 40 MG DELAYED RELEASE TAB PO SCH (06:11)
[2016-05-26] MEDS: AMIODARONE 200 MG TAB PO SCH ×3 (06:11→21:06)
[2016-05-26] MEDS: metroNIDAZOLE 500 MG INJ 100 ML IV SCH ×3 (06:11→21:05)
[2016-05-26] MEDS: SODIUM CHLOR 0.9% 1000 ML INJ 1,000 ML IV SCH ×2 (06:20→19:40)
[2016-05-26 06:46] LABS: BANDS 5 % (0-6); METAMYELOCYTES 4 % (0-1); MYELOCYTES 1 % (0-0); NEUTROPHIL # MANUAL DIFF 20.2 TH/MM3 (1.8-7.7); POLYS (SEG NEUTROPHILS) 78 % (16-70); SCAN/DIFF FINAL DIFF MANUAL; WBC DIFF SAMPLE 100
[2016-05-26 06:47] LABS: OVALOCYTES 1+ (NORMAL); PLATELET ESTIMATE SMEAR NORMAL (NORMAL); PLATELET MORPHOLOGY NORMAL (NORMAL)
--- NOTE | 2016-05-26 08:20 | PD.CARD.PN ---
Subjective Subjective Remarks No chest pain, no shortness of breath, no abdominal pain Objective Medications Current Medications Medications (Trade) Dose Ordered Sig/Avinash Route Start Time Stop Time Status Last Admin (NS 1000 ml Inj) 1,000 ml @ 75 mls/hr [id number] IV 05/15/16 17:00 05/24/16 14:29 (Zyloprim) 100 mg DAILY PO 05/16/16 09:00 05/25/16 08:40 (Neurontin) 300 mg HS PO 05/15/16 21:00 05/25/16 20:46 (Ecotrin Ec) 162 mg DAILY PO 05/16/16 09:00 05/25/16 08:40 Diphenoxylate HCl/ Atropine 1 tab 1 tab Q6H PRN PO 05/19/16 15:30 Ciprofloxacin/ Dextrose 200 ml @ 200 mls/hr Q24H IV 05/20/16 14:00 05/25/16 15:09 (Flagyl 500 Mg Inj) 100 ml @ 100 mls/hr Q8H IV 05/20/16 13:00 05/26/16 06:11 (Colace) 100 mg BID PO 05/22/16 21:00 Hold 05/23/16 08:38 (Senokot) 17.2 mg DAILY PO 05/22/16 14:00 Hold 05/23/16 08:38 (NS Flush) 2 ml BID IV FLUSH 05/24/16 21:00 05/25/16 20:47 IV Flush 2 ml 2 ml UNSCH PRN IV FLUSH 05/24/16 11:15 Clevidipine 50 ml @ 0 mls/hr TITRATE IV 05/24/16 11:15 (Lr 1000 ml Inj) 500 ml @ 500 mls/hr Q1H PRN IV 05/24/16 11:01 05/24/16 12:46 (Protonix) 40 mg DAILY@06 PO 05/25/16 06:00 05/26/16 06:11 (Cordarone) 400 mg Q8HR PO 05/24/16 14:00 05/26/16 06:11 (Tylenol) 650 mg Q4H PRN PO 05/24/16 11:15 (Tylenol Supp) 650 mg Q4H PRN RECTAL 05/24/16 11:15 (Percocet 5-325 Mg) 1 tab Q3H PRN PO 05/24/16 11:15 05/25/16 20:46 (fentaNYL INJ) 25 mcg Q1H PRN IV 05/24/16 11:15 05/24/16 17:07 (Zofran Inj) 4 mg Q6H PRN IV PUSH 05/24/16 11:15 (Apresoline Inj) 10 mg Q4H PRN IV 05/24/16 11:15 Metoprolol Tartrate 2.5 mg 2.5 mg Q1H PRN IV PUSH 05/24/16 11:15 Potassium Chloride 100 ml @ 50 mls/hr UNSCH PRN IV 05/24/16 11:15 Potassium Chloride 100 ml @ 50 mls/hr UNSCH PRN IV 05/24/16 11:15 Potassium Chloride 100 ml @ 50 mls/hr UNSCH PRN IV 05/24/16 11:15 Magnesium Sulfate 2 gm/Sodium Chloride 104 ml @ 100 mls/hr UNSCH PRN IV 05/24/16 11:15 Magnesium Sulfate 2 gm/Sodium Chloride 104 ml @ 50 mls/hr UNSCH PRN IV 05/24/16 11:15 (Calcium Chloride Inj/NS Inj) 110 ml @ 100 mls/hr UNSCH PRN IV 05/24/16 11:15 05/24/16 11:59 Calcium Chloride 0.5 gm 0.5 gm UNSCH PRN IV 05/24/16 11:15 (NovoLIN R (IV INFUSION)/NS Inj) 100 ml @ 0 mls/hr TITRATE IV 05/24/16 11:15 (Lipitor) 80 mg HS PO 05/24/16 21:00 05/25/16 20:47 (Colace) 100 mg BID PO 05/25/16 21:00 05/25/16 20:46 (Theragran M Tab) 1 tab DAILY PO 05/26/16 09:00 (Milk Of Magnesia Liq) 30 ml DAILY PO 05/26/16 09:00 (Miralax) 17 gm DAILY PO 05/26/16 09:00 (Senokot) 8.6 mg HS PO 05/25/16 21:00 05/25/16 20:46 (NovoLOG SUPPLEMENTAL SCALE) 1 02,06,10,14,18,22 SQ 05/25/16 10:00 05/26/16 02:49 (D50w (Vial) Inj) 25 ml UNSCH PRN IV 05/25/16 09:30 (Glucagon Inj) 1 mg UNSCH PRN OTHER 05/25/16 09:30 (Lopressor) 12.5 mg Q12HR PO 05/25/16 10:00 05/25/16 20:41 Vital Signs / I&O Vital Signs Date Time Temp Pulse Resp B/P Pulse Ox O2 Delivery O2 Flow Rate FiO2 05/26/16 07:00 98.0 80 16 129/69 93 05/26/16 06:00 72 05/26/16 05:00 84 05/26/16 04:00 77 05/26/16 03:00 98 Nasal Cannula 2.00 05/26/16 03:00 68 05/26/16 03:00 97.4 71 18 130/62 97 05/26/16 02:00 82 05/26/16 01:00 69 05/26/16 00:00 98 Nasal Cannula 2.00 05/26/16 00:00 64 05/25/16 23:00 69 05/25/16 23:00 98.4 68 18 121/64 98 05/25/16 22:00 73 05/25/16 21:00 74 05/25/16 20:21 95 Nasal Cannula 2.00 05/25/16 20:00 83 05/25/16 20:00 99 Nasal Cannula 2.00 05/25/16 19:15 98.0 77 18 129/74 99 05/25/16 19:15 75 05/25/16 17:13 97.7 80 20 130/72 100 05/25/16 16:00 100 Nasal Cannula 2.00 05/25/16 15:00 75 05/25/16 15:00 98.1 83 18 120/60 95 05/25/16 12:00 95 Nasal Cannula 2.00 05/25/16 11:00 98.1 83 18 118/68 95 05/25/16 11:00 83 05/25/16 10:36 95 Room Air 05/25/16 09:30 98.5 83 17 130/70 98 I/O 05/25/16 05/25/16 05/25/16 05/26/16 05/26/16 05/26/16 07:00 15:00 23:00 07:00 15:00 23:00 Intake Total 1045 ml 1350 ml 480 ml Output Total 790 ml 450 ml 700 ml Balance 255 ml 900 ml -220 ml Intake Oral 630 ml 800 ml 480 ml IV Total 415 ml 550 ml Output Urine Total 700 ml 450 ml 700 ml Chest Tube Drainage Total 90 ml # Bowel Movements 0 1 0 Physical Exam GENERAL: NAD, AAOx3 SKIN: Warm and dry. HEAD: Atraumatic. Normocephalic. EYES: Pupils equal and round. No scleral icterus. No injection or drainage. ENT: No nasal bleeding or discharge. Mucous membranes pink and moist. NECK: Trachea midline. No JVD. CARDIOVASCULAR: Regular rate and rhythm. Sternotomy C/D/I RESPIRATORY: No accessory muscle use. CTA B/L GASTROINTESTINAL: Abdomen soft, no pain with palpitation of the right side, nondistended. Hepatic and splenic margins not palpable. No guarding MUSCULOSKELETAL: Extremities without clubbing, cyanosis, or edema. No obvious deformities. Right groin no hematoma/bruit, distal pulses intact NEUROLOGICAL: Awake and alert. No obvious cranial nerve deficits. Motor grossly within normal limits. Five out of 5 muscle strength in the arms and legs. Normal speech. PSYCHIATRIC: Appropriate mood and affect; insight and judgment normal. Laboratory Laboratory Tests Test 05/26/16 03:40 White Blood Count 23.0 TH/MM3 Red Blood Count 3.00 MIL/MM3 Hemoglobin 8.2 GM/DL Hematocrit 25.2 % Mean Corpuscular Volume 84.0 FL Mean Corpuscular Hemoglobin 27.5 PG Mean Corpuscular Hemoglobin 32.7 % Concent Red Cell Distribution Width 15.9 % Platelet Count 425 TH/MM3 Mean Platelet Volume 8.9 FL Neutrophils (%) (Auto) 84.7 % Lymphocytes (%) (Auto) 8.4 % Monocytes (%) (Auto) 5.8 % Eosinophils (%) (Auto) 0.7 % Basophils (%) (Auto) 0.4 % Neutrophils # (Auto) 19.5 TH/MM3 Lymphocytes # (Auto) 1.9 TH/MM3 Monocytes # (Auto) 1.3 TH/MM3 Eosinophils # (Auto) 0.2 TH/MM3 Basophils # (Auto) 0.1 TH/MM3 CBC Comment AUTO DIFF Differential Total Cells 100 Counted Neutrophils % (Manual) 78 % Band Neutrophils % 5 % Lymphocytes % 7 % Monocytes % 5 % Neutrophils # (Manual) 20.2 TH/MM3 Metamyelocytes 4 % Myelocytes 1 % Differential Comment FINAL DIFF MANUAL Platelet Estimate NORMAL Platelet Morphology Comment NORMAL Polychromasia 2.0 % Ovalocytes 1+ Sodium Level 142 MEQ/L Potassium Level 4.3 MEQ/L Chloride Level 108 MEQ/L Carbon Dioxide Level 26.6 MEQ/L Anion Gap 7 MEQ/L Blood Urea Nitrogen 45 MG/DL Creatinine 2.03 MG/DL Estimat Glomerular Filtration 33 ML/MIN Rate Random Glucose 145 MG/DL Calcium Level 8.2 MG/DL Magnesium Level 2.3 MG/DL Assessment and Plan Problem List: (1) SIRS (systemic inflammatory response syndrome) (2) NSTEMI (non-ST elevated myocardial infarction) (3) Renal insufficiency (4) Abdominal mass (5) Carotid arterial disease Assessment and Plan 1) CABG x 2 (GONZALEZ to LAD, SVG to LPDA) POD #2, doing well 2) Abdominal mass vs colitis, plan C-scope after CABG once stable 3) ASA/Lopressor/Amio/Statin 4) Left sided carotid disease, follow up with vascular surgery 5) Ambulate as possible 6) IS use Balta Hickey DO May 26, 2016 08:20
[2016-05-26] MEDS: ASPIRIN EC 81 MG TABEC PO SCH (08:47)
[2016-05-26] MEDS: POLYETHYLENE GLYCOL 17 GM PKG PO SCH (08:47)
[2016-05-26] MEDS: MAGNESIUM HYDROXIDE SUSP 30 ML CUP PO SCH (08:47)
[2016-05-26] MEDS: MULTIVITAMINS/MINERALS THERAPEUTIC TAB PO SCH (08:48)
[2016-05-26] MEDS: oxyCODONE/ACETAMINOPHEN 5 MG/325 MG TAB PO PRN (08:48)
[2016-05-26] MEDS: DOCUSATE SODIUM 100 MG CAP PO SCH ×2 (08:48→21:06)
[2016-05-26] MEDS: ALLOPURINOL 100 MG TAB PO SCH (08:48)
[2016-05-26] MEDS: METOPROLOL TARTRATE 25 MG TAB PO SCH ×2 (08:48→21:05)
[2016-05-26] MEDS: SODIUM CHLORIDE 0.9% FLUSH 5 ML FLUSH IV FLUSH SCH ×2 (08:49→21:05)
--- NOTE | 2016-05-26 10:53 | PD.CAR.PN ---
CVT Progress Note CVT: POD #: 2 Subjective/Hospital Course: 70/ male admitted 05/15 for chest pain,-also right upper quadrant abd pain with recent diarrhea and nausea, some loss of appetite, elevated WBC on admission of 21K, neg blood culture, neg UA underwent CT abdomen Abnormal imaging involving descending colon on imaging. Found to have a NSTEMI, + myocardial perfusion scan , underwent cardiac cath by Dr Hickey and found to multi vessel disease, we were consulted to eval for Coronary artery bypass grafting , EF 50% by Echo no valvular disease , CKD MYRA baseline creatinine 2.0 elevated to 4.0 / post IV fluid resuscitation, nephrology following/ now improved to 2.[address] (05/19/16)----> 1. Abnormal soft tissue density involving the midportion of the ascending colon with the inflammatory change extending to the peritoneal wall. There is no evidence of abscess. findings are concerning for neoplasm as no diverticula are seen in the remainder of the colon, Cholelithiasis. GI consulted , per GI suspected colitis. Barium enema would be of little benefit for evaluation Flexible sigmoidoscopy is not an option given the location of the inflammatory change. Not stable for anesthesia per cardiology. for colonoscopy , pt started on Cipro/flagyl cardiology. CDiff negative. Tumor markers unremarkable. Cont. Abx., General surgery consulted , Recommend ABX , EGD/ colonoscopy once cleared by cardiology PMH: CAD/ prior stent , DM , CKD, HTN 05/21 pt still has some mild right right upper quad abd pain , no chest pain, had BM yesterday tentatively scheduled for CABG on monday 05/22 right upper quad pain improving, still has some tenderness WBC count 12, low grade fever last pm,, now resolved f/u CBC in am , continue antibiotics no chest pain 05/23 no further fevers, WBC 13 still has some right upper quad abdominal tenderness with palpation continue antibiotics, pt will still need full colonoscopy and EGD post surgery, with possible pet scan as outpt still scheduled for surgery in am discussed with Dr Jensen 05/25/16 Doing well s/p CABG. No complaints today. 05/26/16 c/o insomnia, uncomfortable sleeping on his back Objective: Vital Signs Date Time Temp Pulse Resp B/P Pulse Ox O2 Delivery O2 Flow Rate FiO2 05/26/16 09:00 83 05/26/16 08:49 97 Nasal Cannula 2.00 05/26/16 08:00 93 Room Air 05/26/16 08:00 77 05/26/16 07:00 98.0 80 16 129/69 93 05/26/16 07:00 80 05/26/16 06:00 72 05/26/16 05:00 84 05/26/16 04:00 77 05/26/16 03:00 98 Nasal Cannula 2.00 05/26/16 03:00 68 05/26/16 03:00 97.4 71 18 130/62 97 05/26/16 02:00 82 05/26/16 01:00 69 05/26/16 00:00 98 Nasal Cannula 2.00 05/26/16 00:00 64 05/25/16 23:00 69 05/25/16 23:00 98.4 68 18 121/64 98 05/25/16 22:00 73 05/25/16 21:00 74 05/25/16 20:21 95 Nasal Cannula 2.00 05/25/16 20:00 83 05/25/16 20:00 99 Nasal Cannula 2.00 05/25/16 19:15 98.0 77 18 129/74 99 05/25/16 19:15 75 05/25/16 17:13 97.7 80 20 130/72 100 05/25/16 16:00 100 Nasal Cannula 2.00 05/25/16 15:00 75 05/25/16 15:00 98.1 83 18 120/60 95 05/25/16 12:00 95 Nasal Cannula 2.00 05/25/16 11:00 98.1 83 18 118/68 95 05/25/16 11:00 83 Labs: Laboratory Tests Test 05/26/16 03:40 White Blood Count 23.0 TH/MM3 (4.0-11.0) Red Blood Count 3.00 MIL/MM3 (4.50-5.90) Hemoglobin 8.2 GM/DL (13.0-17.0) Hematocrit 25.2 % (39.0-51.0) Mean Corpuscular Volume 84.0 FL (80.0-100.0) Mean Corpuscular Hemoglobin 27.5 PG (27.0-34.0) Mean Corpuscular Hemoglobin 32.7 % Concent (32.0-36.0) Red Cell Distribution Width 15.9 % (11.6-17.2) Platelet Count 425 TH/MM3 (150-450) Mean Platelet Volume 8.9 FL (7.0-11.0) Neutrophils (%) (Auto) 84.7 % (16.0-70.0) Lymphocytes (%) (Auto) 8.4 % (9.0-44.0) Monocytes (%) (Auto) 5.8 % (0.0-8.0) Eosinophils (%) (Auto) 0.7 % (0.0-4.0) Basophils (%) (Auto) 0.4 % (0.0-2.0) Neutrophils # (Auto) 19.5 TH/MM3 (1.8-7.7) Lymphocytes # (Auto) 1.9 TH/MM3 (1.0-4.8) Monocytes # (Auto) 1.3 TH/MM3 (0-0.9) Eosinophils # (Auto) 0.2 TH/MM3 (0-0.4) Basophils # (Auto) 0.1 TH/MM3 (0-0.2) CBC Comment AUTO DIFF Differential Total Cells 100 Counted Neutrophils % (Manual) 78 % (16-70) Band Neutrophils % 5 % (0-6) Lymphocytes % 7 % (9-44) Monocytes % 5 % (0-8) Neutrophils # (Manual) 20.2 TH/MM3 (1.8-7.7) Metamyelocytes 4 % (0-1) Myelocytes 1 % (0-0) Differential Comment FINAL DIFF MANUAL Platelet Estimate NORMAL (NORMAL) Platelet Morphology Comment NORMAL (NORMAL) Polychromasia 2.0 % (0.0-1.9) Ovalocytes 1+ (NORMAL) Sodium Level 142 MEQ/L (136-145) Potassium Level 4.3 MEQ/L (3.5-5.1) Chloride Level 108 MEQ/L (98-107) Carbon Dioxide Level 26.6 MEQ/L (21.0-32.0) Anion Gap 7 MEQ/L (5-15) Blood Urea Nitrogen 45 MG/DL (7-18) Creatinine 2.03 MG/DL (0.60-1.30) Estimat Glomerular Filtration 33 ML/MIN (>89) Rate Random Glucose 145 MG/DL (74-106) Calcium Level 8.2 MG/DL (8.5-10.1) Magnesium Level 2.3 MG/DL (1.5-2.5) Result Diagram: 05/26/1633905/26/16339 Cardiovascular: RRR Telemetry: NSR Pulmonary: CTA GI/: NABS, NT Incision: dry and intact Plan: Encourage ambulation, up to chair Increase beta baldemar dose Stim BM Anticipate d/c tomorrow or Friday. CXR in AM Continue cipro and flagyl. (1) SIRS (systemic inflammatory response syndrome) Plan: leukocytosis stable probable colitis , receiving cipro and flagyl decreased abd pain, still some tenderness will need close f/u post surgery will need f/u as outpt with general surgery and GI (2) NSTEMI (non-ST elevated myocardial infarction) Plan: ASA, statin , , Heparin gtt scheduled for Coronary artery bypass grafting on friday (3) Renal insufficiency Plan: nephrology following creatinine at baseline avoid nephrotoxins (4) Abdominal mass Plan: GI following, appreciate general surgery consult continue ABX , probable colitis will need colonoscopy and EGD once recovered from CV surgery , tumor markers neg will need f/u with General surgery as outpt for his gallstones (5) Carotid arterial disease Plan: ICA left 241 will need outpt f/u with vascular surgery to monitor pt is asymptomatic Flory Jensen MD May 26, 2016 10:53
--- NOTE | 2016-05-26 12:15 | HHI.PR ---
Subjective Remarks Follow up on post op for CABG, and recent preop abdominal pain ossicle colitis versus malignancy GI following, ID was consulted for management of possible intra-abdominal underlying infection Patient sitting on the chair denied abdominal pain, no fever or chills no nausea or vomiting He hasn't had a bowel movement yet today but he feels he is about to get one Objective Vitals Vital Signs Date Time Temp Pulse Resp B/P Pulse Ox O2 Delivery O2 Flow Rate FiO2 05/26/16 12:00 70 05/26/16 11:00 98.3 79 20 107/60 92 05/26/16 11:00 92 Nasal Cannula 2.00 05/26/16 11:00 91 05/26/16 10:00 68 05/26/16 09:00 83 05/26/16 08:49 97 Nasal Cannula 2.00 05/26/16 08:00 93 Room Air 05/26/16 08:00 77 05/26/16 07:00 98.0 80 16 129/69 93 05/26/16 07:00 80 05/26/16 06:00 72 05/26/16 05:00 84 05/26/16 04:00 77 05/26/16 03:00 98 Nasal Cannula 2.00 05/26/16 03:00 68 05/26/16 03:00 97.4 71 18 130/62 97 05/26/16 02:00 82 05/26/16 01:00 69 05/26/16 00:00 98 Nasal Cannula 2.00 05/26/16 00:00 64 05/25/16 23:00 69 05/25/16 23:00 98.4 68 18 121/64 98 05/25/16 22:00 73 05/25/16 21:00 74 05/25/16 20:21 95 Nasal Cannula 2.00 05/25/16 20:00 83 05/25/16 20:00 99 Nasal Cannula 2.00 05/25/16 19:15 98.0 77 18 129/74 99 05/25/16 19:15 75 05/25/16 17:13 97.7 80 20 130/72 100 05/25/16 16:00 100 Nasal Cannula 2.00 05/25/16 15:00 75 05/25/16 15:00 98.1 83 18 120/60 95 I/O 05/25/16 05/25/16 05/25/16 05/26/16 05/26/16 05/26/16 07:00 15:00 23:00 07:00 15:00 23:00 Intake Total 1045 ml 1350 ml 480 ml Output Total 790 ml 450 ml 700 ml Balance 255 ml 900 ml -220 ml Intake Oral 630 ml 800 ml 480 ml IV Total 415 ml 550 ml Output Urine Total 700 ml 450 ml 700 ml Chest Tube Drainage Total 90 ml # Bowel Movements 0 1 0 Result Diagram: 05/26/16 0340 05/26/16 0340 Objective Remarks GENERAL: This is a well-nourished, well-developed patient, in no apparent distress. SKIN: dry, cool HEENT: NC, AT. CARDIOVASCULAR: Regular rate and regular rhythm without murmurs, gallops, or rubs. RESPIRATORY: AARON. Breath sounds equal bilaterally. No wheezes, rales, or rhonchi. GASTROINTESTINAL: Abdomen soft, tender to palpation on the right side, nondistended. Normoactive bowel sounds. MUSCULOSKELETAL: Chest tube and wound vac in place. Extremities without clubbing , cyanosis, or edema. NEURO: Alert & Oriented x4 to person, place, time, situation. Moves all ext x4. PSYCH: Mood and affect appropriate. Procedures CABG 05/24 A/P Problem List: (1) NSTEMI (non-ST elevated myocardial infarction) ICD Code: I21.4 Status: Acute (2) SIRS (systemic inflammatory response syndrome) ICD Code: R65.10 Status: Acute Assessment and Plan 05/25: Worsening leukocytosis 26K, with recent hypothermia>>mostly reactive post op , but due to intra abd infx , i will send for blood culture/ last one from was negative, 05/26: WBC dropped to 23K, patient denied abdominal pain, no nausea or vomiting no bowel movement yet but he is about to get one, repeat CBC in a.m., ID to see patient ordered pro-calcitonin A/P: SIRS with suspected intra-abdominal source Blood cultures negative to date. C. difficile negative. CT abdomen: Abnormal soft tissue density involving the midportion of the descending colon with the inflammatory change extending to the peritoneal wall; There is no evidence of abscess; The findings are concerning for neoplasm as no diverticula are seen in the remainder of the colon; Endoscopy is recommended for further evaluation if clinically indicated. GI and surgical consults appreciated. - add Zosyn, ID consult, blood culture -On Cipro and Flagyl. - PPI. - pain control as needed. NSTEMI with history of CAD and stent placement Started on heparin and nitro drips. Cardiology consult appreciated. S/p cath with multivessel CAD including left main. CTS surgery was consulted. S/p CABG 05/24. - continue cardiac regimen. - management per CT surgery. - IS, oxygen and nebs as needed. - PT. - follow CBC and transfuse as needed. Hypertension A line in place following surgery. - resume antihypertensives as appropriate. Diabetes mellitus Glucose has been low at times, including am 05/24. - hold metformin- accu-check with SSI. - resume low acting insulin when appropriate. Acute on chronic kidney disease Appreciate nephrology consult. -monitor BMP and avoid nephrotoxic agents. DVT prophylaxis: Per CTS. Henrietta Oates MD May 26, 2016 12:15
--- NOTE | 2016-05-26 12:29 | HHI.GIFU ---
Subjective Remarks Up in chair. Feeling much better. Denies any abdominal pain today. Tolerating diet. States he has not had a bowel movement yet today, but feels as though he will shortly. (Isabel Torres) Objective Vitals I&O Vital Signs Date Time Temp Pulse Resp B/P Pulse Ox O2 Delivery O2 Flow Rate FiO2 05/26/16 12:00 70 05/26/16 11:00 98.3 79 20 107/60 92 05/26/16 11:00 92 Nasal Cannula 2.00 05/26/16 11:00 91 05/26/16 10:00 68 05/26/16 09:00 83 05/26/16 08:49 97 Nasal Cannula 2.00 05/26/16 08:00 93 Room Air 05/26/16 08:00 77 05/26/16 07:00 98.0 80 16 129/69 93 05/26/16 07:00 80 05/26/16 06:00 72 05/26/16 05:00 84 05/26/16 04:00 77 05/26/16 03:00 98 Nasal Cannula 2.00 05/26/16 03:00 68 05/26/16 03:00 97.4 71 18 130/62 97 05/26/16 02:00 82 05/26/16 01:00 69 05/26/16 00:00 98 Nasal Cannula 2.00 05/26/16 00:00 64 05/25/16 23:00 69 05/25/16 23:00 98.4 68 18 121/64 98 05/25/16 22:00 73 05/25/16 21:00 74 05/25/16 20:21 95 Nasal Cannula 2.00 05/25/16 20:00 83 05/25/16 20:00 99 Nasal Cannula 2.00 05/25/16 19:15 98.0 77 18 129/74 99 05/25/16 19:15 75 05/25/16 17:13 97.7 80 20 130/72 100 05/25/16 16:00 100 Nasal Cannula 2.00 05/25/16 15:00 75 05/25/16 15:00 98.1 83 18 120/60 95 I/O 05/25/16 05/25/16 05/25/16 05/26/16 05/26/16 05/26/16 07:00 15:00 23:00 07:00 15:00 23:00 Intake Total 1045 ml 1350 ml 480 ml Output Total 790 ml 450 ml 700 ml Balance 255 ml 900 ml -220 ml Intake Oral 630 ml 800 ml 480 ml IV Total 415 ml 550 ml Output Urine Total 700 ml 450 ml 700 ml Chest Tube Drainage Total 90 ml # Bowel Movements 0 1 0 Laboratory Laboratory Tests Test 05/26/16 03:40 White Blood Count 23.0 Red Blood Count 3.00 Hemoglobin 8.2 Hematocrit 25.2 Mean Corpuscular Volume 84.0 Mean Corpuscular Hemoglobin 27.5 Mean Corpuscular Hemoglobin 32.7 Concent Red Cell Distribution Width 15.9 Platelet Count 425 Mean Platelet Volume 8.9 Neutrophils (%) (Auto) 84.7 Lymphocytes (%) (Auto) 8.4 Monocytes (%) (Auto) 5.8 Eosinophils (%) (Auto) 0.7 Basophils (%) (Auto) 0.4 Neutrophils # (Auto) 19.5 Lymphocytes # (Auto) 1.9 Monocytes # (Auto) 1.3 Eosinophils # (Auto) 0.2 Basophils # (Auto) 0.1 CBC Comment AUTO DIFF Differential Total Cells 100 Counted Neutrophils % (Manual) 78 Band Neutrophils % 5 Lymphocytes % 7 Monocytes % 5 Neutrophils # (Manual) 20.2 Metamyelocytes 4 Myelocytes 1 Differential Comment FINAL DIFF MANUAL Platelet Estimate NORMAL Platelet Morphology Comment NORMAL Polychromasia 2.0 Ovalocytes 1+ Sodium Level 142 Potassium Level 4.3 Chloride Level 108 Carbon Dioxide Level 26.6 Anion Gap 7 Blood Urea Nitrogen 45 Creatinine 2.03 Estimat Glomerular Filtration 33 Rate Random Glucose 145 Calcium Level 8.2 Magnesium Level 2.3 Date/Time Procedure Status Source Growth 05/25/16 11:27 Aerobic Blood Culture - Preliminary Resulted Blood Peripheral NO GROWTH IN 1 DAY 05/25/16 11:27 Anaerobic Blood Culture - Preliminary Resulted Blood Peripheral NO GROWTH IN 1 DAY 05/22/16 11:20 Stool Occult Blood (NAHOMY) - Final Complete Stool Stool HEMOCCULT NEGATIVE Imaging Last Impressions Chest X-Ray 05/25/16 0500 Signed Impressions: Service Date/Time: Wednesday, May 25, 2016 03:18 - CONCLUSION: 1. Hypoinflation with left basilar atelectasis 2. There has been no significant change when compared to the prior exam. Jakub Dickson MD Gall Bladder Ultrasound 05/21/16 Signed Impressions: Service Date/Time: Saturday, May 21, 2016 09:44 - CONCLUSION: 1. Cholelithiasis with multiple echogenic gallstones. There is mild wall thickening with no pericholecystic fluid. 2. The common bile duct is mildly prominent at 8 mm with no evidence of choledocholithiasis in the visualized portion. 3. The liver is mildly prominent in size with no focal lesion. Konrad Robbins MD Lower Extremity Ultrasound 05/20/16 Signed Impressions: Service Date/Time: Friday, May 20, 2016 15:10 - CONCLUSION: Venous mapping as described above.. Ramsey Hi MD FACR Carotid Artery Ultrasound 05/20/16 Signed Impressions: Service Date/Time: Friday, May 20, 2016 15:30 - CONCLUSION: Hemodynamically significant left cartoid stenosis. Ramsey Hi MD FACR Abdomen CT 05/19/16 Signed Impressions: Service Date/Time: Thursday, May 19, 2016 23:01 - CONCLUSION: 1. Abnormal soft tissue density involving the midportion of the descending colon with the inflammatory change extending to the peritoneal wall. There is no evidence of abscess. The findings are concerning for neoplasm as no diverticula are seen in the remainder of the colon. Endoscopy is recommended for further evaluation if clinically indicated. 2. Cholelithiasis Jakub Dickson MD ADDENDUM: COMPARISON: CT ABDOMEN & PELVIS W/O CONTRAST, May 15, 2016, 14:43. I reviewed this study and it is the asscending colon just above the cecum which demonstrates the inflammatory change. Not the descending colon. Konrad Robbins MD Myocardial Perfusion Scan Nuc Med 05/17/16 Signed Impressions: Service Date/Time: Tuesday, May 17, 2016 10:41 - CONCLUSION: Redistribution as described above consistent stress-induced ischemia.. RISK CATEGORY: Intermediate (1-3%% Annual Mortality Rate) Ramsey Hi MD FACR Chest CT 05/15/16 Signed Impressions: Service Date/Time: Sunday, May 15, 2016 14:37 - CONCLUSION: 1. Lack of intravenous contrast makes it impossible to exclude a dissection. 2. There is no evidence for pneumothorax. 3. Marked coronary artery calcifications. Ramsey Hi MD FACR Abdomen/Pelvis CT 05/15/16 0000 Signed Impressions: Service Date/Time: Sunday, May 15, 2016 14:43 - CONCLUSION: 1. Marked coronary artery calcifications. 2. I do not see an etiology for the patient's back pain. Ramsey Hi MD FACR Physical Exam HEENT: Normocephalic; atraumatic; no jaundice. Throat is clear. NECK: Neck is supple, no JVD, no lymphadenopathy. CHEST: CTA, wound vac to sternum CARDIAC: RRR ABDOMEN: Soft, nondistended, nontender today; no hepatosplenomegaly; bowel sounds are present in all four quadrants. EXTREMITIES: No clubbing, cyanosis, or edema. SKIN: Normal; no rash; no jaundice. [employer]: Alert/oriented x 3 (Isabel Torres) Assessment and Plan Plan ASSESSMENT: - Abnormal imaging involving descending colon on imaging/possible mass vs inflammation. Abdomen CT (05/19/16)----> 1. Abnormal soft tissue density involving the midportion of the descending colon with the inflammatory change extending to the peritoneal wall. There is no evidence of abscess. The findings are concerning for neoplasm as no diverticula are seen in the remainder of the colon. Endoscopy is recommended for further evaluation if clinically indicated. 2. Cholelithiasis. Of note, his prior Abdomen/Pelvis CT( 05/15/16)----> 1. Marked coronary artery calcifications. 2. I do not see an etiology for the patient's back pain. GI was consulted for further evaluation of abnormal findings regarding the soft tissue density involving the descending colon prior to having surgery scheduled. Neither of these were contrasted secondary to MYRA with elevated creat. Last colonoscopy was 6-7 years ago and that he had several benign polyps removed. (+) Decreased appetite, but has only lost 2-3 lbs; lower abdominal pain, improved. Of note, patient had CT abd/pelvis on 05/15 and it did not appreciate these changes to the descending colon. Discussed with Dr. Robbins- the inflammatory change is actually in the ascending colon just above the cecum, not the descending and he will add addendum to report. Barium enema would be of little benefit for evaluation of this suspected colitis. Flexible sigmoidoscopy is not an option given the location of the inflammatory change. Not stable for anesthesia per cardiology. Will cont. Cipro/flagyl and hold off on sigmoidoscopy/barium enema. Likely colitis. CDiff negative. Tumor markers unremarkable. Cont. Abx for total of 10 days. Monitor WBC and clinical status. Clinically he is much improved- no tenderness today. WBC 23.0. - Multivessel CAD. Myocardial perfusion scan revealed stress-induced ischemia in the anterior lateral wall redistribution in the septal wall extending to the base with EF of 53%. Cardiac catheterization with multivessel cad as above. S/P CABG. Per cardiology - Anemia. 8.2/25.2. - Mild leukocytosis. 12.0 - MYRA, CAD, DM, HTN, Hyperlipidemia per primary PLAN: - Diet per cardiology - Cipro/Flagyl for 10 days total - PPI - Monitor HH - Transfuse as necessary - Tumor markers unremarkable. - S/p GS evaluation - EGD/Colonoscopy as outpatient once stable from cardiac standpoint - Further recommendations to follow based on results of above - Pt seen and examined by Dr. Dial and myself and this note is written on her behalf (Isabel Torres) Physician Comments seen, examined agree with above if wbc still elevated we will repeat ct abdomen/pelvis (Talya Dial MD) Isabel Torres May 26, 2016 12:29 Talya Dial MD May 26, 2016 13:24
[2016-05-26] MEDS: CIPROFLOXACIN 400 MG PREMIX 200 ML IV SCH (14:24)
--- NOTE | 2016-05-26 14:25 | HHI.NPPN ---
Subjective Complaints: Shortness of Breath General Problems: Hypertension Renal Failure: Chronic Review of Systems General Constitutional: Fatigue Respiratory Lungs: SOB Cardiovascular Cardiac: Chest Pain, OLVERA Cardiac Remarks CP resolved Objective Data Data 05/25/16 05/26/16 19:00 07:00 Intake Total 1350 ml 480 ml Output Total 450 ml 700 ml Balance 900 ml -220 ml Intake Oral 800 ml 480 ml IV Total 550 ml Output Urine Total 450 ml 700 ml # Bowel Movements 1 0 Vital Signs Date Time Temp Pulse Resp B/P Pulse Ox O2 Delivery O2 Flow Rate FiO2 05/26/16 13:00 76 05/26/16 12:00 70 05/26/16 11:00 98.3 79 20 107/60 92 05/26/16 11:00 92 Nasal Cannula 2.00 05/26/16 11:00 91 05/26/16 10:00 68 05/26/16 09:00 83 05/26/16 08:49 97 Nasal Cannula 2.00 05/26/16 08:00 93 Room Air 05/26/16 08:00 77 05/26/16 07:00 98.0 80 16 129/69 93 05/26/16 07:00 80 05/26/16 06:00 72 05/26/16 05:00 84 05/26/16 04:00 77 05/26/16 03:00 98 Nasal Cannula 2.00 05/26/16 03:00 68 05/26/16 03:00 97.4 71 18 130/62 97 05/26/16 02:00 82 05/26/16 01:00 69 05/26/16 00:00 98 Nasal Cannula 2.00 05/26/16 00:00 64 05/25/16 23:00 69 05/25/16 23:00 98.4 68 18 121/64 98 05/25/16 22:00 73 05/25/16 21:00 74 05/25/16 20:21 95 Nasal Cannula 2.00 05/25/16 20:00 83 05/25/16 20:00 99 Nasal Cannula 2.00 05/25/16 19:15 98.0 77 18 129/74 99 05/25/16 19:15 75 05/25/16 17:13 97.7 80 20 130/72 100 05/25/16 16:00 100 Nasal Cannula 2.00 05/25/16 15:00 75 05/25/16 15:00 98.1 83 18 120/60 95 -: 05/26/16 0340 05/26/16 0340 Physical Exam General Appearance: Well Developed, Well Nourished, No Acute Distress, Comfortable Eyes Eye Exam: Pupils Equal Ears & Nose Ears & Nose Exam: Nasal Mucosa [place] Throat Throat Exam: Oral Mucosa [place] & Moist Pulmonary Resp Exam: No Distress, Rhonchi, Decreased Bases Cardiology CV Exam: Regular, Normal Sinus Rhythm, Good Perfusion Gastrointestinal/Abdomen GI Exam: Soft, Non-Tender, Bowel Sounds Present, Positive Bowel Movement Musculoskeletal MS Exam: Joints Intact, Normal Tone Integumentary Skin Exam: Warm, Dry Extremeties Extremities Exam: No Edema, Pedal Pulses Palpable Neurologic Neuro Exam: Alert, Awake, Oriented, Speech Clear, Moving All Extremities Psychiatric Psych Exam: Appropriate Responses Assessment/Plan Discussed Condition With: Patient Assessment Summary: MYRA/Acute Renal Failure, Hypertension, CKD Stage III Problem List: (1) Acute kidney injury Plan: Non oliguric renal failure, MYRA likely be due to NSTEMI; of note he was exposed to IV contrast on 05/20 Renal function improved, he is non oliguric monitor electrolytes, replace as needed cr 2.03, some pre renal component encourage PO fluids avoid nephrotoxins (2) Stage 3 chronic kidney disease Plan: baseline creatinine around 2 he has less than one gram proteinuria which may represent underlying diabetic nephropathy l continue to monitor renal function see above (3) NSTEMI (non-ST elevated myocardial infarction) Plan: CABG done (4) Abdominal mass Plan: possible malignancy. GI following US reviewed, to have EGD /colonoscopy after CABG (5) DM (diabetes mellitus) Plan: continue to monitor glucose on Levemir, also SSI (novolog) as needed Marisol Sorto MD May 26, 2016 14:25
--- NOTE | 2016-05-26 15:58 | PD.ID.CON ---
History of Present Illness Service Infectious disease Consult Requested By Reason for Consult Evaluation and management of leukocytosis possible worsening infection, colitis Primary Care Physician Patrick Roman MD Diagnoses: History of Present Illness Mr. Guzman is a 70-year-old male with past medical history significant for coronary artery disease and stent placement who presented to the emergency room on May 15, 2016 for shortness of breath and chest pain and admitted for unstable angina and non-ST elevation ME. Myocardial perfusion scan revealed stress-induced ischemia in the anterior lateral wall distribution and in the septal wall extending to the base with an ejection fraction of 52% a cardiac catheterization revealed left main disease 80% stenosis, LAD with diffuse disease 70% throughout. Cardiothoracic surgery was consulted for multivessel disease and evaluation of coronary artery bypass graft. Patient also complained of some lower abdominal pain in the CT abdomen and on 2016 showed an abnormal soft tissue density involving the midportion of the descending colon with inflammation changes extending to the peritoneal wall. There was no abscess noted. There were findings that were concerning for neoplasm. GI has evaluated the patient and at presentation is being treated for colitis as patient cannot undergo any scope these including colonoscopy or flex sigmoidoscopy as patient is not a good candidate at the present time for anesthesia. Patient underwent CABG and post CABG his WBC rising. Patient has remained on Cipro and Flagyl for presumptive treatment of colitis. At the time of my evaluation patient is actually constipated and has received some bowel regimen postsurgery. He denies any nausea vomiting or abdominal pain. He denies chest pain other than local pain at surgical site. Nurses report that she was progressing fairly well participating in incentive spirometry. Patient does have a central line in place which likely will be removed in a.m. Infectious disease is consulted for evaluation and management of leukocytosis possible worsening infection versus colitis despite being on antibiotics. Review of Systems Constitutional: DENIES: Diaphoretic episodes, Fatigue, Fever, Weight gain, Weight loss, Chills, Dizziness, Change in appetite, Night Sweats Respiratory: DENIES: Apneas, Cough, Snoring, Wheezing, Hemoptysis, Sputum production, Shortness of breath Cardiovascular: DENIES: Chest pain, Palpitations, Syncope, Dyspnea on Exertion , PND, Lower Extremity Edema, Orthopnea, Claudication Gastrointestinal: DENIES: Abdominal pain, Black stools, Bloody stools, Constipation, Diarrhea, Nausea, Vomiting, Difficulty Swallowing, Anorexia Genitourinary: DENIES: Sexual dysfunction, Urinary frequency, Urinary incontinence, Urgency, Hematuria, Dysuria, Nocturia, Penile Discharge, Testicular Pain, Testicular Swelling Musculoskeletal: DENIES: Joint pain, Muscle aches, Stiffness, Joint Swelling, Back pain, Neck pain Integumentary: DENIES: Abnormal pigmentation, Nail changes, Pruritus, Rash Hematologic/lymphatic: DENIES: Bruising, Lymphadenopathy Neurologic: DENIES: Abnormal gait, Headache, Localized weakness, Paresthesias, Seizures, Speech Problems, Tremor, Poor Balance Psychiatric: DENIES: Anxiety, Confusion, Mood changes, Depression, Hallucinations, Agitation, Suicidal Ideation, Homicidal Ideation, Delusions Except as stated in HPI: all other systems reviewed are Neg Past Family Social History Allergies: Coded Allergies: No Known Allergies (Unverified , 03/31/13) Past Medical History CAD Diabetes mellitus Chronic renal insufficiency Hypertension Hyperlipidemia Past Surgical History Cardiac catheterization with stent placement Colonoscopy CABG this admission Reported Medications Reported Meds & Active Scripts Active Reported Lantus Inj (Insulin Glargine) 100 Unit/Ml Inj 100 Units SQ HS Allopurinol 100 Mg Tab 100 Mg PO DAILY Metformin (Metformin HCl) 500 Mg Tab 500 Mg PO DAILY With a meal Coreg (Carvedilol) 25 Mg Tab 25 Mg PO BID Glipizide 5 Mg Tab 5 Mg PO DAILY Take 30 minutes before a meal Gabapentin 300 Mg Cap 300 Mg PO HS Lisinopril 40 Mg Tab 40 Mg PO DAILY Active Ordered Medications Current Medications Medications (Trade) Dose Ordered Sig/Avinash Route Start Time Stop Time Status Last Admin (NS 1000 ml Inj) 1,000 ml @ 75 mls/hr [id number] IV 05/15/16 17:00 05/24/16 14:29 (Zyloprim) 100 mg DAILY PO 05/16/16 09:00 05/26/16 08:48 (Neurontin) 300 mg HS PO 05/15/16 21:00 05/25/16 20:46 (Ecotrin Ec) 162 mg DAILY PO 05/16/16 09:00 05/26/16 08:47 Diphenoxylate HCl/ Atropine 1 tab 1 tab Q6H PRN PO 05/19/16 15:30 Ciprofloxacin/ Dextrose 200 ml @ 200 mls/hr Q24H IV 05/20/16 14:00 05/26/16 14:24 (Flagyl 500 Mg Inj) 100 ml @ 100 mls/hr Q8H IV 05/20/16 13:00 05/26/16 13:24 (Colace) 100 mg BID PO 05/22/16 21:00 Hold 05/23/16 08:38 (Senokot) 17.2 mg DAILY PO 05/22/16 14:00 Hold 05/23/16 08:38 (NS Flush) 2 ml BID IV FLUSH 05/24/16 21:00 05/26/16 08:49 (NS Flush) 2 ml UNSCH PRN IV FLUSH 05/24/16 11:15 (Protonix) 40 mg DAILY@06 PO 05/25/16 06:00 05/26/16 06:11 (Cordarone) 400 mg Q8HR PO 05/24/16 14:00 05/26/16 14:24 (Tylenol) 650 mg Q4H PRN PO 05/24/16 11:15 (Tylenol Supp) 650 mg Q4H PRN RECTAL 05/24/16 11:15 (Percocet 5-325 Mg) 1 tab Q3H PRN PO 05/24/16 11:15 05/26/16 08:48 (fentaNYL INJ) 25 mcg Q1H PRN IV 05/24/16 11:15 05/24/16 17:07 (Zofran Inj) 4 mg Q6H PRN IV PUSH 05/24/16 11:15 (Apresoline Inj) 10 mg Q4H PRN IV 05/24/16 11:15 Metoprolol Tartrate 2.5 mg 2.5 mg Q1H PRN IV PUSH 05/24/16 11:15 Potassium Chloride 100 ml @ 50 mls/hr UNSCH PRN IV 05/24/16 11:15 Potassium Chloride 100 ml @ 50 mls/hr UNSCH PRN IV 05/24/16 11:15 Potassium Chloride 100 ml @ 50 mls/hr UNSCH PRN IV 05/24/16 11:15 Magnesium Sulfate 2 gm/Sodium Chloride 104 ml @ 100 mls/hr UNSCH PRN IV 05/24/16 11:15 Magnesium Sulfate 2 gm/Sodium Chloride 104 ml @ 50 mls/hr UNSCH PRN IV 05/24/16 11:15 (Calcium Chloride Inj/NS Inj) 110 ml @ 100 mls/hr UNSCH PRN IV 05/24/16 11:15 05/24/16 11:59 Calcium Chloride 0.5 gm 0.5 gm UNSCH PRN IV 05/24/16 11:15 (NovoLIN R (IV INFUSION)/NS Inj) 100 ml @ 0 mls/hr TITRATE IV 05/24/16 11:15 (Lipitor) 80 mg HS PO 05/24/16 21:00 05/25/16 20:47 (Colace) 100 mg BID PO 05/25/16 21:00 05/26/16 08:48 (Theragran M Tab) 1 tab DAILY PO 05/26/16 09:00 05/26/16 08:48 (Milk Of Magnesia Liq) 30 ml DAILY PO 05/26/16 09:00 05/26/16 08:47 (Miralax) 17 gm DAILY PO 05/26/16 09:00 05/26/16 08:47 (Senokot) 8.6 mg HS PO 05/25/16 21:00 05/25/16 20:46 (D50w (Vial) Inj) 25 ml UNSCH PRN IV 05/25/16 09:30 (Glucagon Inj) 1 mg UNSCH PRN OTHER 05/25/16 09:30 (Lopressor) 25 mg Q12HR PO 05/26/16 21:00 (Benadryl) 50 mg HS PRN PO 05/26/16 21:00 (NovoLOG SUPPLEMENTAL SCALE) 1 ACHS SQ 05/26/16 16:00 05/26/16 16:14 Family History Heart disease in father and mother. Both parents from lung cancer. Social History Does not use tobacco, etoh, illicit drug use. Physical Exam Vital Signs Vital Signs Date Time Temp Pulse Resp B/P Pulse Ox O2 Delivery O2 Flow Rate FiO2 05/26/16 15:00 69 05/26/16 15:00 99 Nasal Cannula 2.00 05/26/16 15:00 98.2 69 20 116/63 99 05/26/16 14:00 66 05/26/16 13:00 76 05/26/16 12:00 70 05/26/16 11:00 98.3 79 20 107/60 92 05/26/16 11:00 92 Nasal Cannula 2.00 05/26/16 11:00 91 05/26/16 10:00 68 05/26/16 09:00 83 05/26/16 08:49 97 Nasal Cannula 2.00 05/26/16 08:00 93 Room Air 05/26/16 08:00 77 05/26/16 07:00 98.0 80 16 129/69 93 05/26/16 07:00 80 05/26/16 06:00 72 05/26/16 05:00 84 05/26/16 04:00 77 05/26/16 03:00 98 Nasal Cannula 2.00 05/26/16 03:00 68 05/26/16 03:00 97.4 71 18 130/62 97 05/26/16 02:00 82 05/26/16 01:00 69 05/26/16 00:00 98 Nasal Cannula 2.00 05/26/16 00:00 64 05/25/16 23:00 69 05/25/16 23:00 98.4 68 18 121/64 98 05/25/16 22:00 73 05/25/16 21:00 74 05/25/16 20:21 95 Nasal Cannula 2.00 05/25/16 20:00 83 05/25/16 20:00 99 Nasal Cannula 2.00 05/25/16 19:15 98.0 77 18 129/74 99 05/25/16 19:15 75 05/25/16 17:13 97.7 80 20 130/72 100 05/25/16 16:00 100 Nasal Cannula 2.00 Physical Exam GENERAL: This is a well-nourished, well-developed patient, in no apparent distress. SKIN: No rashes, ecchymoses or lesions. Cool and dry. HEAD: Atraumatic. Normocephalic. No temporal or scalp tenderness. EYES: Pupils equal round and reactive. Extraocular motions intact. No scleral icterus. No injection or drainage. ENT: Nose without bleeding, purulent drainage or septal hematoma. Throat without erythema, tonsillar hypertrophy or exudate. Uvula midline. Airway patent. NECK: Trachea midline. Supple, nontender, no meningeal signs. CARDIOVASCULAR: Heart sounds audible. No murmur appreciated. Surgical site okay. RESPIRATORY: Clear to auscultation. Breath sounds equal bilaterally. GASTROINTESTINAL: Abdomen soft, non-tender, nondistended. MUSCULOSKELETAL: Extremities without clubbing, cyanosis, or edema. No joint tenderness, effusion, or edema noted. No calf tenderness. Negative Homans sign bilaterally. NEUROLOGICAL: Awake and alert. Grossly nonfocal Psych cooperative IV line sites with no evidence of infection. Central line site with no evidence of infection. Laboratory Laboratory Tests Test 05/26/16 03:40 White Blood Count 23.0 Red Blood Count 3.00 Hemoglobin 8.2 Hematocrit 25.2 Mean Corpuscular Volume 84.0 Mean Corpuscular Hemoglobin 27.5 Mean Corpuscular Hemoglobin 32.7 Concent Red Cell Distribution Width 15.9 Platelet Count 425 Mean Platelet Volume 8.9 Neutrophils (%) (Auto) 84.7 Lymphocytes (%) (Auto) 8.4 Monocytes (%) (Auto) 5.8 Eosinophils (%) (Auto) 0.7 Basophils (%) (Auto) 0.4 Neutrophils # (Auto) 19.5 Lymphocytes # (Auto) 1.9 Monocytes # (Auto) 1.3 Eosinophils # (Auto) 0.2 Basophils # (Auto) 0.1 CBC Comment AUTO DIFF Differential Total Cells 100 Counted Neutrophils % (Manual) 78 Band Neutrophils % 5 Lymphocytes % 7 Monocytes % 5 Neutrophils # (Manual) 20.2 Metamyelocytes 4 Myelocytes 1 Differential Comment FINAL DIFF MANUAL Platelet Estimate NORMAL Platelet Morphology Comment NORMAL Polychromasia 2.0 Ovalocytes 1+ Sodium Level 142 Potassium Level 4.3 Chloride Level 108 Carbon Dioxide Level 26.6 Anion Gap 7 Blood Urea Nitrogen 45 Creatinine 2.03 Estimat Glomerular Filtration 33 Rate Random Glucose 145 Calcium Level 8.2 Magnesium Level 2.3 Date/Time Procedure Status Source Growth 05/25/16 11:27 Aerobic Blood Culture - Preliminary Resulted Blood Peripheral NO GROWTH IN 1 DAY 05/25/16 11:27 Anaerobic Blood Culture - Preliminary Resulted Blood Peripheral NO GROWTH IN 1 DAY 05/22/16 11:20 Stool Occult Blood (NAHOMY) - Final Complete Stool Stool HEMOCCULT NEGATIVE Result Diagram: 05/26/16 0340 05/26/16 0340 Imaging Last Impressions Chest X-Ray 05/25/16 0500 Signed Impressions: Service Date/Time: Wednesday, May 25, 2016 03:18 - CONCLUSION: 1. Hypoinflation with left basilar atelectasis 2. There has been no significant change when compared to the prior exam. Jakub Dickson MD Gall Bladder Ultrasound 05/21/16 0000 Signed Impressions: Service Date/Time: Saturday, May 21, 2016 09:44 - CONCLUSION: 1. Cholelithiasis with multiple echogenic gallstones. There is mild wall thickening with no pericholecystic fluid. 2. The common bile duct is mildly prominent at 8 mm with no evidence of choledocholithiasis in the visualized portion. 3. The liver is mildly prominent in size with no focal lesion. Konrad Robbins MD Lower Extremity Ultrasound 05/20/16 Signed Impressions: Service Date/Time: Friday, May 20, 2016 15:10 - CONCLUSION: Venous mapping as described above.. Ramsey Hi MD FACR Carotid Artery Ultrasound 05/20/16 Signed Impressions: Service Date/Time: Friday, May 20, 2016 15:30 - CONCLUSION: Hemodynamically significant left cartoid stenosis. Ramsey Hi MD FACR Abdomen CT 05/19/16 Signed Impressions: Service Date/Time: Thursday, May 19, 2016 23:01 - CONCLUSION: 1. Abnormal soft tissue density involving the midportion of the descending colon with the inflammatory change extending to the peritoneal wall. There is no evidence of abscess. The findings are concerning for neoplasm as no diverticula are seen in the remainder of the colon. Endoscopy is recommended for further evaluation if clinically indicated. 2. Cholelithiasis Jakub Dickson MD ADDENDUM: COMPARISON: CT ABDOMEN & PELVIS W/O CONTRAST, May 15, 2016, 14:43. I reviewed this study and it is the asscending colon just above the cecum which demonstrates the inflammatory change. Not the descending colon. Konrad Robbins MD Myocardial Perfusion Scan Nuc Med 05/17/16 Signed Impressions: Service Date/Time: Tuesday, May 17, 2016 10:41 - CONCLUSION: Redistribution as described above consistent stress-induced ischemia.. RISK CATEGORY: Intermediate (1-3%% Annual Mortality Rate) Ramsey Hi MD FACR Chest CT 05/15/16 Signed Impressions: Service Date/Time: Sunday, May 15, 2016 14:37 - CONCLUSION: 1. Lack of intravenous contrast makes it impossible to exclude a dissection. 2. There is no evidence for pneumothorax. 3. Marked coronary artery calcifications. Ramsey Hi MD FACR Abdomen/Pelvis CT 05/15/16 Signed Impressions: Service Date/Time: Sunday, May 15, 2016 14:43 - CONCLUSION: 1. Marked coronary artery calcifications. 2. I do not see an etiology for the patient's back pain. Ramsey Hi MD FACR Assessment and Plan Assessment and Plan Leukocytosis likely postoperative as WBC started trending up after procedure. Possible infection most likely folliculitis if any Postoperative atelectasis patient is participating in incentive spirometry. Colonic mass possible colitis. Non-ST elevation ME, multivessel coronary artery disease status post coronary artery bypass during this admission. Recommendations: Check pro calcitonin level will help distinguish between infection versus noninfectious causes. Continue ciprofloxacin IV for now. Continue Flagyl IV for now. Follow cultures Follow clinically Discontinue central line as soon as possible reasonable. To change to oral Cipro and Flagyl if patient can tolerate oral. Thank you for the consult will follow the patient along with you. Yanira Mondragon MD May 26, 2016 15:58
[2016-05-26] MEDS ORDERED: diphenhydrAMINE HCL 50 MG CAP PO PRN (21:00)
[2016-05-26] MEDS: SENNOSIDES 8.6 MG TAB PO SCH (21:05)
[2016-05-26] MEDS: ATORVASTATIN 40 MG TAB PO SCH (21:05)
[2016-05-26] MEDS: GABAPENTIN 300 MG CAP PO SCH (21:06)
[2016-05-27] VITALS (27 sets, daily range): BP systolic 102–145; BP diastolic 50–71; PULSE 60–87; RESP 16–25; TEMP 97.4–98.9; O2SAT 90–95
[2016-05-27] MEDS: oxyCODONE/ACETAMINOPHEN 5 MG/325 MG TAB PO PRN (00:30)
[2016-05-27] MEDS: metroNIDAZOLE 500 MG INJ 100 ML IV SCH ×3 (04:03→20:45)
--- NOTE | 2016-05-27 05:11 | RADRPT ---
EXAM DATE/TIME: 05/27/2016 04:04 [facility] COMPARISON: CHEST SINGLE AP, May 25, 2016, 3:18. INDICATIONS : Shortness of breath, possible pulmonary disease. MEDICAL HISTORY : Hypertension. Diabetes mellitus type II. SURGICAL HISTORY : Coronary artery stent. CABG. ENCOUNTER: Subsequent ACUITY: 4 - 6 days PAIN SCORE: Non-responsive. LOCATION: Bilateral chest FINDINGS: The patient is status post sternotomy. The right internal jugular central line is in good position wi th its tip in the SVC. The heart size is normal. Lungs are grossly clear. CONCLUSION: No acute disease. Negrito Mancuso MD on May 27, 2016 at 5:09 Board Certified Radiologist. This report was verified electronically.
[2016-05-27] MEDS: PANTOPRAZOLE SOD 40 MG DELAYED RELEASE TAB PO SCH (06:22)
[2016-05-27] MEDS: AMIODARONE 200 MG TAB PO SCH ×3 (06:22→20:42)
[2016-05-27] MEDS: INSULIN ASPART SUPPLEMENTAL SCALE SQ SCH ×4 (06:29→20:55)
[2016-05-27 08:03] LABS: AUTOMATED NEUTROPHIL # 14.3 TH/MM3 (1.8-7.7); BASOPHIL % 0.3 % (0.0-2.0); EOSINOPHIL # 0.2 TH/MM3 (0-0.4); EOSINOPHIL % 1.3 % (0.0-4.0); LYMPH % 11.2 % (9.0-44.0); MEAN CELL VOLUME 84.7 FL (80.0-100.0); MEAN CORPUSCULAR HEMOGLOBIN 27.4 PG (27.0-34.0); MEAN CORPUSCULAR HGB CONC 32.3 % (32.0-36.0); NEUT % 82.2 % (16.0-70.0); PLATELET COUNT 402 TH/MM3 (150-450); RED BLOOD COUNT 2.95 MIL/MM3 (4.50-5.90); RED CELL DISTRIBUTION WIDTH 16.5 % (11.6-17.2); WHITE BLOOD COUNT 17.4 TH/MM3 (4.0-11.0)
[2016-05-27 08:10] LABS: HEMO FLAGS AUTO DIFF
[2016-05-27] MEDS: ALLOPURINOL 100 MG TAB PO SCH (08:19)
[2016-05-27 08:20] LABS: BICARBONATE 26.4 MEQ/L (21.0-32.0); POTASSIUM 4.7 MEQ/L (3.5-5.1)
[2016-05-27] MEDS: METOPROLOL TARTRATE 25 MG TAB PO SCH ×2 (08:20→20:42)
[2016-05-27] MEDS: SODIUM CHLORIDE 0.9% FLUSH 5 ML FLUSH IV FLUSH SCH ×2 (08:20→20:45)
[2016-05-27] MEDS: DOCUSATE SODIUM 100 MG CAP PO SCH ×2 (08:20→20:50)
[2016-05-27] MEDS: MULTIVITAMINS/MINERALS THERAPEUTIC TAB PO SCH (08:20)
[2016-05-27] MEDS: MAGNESIUM HYDROXIDE SUSP 30 ML CUP PO SCH (08:20)
[2016-05-27] MEDS: ASPIRIN EC 81 MG TABEC PO SCH (08:20)
--- NOTE | 2016-05-27 08:50 | PD.CAR.PN ---
CVT Progress Note CVT: POD #: 3 Subjective/Hospital Course: 70/ male admitted 05/15 for chest pain,-also right upper quadrant abd pain with recent diarrhea and nausea, some loss of appetite, elevated WBC on admission of 21K, neg blood culture, neg UA underwent CT abdomen Abnormal imaging involving descending colon on imaging. Found to have a NSTEMI, + myocardial perfusion scan , underwent cardiac cath by Dr Hickey and found to multi vessel disease, we were consulted to eval for Coronary artery bypass grafting , EF 50% by Echo no valvular disease , CKD MYRA baseline creatinine 2.0 elevated to 4.0 / post IV fluid resuscitation, nephrology following/ now improved to 2.[address] (05/19/16)----> 1. Abnormal soft tissue density involving the midportion of the ascending colon with the inflammatory change extending to the peritoneal wall. There is no evidence of abscess. findings are concerning for neoplasm as no diverticula are seen in the remainder of the colon, Cholelithiasis. GI consulted , per GI suspected colitis. Barium enema would be of little benefit for evaluation Flexible sigmoidoscopy is not an option given the location of the inflammatory change. Not stable for anesthesia per cardiology. for colonoscopy , pt started on Cipro/flagyl cardiology. CDiff negative. Tumor markers unremarkable. Cont. Abx., General surgery consulted , Recommend ABX , EGD/ colonoscopy once cleared by cardiology PMH: CAD/ prior stent , DM , CKD, HTN 05/21 pt still has some mild right right upper quad abd pain , no chest pain, had BM yesterday tentatively scheduled for CABG on monday 05/22 right upper quad pain improving, still has some tenderness WBC count 12, low grade fever last pm,, now resolved f/u CBC in am , continue antibiotics no chest pain 05/23 no further fevers, WBC 13 still has some right upper quad abdominal tenderness with palpation continue antibiotics, pt will still need full colonoscopy and EGD post surgery, with possible pet scan as outpt still scheduled for surgery in am discussed with Dr Jensen 05/25/16 Doing well s/p CABG. No complaints today. 05/26/16 c/o insomnia, uncomfortable sleeping on his back 05/27/16 No complaints today. Doing well Objective: Vital Signs Date Time Temp Pulse Resp B/P Pulse Ox O2 Delivery O2 Flow Rate FiO2 05/27/16 06:50 73 05/27/16 05:04 65 05/27/16 04:09 70 05/27/16 03:59 97.4 67 17 103/56 94 05/27/16 03:50 95 Room Air 05/27/16 03:00 63 05/27/16 02:11 63 05/27/16 01:05 61 05/27/16 00:32 63 05/26/16 23:00 59 05/26/16 23:00 95 Room Air 05/26/16 23:00 98.2 61 102/54 97 05/26/16 22:52 60 05/26/16 21:45 95 Nasal Cannula 1.00 05/26/16 21:00 69 05/26/16 20:00 70 05/26/16 19:15 99 Nasal Cannula 1.00 05/26/16 19:15 98.7 71 17 113/58 99 05/26/16 19:00 66 05/26/16 18:00 79 05/26/16 17:00 80 05/26/16 16:41 73 05/26/16 15:00 69 05/26/16 15:00 99 Nasal Cannula 2.00 05/26/16 15:00 98.2 69 20 116/63 99 05/26/16 14:00 66 05/26/16 13:00 76 05/26/16 12:00 70 05/26/16 11:00 98.3 79 20 107/60 92 05/26/16 11:00 92 Nasal Cannula 2.00 05/26/16 11:00 91 05/26/16 10:00 68 05/26/16 09:00 83 05/26/16 08:49 97 Nasal Cannula 2.00 Result Diagram: 05/26/16 0340 05/26/16 0340 Imaging: Last 24 hours Impressions Chest X-Ray 05/27/16 0600 Signed Impressions: Service Date/Time: Friday, May 27, 2016 04:04 - CONCLUSION: No acute disease. Negrito Mancuso MD Cardiovascular: RRR Telemetry: NSR Pulmonary: CTA GI/: NABS, NT Incision: dry and intact Plan: Continue cipro and flagyl - consider conversion to PO GI eval for colon/gall bladder - will need outpatient appt D/C central line Anticipate d/c tomorrow (1) SIRS (systemic inflammatory response syndrome) Plan: leukocytosis stable probable colitis , receiving cipro and flagyl decreased abd pain, still some tenderness will need close f/u post surgery will need f/u as outpt with general surgery and GI (2) NSTEMI (non-ST elevated myocardial infarction) Plan: ASA, statin , , Heparin gtt scheduled for Coronary artery bypass grafting on friday (3) Renal insufficiency Plan: nephrology following creatinine at baseline avoid nephrotoxins (4) Abdominal mass Plan: GI following, appreciate general surgery consult continue ABX , probable colitis will need colonoscopy and EGD once recovered from CV surgery , tumor markers neg will need f/u with General surgery as outpt for his gallstones (5) Carotid arterial disease Plan: ICA left 241 will need outpt f/u with vascular surgery to monitor pt is asymptomatic Flory Jensen MD May 27, 2016 08:50
[2016-05-27] MEDS: POLYETHYLENE GLYCOL 17 GM PKG PO SCH (09:00)
[2016-05-27 10:12] LABS: BANDS 7 % (0-6); BASOPHILS 2 % (0-2); EOSINOPHILS 1 % (0-4); METAMYELOCYTES 1 % (0-1); MYELOCYTES 3 % (0-0); NEUTROPHIL # MANUAL DIFF 13.9 TH/MM3 (1.8-7.7); POLYS (SEG NEUTROPHILS) 69 % (16-70); WBC DIFF SAMPLE 100
[2016-05-27 10:13] LABS: PLATELET ESTIMATE SMEAR NORMAL (NORMAL); PLATELET MORPHOLOGY NORMAL (NORMAL); SCAN/DIFF FINAL DIFF MANUAL
--- NOTE | 2016-05-27 13:38 | HHI.GIFU ---
Subjective Remarks Resting in bed. Tolerating diet. Has not had the RLQ in several days. + BM earlier today, no blood or mucous. (Isabel Torres) Objective Vitals I&O Vital Signs Date Time Temp Pulse Resp B/P Pulse Ox O2 Delivery O2 Flow Rate FiO2 05/27/16 12:01 67 05/27/16 11:01 92 Room Air 05/27/16 11:01 98.0 66 24 110/56 92 05/27/16 11:00 70 05/27/16 10:51 94 21 05/27/16 10:01 60 05/27/16 09:00 65 05/27/16 08:30 98.3 73 21 128/66 90 05/27/16 08:30 90 Room Air 05/27/16 08:00 75 05/27/16 07:00 72 05/27/16 06:50 73 05/27/16 05:04 65 05/27/16 04:09 70 05/27/16 03:59 97.4 67 17 103/56 94 05/27/16 03:50 95 Room Air 05/27/16 03:00 63 05/27/16 02:11 63 05/27/16 01:05 61 05/27/16 00:32 63 05/26/16 23:00 59 05/26/16 23:00 95 Room Air 05/26/16 23:00 98.2 61 102/54 97 05/26/16 22:52 60 05/26/16 21:45 95 Nasal Cannula 1.00 05/26/16 21:00 69 05/26/16 20:00 70 05/26/16 19:15 99 Nasal Cannula 1.00 05/26/16 19:15 98.7 71 17 113/58 99 05/26/16 19:00 66 05/26/16 18:00 79 05/26/16 17:00 80 05/26/16 16:41 73 05/26/16 15:00 69 05/26/16 15:00 99 Nasal Cannula 2.00 05/26/16 15:00 98.2 69 20 116/63 99 05/26/16 14:00 66 I/O 05/26/16 05/26/16 05/26/16 05/27/16 05/27/16 05/27/16 07:00 15:00 23:00 07:00 15:00 23:00 Intake Total 480 ml 420 ml 560 ml Output Total 700 ml 400 ml 575 ml Balance -220 ml 20 ml -15 ml Intake Oral 480 ml 120 ml 360 ml IV Total 300 ml 200 ml Output Urine Total 700 ml 400 ml 575 ml # Bowel Movements 0 0 Laboratory Laboratory Tests Test 05/27/16 07:19 White Blood Count 17.4 Red Blood Count 2.95 Hemoglobin 8.1 Hematocrit 25.0 Mean Corpuscular Volume 84.7 Mean Corpuscular Hemoglobin 27.4 Mean Corpuscular Hemoglobin 32.3 Concent Red Cell Distribution Width 16.5 Platelet Count 402 Mean Platelet Volume 8.8 Neutrophils (%) (Auto) 82.2 Lymphocytes (%) (Auto) 11.2 Monocytes (%) (Auto) 5.0 Eosinophils (%) (Auto) 1.3 Basophils (%) (Auto) 0.3 Neutrophils # (Auto) 14.3 Lymphocytes # (Auto) 2.0 Monocytes # (Auto) 0.9 Eosinophils # (Auto) 0.2 Basophils # (Auto) 0.0 CBC Comment AUTO DIFF Differential Total Cells 100 Counted Neutrophils % (Manual) 69 Band Neutrophils % 7 Lymphocytes % 12 Monocytes % 5 Eosinophils % 1 Basophils % 2 Neutrophils # (Manual) 13.9 Metamyelocytes 1 Myelocytes 3 Differential Comment FINAL DIFF MANUAL Platelet Estimate NORMAL Platelet Morphology Comment NORMAL Polychromasia 2.0 Sodium Level 141 Potassium Level 4.7 Chloride Level 108 Carbon Dioxide Level 26.4 Anion Gap 7 Blood Urea Nitrogen 43 Creatinine 1.83 Estimat Glomerular Filtration 37 Rate Random Glucose 174 Calcium Level 8.0 Date/Time Procedure Status Source Growth 05/25/16 11:27 Aerobic Blood Culture - Preliminary Resulted Blood Peripheral NO GROWTH IN 2 DAYS 05/25/16 11:27 Anaerobic Blood Culture - Preliminary Resulted Blood Peripheral NO GROWTH IN 2 DAYS Imaging Last Impressions Chest X-Ray 05/27/16 0600 Signed Impressions: Service Date/Time: Friday, May 27, 2016 04:04 - CONCLUSION: No acute disease. Negrito Mancuso MD Gall Bladder Ultrasound 05/21/16 0000 Signed Impressions: Service Date/Time: Saturday, May 21, 2016 09:44 - CONCLUSION: 1. Cholelithiasis with multiple echogenic gallstones. There is mild wall thickening with no pericholecystic fluid. 2. The common bile duct is mildly prominent at 8 mm with no evidence of choledocholithiasis in the visualized portion. 3. The liver is mildly prominent in size with no focal lesion. Konrad Robbins MD Lower Extremity Ultrasound 05/20/16 0000 Signed Impressions: Service Date/Time: Friday, May 20, 2016 15:10 - CONCLUSION: Venous mapping as described above.. Ramsey Hi MD FACR Carotid Artery Ultrasound 05/20/16 Signed Impressions: Service Date/Time: Friday, May 20, 2016 15:30 - CONCLUSION: Hemodynamically significant left cartoid stenosis. Ramsey Hi MD FACR Abdomen CT 05/19/16 Signed Impressions: Service Date/Time: Thursday, May 19, 2016 23:01 - CONCLUSION: 1. Abnormal soft tissue density involving the midportion of the descending colon with the inflammatory change extending to the peritoneal wall. There is no evidence of abscess. The findings are concerning for neoplasm as no diverticula are seen in the remainder of the colon. Endoscopy is recommended for further evaluation if clinically indicated. 2. Cholelithiasis Jakub Dickson MD ADDENDUM: COMPARISON: CT ABDOMEN & PELVIS W/O CONTRAST, May 15, 2016, 14:43. I reviewed this study and it is the asscending colon just above the cecum which demonstrates the inflammatory change. Not the descending colon. Konrad Robbins MD Myocardial Perfusion Scan Nuc Med 05/17/16 Signed Impressions: Service Date/Time: Tuesday, May 17, 2016 10:41 - CONCLUSION: Redistribution as described above consistent stress-induced ischemia.. RISK CATEGORY: Intermediate (1-3%% Annual Mortality Rate) Ramsey Hi MD FACR Chest CT 05/15/16 Signed Impressions: Service Date/Time: Sunday, May 15, 2016 14:37 - CONCLUSION: 1. Lack of intravenous contrast makes it impossible to exclude a dissection. 2. There is no evidence for pneumothorax. 3. Marked coronary artery calcifications. Ramsey Hi MD FACR Abdomen/Pelvis CT 05/15/16 Signed Impressions: Service Date/Time: Sunday, May 15, 2016 14:43 - CONCLUSION: 1. Marked coronary artery calcifications. 2. I do not see an etiology for the patient's back pain. Ramsey Hi MD FACR Physical Exam HEENT: Normocephalic; atraumatic; no jaundice. Throat is clear. NECK: Neck is supple, no JVD, no lymphadenopathy. CHEST: CTA, wound vac to sternum CARDIAC: RRR ABDOMEN: Soft, nondistended, nontender today; no hepatosplenomegaly; bowel sounds are present in all four quadrants. EXTREMITIES: No clubbing, cyanosis, or edema. SKIN: Normal; no rash; no jaundice. 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 Abdomen CT (05/19/16)----> 1. Abnormal soft tissue density involving the midportion of the descending colon with the inflammatory change extending to the peritoneal wall. There is no evidence of abscess. The findings are concerning for neoplasm as no diverticula are seen in the remainder of the colon. Endoscopy is recommended for further evaluation if clinically indicated. 2. Cholelithiasis. Of note, his prior Abdomen/Pelvis CT( 05/15/16)----> 1. Marked coronary artery calcifications. 2. I do not see an etiology for the patient's back pain. GI was consulted for further evaluation of abnormal findings regarding the soft tissue density involving the descending colon prior to having surgery scheduled. Neither of these were contrasted secondary to MYRA with elevated creat. Last colonoscopy was 6-7 years ago and that he had several benign polyps removed. (+) Decreased appetite, but has only lost 2-3 lbs; lower abdominal pain, improved. Of note, patient had CT abd/pelvis on 05/15 and it did not appreciate these changes to the descending colon. Discussed with Dr. Robbins- the inflammatory change is actually in the ascending colon just above the cecum, not the descending and he will add addendum to report. Barium enema would be of little benefit for evaluation of this suspected colitis. Flexible sigmoidoscopy is not an option given the location of the inflammatory change. Not stable for anesthesia per cardiology. Will cont. Cipro/flagyl and hold off on sigmoidoscopy/barium enema. Likely colitis. CDiff negative. Tumor markers unremarkable. Cont. Abx for total of 10 days. Monitor WBC and clinical status. Clinically he is much improved and has not had abdominal pain in 2 days. WBC improved, WBC 17.4. Flagyl/Cipro. - Multivessel CAD. Myocardial perfusion scan revealed stress-induced ischemia in the anterior lateral wall redistribution in the septal wall extending to the base with EF of 53%. Cardiac catheterization with multivessel cad as above. S/P CABG. Per cardiology - Anemia. 8.1/25.0 - Leukocytosis. 17.4 - MYRA, CAD, DM, HTN, Hyperlipidemia per primary PLAN: - Diet per cardiology - Cipro/Flagyl for 10 days total - PPI - Monitor HH - Transfuse as necessary - Tumor markers unremarkable. - S/p GS evaluation - If worsening abdominal pain or leukocytosis, consider repeat CT scan - EGD/Colonoscopy as outpatient once stable from cardiac standpoint - Further recommendations to follow based on results of above - Pt seen and examined by Dr. Suero and myself and this note is written on his behalf (Isabel Torres) Physician Comments patient was seen and examined, agree with above note, colon EGD as outpatient, we will see him as needed. (Moy Suero MD) Isabel Torres May 27, 2016 13:38 Moy Suero MD May 27, 2016 19:18
--- NOTE | 2016-05-27 14:26 | HHI.PR ---
Subjective Remarks pt reported feeling better , no abd pain , f/c , no diarrhea he was afebrile over night Objective Vitals Vital Signs Date Time Temp Pulse Resp B/P Pulse Ox O2 Delivery O2 Flow Rate FiO2 05/27/16 12:01 67 05/27/16 11:01 92 Room Air 05/27/16 11:01 98.0 66 24 110/56 92 05/27/16 11:00 70 05/27/16 10:51 94 21 05/27/16 10:01 60 05/27/16 09:00 65 05/27/16 08:30 98.3 73 21 128/66 90 05/27/16 08:30 90 Room Air 05/27/16 08:00 75 05/27/16 07:00 72 05/27/16 06:50 73 05/27/16 05:04 65 05/27/16 04:09 70 05/27/16 03:59 97.4 67 17 103/56 94 05/27/16 03:50 95 Room Air 05/27/16 03:00 63 05/27/16 02:11 63 05/27/16 01:05 61 05/27/16 00:32 63 05/26/16 23:00 59 05/26/16 23:00 95 Room Air 05/26/16 23:00 98.2 61 102/54 97 05/26/16 22:52 60 05/26/16 21:45 95 Nasal Cannula 1.00 05/26/16 21:00 69 05/26/16 20:00 70 05/26/16 19:15 99 Nasal Cannula 1.00 05/26/16 19:15 98.7 71 17 113/58 99 05/26/16 19:00 66 05/26/16 18:00 79 05/26/16 17:00 80 05/26/16 16:41 73 05/26/16 15:00 69 05/26/16 15:00 99 Nasal Cannula 2.00 05/26/16 15:00 98.2 69 20 116/63 99 I/O 05/26/16 05/26/16 05/26/16 05/27/16 05/27/16 05/27/16 07:00 15:00 23:00 07:00 15:00 23:00 Intake Total 480 ml 420 ml 560 ml Output Total 700 ml 400 ml 575 ml Balance -220 ml 20 ml -15 ml Intake Oral 480 ml 120 ml 360 ml IV Total 300 ml 200 ml Output Urine Total 700 ml 400 ml 575 ml # Bowel Movements 0 0 Result Diagram: 05/27/1671805/27/16718 Objective Remarks GENERAL: This is a well-nourished, well-developed patient, in no apparent distress. SKIN: dry, cool HEENT: NC, AT. CARDIOVASCULAR: Regular rate and regular rhythm without murmurs, gallops, or rubs. RESPIRATORY: AARON. Breath sounds equal bilaterally. No wheezes, rales, or rhonchi. GASTROINTESTINAL: Abdomen soft, tender to palpation on the right side, nondistended. Normoactive bowel sounds. MUSCULOSKELETAL: Chest tube and wound vac in place. Extremities without clubbing , cyanosis, or edema. NEURO: Alert & Oriented x4 to person, place, time, situation. Moves all ext x4. PSYCH: Mood and affect appropriate. Procedures CABG 05/24 A/P Problem List: (1) NSTEMI (non-ST elevated myocardial infarction) ICD Code: I21.4 Status: Acute (2) SIRS (systemic inflammatory response syndrome) ICD Code: R65.10 Status: Acute Assessment and Plan 05/25: Worsening leukocytosis 26K, with recent hypothermia>>mostly reactive post op , but due to intra abd infx , i will send for blood culture/ last one from was negative, 05/26: WBC dropped to 23K, patient denied abdominal pain, no nausea or vomiting no bowel movement yet but he is about to get one, repeat CBC in a.m., ID to see patient ordered pro-calcitonin 05/27: WBC still trending down 17 K today mostly postop reaction, appreciate ID consultation, will follow along with ID and [facility], appreciate GI help, plan for EGD and colonoscopy once stable as an outpatient A/P: SIRS with suspected intra-abdominal source Blood cultures negative to date. C. difficile negative. CT abdomen: Abnormal soft tissue density involving the midportion of the descending colon with the inflammatory change extending to the peritoneal wall; There is no evidence of abscess; The findings are concerning for neoplasm as no diverticula are seen in the remainder of the colon; Endoscopy is recommended for further evaluation if clinically indicated. GI and surgical consults appreciated. - add Tadeon, ID consult, blood culture -On Cipro and Flagyl. - PPI. - pain control as needed. NSTEMI with history of CAD and stent placement Started on heparin and nitro drips. Cardiology consult appreciated. S/p cath with multivessel CAD including left main. CTS surgery was consulted. S/p CABG 05/24. - continue cardiac regimen. - management per CT surgery. - IS, oxygen and nebs as needed. - PT. - follow CBC and transfuse as needed. Hypertension A line in place following surgery. - resume antihypertensives as appropriate. Diabetes mellitus Glucose has been low at times, including am 05/24. - hold metformin- accu-check with SSI. - resume low acting insulin when appropriate. Acute on chronic kidney disease Appreciate nephrology consult. -monitor BMP and avoid nephrotoxic agents. DVT prophylaxis: Per CTS. Discharge Planning When cleared by ID and [facility] Henrietta Oates MD May 27, 2016 14:26
[2016-05-27] MEDS: CIPROFLOXACIN 400 MG PREMIX 200 ML IV SCH (15:06)
--- NOTE | 2016-05-27 15:30 | PD.CARD.PN ---
Subjective Subjective Remarks No chest pain, no shortness of breath, no abdominal pain Objective Medications Current Medications Medications (Trade) Dose Ordered Sig/Avinash Route Start Time Stop Time Status Last Admin (NS 1000 ml Inj) 1,000 ml @ 75 mls/hr [id number] IV 05/15/16 17:00 05/24/16 14:29 (Zyloprim) 100 mg DAILY PO 05/16/16 09:00 05/27/16 08:19 (Neurontin) 300 mg HS PO 05/15/16 21:00 05/26/16 21:06 (Ecotrin Ec) 162 mg DAILY PO 05/16/16 09:00 05/27/16 08:20 Diphenoxylate HCl/ Atropine 1 tab 1 tab Q6H PRN PO 05/19/16 15:30 Ciprofloxacin/ Dextrose 200 ml @ 200 mls/hr Q24H IV 05/20/16 14:00 05/27/16 15:06 (Flagyl 500 Mg Inj) 100 ml @ 100 mls/hr Q8H IV 05/20/16 13:00 05/27/16 13:14 (Colace) 100 mg BID PO 05/22/16 21:00 Hold 05/23/16 08:38 (Senokot) 17.2 mg DAILY PO 05/22/16 14:00 Hold 05/23/16 08:38 (NS Flush) 2 ml BID IV FLUSH 05/24/16 21:00 05/27/16 08:20 (NS Flush) 2 ml UNSCH PRN IV FLUSH 05/24/16 11:15 (Protonix) 40 mg DAILY@06 PO 05/25/16 06:00 05/27/16 06:22 (Cordarone) 400 mg Q8HR PO 05/24/16 14:00 05/27/16 13:14 (Tylenol) 650 mg Q4H PRN PO 05/24/16 11:15 (Tylenol Supp) 650 mg Q4H PRN RECTAL 05/24/16 11:15 (Percocet 5-325 Mg) 1 tab Q3H PRN PO 05/24/16 11:15 05/27/16 00:30 (fentaNYL INJ) 25 mcg Q1H PRN IV 05/24/16 11:15 05/24/16 17:07 (Zofran Inj) 4 mg Q6H PRN IV PUSH 05/24/16 11:15 (Apresoline Inj) 10 mg Q4H PRN IV 05/24/16 11:15 Metoprolol Tartrate 2.5 mg 2.5 mg Q1H PRN IV PUSH 05/24/16 11:15 Potassium Chloride 100 ml @ 50 mls/hr UNSCH PRN IV 05/24/16 11:15 Potassium Chloride 100 ml @ 50 mls/hr UNSCH PRN IV 05/24/16 11:15 Potassium Chloride 100 ml @ 50 mls/hr UNSCH PRN IV 05/24/16 11:15 Magnesium Sulfate 2 gm/Sodium Chloride 104 ml @ 100 mls/hr UNSCH PRN IV 05/24/16 11:15 Magnesium Sulfate 2 gm/Sodium Chloride 104 ml @ 50 mls/hr UNSCH PRN IV 05/24/16 11:15 (Calcium Chloride Inj/NS Inj) 110 ml @ 100 mls/hr UNSCH PRN IV 05/24/16 11:15 05/24/16 11:59 Calcium Chloride 0.5 gm 0.5 gm UNSCH PRN IV 05/24/16 11:15 (NovoLIN R (IV INFUSION)/NS Inj) 100 ml @ 0 mls/hr TITRATE IV 05/24/16 11:15 (Lipitor) 80 mg HS PO 05/24/16 21:00 05/26/16 21:05 (Colace) 100 mg BID PO 05/25/16 21:00 05/27/16 08:20 (Theragran M Tab) 1 tab DAILY PO 05/26/16 09:00 05/27/16 08:20 (Milk Of Magnesia Liq) 30 ml DAILY PO 05/26/16 09:00 05/27/16 08:20 (Miralax) 17 gm DAILY PO 05/26/16 09:00 05/26/16 08:47 (Senokot) 8.6 mg HS PO 05/25/16 21:00 05/26/16 21:05 (D50w (Vial) Inj) 25 ml UNSCH PRN IV 05/25/16 09:30 (Glucagon Inj) 1 mg UNSCH PRN OTHER 05/25/16 09:30 (Lopressor) 25 mg Q12HR PO 05/26/16 21:00 05/27/16 08:20 (Benadryl) 50 mg HS PRN PO 05/26/16 21:00 (NovoLOG SUPPLEMENTAL SCALE) 1 ACHS SQ 05/26/16 16:00 05/27/16 11:32 Vital Signs / I&O Vital Signs Date Time Temp Pulse Resp B/P Pulse Ox O2 Delivery O2 Flow Rate FiO2 05/27/16 12:01 67 05/27/16 11:01 92 Room Air 05/27/16 11:01 98.0 66 24 110/56 92 05/27/16 11:00 70 05/27/16 10:51 94 21 05/27/16 10:01 60 05/27/16 09:00 65 05/27/16 08:30 98.3 73 21 128/66 90 05/27/16 08:30 90 Room Air 05/27/16 08:00 75 05/27/16 07:00 72 05/27/16 06:50 73 05/27/16 05:04 65 05/27/16 04:09 70 05/27/16 03:59 97.4 67 17 103/56 94 05/27/16 03:50 95 Room Air 05/27/16 03:00 63 05/27/16 02:11 63 05/27/16 01:05 61 05/27/16 00:32 63 05/26/16 23:00 59 05/26/16 23:00 95 Room Air 05/26/16 23:00 98.2 61 102/54 97 05/26/16 22:52 60 05/26/16 21:45 95 Nasal Cannula 1.00 05/26/16 21:00 69 05/26/16 20:00 70 05/26/16 19:15 99 Nasal Cannula 1.00 05/26/16 19:15 98.7 71 17 113/58 99 05/26/16 19:00 66 05/26/16 18:00 79 05/26/16 17:00 80 05/26/16 16:41 73 I/O 05/26/16 05/26/16 05/26/16 05/27/16 05/27/16 05/27/16 07:00 15:00 23:00 07:00 15:00 23:00 Intake Total 480 ml 420 ml 560 ml Output Total 700 ml 400 ml 575 ml Balance -220 ml 20 ml -15 ml Intake Oral 480 ml 120 ml 360 ml IV Total 300 ml 200 ml Output Urine Total 700 ml 400 ml 575 ml # Bowel Movements 0 0 Physical Exam GENERAL: NAD, AAOx3 SKIN: Warm and dry. HEAD: Atraumatic. Normocephalic. EYES: Pupils equal and round. No scleral icterus. No injection or drainage. ENT: No nasal bleeding or discharge. Mucous membranes pink and moist. NECK: Trachea midline. No JVD. CARDIOVASCULAR: Regular rate and rhythm. Sternotomy C/D/I RESPIRATORY: No accessory muscle use. CTA B/L GASTROINTESTINAL: Abdomen soft, no pain with palpitation of the right side, nondistended. Hepatic and splenic margins not palpable. No guarding MUSCULOSKELETAL: Extremities without clubbing, cyanosis, or edema. No obvious deformities. Right groin no hematoma/bruit, distal pulses intact NEUROLOGICAL: Awake and alert. No obvious cranial nerve deficits. Motor grossly within normal limits. Five out of 5 muscle strength in the arms and legs. Normal speech. PSYCHIATRIC: Appropriate mood and affect; insight and judgment normal. Laboratory Laboratory Tests Test 05/27/16 07:19 White Blood Count 17.4 TH/MM3 Red Blood Count 2.95 MIL/MM3 Hemoglobin 8.1 GM/DL Hematocrit 25.0 % Mean Corpuscular Volume 84.7 FL Mean Corpuscular Hemoglobin 27.4 PG Mean Corpuscular Hemoglobin 32.3 % Concent Red Cell Distribution Width 16.5 % Platelet Count 402 TH/MM3 Mean Platelet Volume 8.8 FL Neutrophils (%) (Auto) 82.2 % Lymphocytes (%) (Auto) 11.2 % Monocytes (%) (Auto) 5.0 % Eosinophils (%) (Auto) 1.3 % Basophils (%) (Auto) 0.3 % Neutrophils # (Auto) 14.3 TH/MM3 Lymphocytes # (Auto) 2.0 TH/MM3 Monocytes # (Auto) 0.9 TH/MM3 Eosinophils # (Auto) 0.2 TH/MM3 Basophils # (Auto) 0.0 TH/MM3 CBC Comment AUTO DIFF Differential Total Cells 100 Counted Neutrophils % (Manual) 69 % Band Neutrophils % 7 % Lymphocytes % 12 % Monocytes % 5 % Eosinophils % 1 % Basophils % 2 % Neutrophils # (Manual) 13.9 TH/MM3 Metamyelocytes 1 % Myelocytes 3 % Differential Comment FINAL DIFF MANUAL Platelet Estimate NORMAL Platelet Morphology Comment NORMAL Polychromasia 2.0 % Sodium Level 141 MEQ/L Potassium Level 4.7 MEQ/L Chloride Level 108 MEQ/L Carbon Dioxide Level 26.4 MEQ/L Anion Gap 7 MEQ/L Blood Urea Nitrogen 43 MG/DL Creatinine 1.83 MG/DL Estimat Glomerular Filtration 37 ML/MIN Rate Random Glucose 174 MG/DL Calcium Level 8.0 MG/DL Assessment and Plan Problem List: (1) SIRS (systemic inflammatory response syndrome) (2) NSTEMI (non-ST elevated myocardial infarction) (3) Renal insufficiency (4) Abdominal mass (5) Carotid arterial disease Assessment and Plan 1) CABG x 2 (GONZALEZ to LAD, SVG to LPDA) POD #3, doing well 2) Abdominal mass vs colitis, plan C-scope after CABG once stable as outpatient 3) ASA/Lopressor/Amio/Statin 4) Left sided carotid disease, follow up with vascular surgery 5) Ambulate as possible 6) IS use Balta Hickey DO May 27, 2016 15:29
--- NOTE | 2016-05-27 17:08 | HHI.NPPN ---
Subjective Complaints: Shortness of Breath General Problems: Hypertension Renal Failure: Chronic Additional Remarks Patient is alert, no SOB, started eating better. Review of Systems General Constitutional: Fatigue Respiratory Lungs: SOB Cardiovascular Cardiac: Chest Pain, OLVERA Cardiac Remarks CP resolved Objective Data Data 05/26/16 05/27/16 19:00 07:00 Intake Total 420 ml 560 ml Output Total 400 ml 575 ml Balance 20 ml -15 ml Intake Oral 120 ml 360 ml IV Total 300 ml 200 ml Output Urine Total 400 ml 575 ml # Bowel Movements 0 Vital Signs Date Time Temp Pulse Resp B/P Pulse Ox O2 Delivery O2 Flow Rate FiO2 05/27/16 15:30 95 Room Air 05/27/16 15:30 98.6 71 24 145/71 95 05/27/16 12:01 67 05/27/16 11:01 92 Room Air 05/27/16 11:01 98.0 66 24 110/56 92 05/27/16 11:00 70 05/27/16 10:51 94 21 05/27/16 10:01 60 05/27/16 09:00 65 05/27/16 08:30 98.3 73 21 128/66 90 05/27/16 08:30 90 Room Air 05/27/16 08:00 75 05/27/16 07:00 72 05/27/16 06:50 73 05/27/16 05:04 65 05/27/16 04:09 70 05/27/16 03:59 97.4 67 17 103/56 94 05/27/16 03:50 95 Room Air 05/27/16 03:00 63 05/27/16 02:11 63 05/27/16 01:05 61 05/27/16 00:32 63 05/26/16 23:00 59 05/26/16 23:00 95 Room Air 05/26/16 23:00 98.2 61 102/54 97 05/26/16 22:52 60 05/26/16 21:45 95 Nasal Cannula 1.00 05/26/16 21:00 69 05/26/16 20:00 70 05/26/16 19:15 99 Nasal Cannula 1.00 05/26/16 19:15 98.7 71 17 113/58 99 05/26/16 19:00 66 05/26/16 18:00 79 -: 05/27/1619 05/27/16 07 Physical Exam General Appearance: No Acute Distress, Comfortable Eyes Eye Exam: Pupils Equal Ears & Nose Ears & Nose Exam: Nasal Mucosa [place] Throat Throat Exam: Oral Mucosa [place] & Moist Pulmonary Resp Exam: No Distress, Rhonchi, Decreased Bases Cardiology CV Exam: Regular, Normal Sinus Rhythm, Good Perfusion Gastrointestinal/Abdomen GI Exam: Soft, Non-Tender, Bowel Sounds Present, Positive Bowel Movement Musculoskeletal MS Exam: Joints Intact, Normal Tone Integumentary Skin Exam: Warm, Dry Extremeties Extremities Exam: Trace Edema Neurologic Neuro Exam: Alert, Awake, Oriented, Speech Clear, Moving All Extremities Psychiatric Psych Exam: Appropriate Responses Assessment/Plan Discussed Condition With: Patient Assessment Summary: MYRA/Acute Renal Failure, Hypertension, CKD Stage III Problem List: (1) Acute kidney injury Plan: Non oliguric renal failure, MYRA likely be due to NSTEMI; of note he was exposed to IV contrast on 05/20 Renal function improved, he is non oliguric. Creatinine is slightly better. Continue gentle hydration, follow urine out put and BMP. (2) Stage 3 chronic kidney disease Plan: baseline creatinine around 2 he has less than one gram proteinuria which may represent underlying diabetic nephropathy l continue to monitor renal function see above (3) NSTEMI (non-ST elevated myocardial infarction) Plan: CABG done (4) Abdominal mass Plan: possible malignancy. GI following US reviewed, to have EGD /colonoscopy after CABG (5) DM (diabetes mellitus) Plan: continue to monitor glucose on Levemir, also SSI (novolog) as needed Problem Qualifiers (1) DM (diabetes mellitus): Analy Mathew MD May 27, 2016 17:08
[2016-05-27] MEDS: ATORVASTATIN 40 MG TAB PO SCH (20:42)
[2016-05-27] MEDS: GABAPENTIN 300 MG CAP PO SCH (20:42)
[2016-05-27] MEDS: SENNOSIDES 8.6 MG TAB PO SCH (20:50)
[2016-05-27] MEDS: SODIUM CHLOR 0.9% 1000 ML INJ 1,000 ML IV SCH (22:20)
[2016-05-28] VITALS (18 sets, daily range): BP systolic 111–129; BP diastolic 57–69; PULSE 62–81; RESP 20–22; TEMP 98.3–98.7; O2SAT 91–95
[2016-05-28] MEDS: metroNIDAZOLE 500 MG INJ 100 ML IV SCH ×2 (04:14→13:37)
[2016-05-28] MEDS: AMIODARONE 200 MG TAB PO SCH (04:15)
[2016-05-28] MEDS: PANTOPRAZOLE SOD 40 MG DELAYED RELEASE TAB PO SCH (04:15)
[2016-05-28 07:55] LABS: AUTOMATED NEUTROPHIL # 12.9 TH/MM3 (1.8-7.7); BASOPHIL # 0.1 TH/MM3 (0-0.2); BASOPHIL % 0.4 % (0.0-2.0); EOSINOPHIL # 0.2 TH/MM3 (0-0.4); EOSINOPHIL % 1.5 % (0.0-4.0); HEMATOCRIT 25.5 % (39.0-51.0); LYMPHOCYTE # 2.1 TH/MM3 (1.0-4.8); MEAN CELL VOLUME 83.9 FL (80.0-100.0); MEAN CORPUSCULAR HEMOGLOBIN 27.8 PG (27.0-34.0); MEAN CORPUSCULAR HGB CONC 33.2 % (32.0-36.0); MONO % 5.9 % (0.0-8.0); NEUT % 79.2 % (16.0-70.0); PLATELET COUNT 469 TH/MM3 (150-450); RED BLOOD COUNT 3.04 MIL/MM3 (4.50-5.90); RED CELL DISTRIBUTION WIDTH 16.4 % (11.6-17.2); WHITE BLOOD COUNT 16.2 TH/MM3 (4.0-11.0)
[2016-05-28 08:02] LABS: HEMO FLAGS AUTO DIFF
[2016-05-28] MEDS: ASPIRIN EC 81 MG TABEC PO SCH (08:29)
[2016-05-28] MEDS: DOCUSATE SODIUM 100 MG CAP PO SCH (08:29)
[2016-05-28] MEDS: MULTIVITAMINS/MINERALS THERAPEUTIC TAB PO SCH (08:29)
[2016-05-28] MEDS: METOPROLOL TARTRATE 25 MG TAB PO SCH (08:29)
[2016-05-28] MEDS: ALLOPURINOL 100 MG TAB PO SCH (08:29)
[2016-05-28] MEDS: SODIUM CHLORIDE 0.9% FLUSH 5 ML FLUSH IV FLUSH SCH (08:30)
--- NOTE | 2016-05-28 08:52 | PD.CARD.PN ---
Subjective Subjective Remarks No chest pain, no shortness of breath, feels better today less depressed Objective Medications Current Medications Medications (Trade) Dose Ordered Sig/Avinash Route Start Time Stop Time Status Last Admin (NS 1000 ml Inj) 1,000 ml @ 75 mls/hr [id number] IV 05/15/16 17:00 05/24/16 14:29 (Zyloprim) 100 mg DAILY PO 05/16/16 09:00 05/28/16 08:29 (Neurontin) 300 mg HS PO 05/15/16 21:00 05/27/16 20:42 (Ecotrin Ec) 162 mg DAILY PO 05/16/16 09:00 05/28/16 08:29 Diphenoxylate HCl/ Atropine 1 tab 1 tab Q6H PRN PO 05/19/16 15:30 05/27/16 20:41 Ciprofloxacin/ Dextrose 200 ml @ 200 mls/hr Q24H IV 05/20/16 14:00 05/27/16 15:06 (Flagyl 500 Mg Inj) 100 ml @ 100 mls/hr Q8H IV 05/20/16 13:00 05/28/16 04:14 (Colace) 100 mg BID PO 05/22/16 21:00 Hold 05/23/16 08:38 (Senokot) 17.2 mg DAILY PO 05/22/16 14:00 Hold 05/23/16 08:38 (NS Flush) 2 ml BID IV FLUSH 05/24/16 21:00 05/28/16 08:30 (NS Flush) 2 ml UNSCH PRN IV FLUSH 05/24/16 11:15 (Protonix) 40 mg DAILY@06 PO 05/25/16 06:00 05/28/16 04:15 (Cordarone) 400 mg Q8HR PO 05/24/16 14:00 05/28/16 04:15 (Tylenol) 650 mg Q4H PRN PO 05/24/16 11:15 (Tylenol Supp) 650 mg Q4H PRN RECTAL 05/24/16 11:15 (Percocet 5-325 Mg) 1 tab Q3H PRN PO 05/24/16 11:15 05/27/16 00:30 (fentaNYL INJ) 25 mcg Q1H PRN IV 05/24/16 11:15 05/24/16 17:07 (Zofran Inj) 4 mg Q6H PRN IV PUSH 05/24/16 11:15 (Apresoline Inj) 10 mg Q4H PRN IV 05/24/16 11:15 Metoprolol Tartrate 2.5 mg 2.5 mg Q1H PRN IV PUSH 05/24/16 11:15 Potassium Chloride 100 ml @ 50 mls/hr UNSCH PRN IV 05/24/16 11:15 Potassium Chloride 100 ml @ 50 mls/hr UNSCH PRN IV 05/24/16 11:15 Potassium Chloride 100 ml @ 50 mls/hr UNSCH PRN IV 05/24/16 11:15 Magnesium Sulfate 2 gm/Sodium Chloride 104 ml @ 100 mls/hr UNSCH PRN IV 05/24/16 11:15 Magnesium Sulfate 2 gm/Sodium Chloride 104 ml @ 50 mls/hr UNSCH PRN IV 05/24/16 11:15 (Calcium Chloride Inj/NS Inj) 110 ml @ 100 mls/hr UNSCH PRN IV 05/24/16 11:15 05/24/16 11:59 Calcium Chloride 0.5 gm 0.5 gm UNSCH PRN IV 05/24/16 11:15 (NovoLIN R (IV INFUSION)/NS Inj) 100 ml @ 0 mls/hr TITRATE IV 05/24/16 11:15 (Lipitor) 80 mg HS PO 05/24/16 21:00 05/27/16 20:42 (Colace) 100 mg BID PO 05/25/16 21:00 05/28/16 08:29 (Theragran M Tab) 1 tab DAILY PO 05/26/16 09:00 05/28/16 08:29 (Milk Of Magnesia Liq) 30 ml DAILY PO 05/26/16 09:00 05/27/16 08:20 (Miralax) 17 gm DAILY PO 05/26/16 09:00 05/26/16 08:47 (Senokot) 8.6 mg HS PO 05/25/16 21:00 05/26/16 21:05 (D50w (Vial) Inj) 25 ml UNSCH PRN IV 05/25/16 09:30 (Glucagon Inj) 1 mg UNSCH PRN OTHER 05/25/16 09:30 (Lopressor) 25 mg Q12HR PO 05/26/16 21:00 05/28/16 08:29 (Benadryl) 50 mg HS PRN PO 05/26/16 21:00 05/27/16 20:42 (NovoLOG SUPPLEMENTAL SCALE) 1 ACHS SQ 05/26/16 16:00 05/27/16 20:55 Vital Signs / I&O Vital Signs Date Time Temp Pulse Resp B/P Pulse Ox O2 Delivery O2 Flow Rate FiO2 05/28/16 06:00 71 05/28/16 05:00 70 05/28/16 03:00 93 Room Air 05/28/16 03:00 98.3 70 20 129/64 93 05/28/16 03:00 69 05/28/16 01:00 68 05/27/16 23:00 98.4 63 25 102/50 94 05/27/16 23:00 Room Air 05/27/16 23:00 77 05/27/16 21:00 63 05/27/16 20:32 21 05/27/16 20:00 68 05/27/16 20:00 98.9 78 16 135/61 94 05/27/16 20:00 Room Air 05/27/16 18:01 70 05/27/16 17:01 77 05/27/16 16:00 71 05/27/16 15:30 95 Room Air 05/27/16 15:30 98.6 71 24 145/71 95 05/27/16 15:00 69 05/27/16 14:00 68 05/27/16 13:00 66 05/27/16 12:01 67 05/27/16 11:01 92 Room Air 05/27/16 11:01 98.0 66 24 110/56 92 05/27/16 11:00 70 05/27/16 10:51 94 21 05/27/16 10:01 60 05/27/16 09:00 65 I/O 05/27/16 05/27/16 05/27/16 05/28/16 05/28/16 05/28/16 07:00 15:00 23:00 07:00 15:00 23:00 Intake Total 560 ml 908 ml 300 ml Output Total 575 ml 1000 ml 400 ml Balance -15 ml -92 ml -100 ml Intake Oral 360 ml 560 ml 200 ml IV Total 200 ml 348 ml 100 ml Output Urine Total 575 ml 1000 ml 400 ml # Voids 5 2 # Bowel Movements 4 0 Physical Exam GENERAL: NAD, AAOx3 SKIN: Warm and dry. HEAD: Atraumatic. Normocephalic. EYES: Pupils equal and round. No scleral icterus. No injection or drainage. ENT: No nasal bleeding or discharge. Mucous membranes pink and moist. NECK: Trachea midline. No JVD. CARDIOVASCULAR: Regular rate and rhythm. Sternotomy C/D/I RESPIRATORY: No accessory muscle use. CTA B/L GASTROINTESTINAL: Abdomen soft, no pain with palpitation of the right side, nondistended. Hepatic and splenic margins not palpable. No guarding MUSCULOSKELETAL: Extremities without clubbing, cyanosis, or edema. No obvious deformities. Right groin no hematoma/bruit, distal pulses intact NEUROLOGICAL: Awake and alert. No obvious cranial nerve deficits. Motor grossly within normal limits. Five out of 5 muscle strength in the arms and legs. Normal speech. PSYCHIATRIC: Appropriate mood and affect; insight and judgment normal. Laboratory Laboratory Tests Test 05/28/16 07:28 White Blood Count 16.2 TH/MM3 Red Blood Count 3.04 MIL/MM3 Hemoglobin 8.4 GM/DL Hematocrit 25.5 % Mean Corpuscular Volume 83.9 FL Mean Corpuscular Hemoglobin 27.8 PG Mean Corpuscular Hemoglobin 33.2 % Concent Red Cell Distribution Width 16.4 % Platelet Count 469 TH/MM3 Mean Platelet Volume 8.4 FL Neutrophils (%) (Auto) 79.2 % Lymphocytes (%) (Auto) 13.0 % Monocytes (%) (Auto) 5.9 % Eosinophils (%) (Auto) 1.5 % Basophils (%) (Auto) 0.4 % Neutrophils # (Auto) 12.9 TH/MM3 Lymphocytes # (Auto) 2.1 TH/MM3 Monocytes # (Auto) 1.0 TH/MM3 Eosinophils # (Auto) 0.2 TH/MM3 Basophils # (Auto) 0.1 TH/MM3 CBC Comment AUTO DIFF Assessment and Plan Problem List: (1) SIRS (systemic inflammatory response syndrome) (2) NSTEMI (non-ST elevated myocardial infarction) (3) Renal insufficiency (4) Abdominal mass (5) Carotid arterial disease Assessment and Plan 1) CABG x 2 (GONZALEZ to LAD, SVG to LPDA) POD #4, doing well.... agree with rehab on discharge 2) Abdominal mass vs colitis, plan C-scope after CABG once stable as outpatient 3) ASA/Lopressor/Amio/Statin 4) Left sided carotid disease, follow up with vascular surgery 5) Ambulate as possible 6) IS use 7) Will see PRN, call with questions Balta Hickey DO May 28, 2016 08:52
[2016-05-28 09:00] LABS: MYELOCYTES 4 % (0-0); NEUTROPHIL # MANUAL DIFF 14.6 TH/MM3 (1.8-7.7); POLYS (SEG NEUTROPHILS) 85 % (16-70); PROMYELOCYTES 1 % (0-0); WBC DIFF SAMPLE 100
[2016-05-28] MEDS: MAGNESIUM HYDROXIDE SUSP 30 ML CUP PO SCH (09:00)
[2016-05-28] MEDS: POLYETHYLENE GLYCOL 17 GM PKG PO SCH (09:00)
[2016-05-28 09:02] LABS: PLATELET ESTIMATE SMEAR HIGH (NORMAL); PLATELET MORPHOLOGY NORMAL (NORMAL); SCAN/DIFF FINAL DIFF MANUAL
[2016-05-28] MEDS ORDERED: OXYC1TAB63 PO (09:12)
[2016-05-28] MEDS ORDERED: LIPI40TA PO (09:12)
[2016-05-28] MEDS ORDERED: ASPI81TA11 PO (09:12)
[2016-05-28] MEDS ORDERED: AMIO200T PO ×2 (09:12→14:59)
[2016-05-28] MEDS ORDERED: LEVEMIR SQ ×2 (09:14→09:16)
[2016-05-28] MEDS ORDERED: NOVOLOGSS SQ (09:18)
[2016-05-28] MEDS ORDERED: METR-1 PO (09:18)
[2016-05-28] MEDS ORDERED: CIPR-9 PO (09:18)
--- NOTE | 2016-05-28 09:52 | HHI.NPPN ---
Subjective Complaints: Shortness of Breath General Problems: Hypertension Renal Failure: Chronic Additional Remarks Patient is alert, no SOB, clinically same. Review of Systems General Constitutional: Fatigue Respiratory Lungs: SOB Cardiovascular Cardiac: Chest Pain, OLVERA Cardiac Remarks CP resolved Objective Data Data 05/27/16 05/28/16 19:00 07:00 Intake Total 708 ml 500 ml Output Total 750 ml 650 ml Balance -42 ml -150 ml Intake Oral 360 ml 400 ml IV Total 348 ml 100 ml Output Urine Total 750 ml 650 ml # Voids 5 2 # Bowel Movements 2 2 Vital Signs Date Time Temp Pulse Resp B/P Pulse Ox O2 Delivery O2 Flow Rate FiO2 05/28/16 08:45 91 Room Air 05/28/16 08:45 98.3 73 20 118/69 91 05/28/16 06:00 71 05/28/16 05:00 70 05/28/16 03:00 93 Room Air 05/28/16 03:00 98.3 70 20 129/64 93 05/28/16 03:00 69 05/28/16 01:00 68 05/27/16 23:00 98.4 63 25 102/50 94 05/27/16 23:00 Room Air 05/27/16 23:00 77 05/27/16 21:00 63 05/27/16 20:32 21 05/27/16 20:00 68 05/27/16 20:00 98.9 78 16 135/61 94 05/27/16 20:00 Room Air 05/27/16 18:01 70 05/27/16 17:01 77 05/27/16 16:00 71 05/27/16 15:30 95 Room Air 05/27/16 15:30 98.6 71 24 145/71 95 05/27/16 15:00 69 05/27/16 14:00 68 05/27/16 13:00 66 05/27/16 12:01 67 05/27/16 11:01 92 Room Air 05/27/16 11:01 98.0 66 24 110/56 92 05/27/16 11:00 70 05/27/16 10:51 94 21 05/27/16 10:01 60 -: 05/28/16 0728 05/27/16 0719 Physical Exam General Appearance: No Acute Distress, Comfortable Eyes Eye Exam: Pupils Equal Ears & Nose Ears & Nose Exam: Nasal Mucosa [place] Throat Throat Exam: Oral Mucosa [place] & Moist Pulmonary Resp Exam: No Distress, Rhonchi, Decreased Bases Cardiology CV Exam: Regular, Normal Sinus Rhythm, Good Perfusion Gastrointestinal/Abdomen GI Exam: Soft, Non-Tender, Bowel Sounds Present, Positive Bowel Movement Musculoskeletal MS Exam: Joints Intact, Normal Tone Integumentary Skin Exam: Warm, Dry Extremeties Extremities Exam: Trace Edema Neurologic Neuro Exam: Alert, Awake, Oriented, Speech Clear, Moving All Extremities Psychiatric Psych Exam: Appropriate Responses Assessment/Plan Discussed Condition With: Patient Assessment Summary: MYRA/Acute Renal Failure, Hypertension, CKD Stage III Problem List: (1) Acute kidney injury Plan: Non oliguric renal failure, MYRA likely be due to NSTEMI; of note he was exposed to IV contrast on 05/20 Renal function improved, he is non oliguric. Creatinine is slightly better. Possible discharge, to follow with PCP. (2) Stage 3 chronic kidney disease Plan: baseline creatinine around 2 he has less than one gram proteinuria which may represent underlying diabetic nephropathy l continue to monitor renal function see above (3) NSTEMI (non-ST elevated myocardial infarction) Plan: CABG done (4) Abdominal mass Plan: possible malignancy. GI following US reviewed, to have EGD /colonoscopy after CABG (5) DM (diabetes mellitus) Plan: continue to monitor glucose on Levemir, also SSI (novolog) as needed Problem Qualifiers (1) DM (diabetes mellitus): Analy Mathew MD May 28, 2016 09:52
[2016-05-28] MEDS ORDERED: INSULIN DETEMIR 100 UNITS/ML VIAL SQ SCH ×2 (10:00)
[2016-05-28] MEDS: INSULIN ASPART SUPPLEMENTAL SCALE SQ SCH ×2 (11:48→16:24)
--- NOTE | 2016-05-28 12:30 | HHI.PR ---
Addendum to Inpatient Note Addendum Reason: Additional Documentation Additional Information Procalcitonin slightly elevated possible mild infection D.w : ok to DC home on Oral cipro and flagyl for 7 more days. Will sign off please call back if any change in clinical condition or questions. Yanira Mondragon MD May 28, 2016 12:30
--- NOTE | 2016-05-28 14:37 | HHI.PR ---
Subjective Remarks Sitting on the chair doing well, stated he had few loose bowel movement but no abdominal pain fever or chills I discussed with date the ID she agree on receding with discharging patient on 7 days of Cipro and Flagyl Objective Vitals Vital Signs Date Time Temp Pulse Resp B/P Pulse Ox O2 Delivery O2 Flow Rate FiO2 05/28/16 12:01 66 05/28/16 11:15 95 Room Air 05/28/16 11:15 98.7 64 22 111/57 95 05/28/16 11:00 65 05/28/16 10:00 62 05/28/16 09:00 81 05/28/16 08:45 91 Room Air 05/28/16 08:45 98.3 73 20 118/69 91 05/28/16 08:00 80 05/28/16 07:00 66 05/28/16 06:00 71 05/28/16 05:00 70 05/28/16 03:00 93 Room Air 05/28/16 03:00 98.3 70 20 129/64 93 05/28/16 03:00 69 05/28/16 01:00 68 05/27/16 23:00 98.4 63 25 102/50 94 05/27/16 23:00 Room Air 05/27/16 23:00 77 05/27/16 21:00 63 05/27/16 20:32 21 05/27/16 20:00 68 05/27/16 20:00 98.9 78 16 135/61 94 05/27/16 20:00 Room Air 05/27/16 18:01 70 05/27/16 17:01 77 05/27/16 16:00 71 05/27/16 15:30 95 Room Air 05/27/16 15:30 98.6 71 24 145/71 95 05/27/16 15:00 69 I/O 05/27/16 05/27/16 05/27/16 05/28/16 05/28/16 05/28/16 07:00 15:00 23:00 07:00 15:00 23:00 Intake Total 560 ml 908 ml 300 ml Output Total 575 ml 1000 ml 400 ml Balance -15 ml -92 ml -100 ml Intake Oral 360 ml 560 ml 200 ml IV Total 200 ml 348 ml 100 ml Output Urine Total 575 ml 1000 ml 400 ml # Voids 5 2 # Bowel Movements 4 0 Result Diagram: 05/28/16 0728 05/27/16 0719 Objective Remarks GENERAL: This is a well-nourished, well-developed patient, in no apparent distress. SKIN: dry, cool HEENT: NC, AT. CARDIOVASCULAR: Regular rate and regular rhythm without murmurs, gallops, or rubs. RESPIRATORY: AARON. Breath sounds equal bilaterally. No wheezes, rales, or rhonchi. GASTROINTESTINAL: Abdomen soft, tender to palpation on the right side, nondistended. Normoactive bowel sounds. MUSCULOSKELETAL: Chest tube and wound vac in place. Extremities without clubbing , cyanosis, or edema. NEURO: Alert & Oriented x4 to person, place, time, situation. Moves all ext x4. PSYCH: Mood and affect appropriate. Procedures CABG 05/24 A/P Problem List: (1) NSTEMI (non-ST elevated myocardial infarction) ICD Code: I21.4 Status: Acute (2) SIRS (systemic inflammatory response syndrome) ICD Code: R65.10 Status: Acute Assessment and Plan 05/25: Worsening leukocytosis 26K, with recent hypothermia>>mostly reactive post op , but due to intra abd infx , i will send for blood culture/ last one from was negative, 05/26: WBC dropped to 23K, patient denied abdominal pain, no nausea or vomiting no bowel movement yet but he is about to get one, repeat CBC in a.m., ID to see patient ordered pro-calcitonin 05/27: WBC still trending down 17 K today mostly postop reaction, appreciate ID consultation, will follow along with ID and [facility], appreciate GI help, plan for EGD and colonoscopy once stable as an outpatient 05/27: WBC dropped to 16 K, discussed with ID she is okay to proceed with discharge on by mouth Cipro and Flagyl, I advised patient to see PCP or come to ED if any abdominal symptoms A/P: SIRS with suspected intra-abdominal source Blood cultures negative to date. C. difficile negative. CT abdomen: Abnormal soft tissue density involving the midportion of the descending colon with the inflammatory change extending to the peritoneal wall; There is no evidence of abscess; The findings are concerning for neoplasm as no diverticula are seen in the remainder of the colon; Endoscopy is recommended for further evaluation if clinically indicated. GI and surgical consults appreciated. - add Zosyn, ID consult, blood culture -On Cipro and Flagyl. - PPI. - pain control as needed. NSTEMI with history of CAD and stent placement Started on heparin and nitro drips. Cardiology consult appreciated. S/p cath with multivessel CAD including left main. CTS surgery was consulted. S/p CABG 05/24. - continue cardiac regimen. - management per CT surgery. - IS, oxygen and nebs as needed. - PT. - follow CBC and transfuse as needed. Hypertension A line in place following surgery. - resume antihypertensives as appropriate. Diabetes mellitus Glucose has been low at times, including am 05/24. - hold metformin- accu-check with SSI. - resume low acting insulin when appropriate. Acute on chronic kidney disease Appreciate nephrology consult. -monitor BMP and avoid nephrotoxic agents. DVT prophylaxis: Per CTS. Discharge Planning Today to [facility] Henrietta Oates MD May 28, 2016 14:37
--- NOTE | 2016-05-28 14:41 | HHI.DS ---
Discharge Summary Admission Date May 15, 2016 at 16:27 Discharge Date: May 28, 2016 Admitting Diagnosis NSTEMI (1) NSTEMI (non-ST elevated myocardial infarction) ICD Code: I21.4 Diagnosis: Principal (2) SIRS (systemic inflammatory response syndrome) ICD Code: R65.10 Diagnosis: Principal Procedures CABG 05/24 Brief History - From Admission patient is a 70 y/o male with history of CAD- s/p stent placement, hypertension , diabetes who presented to ER with chest pain. he says that he started to have chest pain last night when he was sleeping. pain was epigastric/ midsternal with no radiation. pain was associated with mild sob and nausea. he says that he had some relief with the nitro that he received earlier.he denies any emesis , diarrhea, fever, chills, cough or urinary symptoms.the last stress test as he remembers was two years ago. CBC/BMP: 05/28/16 0728 05/27/16 0719 Significant Findings Laboratory Tests Test 05/26/16 05/27/16 05/28/16 03:40 07:19 07:28 White Blood Count 23.0 TH/MM3 17.4 TH/MM3 16.2 TH/MM3 (4.0-11.0) (4.0-11.0) (4.0-11.0) Red Blood Count 3.00 MIL/MM3 2.95 MIL/MM3 3.04 MIL/MM3 (4.50-5.90) (4.50-5.90) (4.50-5.90) Hemoglobin 8.2 GM/DL 8.1 GM/DL 8.4 GM/DL (13.0-17.0) (13.0-17.0) (13.0-17.0) Hematocrit 25.2 % 25.0 % 25.5 % (39.0-51.0) (39.0-51.0) (39.0-51.0) Neutrophils (%) (Auto) 84.7 % 82.2 % 79.2 % (16.0-70.0) (16.0-70.0) (16.0-70.0) Lymphocytes (%) (Auto) 8.4 % (9.0-44.0) Neutrophils # (Auto) 19.5 TH/MM3 14.3 TH/MM3 12.9 TH/MM3 (1.8-7.7) (1.8-7.7) (1.8-7.7) Monocytes # (Auto) 1.3 TH/MM3 1.0 TH/MM3 (0-0.9) (0-0.9) Neutrophils % (Manual) 78 % (16-70) 85 % (16-70) Lymphocytes % 7 % (9-44) 8 % (9-44) Neutrophils # (Manual) 20.2 TH/MM3 13.9 TH/MM3 14.6 TH/MM3 (1.8-7.7) (1.8-7.7) (1.8-7.7) Metamyelocytes 4 % (0-1) Myelocytes 1 % (0-0) 3 % (0-0) 4 % (0-0) Polychromasia 2.0 % (0.0-1.9) 2.0 % (0.0-1.9) Ovalocytes 1+ (NORMAL) Chloride Level 108 MEQ/L 108 MEQ/L (98-107) (98-107) Blood Urea Nitrogen 45 MG/DL (7-18) 43 MG/DL (7-18) Creatinine 2.03 MG/DL 1.83 MG/DL (0.60-1.30) (0.60-1.30) Estimat Glomerular Filtration 33 ML/MIN (>89) 37 ML/MIN (>89) Rate Random Glucose 145 MG/DL 174 MG/DL (74-106) (74-106) Calcium Level 8.2 MG/DL 8.0 MG/DL (8.5-10.1) (8.5-10.1) Procalcitonin 0.70 mg/mL (0.00-0.50) Band Neutrophils % 7 % (0-6) Platelet Count 469 TH/MM3 (150-450) Promyelocytes 1 % (0-0) Platelet Estimate HIGH (NORMAL) PE at Discharge GENERAL: This is a well-nourished, well-developed patient, in no apparent distress. SKIN: dry, cool HEENT: NC, AT. CARDIOVASCULAR: Regular rate and regular rhythm without murmurs, gallops, or rubs. RESPIRATORY: AARON. Breath sounds equal bilaterally. No wheezes, rales, or rhonchi. GASTROINTESTINAL: Abdomen soft, tender to palpation on the right side, nondistended. Normoactive bowel sounds. MUSCULOSKELETAL: Chest tube and wound vac in place. Extremities without clubbing , cyanosis, or edema. NEURO: Alert & Oriented x4 to person, place, time, situation. Moves all ext x4. PSYCH: Mood and affect appropriate. Hospital Course 05/25: Worsening leukocytosis 26K, with recent hypothermia>>mostly reactive post op , but due to intra abd infx , i will send for blood culture/ last one from was negative, 05/26: WBC dropped to 23K, patient denied abdominal pain, no nausea or vomiting no bowel movement yet but he is about to get one, repeat CBC in a.m., ID to see patient ordered pro-calcitonin 05/27: WBC still trending down 17 K today mostly postop reaction, appreciate ID consultation, will follow along with ID and [facility], appreciate GI help, plan for EGD and colonoscopy once stable as an outpatient 05/27: WBC dropped to 16 K, discussed with ID she is okay to proceed with discharge on by mouth Cipro and Flagyl, I advised patient to see PCP or come to ED if any abdominal symptoms 70 years old male admitted with NSTEMI with history of CAD and stent placement Started on heparin and nitro drips. Cardiology consult appreciated. S/p cath with multivessel CAD including left main. CTS surgery was consulted. S/p CABG 05/24. Postop protocol initiated During hospitalization patient had SIRS with suspected intra-abdominal source with increased WBC reached 20 7K Blood cultures negative to date. C. difficile negative. CT abdomen: Abnormal soft tissue density involving the midportion of the descending colon with the inflammatory change extending to the peritoneal wall; There is no evidence of abscess; The findings are concerning for neoplasm as no diverticula are seen in the remainder of the colon; GI and general surgery consulted, Endoscopy is recommended for further evaluation if clinically indicated when patient is more stable. GI and surgical consults appreciated. Patient started on Cipro Flagyl and then add Zosyn, ID consulted , blood culture , PPI and pain management We resume antihypertensives as appropriate for hypertension 4 Diabetes mellitus, Glucose has been low at times - hold metformin- accu-check with SSI. - resume low acting insulin when appropriate. Acute on chronic kidney disease Appreciate nephrology consult. -monitor BMP and avoid nephrotoxic agents. DVT prophylaxis: Per CTS. On 05/25: Worsening leukocytosis 26K, with recent hypothermia>>mostly reactive post op , but due to intra abd infx , i will send for blood culture/ last one from 05/18 was negative, 05/26: WBC dropped to 23K, patient denied abdominal pain, no nausea or vomiting no bowel movement yet but he is about to get one, repeat CBC in a.m., ID to see patient ordered pro-calcitonin 05/27: WBC still trending down 17 K today mostly postop reaction, appreciate ID consultation, will follow along with ID and [facility], appreciate GI help, plan for EGD and colonoscopy once stable as an outpatient 05/27: WBC dropped to 16 K, discussed with ID she is okay to proceed with discharge on by mouth Cipro and Flagyl, I advised patient to see PCP or come to ED if any abdominal symptoms 05/28: Discussed with ID she agreed on discharging patient with Cipro Flagyl by mouth for 7 days, and follow as an outpatient [id number] encounter performed with the patient on discharge day, as well as physical exam, summary of hospitalization course and postdischarge plan has been D/W the patient. D/W nurse D/W caser up. Discharge medications reviewed and printed and signed, post discharge follow up visit with PCP and other specialist as well as Brief hospital course and discharge summary has been placed. Pt Condition on Discharge: Fair Discharge Disposition: Discharge to SNF Discharge Time: > 30 minutes Discharge Instructions DIET: Follow Instructions for: Heart Healthy Diet, Diabetic Diet Activities you can perform: See Additionl Instruction Other Activity Instructions: per pt AT REHAB Follow up Referrals: Appointment for Follow Up with [facility] with Balta Hickey DO PCP Follow-up Surgical with Flory Jensen MD New Medications: Ciprofloxacin (Cipro) 500 Mg Tab 500 MG PO BID Infection #14 Ref 0 TAB Insulin Detemir Inj (Levemir Inj) 1,000 unit/ 10 ML Vial 15 UNITS SQ HS Do not mix with any other Insulin. Blood Sugar Management Days 30 Ref 0 VIAL Metronidazole (Flagyl) 500 Mg Tab 500 MG PO TID Infection #21 Ref 0 TAB Amiodarone (Amiodarone) 200 Mg Tab 400 MG PO Q8HR post op #[address] (Aspirin EC) 81 Mg Tabdr 162 MG PO DAILY cad #30 TAB Atorvastatin (Lipitor) 40 Mg Tab 80 MG PO HS cad #30 TAB Insulin Aspart Inj (Novolog Inj) 100 Unit/Ml Inj 1 UNITS SQ ACHS dm Days 30 INJECTION Oxycodone-Acetaminophen (Oxycodone-Acetaminophen) 5-325 mg Tab 1 TAB PO Q3H PRN PAIN SCALE 1 TO 5 #20 TAB Continued Medications: Allopurinol (Allopurinol) 100 Mg Tab 100 MG PO DAILY Gout #30 Ref 0 TAB Carvedilol (Coreg) 25 Mg Tab 25 MG PO BID #60 Ref 0 TAB Gabapentin (Gabapentin) 300 Mg Cap 300 MG PO HS #30 Ref 0 CAP Glipizide (Glipizide) 5 Mg Tab 5 MG PO DAILY Take 30 minutes before a meal Blood Sugar Management #30 Ref 0 TAB Henrietta Oates MD May 28, 2016 14:41
--- NOTE | 2016-05-28 14:56 | PD.CAR.PN ---
CVT Progress Note Subjective/Hospital Course: 70/ male admitted 05/15 for chest pain,-also right upper quadrant abd pain with recent diarrhea and nausea, some loss of appetite, elevated WBC on admission of 21K, neg blood culture, neg UA underwent CT abdomen Abnormal imaging involving descending colon on imaging. Found to have a NSTEMI, + myocardial perfusion scan , underwent cardiac cath by Dr Hickey and found to multi vessel disease, we were consulted to eval for Coronary artery bypass grafting , EF 50% by Echo no valvular disease , CKD MYRA baseline creatinine 2.0 elevated to 4.0 / post IV fluid resuscitation, nephrology following/ now improved to 2.[address] (05/19/16)----> 1. Abnormal soft tissue density involving the midportion of the ascending colon with the inflammatory change extending to the peritoneal wall. There is no evidence of abscess. findings are concerning for neoplasm as no diverticula are seen in the remainder of the colon, Cholelithiasis. GI consulted , per GI suspected colitis. Barium enema would be of little benefit for evaluation Flexible sigmoidoscopy is not an option given the location of the inflammatory change. Not stable for anesthesia per cardiology. for colonoscopy , pt started on Cipro/flagyl cardiology. CDiff negative. Tumor markers unremarkable. Cont. Abx., General surgery consulted , Recommend ABX , EGD/ colonoscopy once cleared by cardiology PMH: CAD/ prior stent , DM , CKD, HTN 05/21 pt still has some mild right right upper quad abd pain , no chest pain, had BM yesterday tentatively scheduled for CABG on monday 05/22 right upper quad pain improving, still has some tenderness WBC count 12, low grade fever last pm,, now resolved f/u CBC in am , continue antibiotics no chest pain 05/23 no further fevers, WBC 13 still has some right upper quad abdominal tenderness with palpation continue antibiotics, pt will still need full colonoscopy and EGD post surgery, with possible pet scan as outpt still scheduled for surgery in am discussed with Dr Jensen 05/25/16 Doing well s/p CABG. No complaints today. 05/26/16 c/o insomnia, uncomfortable sleeping on his back 05/27/16 No complaints today. Doing well 05/28 stable for dc to rehab no further afib, continue amiodarone 400mg bid x 3 days , then 200mg bid x 3 days, then 200mg daily f/u with Dr Jensen in 2 weeks Objective: GENERAL: SKIN: Warm and dry./ sternal incision intact and well approximated HEAD: Normocephalic. EYES: No scleral icterus. No injection or drainage. NECK: Supple, trachea midline. No JVD or lymphadenopathy. CARDIOVASCULAR: Regular rate and rhythm without murmurs, gallops, or rubs. RESPIRATORY: Breath sounds equal bilaterally. No accessory muscle use. GASTROINTESTINAL: Abdomen less distended, minimal tenderness MUSCULOSKELETAL: No cyanosis, or edema. BACK: Nontender without obvious deformity. No CVA tenderness. Vital Signs Date Time Temp Pulse Resp B/P Pulse Ox O2 Delivery O2 Flow Rate FiO2 05/28/16 12:01 66 05/28/16 11:15 95 Room Air 05/28/16 11:15 98.7 64 22 111/57 95 05/28/16 11:00 65 05/28/16 10:00 62 05/28/16 09:00 81 05/28/16 08:45 91 Room Air 05/28/16 08:45 98.3 73 20 118/69 91 05/28/16 08:00 80 05/28/16 07:00 66 05/28/16 06:00 71 05/28/16 05:00 70 05/28/16 03:00 93 Room Air 05/28/16 03:00 98.3 70 20 129/64 93 05/28/16 03:00 69 05/28/16 01:00 68 05/27/16 23:00 98.4 63 25 102/50 94 05/27/16 23:00 Room Air 05/27/16 23:00 77 05/27/16 21:00 63 05/27/16 20:32 21 05/27/16 20:00 68 05/27/16 20:00 98.9 78 16 135/61 94 05/27/16 20:00 Room Air 05/27/16 18:01 70 05/27/16 17:01 77 05/27/16 16:00 71 05/27/16 15:30 95 Room Air 05/27/16 15:30 98.6 71 24 145/71 95 05/27/16 15:00 69 Labs: Laboratory Tests Test 05/28/16 07:28 White Blood Count 16.2 TH/MM3 (4.0-11.0) Red Blood Count 3.04 MIL/MM3 (4.50-5.90) Hemoglobin 8.4 GM/DL (13.0-17.0) Hematocrit 25.5 % (39.0-51.0) Mean Corpuscular Volume 83.9 FL (80.0-100.0) Mean Corpuscular Hemoglobin 27.8 PG (27.0-34.0) Mean Corpuscular Hemoglobin 33.2 % Concent (32.0-36.0) Red Cell Distribution Width 16.4 % (11.6-17.2) Platelet Count 469 TH/MM3 (150-450) Mean Platelet Volume 8.4 FL (7.0-11.0) Neutrophils (%) (Auto) 79.2 % (16.0-70.0) Lymphocytes (%) (Auto) 13.0 % (9.0-44.0) Monocytes (%) (Auto) 5.9 % (0.0-8.0) Eosinophils (%) (Auto) 1.5 % (0.0-4.0) Basophils (%) (Auto) 0.4 % (0.0-2.0) Neutrophils # (Auto) 12.9 TH/MM3 (1.8-7.7) Lymphocytes # (Auto) 2.1 TH/MM3 (1.0-4.8) Monocytes # (Auto) 1.0 TH/MM3 (0-0.9) Eosinophils # (Auto) 0.2 TH/MM3 (0-0.4) Basophils # (Auto) 0.1 TH/MM3 (0-0.2) CBC Comment AUTO DIFF Differential Total Cells 100 Counted Neutrophils % (Manual) 85 % (16-70) Lymphocytes % 8 % (9-44) Monocytes % 2 % (0-8) Neutrophils # (Manual) 14.6 TH/MM3 (1.8-7.7) Myelocytes 4 % (0-0) Promyelocytes 1 % (0-0) Differential Comment FINAL DIFF MANUAL Platelet Estimate HIGH (NORMAL) Platelet Morphology Comment NORMAL (NORMAL) Red Cell Morphology Comment NORMAL (NORMAL) Result Diagram: 05/28/16 0728 05/27/16 07 (1) SIRS (systemic inflammatory response syndrome) Plan: leukocytosis stable probable colitis , receiving cipro and flagyl decreased abd pain, still some tenderness will need close f/u post surgery will need f/u as outpt with general surgery and GI (2) NSTEMI (non-ST elevated myocardial infarction) Plan: ASA, statin , , (3) Renal insufficiency Plan: nephrology following creatinine at baseline avoid nephrotoxins (4) Abdominal mass Plan: GI following, appreciate general surgery consult continue ABX , probable colitis will need colonoscopy and EGD once recovered from CV surgery , tumor markers neg will need f/u with General surgery as outpt for his gallstones (5) Carotid arterial disease Plan: ICA left 241 will need outpt f/u with vascular surgery to monitor pt is asymptomatic Falguni Sparrow May 28, 2016 14:56
[2016-05-28] MEDS: CIPROFLOXACIN 400 MG PREMIX 200 ML IV SCH (15:07)
[2016-05-28] MEDS ORDERED: AMIODARONE 200 MG TAB PO SCH (21:00)
--- NOTE | 2016-06-11 10:04 | RSPPFT ---
DATE OF PROCEDURE: 05/22/16 COMMENTS: Spirometry is consistent with severe airways restriction. I cannot exclude air trapping without a full pulmonary function test and lung volumes. IMPRESSION:
== END 2016-05-28 18:00 | DRG 233 ==
LOC: NEPE 12:53 → NEDA 16:27 → HCPC 19:03 → HCVR 05-24 11:45 → HCPC 05-25 17:00
PROVIDERS: ADMIT Hospitalist; ATTEND Hospitalist
PROC: 4A023N7 Measurement of Cardiac Sampling and Pressure, Left Heart, Percutaneous Approach (ICD-10-PCS; 2016-05-20)
PROC: B2111ZZ Fluoroscopy of Multiple Coronary Arteries using Low Osmolar Contrast (ICD-10-PCS; 2016-05-20)
PROC: 021009W Bypass Coronary Artery, One Artery from Aorta with Autologous Venous Tissue, Open Approach (ICD-10-PCS; 2016-05-24)
PROC: 06BQ4ZZ Excision of Left Saphenous Vein, Percutaneous Endoscopic Approach (ICD-10-PCS; 2016-05-24)
PROC: 5A1221Z Performance of Cardiac Output, Continuous (ICD-10-PCS; 2016-05-24)
PROC: B246ZZ4 Ultrasonography of Right and Left Heart, Transesophageal (ICD-10-PCS; 2016-05-24)
PROC: 02100Z9 Bypass Coronary Artery, One Artery from Left Internal Mammary, Open Approach (ICD-10-PCS; principal; 2016-05-24 07:07)
DX: I21.4 Non-ST elevation (NSTEMI) myocardial infarction (principal); N17.0 Acute kidney failure with tubular necrosis; R65.10 Systemic inflammatory response syndrome (SIRS) of non-infectious origin without acute organ dysfunction; E11.22 Type 2 diabetes mellitus with diabetic chronic kidney disease; E11.649 Type 2 diabetes mellitus with hypoglycemia without coma; N18.3 Chronic kidney disease, stage 3 (moderate); E87.5 Hyperkalemia; J98.11 Atelectasis; G62.9 Polyneuropathy, unspecified; I12.9 Hypertensive chronic kidney disease with stage 1 through stage 4 chronic kidney disease, or unspecified chronic kidney disease; K80.80 Other cholelithiasis without obstruction; I25.110 Atherosclerotic heart disease of native coronary artery with unstable angina pectoris; E78.5 Hyperlipidemia, unspecified; I65.22 Occlusion and stenosis of left carotid artery; K52.9 Noninfective gastroenteritis and colitis, unspecified; D64.9 Anemia, unspecified; M54.9 Dorsalgia, unspecified; K59.00 Constipation, unspecified; G47.00 Insomnia, unspecified; Z79.4 Long term (current) use of insulin; Z95.5 Presence of coronary angioplasty implant and graft; Z87.442 Personal history of urinary calculi; Z80.1 Family history of malignant neoplasm of trachea, bronchus and lung
CPT/HCPCS: 71010; 71250; 74150; 74176; 76705; 76937; 78452; 80048; 80053; 80061; 80069; 80074; 80076; 81001; 82105; 82150; 82272; 82378; 82550; 82552; 82570; 82947; 82948; 83605; 83690; 83735; 83880; 84100; 84132; 84145; 84156; 84165; 84439; 84443; 84481; 84484; 85007; 85014; 85025; 85027; 85610; 85730; 86021; 86038; 86301; 86850; 86900; 86901; 86920; 87040; 87086; 87493; 87641; 93005; 93017; 93306; 93318; 93454; 93880; 93970; 93998; 94002; 94010; 94150; 94640; 94667; 94668; 96374; 96375; A9502; C1769; C1893; C9399; J0131; J0282; J0690; J0744; J1644; J1815; J2150; J2250; J2270; J2440; J2543; J2720; J2785; J2930; J3010; J3370; J3475; J3480; J7030; J7040; J7050; J7120; J7613; P9047; Q0163; Q9963; Q9967